=== PATIENT | female | born 1960 | race Caucasian/White ===

== ENCOUNTER 2017-05-31 01:48 | Inpatient (IN) | payer OTHER ==
[2017-05-31] VITALS (15 sets, daily range): BP systolic 86–203; BP diastolic 41–144; PULSE 80–99; TEMP 36.1–36.9; O2SAT 94–100; Ht 157.5 cm; Wt 48.6 kg
[~2017-05-31] VITALS: Ht 157.5 cm; Wt 48.6 kg
[2017-05-31] MEDS ORDERED: ACETAMINOPHEN 325 MG TAB PO PRN (10:45)
[2017-05-31] MEDS ORDERED: ONDANSETRON INJ 2 MG/ML 2 ML VIAL IV PRN (10:45)
[2017-05-31] MEDS ORDERED: POLYETHYLENE (MIRALAX) 17 GM PACK PO PRN (10:45)
[2017-05-31] MEDS ORDERED: LEVO1TAB33 PO (10:55)
[2017-05-31] MEDS ORDERED: BENZ100C84 PO (10:55)
[2017-05-31] MEDS ORDERED: CLON1TAB3 PO (10:55)
[2017-05-31] MEDS ORDERED: SYMIN (10:55)
[2017-05-31] MEDS ORDERED: RTL20 PO (10:55)
[2017-05-31] MEDS ORDERED: DPRSCR15 TOP (10:55)
[2017-05-31] MEDS ORDERED: FLUO20CA35 PO (10:55)
[2017-05-31] MEDS ORDERED: PRED10TA PO (10:55)
[2017-05-31] MEDS ORDERED: FNTTP100 TD (10:56)
[2017-05-31] MEDS ORDERED: SPIR50TA2 PO (10:56)
[2017-05-31] MEDS ORDERED: PATIENT'S ALLERGY INFO NEEDS ENTERED SCH (11:00)
[2017-05-31] MEDS ORDERED: FLUO1TAB12 PO (11:05)
[2017-05-31] MEDS ORDERED: METO1TAB55 PO (11:43)
[2017-05-31] MEDS ORDERED: FRS/40 PO (11:43)
[2017-05-31] MEDS ORDERED: METH10TA4 PO (11:43)
[2017-05-31] MEDS ORDERED: PROP10TA7 PO (11:43)
[2017-05-31] MEDS ORDERED: RIFA550T2 PO (11:43)
[2017-05-31] MEDS ORDERED: POTA1CAP2 PO (11:43)
[2017-05-31] MEDS ORDERED: MOME6000 (11:43)
[2017-05-31] MEDS ORDERED: METH20CA PO (11:43)
[2017-05-31] MEDS ORDERED: MAGN400T5 PO (11:43)
[2017-05-31] MEDS ORDERED: OMEP20TA PO (11:43)
[2017-05-31] MEDS ORDERED: ALBU18002 INH (11:53)
--- NOTE | 2017-05-31 12:10 | History and Physical ---
History & Physical Date & Time of Service: May 31, 2017 at 11:48 Chief Complaint: Sclerosis, Collapsed Rt Lung, Needs Bronch Primary Care Physician: Julian Padilla D.O. History of Present Illness Source: patient, family This is a 57 yo F with PMHx of HTN, esophageal varices, dysphagia, history of metabolic coma 2 last being 5 years ago, tobacco abuse disorder smoking 1-1/2 packs per day, chronic hepatitis C, chronic pancreatitis, history of liver tumor removal within the past year which was reported as benign, ADD, depression and anxiety who presents today after 1.5 weeks of increased shortness of breath, dyspnea on exertion, cough with minimal sputum production. The patient reports she has been using Symbicort and pro-air inhalers more often in the past 1 week. She denies other associated sx such as chest pain, flutter, palpitations. She was seen in urgent care center on 05/30/17 for increased shortness of breath and MARSH. At that time she was diagnosed with a right middle lobe pneumonia and given prescription for Levaquin, prednisone and Tessalon Perles. Patient reports she took one dose of Levaquin and one Tessalon Perles. Of note, she had bad reactions with prednisone in the past where she gets extremely irritable so did not take that. After being at urgent care, radiology re-read the report and noted that she had a right middle lobe lung collapse. It was thought this may be secondary to underlying infection, mucus plugging or malignancy.She was instructed to go back to the hospital. While at [facility] a CT of the chest with I/V contrast and CXR 2 view was obtained. [facility] on 05/30/2017 showed WBC= 4.4, hemoglobin=12 , platelets=98. Neutrophils were 73 and leukocytes 15. Sodium was 144, potassium 3.3, chloride 109 and CO2 27. Albumin 2.6 troponin was less than 0.02. The patient is being transferred to our facility from [facility] for needs for pulmonary intervention with possible bronchoscopy. Past Medical/Surgical History Metabolic coma 2 secondary to narcotic withdrawal Dysphasia Esophageal varices Chronic alcohol use disorder Chronic tobacco abuse Chronic hepatitis C Chronic pain syndrome Chronic narcotic use Pancreatitis History of tumor removal [facility] in the past 1 year History of previous tracheostomy History of esophageal stricture with occasional dilatation required Family History Maternal aunt-cervical cancer Mother-alcohol use Father-alcohol use Brother- alcohol use, COPD Sisters 2-alive and well, no PMH Social History Patient currently employed as a machinery cleaner Smoking Status: Current Every Day Smoker Smokeless Tobacco Use: No Alcohol Use: Drug Use: none Marital Status: (and from x 15 yr) Housing status: lives alone Allergies Coded Allergies: Amoxicillin (Verified Adverse Reaction, Intermediate, nausea, diarrhea, ) Clavulanic Acid (Verified Adverse Reaction, Intermediate, nausea, diarrhea , 05/31/17) Cefuroxime (Verified Adverse Reaction, Unknown, nausea, diarrhea, 05/31/17) Doxycycline (Verified Adverse Reaction, Unknown, nausea, diarrhea, 05/31/17 ) Morphine (Verified Adverse Reaction, Unknown, nausea, vomiting, 05/31/17) Home Medications Scheduled Albuterol Sulfate (Proair Respiclick), 2 PUFF INH BID Budesonide/Formoterol Fumarate (Symbicort 160-4.5 Mcg/Act), 2 PUFFS BID Clonazepam (Klonopin), 1 TAB PO BID Fentanyl (Fentanyl), 100 MCG TD Q2D Fluoxetine Hcl (Fluoxetine Hcl), 60 MG PO DAILY Furosemide (Lasix), 40 MG PO DAILY Magnesium Oxide (Mag-Ox), 1 TAB PO TID Methylphenidate (Ritalin), 10 MG PO TID Methylphenidate HCl (Methylphenidate HCl ER), 20 MG PO QAM Metoclopramide Hcl (Reglan), 0.5 TAB PO QID Mometasone Furoate (Nasal) (Mometasone Furoate), 2 SPRAY NA DAILY Omeprazole (Omeprazole), 2 TAB PO DAILY Potassium Chloride (Potassium Chloride Er), 2 CAP PO DAILY Propranolol (Inderal), 10 MG PO BID Rifaximin (Xifaxan), 550 MG PO BID Spironolactone (Aldactone), 50 MG PO DAILY Review of Systems Constitutional: No fever, No chills, No sweats Eyes: No redness, No diplopia ENT: No sore throat, No trouble swallowing Respiratory: + cough, + sputum, + wheezing, + shortness of breath, + dyspnea on exertion, No hemoptysis Cardiovascular: No chest pain, No edema Abdomen: No pain, No nausea, No vomiting, No diarrhea, No constipation Musculoskeletal: + problem reported (lower back pain), No joint pain, No swelling, No calf pain Neurologic: No memory loss, No numbness/tingling Psychiatric: + depression symptoms, + anxiety Endocrine: No fatigue Hematologic / Lymphatic: No abnormal bleeding/bruising, No night sweats Integumentary: No rash, No itch Physical Exam Vital Signs Date Time Temp Pulse Resp B/P (MAP) Pulse Ox O2 Delivery O2 Flow Rate FiO2 05/31/17 10:18 36.3 90 17 157/84 (108) 96 General Appearance: WD/WN, no apparent distress, + pertinent finding (smells of tobacco smoke) Head: normocephalic, atraumatic Eyes: PERRL, EOMI ENT: hearing grossly normal, pharynx normal, + pertinent finding (MMM) Neck: supple, no JVD Respiratory/Chest: + pertinent finding (on room air, coarse rhonchi and bronchial breath sounds throughout on the right, no wheezing. Breath sounds throughout on the left. Patient is not dyspneic with conversation. No accessory muscle use.) Cardiovascular: regular rate, rhythm, no JVD, no murmur Abdomen/GI: normal bowel sounds, soft, + pertinent finding (mild tenderness with palpation in the right upper quadrant) Back: normal inspection, no muscle spasm, + pertinent finding (no point tenderness) Extremities/Musculoskelatal: no calf tenderness, no pedal edema Neurologic/Psych: alert, normal mood/affect, oriented x 3 Skin: normal color, warm/dry, + pertinent finding (multiple excoriations over lower extremities) Diagnostics Laboratory Results Results Past 24 Hours Test 05/31/17 10:41 05/31/17 11:44 Range/Units Microbiology Results 05/31/17 Blood Culture, Ordered Pending 05/31/17 Blood Culture, Ordered Pending Diagnostic Radiology CT of the chest with IV contrast per chart Chest x-ray 2 view per chart Discus been sent from [facility]-and has been asked to be uploaded into the system - please refer EKG Normal sinus rhythm No signs of ST wave inversions or ischemia Heart rate 80 bpm PVR equals 144 QRS duration 84 QT/QTc 388/447 PRT axis 76, 77, 76 Impression Assessment and Plan This is a 57 yo F with PMHx of HTN, esophageal varices, dysphagia, history of metabolic coma 2 last being 5 years ago, tobacco abuse disorder smoking 1-1/2 packs per day, chronic hepatitis C, chronic pancreatitis, history of liver tumor removal within the past year which was reported as benign, who presents today after 1.5 weeks of increased shortness of breath, dyspnea on exertion, cough with minimal sputum production. Patient is a direct transfer from [facility] to our facility regarding a right middle lobe collapse Right middle lobe collapse -Admit to [facility] -Pulmonary consulted, spoke with Dr. Rowe at bedside, likely will be doing bronchoscopy today as the patient is nothing by mouth -Patient is currently on room air without use of accessory muscles -We will continue patient on Levaquin, mucolytic, aggressive pulmonary toilet Chronic tobacco abuse -Will order a 21 g nicotine patch -Encourage the patient to stop smoking Chronic hepatitis C Esophageal varices Liver cirrhosis Recurrent pancreatitis - Checking LFTs - Continue patient on Xifaxan, lactulose, propranolol - Patient follows with in [place] Dysphagia - Consider a speech evaluation she is here as patient reports having some difficulty with swallowing large pills - Continue Reglan Hypertension, essential - Continue propranolol 10 mg bid Anxiety/depression -Continue on Prozac 60 mg daily, Klonopin 10 mgbid prn ADD - Continue Ritalin ER 20 mg QAM and then short acting 10 mg TID as directed. - Follows with outpatient psych with [facility] History of liver tumor removal - Completed at [facility] within the past 1 year patient reports this was benign DVT PPI ask: Teds, SCDs CODE STATUS: full code Disposition: Patient from home, lives alone, but 15 years, possible bronchoscopy today. Possible discharge in 1-2 days pending pulm recs. PA Physician Supervision Note: I interviewed and examined the patient. Discussed with Kaylynn Duvall PAC and agree with findings and plan as documented in the note. Any exceptions or clarifications are listed here: None ' Patient was seen both pre-and post-bronchoscopy all questions were answered her ex- was at the bedside she was slightly groggy post procedure but states she is breathing better samples were obtained during her procedure and Dr. Rowe stated the patient has significant inflammation and concern for aspiration. 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 During the procedure her blood pressure was elevated subsequently she was given hydralazine subsequent to the procedure her blood pressure was lower. She is markedly thin in more mild distress likely having chronic COPD with accessory muscle use of breathing Lungs have coarse breath sounds in both wilkerson right greater than left cardiac exam is regular Pneumonia concern for aspiration continue levofloxacin adding clindamycin foam in memory medicine expertise waiting culture results Multiple other medical problems including psychological problems chronic hepatitis C esophageal varices we'll continue her outpatient meds as outlined in the above note Documented By: Gary Jim Level of Care Med/Surg Advanced Directives Existing Advance Directive: No Existing Living Will: No Existing Power of Crusher And Binder Operator: No Existing Health Care Proxy: No Resuscitation Status FULL RESUSCITATION VTE Prophylaxis VTE Risk Assessment Done? Y/N: Yes Risk Level: Low Given or contraindicated: T.EEvelia Martinez, SCD's
--- NOTE | 2017-05-31 12:15 | Procedure Note ---
Pre-Mod Sedation Assessment General Date of Moderate Sedation: May 31, 2017. Vital Signs: Vital Signs Past 12 Hours Date Time Temp Pulse Resp B/P (MAP) Pulse Ox O2 Delivery O2 Flow Rate FiO2 05/31/17 11:30 36.3 90 17 157/84 96 Room Air 05/31/17 10:18 36.3 90 17 157/84 (108) 96 Review Cardiovascular: regular rate, rhythm, no edema, normal peripheral pulses Abdomen: normal bowel sounds, non tender, soft, no organomegaly, no pulsatile mass Lungs: no respiratory distress, no accessory muscle use, + crackles Airway Class: II Pre-Sedation Airway Assessment Oral Cavity: Dentures Able to Visualize Vocal Cords: Yes Short Thick Neck: No Hx of Sleep Apnea: No Smoking Status: Current Every Day Smoker Mallampati Classification: Class II ASA Classification: Class III Procedure Planning Contraindications-for Mod Sed: None Yes Notes The planned sedation has been discussed with the patient and consent obtained. I have identified the patient, determined the appropriateness of sedation and have assessed the patient immediately prior to the procedure. All medicine(s) and interventions are by my order.
[2017-05-31 12:42] LABS: INR 1.2 (0.9-1.1); PARTIAL THROMBOPLASTIN RATIO 1.1; PROTHROMBIN TIME (PATIENT) 12.5 SECONDS (9.0-12.0)
[2017-05-31] MEDS ORDERED: LIDOCAINE HCL 2% LOCAL 50ML VIAL INFIL ONE (12:44)
[2017-05-31] MEDS ORDERED: MIDAZOLAM HCL 5 MG/ML 1 ML VIAL IV ONE ×2 (12:44→15:00)
[2017-05-31] MEDS ORDERED: FENTANYL CITRATE INJ 50 MCG/1 ML 2 ML VIAL IV ONE ×2 (12:44→15:00)
[2017-05-31] MEDS ORDERED: LIDOCAINE 4% W/AFRIN NASAL SOLN 4ML ONE (12:44)
--- NOTE | 2017-05-31 12:45 | Pulmonary Consultation ---
History General Date of Service: May 31, 2017. Stated Complaint: Sclerosis, Collapsed Rt Lung, Needs Bronch HPI The patient is a 57 year old female who presents to [facility] with complaints of Sclerosis, Collapsed Rt Lung, Needs Bronch. The patient's primary care provider is Julian Padilla D.O.. Ms. España is a 57-year-old female with history of alcohol abuse, alcoholic cirrhosis, esophageal varices, chronic thrombocytopenia, COPD (FEV1 unknown, Symbicort and pro-air), who presents as a direct admit from [facility]. Patient states that she has had 2-3 day history of worsening shortness of breath and dyspnea on exertion and nonproductive cough. She bent over and felt a "pop" sensation in her back. She has had back pain since associated with shortness of breath. She denies any lower extremity tingling, numbness, incontinence or lower extremity weakness. She denies any fever, chills, chest painhemoptysis or weight loss. She does admit to decreased appetite. She needs on the day. This is normal for her. She denies any lower extremity edema , paroxysmal dyspnea or orthopnea. She is history of anxiety and depression in use is Klonopin on an intermittent basis. Last use was yesterday. She drinks 1 -2 drinks per week of vodka. She also uses methylphenidate for ADD. She states that she's never seen a audio visual collections coordinator in the past, but was prescribed Symbicort and albuterol. She continues to smoke 2 packs per day. She has unlimited exercise tolerance. She denies any sick contacts or recent travel. Apparently she was seen at [facility] urgent care center and thought to have pneumonia of right middle lobe. Given Levaquin, prednisone and Tessalon Perles. Discharged home.Review of imaging, recalled back to hospital for further evaluation for right middle lobe atelectasis. She presents to our hospital for further evaluation. Laboratory from [facility] on 05/30/2017 showed a white blood cell count of 4.4, hemoglobin of 12, platelets of 98. Neutrophils were 73 and leukocytes 15. Sodium was 144, potassium 3.3, chloride 109 and CO2 27. Albumin 2.6 troponin was less than 0.02. Upon arrival to the ER temperature 36.3, pulse 90, respiratory rate 70, blood pressure 154/84 saturating 96% on room air. Labs pending. Imaging is being uploaded. EKG normal sinus rhythm 80 bpm. Historian: patient Onset: last week Complaint Status: persistent Quality of Pain: aching Modifying Factors: pain medication Review of Systems Constitutional: reports: as stated in HPI Eyes: reports: as stated in HPI ENT: reports: as stated in HPI Cardiovascular: reports: as stated in HPI Respiratory: reports: as stated in HPI Gastrointestinal: reports: as stated in HPI Genitourinary - Female: reports: as stated in HPI Musculoskeletal: reports: as stated in HPI Integumentary: reports: as stated in HPI Neurologic: reports: as stated in HPI Psychiatric: reports: as stated in HPI Endocrine: as stated in HPI Hematologic / Lymphatic: as stated in HPI All Other Symptoms All Other Systems: Reviewed and Negative Past Medical History Past Medical History: COPD FEV1 unknown Hepatitis C Alcohol cirrhosis Esophageal varices status post banding Esophageal stricture Chronic pancreatitis 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 Brother with COPD. Social History She works as a help desk representative. She drinks about 2 drinks of vodka per week. Previous heavy alcohol use. She denies any illicit drug use. She smokes about 2 packs per day started smoking at age 10. Approximate pack year history is 80 year pack history. She currently Hx Tobacco Use In Past Year?: Yes Smoking Status: Current Every Day Smoker Marital status: (and from x 15 yr) Housing status: lives alone Allergies Coded Allergies: Amoxicillin (Verified Allergy, Intermediate, nausea, diarrhea, 05/31/17) Clavulanic Acid (Verified Allergy, Intermediate, nausea, diarrhea, 05/31/17 ) Cefuroxime (Verified Allergy, Unknown, nausea, diarrhea, 05/31/17) Doxycycline (Verified Allergy, Unknown, nausea, diarrhea, 05/31/17) Morphine (Verified Allergy, Unknown, nausea, vomiting, 05/31/17) Current Medications Reported Home Medications Medications Dose Route/Sig Max Daily Dose Days Date Category Dose Instructions Proair Respiclick (Albuterol Sulfate) 108 Mcg/Act Aer 2 Puff INH BID 05/31/17 Reported Inderal (Propranolol HCl) 10 Mg Tab 10 Mg PO BID 05/31/17 Reported Mometasone Furoate (Mometasone Furoate (Nasal)) 50 Mcg/Act Spr 2 [place] NA DAILY 05/31/17 Reported Omeprazole 20 Mg Tab 2 Tab PO DAILY 90 05/31/17 Reported Potassium Chloride Er (Potassium Chloride) 10 Meq Cap 2 Cap PO DAILY 90 05/31/17 Reported Mag-Ox (Magnesium Oxide) 400 Mg Tab 1 Tab PO TID 30 05/31/17 Reported Lasix (Furosemide) 40 Mg Tab 40 Mg PO DAILY 05/31/17 Reported Reglan (Metoclopramide Hcl) 10 Mg Tab 0.5 Tab PO QID 30 05/31/17 Reported Xifaxan (Rifaximin) 550 Mg Tab 550 Mg PO BID 30 05/31/17 Reported Ritalin (Methylphenidate HCl) 10 Mg Tab 10 Mg PO TID 05/31/17 Reported 10 am, 2 pm, and 6 pm Methylphenidate HCl ER (Methylphenidate HCl) 20 Mg Cap 20 Mg PO QAM 05/31/17 Reported Fluoxetine Hcl 20 Mg Tab 60 Mg PO DAILY 05/31/17 Reported Aldactone (Spironolactone) 50 Mg Tab 50 Mg PO DAILY 30 05/31/17 Reported Fentanyl 100 Mcg Tdsy 100 Mcg TD Q2D 05/31/17 Reported Klonopin (Clonazepam) 1 Mg Tab 1 Tab PO BID 30 05/31/17 Reported Symbicort 160-4.5 Mcg/Act (Budesonide/Formoterol Fumarate) 60 Puffs/Inhaler Aero 2 Puffs BID 05/31/17 Reported Physical Physical Exam Vital Signs: Date Time Temp Pulse Resp B/P (MAP) Pulse Ox O2 Delivery O2 Flow Rate FiO2 05/31/17 11:30 36.3 90 17 157/84 96 Room Air 05/31/17 10:18 36.3 90 17 157/84 (108) 96 General Appearance: NO APPARENT DISTRESS, uncomfortable Head: NORMOCEPHALIC, ATRAUMATIC Eyes: PERRLA, NO DISCHARGE, EOMI, SCLERAE NORMAL, CONJUNCTIVAE NORMAL ENT: NORMAL MOUTH EXAM, dentures Neck: NORMAL RANGE OF MOTION, NO TENDERNESS, TRACHEA MIDLINE, NO STRIDOR, SUPPLE Respiratory: NO RESPIRATORY DISTRESS, NO TENDERNESS, rhonchi Cardiovasular: REGULAR RATE/RHYTHM, NORMAL S1S2 Abdomen: NON TENDER, NORMAL BOWEL SOUNDS, NO REBOUND Back: NORMAL INSPECTION, NO MIDLINE TENDERNESS, NO CVA TENDERNESS Upper Extremities: NO EDEMA, NO DEFORMITY, NORMAL ROM Lower Extremities: NO EDEMA, NO DEFORMITY, NORMAL ROM Neuro: ALERT, ORIENTED x 3, NORMAL MOTOR EXAM, NORMAL SENSATION, NORMAL CEREBELLAR EXAM, NORMAL SPEECH, NORMAL MEMORY Psychiatric: NORMAL AFFECT, NO SUICIDAL IDEATION, CONTRACTS FOR SAFETY Diagnostics Labs Results Past 24 Hours Test 05/31/17 10:41 05/31/17 11:44 Range/Units Microbiology Results 05/31/17 Blood Culture, Ordered Pending 05/31/17 Blood Culture, Ordered Pending Impression Assessment and Plan Right middle lobe atelectasis COPD FEV1 unknown Tobacco use disorder Anxiety disorder ADD History of alcohol abuse Hepatitis C Esophageal varices Esophageal stricture Chronic thrombocytopenia Back pain Ms. España is a 57-year-old female with multiple medical problems. She presents as a direct admit from [facility]. She has had several day history of shortness of breath and dyspnea on exertion. Imaging showed possible right middle lobe pneumonia. She was treated with antibiotics and discharge however on further review was thought to have right middle lobe atelectasis and collapse. This may be secondary to underlying infection, mucus plugging or malignancy. She was transferred for further evaluation and possible bronchoscopy. I reviewed patient's medical history and images as well as laboratory data. Consent obtained for moderate sedation as well as bronchoscopy. She is currently nothing by mouth. Continue with Levaquin for possible pneumonia. I would hold off on prednisone. Smoking Cessation advised. Recommend nicotine patch. Continue with inhaled corticosteroids and nebulizers. She may need further imaging to evaluate for back pain. Provide adequate pain control as she is likely splinting from pain. Recommend incentive spirometry. Continue PPI as well as nasal spray. Use supplemental oxygen when necessary if needed. Aspiration precautions. In the meantime, we'll proceed with bronchoscopy, pending follow-up labs and imaging. Please continue to keep her nothing by mouth. Plan for bronchoscopy at [address] Plan [address] with Dr[address] Jim.
[2017-05-31] MEDS: NICOTINE 21 MG/24 HR TDSY TD SCH (12:57)
[2017-05-31] MEDS: METOCLOPRAMIDE HCL 5 MG TAB PO SCH ×3 (12:57→20:42)
[2017-05-31 12:58] LABS: CALCIUM 8.7 mg/dl (8.5-10.1); CREATININE 0.58 mg/dl (0.60-1.20)
[2017-05-31 13:00] LABS: BASO % 0.5 %; BASO ABS # 0.02 K/uL (0-0.2); COMPLETE YES; EOS % 1.8 %; HEMATOCRIT 38.8 % (37-47); IG% 0.2 %; LYMPH % 17.1 %; LYMPH ABS # 0.74 K/uL (1.2-3.4); MEAN CELL VOLUME 92.4 fL (80-100); MEAN CORPUSCULAR HEMOGLOBIN 31.4 pg (25-34); MEAN PLATELET VOLUME 12.3 fL (7.4-10.4); MONO % 8.8 %; NEUT % 71.6 %; PLATELET COUNT 106 K/uL (130-400); PLT ESTIMATE DECREASED; WHITE BLOOD COUNT 4.33 K/uL (4.8-10.8)
[2017-05-31 13:08] LABS: URINE APPEARANCE CLEAR (CLEAR); URINE BILIRUBIN NEG (NEG); URINE COLOR YELLOW; URINE NITRITE NEG (NEG); URINE SPECIFIC GRAVITY 1.019 (1.000-1.030); UROBILINOGEN NEG (NEG); ZZUR CULT IF INDIC CLEAN CATCH NO
[2017-05-31 13:09] LABS: MANUAL MICROSCOPIC REQUIRED? NO; REVIEW REQ? NO
[2017-05-31] MEDS ORDERED: INFLUENZA ADMINISTRATION CHARGE ONE (13:15)
[2017-05-31] MEDS ORDERED: INFLUENZA VIRUS QUAD VACCINE 0.5 ML SYR IM. ONE (13:15)
[2017-05-31 13:35] LABS: BENZODIAZEPINE, URINE NEG (NEG); COCAINE,URINE NEG (NEG); PHENCYCLIDINE, URINE NEG (NEG)
[2017-05-31] MEDS ORDERED: LEVOFLOXACIN / D5W 750 MG in PREMIXED IN D5W 150 ML IV SCH (14:00)
[2017-05-31] MEDS ORDERED: METHYLPHENIDATE HCL 10 MG TAB PO SCH (14:00)
[2017-05-31] MEDS ORDERED: HydrALAZINE HCL 20 MG/ML VIAL ONE (14:38)
--- NOTE | 2017-05-31 14:41 | Procedure Note ---
Pre-Mod Sedation Assessment General Date of Moderate Sedation: May 31, 2017. Vital Signs: Vital Signs Past 12 Hours Date Time Temp Pulse Resp B/P (MAP) Pulse Ox O2 Delivery O2 Flow Rate FiO2 05/31/17 12:02 36.3 90 17 157/84 96 Room Air 05/31/17 11:30 36.3 90 17 157/84 96 Room Air 05/31/17 10:18 36.3 90 17 157/84 (108) 96 Review Cardiovascular: regular rate, rhythm, no edema, normal peripheral pulses Abdomen: normal bowel sounds, non tender, soft, no organomegaly, no pulsatile mass Lungs: no respiratory distress, no accessory muscle use, + crackles Airway Class: II Pre-Sedation Airway Assessment Oral Cavity: Dentures Able to Visualize Vocal Cords: Yes Short Thick Neck: No Hx of Sleep Apnea: No Smoking Status: Current Every Day Smoker Notes The planned sedation has been discussed with the patient and consent obtained. I have identified the patient, determined the appropriateness of sedation and have assessed the patient immediately prior to the procedure. All medicine(s) and interventions are by my order.
[2017-05-31] MEDS ORDERED: NURSING VERBAL MED ORDER ONE (14:45)
--- NOTE | 2017-05-31 14:47 | Procedure Note ---
Procedure Note Date of Service May 31, 2017. Procedure Note Procedure: Bronchoscopy, conscious sedation Consent: Obtained through the patient placed into the chart Pre-procedural diagnosis: RML atelectasis Post-procedural diagnosis: Pneumonia Start time: 1414 End time: 1430 Total time: 16 minutes Analgesia: 2% liquid lidocaine: Via nebulizer 4% gel lidocaine: Via right naris 2% liquid lidocaine: Via bronchoscopy Sedation: Versed IV: 4 mg Fentanyl IV: 100 g Procedure: The Olympus video bronchoscope was used for this procedure and passed down through the left naris Right naris/posterior naris/posterior oropharynx: Anatomically within normal limits Glottis: Anatomically within normal limits Vocal cords: Proper abduction and abduction, anatomically within normal limits Subglottis/trachea/Marla: Anatomically within normal limits Right bronchial tree: Right mainstem bronchus: Anatomically within normal limits Right upper lobe: Anatomically within normal limits Bronchus intermedius: Anatomically within normal limits Right middle lobe: Anatomically within normal limits Right lower lobe: Anatomically within normal limits Findings: Mucopurulent secretions throughout; No endobronchial lesions seen. Suctioned until clear Left bronchial tree: Left mainstem bronchus: Anatomically within normal limits Left upper lobe: Anatomically within normal limits Lingula: Anatomically within normal limits Left lower lobe: Anatomically within normal limits Findings: Mucopurulent secretions throughout; No endobronchial lesions seen. Suctioned until clear. Bronchial alveolar lavage: RML EBL: Complications: Elevated BP 220/110, given hydralazine 10 mg. Recommendations: Treat for pneumonia. Follow up BAL cultures.
[2017-05-31] MEDS: CHECK FENTANYL PATCH PLACEMENT SCH ×2 (15:29→23:54)
--- NOTE | 2017-05-31 15:29 | DIAGNOSTIC IMAGING REPORT ---
CHEST ONE VIEW PORTABLE CLINICAL HISTORY: Pneumonia dyspnea COMPARISON STUDY: No previous studies for comparison. FINDINGS: Poorly defined interstitial infiltrate right base. Lungs otherwise appear clear. Diaphragms are smooth. IMPRESSION: Poorly defined interstitial infiltrate right base. The above report was generated using voice recognition software. It may contain grammatical, syntax or spelling errors. Electronically signed by: Lane Kim M.D. 05/31/2017 3:28 PM Dictated Date/Time: 05/31/2017 3:27 PM
[2017-05-31] MEDS ORDERED: POTASSIUM CHLORIDE 20 MEQ TABCR PO STA (15:33)
[2017-05-31] MEDS: POTASSIUM CHLR 10 MEQ / WTR 10 MEQ in PREMIXED WATER 100 ML IV SCH ×2 (16:59→21:24)
[2017-05-31] MEDS ORDERED: ALBUT/IPRATROP 3MG/0.5MG NEB 3 ML VIAL INH PRN (17:00)
[2017-05-31] MEDS: METHYLPHENIDATE HCL 10 MG TAB PO SCH ×2 (17:08→18:00)
[2017-05-31] MEDS: MAGNESIUM OXIDE 400 MG TAB PO SCH ×2 (17:08→20:42)
[2017-05-31] MEDS: CLINDAMYCIN HCL 150 MG CAP PO SCH (17:08)
[2017-05-31] MEDS: ALBUTEROL HFA 8 GM INHALER INH SCH (20:38)
[2017-05-31] MEDS: BUDESONIDE/FORMOTEROL FUMARATE 160/4.5 60 PUFFS/INHALER INH SCH (20:39)
[2017-05-31] MEDS: RIFAXIMIN TAB 550 MG TAB PO SCH (20:42)
[2017-05-31] MEDS: GUAIFENESIN 600 MG TABCR PO SCH (20:42)
[2017-05-31] MEDS: PROPRANOLOL HCL 10 MG TAB PO SCH (20:42)
[2017-05-31] MEDS: CLONAZEPAM 1 MG TAB PO SCH (22:43)
[2017-06-01] VITALS: O2SAT 96
[2017-06-01] MEDS: CLINDAMYCIN HCL 150 MG CAP PO SCH ×3 (00:02→12:25)
[2017-06-01 00:07] VITALS: BP 139/78; PULSE 73; TEMP 36.7; O2SAT 100
[2017-06-01] MEDS ORDERED: LEVO-459 PO (07:15)
[2017-06-01] MEDS ORDERED: CLC/300 PO (07:15)
--- NOTE | 2017-06-01 07:16 | Discharge Instructions ---
Discharge Instructions Date of Service Jun 01, 2017. Admission Reason for Admission: Sclerosis, Collapsed Rt Lung, Needs Bronch Discharge Discharge Diagnosis / Problem: pneumonia Discharge Goals Goal(s): Diagnostic testing, Therapeutic intervention Activity Recommendations Activity Limitations: as noted below Lifting Limitations: gradually increase as tolerated . Current Hospital Diet Patient's current hospital diet: Low Sodium Diet (2gm Na) Discharge Diet Recommended Diet: Regular Diet Pending Studies Studies pending at discharge: no Medical Emergencies . Who to Call and When: Medical Emergencies: If at any time you feel your situation is an emergency, please call 911 immediately. . Non-Emergent Contact Non-Emergency issues call your: Primary Care Provider, Air Traffic Coordinator Call Non-Emergent contact if: temperature is above 101, your pain is unusual for you . . "Provider Documentation" section prepared by Gary Jim. . VTE Core Measure Inpt VTE Proph given/why not?: Lorenza Martinez, SCD's
[2017-06-01 07:26] VITALS: BP 146/84; PULSE 79; TEMP 36.6; O2SAT 94
[2017-06-01 07:54] LABS: HEMATOCRIT 40.9 % (37-47); MEAN CELL VOLUME 93.2 fL (80-100); MEAN CORPUSCULAR HGB CONC 33.3 g/dl (32-36); PLATELET COUNT 105 K/uL (130-400); RED BLOOD COUNT 4.39 M/uL (4.2-5.4); WHITE BLOOD COUNT 8.19 K/uL (4.8-10.8)
[2017-06-01 07:56] LABS: BASO % 0.4 %; BASO ABS # 0.03 K/uL (0-0.2); COMPLETE YES; ECHINOCYTES 1+; EOS % 0.7 %; IG% 0.1 %; LYMPH % 9.8 %; MONO % 4.5 %; NEUT % 84.5 %; PLT ESTIMATE DECREASED
[2017-06-01] MEDS ORDERED: PANTOprazole SOD 40 MG TAB PO SCH (08:00)
[2017-06-01] MEDS ORDERED: SPIRONOLACTONE 25 MG TAB PO SCH (08:00)
[2017-06-01] MEDS ORDERED: POTASSIUM CHLORIDE 20 MEQ TABCR PO SCH (08:00)
[2017-06-01] MEDS ORDERED: FLUTICASONE PROPIONATE NA SPR 16 GM BTL SCH (08:00)
[2017-06-01] MEDS ORDERED: FUROSEMIDE 40 MG TAB PO SCH (08:00)
[2017-06-01] MEDS: CLONAZEPAM 1 MG TAB PO SCH (08:00)
[2017-06-01] MEDS ORDERED: FLUOXETINE HCL 20 MG CAP PO SCH (08:00)
[2017-06-01 08:09] LABS: BUN/CREATININE RATIO 22.5 (10-20); CALCIUM 8.2 mg/dl (8.5-10.1); CREATININE 0.67 mg/dl (0.60-1.20); POTASSIUM 3.5 mmol/L (3.5-5.1)
[2017-06-01] MEDS ORDERED: FENTANYL PATCH REMOVE & WASTE SCH (08:59)
[2017-06-01] MEDS ORDERED: FENTANYL 100 MCG/HR TDSY TD SCH (09:00)
[2017-06-01] MEDS: BUDESONIDE/FORMOTEROL FUMARATE 160/4.5 60 PUFFS/INHALER INH SCH (09:14)
[2017-06-01] MEDS: ALBUTEROL HFA 8 GM INHALER INH SCH (09:15)
[2017-06-01] MEDS: CHECK FENTANYL PATCH PLACEMENT SCH (09:16)
[2017-06-01] MEDS: PROPRANOLOL HCL 10 MG TAB PO SCH (09:19)
[2017-06-01] MEDS: RIFAXIMIN TAB 550 MG TAB PO SCH (09:19)
[2017-06-01] MEDS: MAGNESIUM OXIDE 400 MG TAB PO SCH (09:20)
[2017-06-01] MEDS: METOCLOPRAMIDE HCL 5 MG TAB PO SCH ×2 (09:21→12:24)
[2017-06-01] MEDS: GUAIFENESIN 600 MG TABCR PO SCH (09:21)
[2017-06-01] MEDS: NICOTINE 21 MG/24 HR TDSY TD SCH (09:22)
[2017-06-01] MEDS: METHYLPHENIDATE HCL 10 MG TAB PO SCH (10:23)
[2017-06-01 11:00] VITALS: BP 146/84; PULSE 79; TEMP 36.6; O2SAT 94
--- NOTE | 2017-06-01 12:39 | Discharge Summary ---
Discharge Summary Date of Service Jun 01, 2017. Discharge Summary Admission Date: May 31, 2017 at 09:10 Discharge Date: Jun 01, 2017 Discharge Disposition: Home Principal Diagnosis: pneumonia Medication Reconciliation New Medications: Levofloxacin (Levaquin) 500 Mg Tab 750 MG PO DAILY, #10 DOSE please dispense 750 tabs or enough 500's to make a 10 day supply Clindamycin HCl (Clindamycin HCl) 300 Mg Cap 1 CAP PO TID for 7 Days, #30 CAP Continued Medications: Albuterol Sulfate (Proair Respiclick) 108 Mcg/Act Aer 2 PUFF INH BID Budesonide/Formoterol Fumarate (Symbicort 160-4.5 Mcg/Act) 60 Puffs/Inhaler Aero 2 PUFFS BID Clonazepam (Klonopin) 1 Mg Tab 1 TAB PO BID for 30 Days, #60 TAB 1 Refill Fentanyl (Fentanyl) 100 Mcg Tdsy 100 MCG TD Q2D Fluoxetine Hcl (Fluoxetine Hcl) 20 Mg Tab 60 MG PO DAILY Furosemide (Lasix) 40 Mg Tab 40 MG PO DAILY Magnesium Oxide (Mag-Ox) 400 Mg Tab 1 TAB PO TID for 30 Days, #90 TAB 5 Refills Methylphenidate (Ritalin) 10 Mg Tab 10 MG PO TID, TAB 10 am, 2 pm, and 6 pm Methylphenidate HCl (Methylphenidate HCl ER) 20 Mg Cap 20 MG PO QAM Metoclopramide Hcl (Reglan) 10 Mg Tab 0.5 TAB PO QID for 30 Days, #60 TAB Mometasone Furoate (Nasal) (Mometasone Furoate) 50 Mcg/Act Spr 2 SPRAY NA DAILY Omeprazole (Omeprazole) 20 Mg Tab 2 TAB PO DAILY for 90 Days, #180 TAB 1 Refill Potassium Chloride (Potassium Chloride Er) 10 Meq Cap 2 CAP PO DAILY for 90 Days, #180 CAP 1 Refill Propranolol (Inderal) 10 Mg Tab 10 MG PO BID, TAB Rifaximin (Xifaxan) 550 Mg Tab 550 MG PO BID for 30 Days, #60 TAB Spironolactone (Aldactone) 50 Mg Tab 50 MG PO DAILY for 30 Days, #30 TAB 3 Refills Discharge Exam Review of Systems: Constitutional: + weakness, No fever, No chills Respiratory: + cough, + sputum, + dyspnea on exertion, No dyspnea at rest Cardiovascular: No chest pain, No edema Physical Exam: General Appearance: WD/WN, + mild distress Eyes: PERRL, EOMI Respiratory/Chest: chest non-tender, no respiratory distress Cardiovascular: regular rate, rhythm, no murmur Neurologic/Psychiatric: alert, oriented x 3 Hospital Course This is a 57 yo F referred as direct admission for bronchoscopy due to pneumonia and RML collapse, did have Bronchoscopy 05/31 and only secretions noted Right middle lobe collapse -Pulmonary consulted, Dr. Rowe perfromed bronchoscopy 05/31, confirms secretions and pneumonia concern for aspiration as has some esophageal stricture issues at times will have home on levaquin and clindamycin will follow with DR Whitt and Devendra Thao PAC in [place], may benefit from outpt speech eval Chronic tobacco abuse counselled on cessation Chronic hepatitis C, Esophageal varices Liver cirrhosis, Recurrent pancreatitis -Follows with Petr TAYLOR in [place], Xifaxan, lactulose, propranolol History of liver tumor removal - Completed at [facility] within the past 1 year patient reports this was benign Hypertension, propranolol 10 mg bid Anxiety/depressionpt has much anxiety does see outpt councellor Prozac 60 mg daily, Klonopin 10 mgbid prn ADD not sure of this treatment with her anxiety but states her psychiatrist is approving Ritalin ER 20 mg QAM and then short acting 10 mg TID as directed. CODE STATUS: full code Disposition: home with support short term follow up with pulmonary med in [place] Total Time Spent: Greater than 30 minutes This includes examination of the patient, discharge planning, medication reconciliation, and communication with other providers. Discharge Instructions Please refer to the electronic Patient Visit Report (Discharge Instructions) for additional information.
[2017-06-02 23:10] LABS: COD UR NEGATIVE NG/ML (CUTOFF=50); HYDROCOD UR NEGATIVE NG/ML (CUTOFF=50); HYDROMOR UR NEGATIVE NG/ML (CUTOFF=50); MORPHINE UR NEGATIVE NG/ML (CUTOFF=50); NORHYDROCODONE CONF UR NEGATIVE NG/ML (CUTOFF=50); OXYMORPH UR 96 NG/ML (CUTOFF=50)
== END 2017-06-01 12:45 | disposition home or self-care (01) | DRG 194 ==
LOC: C.MED 09:10 → C.MS4W 21:52
PROVIDERS: ADMIT Internal Medicine; ATTEND Internal Medicine
DX: J18.9 Pneumonia, unspecified organism (principal); J98.19 Other pulmonary collapse; I10 Essential (primary) hypertension; G89.4 Chronic pain syndrome; F17.200 Nicotine dependence, unspecified, uncomplicated; B18.2 Chronic viral hepatitis C; F90.9 Attention-deficit hyperactivity disorder, unspecified type; F41.9 Anxiety disorder, unspecified; F32.9 Major depressive disorder, single episode, unspecified

== ENCOUNTER 2017-08-06 06:35 | Day surgery (SDC) | payer OTHER ==
--- NOTE | 2017-08-05 18:46 | History and Physical ---
History & Physical Date of Service Aug 05, 2017. History & Physical 57-year-old female here for bronchoscopic evaluation of continued cough with recent history of right middle lobe atelectasis/collapse and right lower lobe possible aspiration with infiltrative process seen via CT scan on 05/30/2017. Patient did undergo bronchoscopy by Dr. Emmanuelle patricia on 05/31/2017 with notable mucopurulent secretions throughout the right bronchial tree as well as a left bronchial tree with no noted endobronchial lesions. A BAL was performed of the right middle lobe and grew out MSSA. She state that she was in the hospital about 6 weeks ago with pneumonia. She is still feeling fatigued and has a cough, mostly dry cough. She is using her nebulizer daily. She is taking medications as listed/sc She still smoking and I think still drinking. She is scheduled for endoscopy with Dr. Suzie Pozo/GI specialist in [facility] for possible esophageal stricture she definitely has varices and they may need to be injected. She is having some dysphagia symptoms. I do not think she is aspirating but she may be. Recent CT of the chest on 07/30/2017 shows dramatic improvement the right middle lobe. As compared to the CT on 05/30/2017 Smoking History: MELINDA is a current every day smoker. She averages of 1 pack(s) of cigarettes per day. She began smoking at age 10. Medical History: Patient has no personal history of cancer. Patient has history of COPD. Occupational History: MELINDA has a history of occupational exposures to: - Asbestos: NO - Nickel: NO - Chromium: NO MELINDA does not have a history of radon exposure. Active Problems 1. Alcoholism (F10.20) 2. Bilateral pneumonia (J18.9) 3. Chronic hepatitis (K73.9) 4. Chronic pain (G89.29) 5. Pneumonia of right middle lobe due to methicillin susceptible Staphylococcus aureus (MSSA) 6. SOB (shortness of breath) (R06.02) 7. Esophageal stricture 8. Possible esophageal varices Current Meds 1. Ipratropium-Albuterol 0.5-2.5 (3) MG/3ML Inhalation Solution; USE 1 UNIT DOSE IN NEBULIZER 4 2. Ipratropium-Albuterol 0.5-2.5 (3) MG/3ML Inhalation Solution; USE 1 UNIT DOSE IN NEBULIZER 4 3. FentaNYL 100 MCG/HR Transdermal Patch 72 Hour; APPLY 1 PATCH EVERY 3 DAYS; 4. FLUoxetine HCl - 20 MG Oral Tablet; TAKE 1 TABLET DAILY; 5. Furosemide 20 MG Oral Tablet; TAKE 1 TABLET DAILY NEEDED; 6. KlonoPIN 1 MG Oral Tablet; Take one tablet every 6 hours as needed; 7. Lactulose 10 GM/15ML Oral Solution; TAKE 15 ML DAILY; 8. MagOx 400 400 (241.3 Mg) MG Oral Tablet; TAKE ONE TABLET BY MOUTH DAILY; 9. Nasonex 50 MCG/ACT Nasal Suspension; 1 TO 2 SPRAYS INTO EACH NOSTRIL DAILY; 10. OxyCODONE HCl - 5 MG Oral Tablet; TAKE 1 TABLET EVERY 6 HOURS NEEDED 11. PriLOSEC 10 MG Oral Packet; MIX THE CONTENTS OF 1 PACKET IN 15ML OF WATER 12. Propranolol HCl ER 80 MG Oral Capsule Extended Release 24 Hour; TAKE ONE EVERY DAY 13. Reglan 5 MG Oral Tablet; TAKE 1 TABLET 3 TIMES DAILY; 14. Ritalin 20 MG Oral Tablet; TAKE 1 TABLET 3 TIMES DAILY BEFORE MEALS; 15. Spironolactone 50 MG Oral Tablet; TAKE 1 TABLET DAILY; 16. Symbicort 160-4.5 MCG/ACT Inhalation Aerosol; INHALE 2 PUFFS TWICE DAILY. RINSE 17. Ventolin HFA 108 (90 Base) MCG/ACT Inhalation Aerosol Solution; INHALE 2 PUFFS EVERY 4 HOURS 18. Xifaxan 550 MG Oral Tablet; Allergies 1. Clarithromycin TABS 2. Macrolides 3. Morphine Derivatives Vitals Vital Signs Recorded: 23Jul2017 11:30AM Height: 5 ft 2 in Weight: 119 lb BMI Calculated: 21.77 BSA Calculated: 1.53 Respiration: 18 Heart Rate: 73 O2 Saturation: 96, RA Temperature: 98 F Blood Pressure: 110 / 68, LUE, Sitting Physical Exam Constitutional General appearance: No acute distress, well appearing and well nourished. Eyes Conjunctiva and lids: No swelling, erythema or discharge. Pupils and irises: Equal, round and reactive to light. Ears, Nose, Mouth, and Throat External inspection of ears and nose: Normal. Otoscopic examination: Tympanic membranes translucent with normal light reflex. Canals patent without erythema. Oropharynx: Normal with no erythema, edema, exudate or lesions. Pulmonary Respiratory effort: No increased work of breathing or signs of respiratory distress. Auscultation of lungs: Abnormal. Scattered rhonchi right mid axillary region. Cardiovascular Palpation of heart: Normal PMI, no thrills. Auscultation of heart: Normal rate and rhythm, normal S1 and S2, without murmurs. Examination of extremities for edema and/or varicosities: Normal. Abdomen Abdomen: Non-tender, no masses. Liver and spleen: No hepatomegaly or splenomegaly. Lymphatic Palpation of lymph nodes in neck: No lymphadenopathy. Musculoskeletal Gait and station: Normal. Digits and nails: Normal without clubbing or cyanosis. Inspection/palpation of joints, bones, and muscles: Normal. Skin Skin and subcutaneous tissue: Normal without rashes or lesions. Neurologic Cranial nerves: Cranial nerves 2-12 intact. Reflexes: 2+ and symmetric. Sensation: No sensory loss. Psychiatric Orientation to person, place, and time: Normal. Mood and affect: Normal.
[~2017-08-06] VITALS: Ht 160 cm; Wt 51.5 kg
[~2017-08-06 06:35] MED LIST: ALBU18002 INH; CLON1TAB3 PO; FLUO1TAB12 PO; FNTTP100 TD; FRS/40 PO; LEVO-459 PO; MAGN400T5 PO; METH10TA4 PO; METH20CA PO; METO1TAB55 PO; MOME6000; OMEP20TA PO; POTA1CAP2 PO; PROP10TA7 PO; RIFA550T2 PO; SPIR50TA2 PO; SYMIN
[2017-08-06 07:03] VITALS: BP 158/81; PULSE 81; TEMP 36.5; O2SAT 97; Ht 160 cm; Wt 51.5 kg
--- NOTE | 2017-08-06 07:35 | Pre Sedation Assessment ---
Pre Sedation Assessment General Date of Sedation: Aug 06, 2017. Vital Signs Past 12 Hours Date Time Temp Pulse Resp B/P (MAP) Pulse Ox O2 Delivery O2 Flow Rate FiO2 08/06/17 07:03 36.5 81 2 158/81 (106) 97 Room Air Review Cardiovascular: regular rate, rhythm, no edema, no gallop, no JVD, no murmur, normal peripheral pulses Lungs: chest non-tender, lungs clear, normal breath sounds, no respiratory distress, no accessory muscle use Pre-Sedation Airway Assessment Smoking Status: Current Every Day Smoker Hx of Sleep Apnea: No Hx of difficult intubation: No Short Thick Neck: No Thyro-mental Distance: > 3 Finger Breadths Oral Cavity: WNL Mallampati Classification: Class II ASA Classification: Class II Procedure Planning Contraindications for Sedation: None Current Medications Reviewed: Yes Notes The planned sedation has been discussed with the patient. Informed Consent was obtained. I have identified the patient, determined the appropriateness of sedation and have assessed the patient immediately prior to the procedure. All medicine(s) and interventions are by my order.
--- NOTE | 2017-08-06 08:06 | History & Physical Bridge Note ---
H&P Re-Evaluation Bridge Note: I have examined the patient, reviewed the History & Physical and in the interval since the performance of the History & Physical I have noted the following changes of clinical significance: No changes noted
[2017-08-06] MEDS ORDERED: LIDOCAINE 4% INH SOLN 4 ML BTL NEB ONE (08:14)
[2017-08-06] MEDS ORDERED: NURSING VERBAL MED ORDER ONE (08:15)
[2017-08-06] MEDS ORDERED: LIDOCAINE VISCOUS 2% 100ML TOP ONE (08:30)
[2017-08-06] MEDS ORDERED: LIDOCAINE HCL 2% LOCAL 50ML VIAL INSTIL ONE (08:35)
[2017-08-06] MEDS ORDERED: MIDAZOLAM HCL 5 MG/ML 1 ML VIAL IV ONE (08:37)
[2017-08-06] MEDS ORDERED: FENTANYL CITRATE INJ 50 MCG/1 ML 2 ML VIAL IV ONE (08:39)
[2017-08-06] MEDS ORDERED: DEXTROSE 5% 1000ML 1,000 ML IV SCH (08:45)
--- NOTE | 2017-08-06 08:49 | Post Sedation Assessment ---
Post Sedation Assessment General Date of Sedation Aug 06, 2017. Vital Signs: Vital Signs Past 12 Hours Date Time Temp Pulse Resp B/P (MAP) Pulse Ox O2 Delivery O2 Flow Rate FiO2 08/06/17 08:45 88 16 136/82 100 Mask 8 08/06/17 08:40 84 16 143/83 100 Mask 8 08/06/17 08:35 89 16 116/84 97 Mask 8 08/06/17 08:30 86 16 132/81 100 Mask 8 08/06/17 08:25 84 16 132/89 100 Mask 8 08/06/17 08:20 80 16 154/89 100 Mask 8 08/06/17 07:03 36.5 81 2 158/81 (106) 97 Room Air Post Procedure Recovery Score Activity: (2) Moves 4 extremities * Respiration: (2) Deep breath/cough Circulation: (2) +/-20% PreAnes Value Consciousness: (1) Arouseable (by name) Oxygen Saturation: (1) O2 needed for >90% Post Anesthesia Score: 8 Discharge Sedation Level of Care: Phase I Post Sedation Plan On clinical assessment, the patient appears to have tolerated the sedation without complications. Patient is recovering as anticipated. Patient will continue to be monitored by nursing and may be discharged when sedation discharge criteria are met per below protocol. Upon Completions of procedure and additional 15 minutes continue every 5 minute vital signs and the P.A.R. score; then discharge to a Phase I or Fast Track to Phase II per the following guidelines: * Discharge Patient to appropriate Phase II area if PAR is 8 or greater or return to pre- procedure baseline. The post - procedure orders will be as directed. * If PAR score is less than 8 or not return to pre-procedure baseline then patient will follow Phase I monitoring till PAR is reached for Phase II. The Phase I may be done in procedure room or may call to secure a Phase I area. * If naloxone or flumazenil are used for reversal, hold in Phase I for an additional 60 -120 minutes before discharge to Phase II. Please call the Sedation Physician to re-evaluate and complete post-note for discharge to Phase II area. Do NOT discharge from procedure sedation or Phase 1 until post- sedation evaluation note is complete by procedure /sedation MD Sedation Discharge Instructions to be given to the patient at discharge to home.
--- NOTE | 2017-08-06 08:51 | Bronchoscopy Procedure Note ---
Bronchoscopy Procedure Note Procedure: Bronchoscopy, conscious sedation, bronchial lavage right middle lobe Consent: Obtained through the patient placed into the chart Pre-procedural diagnosis: Chronic cough Post-procedural diagnosis: Chronic cough Start time: 833 End time: 842 Total time: 9minutes Analgesia: 2% liquid lidocaine: Via nebulizer 4% gel lidocaine: Via right naris 2% liquid lidocaine: Via bronchoscopy Sedation: Versed IV: 5mg Fentanyl IV: 100g Procedure: The Olympus video bronchoscope was used for this procedure and passed down through the right naris Right naris: Mild erythema Posterior naris: Mild erythema Posterior oropharynx: Anatomically within normal limits Glottis: Anatomically within normal limits Vocal cords: 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 The takeoff to the right upper lobe Bronchus intermedius: Anatomically within normal limits Right middle lobe: Anatomically within normal limits, minimal mucous plugging appreciated the takeoff Right lower lobe: Anatomically within normal limits Findings: No significant findings noted Left bronchial tree: Left mainstem bronchus: Anatomically within normal limits Left upper lobe: Anatomically within normal limits Lingula: Anatomically within normal limits Left lower lobe: Anatomically within normal limits Findings: No significant findings noted Bronchial alveolar lavage: Right middle lobe EBL: None Complications: None Follow-up: [facility]
--- NOTE | 2017-08-06 08:53 | Discharge Instructions ---
Discharge Instructions Date of Service Aug 06, 2017. Admission Reason for Admission: Shortness Of Breath, Pneumonia Discharge Discharge Diagnosis / Problem: chronic cough Discharge Goals Goal(s): Diagnostic testing Activity Recommendations Activity Limitations: resume your previous activity . Current Hospital Diet Patient's current hospital diet: Discharge Diet Recommended Diet: Regular Diet Procedures Procedures Performed: Bronchoscopy, bronchial lavage of the right middle lobe and conscious sedation Pending Studies Studies pending at discharge: no Medical Emergencies . Who to Call and When: Medical Emergencies: If at any time you feel your situation is an emergency, please call 911 immediately. . Non-Emergent Contact Non-Emergency issues call your: Equal Employment Opportunity Officer . . "Provider Documentation" section prepared by Gary Shankar. . VTE Core Measure Inpt VTE Proph given/why not?: Treatment not indicated
[2017-08-06 09:05] VITALS: BP 113/74; PULSE 81; TEMP 36.6; O2SAT 95
[2017-08-06 09:20] VITALS: BP_SYST 107; BP_SYST 113; BP_DIAS 60; BP_DIAS 74; PULSE 81; TEMP 36.6; O2SAT 4; O2SAT 95
[2017-08-06 09:50] VITALS: BP 94/61; PULSE 77; O2SAT 95
[2017-08-06 10:20] VITALS: BP 111/63; PULSE 78; O2SAT 98
[2017-08-06 10:50] VITALS: BP 117/75; PULSE 75; O2SAT 98
== END 2017-08-06 11:30 | disposition home or self-care (01) ==
LOC: C.ACU 06:35
PROVIDERS: ATTEND Internal Medicine Critical Care Medicine
DX: R05 Cough (principal); J44.9 Chronic obstructive pulmonary disease, unspecified; K22.2 Esophageal obstruction; F17.210 Nicotine dependence, cigarettes, uncomplicated; F10.20 Alcohol dependence, uncomplicated; Z87.01 Personal history of pneumonia (recurrent); Z86.14 Personal history of Methicillin resistant Staphylococcus aureus infection; Z88.5 Allergy status to narcotic agent

== ENCOUNTER 2019-06-19 13:37 | Inpatient (IN) ==
[2019-06-19] MEDS ORDERED: SODIUM CHLORIDE 0.9% 1000ML 1,000 ML IV SCH (16:30)
--- NOTE | 2019-06-19 16:59 | History & Physical Report ---
Date of Service June 19, 2019 Assessment & Plan (1) GI bleed: Direct admit from [facility] to PCU for upper and lower GI Bleed with history of esophageal varices US abdomen complete Protonix gtt, sandostatin gtt - both started at [facility] Consult GI - Dr. Felipe (2) Altered mental status: Toxic vs metabolic encephalopathy Alcohol level, urine tox screen, ammonia pending (3) Chronic pain: 100 mcg Fentanyl patch removed at [facility] for lethargy Hold sedating medications for now (4) Chest pain: Troponin at [facility] was normal at noon, will recheck EKG ST at [facility], will repeat CT chest w/o contrast (5) Depression: (6) Acute blood loss anemia: Hgb was 7.3 at [facility] and she was given 2 units PRBCs Repeat hgb (7) Chronic hepatitis C: (8) Alcohol abuse: Banana bag AWSS (9) Cirrhosis of liver with ascites: Will give prophylactic cipro for SBP as patient has allergies to cephalosporins and sulfa. abd US pending (10) Metastatic cancer: History of metastatic cancer of unknown origin per [facility] records Will repeat chest CT - may need to consider biopsy pending this result Per daughter Jo Ann - patient has been followed by Dr. Delacruz, she is to have a liver biopsy on July 06. (11) Lung nodules: Per CXR at [facility], new masses right side of chest, similar appearance of masses in the left side of the chest Chest CT w/o contrast pending (12) DVT prophylaxis: SCDs History of Present Illness Primary Care Provider: Julian Padilla DO Patient is a transfer from [facility]. Most of her history comes from [facility] records and her daughter Kiara who is bedside as patient is lethargic though she will wake up enough to answer short questions. She was sent for treatment of GI bleed with vomiting bright red blood per patient and coffee ground emesis per [facility] HPI. She had bright red blood per rectum as well. She does have a history of esophageal varices. She reports abdominal pain, she does have some nausea. She does say she has some chest pain and sob but is unable to elaborate further and keeps her eyes closed At [facility] she was placed on a protonix gtt, octreotide gtt and given 2 units of PRBCs which she is finishing now for a hemoglobin of 7. Allergies verified from [facility] records. Unable to perform medication reconciliation due to patient mental status. Will attempt tomorrow, for now will hold po meds. Pmhx: chronic pain, chronic hepatitis C, alcholism, arthritis, GI bleed, lung disease pancreatitis, cirrhosis Social: drinks vodka daily, smokes about a pack per day Family: unknown Allergies Allergy/AdvReac Type Severity Reaction Status Date / Time clarithromycin Allergy Unknown rash, Verified 06/19/19 16:57 nausea Macrolide Antibiotics Allergy Unknown Verified 06/19/19 16:57 Macrolide Immunosuppressant Allergy Unknown Verified 06/19/19 16:57 Sulfa (Sulfonamide Allergy Unknown rash Verified 06/19/19 16:57 Antibiotics) trimethoprim Allergy Unknown Rash Verified 06/19/19 16:57 amoxicillin AdvReac Intermediate nausea, Verified 05/31/17 15:42 diarrhea clavulanic acid AdvReac Intermediate nausea, Verified 05/31/17 15:42 diarrhea cefuroxime AdvReac Unknown nausea, Verified 05/31/17 15:42 diarrhea doxycycline AdvReac Unknown nausea, Verified 05/31/17 15:42 diarrhea morphine AdvReac Unknown nausea, Verified 05/31/17 15:42 vomiting Home Medications Home Medications Medication Instructions Recorded Confirmed Type albuterol sulfate 200 mcg capsule mcg INH BID puffs 05/06/19 05/06/19 History with inhalation device budesonide 200 mcg/actuation mcg INH BID 05/06/19 05/06/19 History breath activated powder inhaler clonazepam 1 mg tablet 1 mg PO BID tab 05/06/19 05/06/19 History fentanyl 100 mcg/hr transdermal 1 patch TD Q48H ea 05/06/19 05/06/19 History patch fluoxetine 20 mg capsule 20 mg PO DAILY 05/06/19 05/06/19 History furosemide 40 mg tablet 40 mg PO DAILY 05/06/19 05/06/19 History magnesium oxide 400 mg (as 400 mg PO TID 05/06/19 05/06/19 History magnesium oxide) tablet methylphenidate HCl 10 mg tablet 10 mg PO TID tab 05/06/19 05/06/19 History methylphenidate HCl 20 mg 20 mg PO QAM 05/06/19 05/06/19 History tablet,extended release metoclopramide HCl 10 mg 10 mg PO QID tab 05/06/19 05/06/19 History disintegrating tablet mometasone 50 mcg/actuation nasal 2 sprays INTNAS DAILY 05/06/19 05/06/19 History spray omeprazole 20 mg capsule,delayed 20 mg PO BID cap 05/06/19 05/06/19 History release pantoprazole 20 mg tablet,delayed 10 mg PO DAILY tab 05/06/19 05/06/19 History release potassium chloride 10 mEq 10 meq PO BID 05/06/19 05/06/19 History tablet,extended release rifaximin 550 mg tablet 550 mg PO BID 05/06/19 05/06/19 History spironolactone 50 mg tablet 50 mg PO DAILY 05/06/19 05/06/19 History Past Med/Surg History Social History Preferred Language: Sinhala Communication Ability: Effective 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 Beliefs That Will Affect Care: None Current Living Situation: Family Feels Safe at Home: Yes Safety Concerns: Feels Safe At This Time Smoking Status: Current every day smoker Tobacco Type: cigarettes ; Cigarettes Per Day: 1 PPD ; Do You Dip or Chew Tobacco: No ; Tobacco Cessation Education Requested by Patient: No Hx Alcohol Use: Yes Alcohol type: hard liquor Hx Substance Use: No Review of Systems Review of Systems: All systems reviewed & are unremarkable except as noted in HPI & below Physical Exam Physical Exam: General: no distress Eyes: normal inspection, PERLL Respiratory: chest non tender, clear to auscultation, normal breath sounds, no respiratory distress, no accessory muscle use Cardiac: regular rate and rhythm, no rub or gallop, no murmur, no edema, no jvd GI/: active bowel sounds, abdomen tender to palpation, soft, distended Extremities: generalized weakness Neuro/Psych: lethargic and oriented x 3, CN II - XII intact although patient was unable to fully comply with some commands due to lethargy Skin: normal color, dry Results & Data Vital Signs (Past 12 Hours) Vital Signs Temp Pulse Resp BP Pulse Ox 06/19/19 15:57 36.8 C 102 H 20 108/67 97 06/19/19 15:47 36.8 C 103 H 20 103/65 92 Code Status & VTE Plan VTE Prophylaxis Plan VTE Prophylaxis will be ordered: Yes Supervising Physician Co-Signing Physician Notes I supervised Samina Cavanaugh NP on this patient's care. I examined the patient today independently of her. I discussed the plan of care with her with the plan being as written in her note except for any following changes/exceptions: None. Patient able to wake up, but not provide much history. Has metastatic cancer, likely HCC, along with likely GI bleed and hepatic encepalopathy. PG Care Time/CCT Total # of Minutes Spent Total Time Spent with Patient: Total time spent is greater than 50% in coordination of care (as documented) at patient's floor/unit and/or counseling patient:
[2019-06-19] MEDS ORDERED: PANTOprazole 80 MG in DEXTROSE 5% 100 ML IV SCH (17:00)
[2019-06-19] MEDS ORDERED: MULTI-VITAMIN INFUSION 10 ML, THIAMINE HCL 100 MG, FOLIC ACID 1 MG in SODIUM CHLORIDE 0... IV ONE (17:20)
[2019-06-19] MEDS: OCTREOTIDE ACETATE 500 MCG in 0.9 % SODIUM CHLORIDE 100 ML IV SCH (18:06)
[2019-06-19] MEDS: PANTOprazole 40 MG in DEXTROSE 5% 100 ML IV SCH ×2 (18:06→22:50)
[2019-06-19 18:41] LABS: Mean Corpuscular Hgb Conc 31.6 g/dL (32-36)
[2019-06-19 18:43] LABS: Hematocrit (blood only) 27.2 % (37-47); Hemoglobin 8.6 g/dL (12.0-16.0); Mean Corpuscular Hemoglobin 27.8 pg (25-34); RDW Coefficient of Variation 20.3 % (11.5-14.5); RDW Standard Deviation 65.4 fL (36.4-46.3); Red Blood Count 3.09 M/uL (4.2-5.4); White Blood Count 3.97 K/uL (4.8-10.8)
[2019-06-19 18:51] LABS: INR 1.5 (0.9-1.1); Prothrombin Time 15.1 Seconds (9.0-12.0)
[2019-06-19 19:02] LABS: Alanine Aminotransferase 30 U/L (12-78); Anion Gap 0 (3-11); Aspartate Aminotransferase 59 U/L (15-37); BUN Creatinine Ratio 37.2 (10-20); Bilirubin Direct 1.2 mg/dl (0-0.2); Blood Urea Nitrogen 25 mg/dl (7-18); Calcium 7.9 mg/dl (8.5-10.1); Carbon Dioxide 32 mmol/L (21-32); Chloride 112 mmol/L (98-107); Creatinine Clr Calc Pharmacy 69.7 ml/min; Est GFR (Non-African American) 94.9; Glucose 92 mg/dl (70-99); Potassium 4.9 mmol/L (3.5-5.1); Sodium 144 mmol/L (136-145)
[2019-06-19 19:07] LABS: Alkaline Phosphatase 78 U/L (45-117); Bilirubin,Total 3.9 mg/dl (0.2-1); Mean Platelet Volume 11.1 fL (7.4-10.4); Platelet Count 96 K/uL (130-400); Total Protein 7.3 gm/dl (6.4-8.2); Troponin I < 0.015 ng/ml (0-0.045)
[2019-06-19 19:08] LABS: Anisocytosis Present; Basophils # (auto) 0.03 K/uL (0-0.2); Basophils % (auto) 0.8 %; Eosinophils # (auto) 0.02 K/uL (0-0.5); Eosinophils % (auto) 0.5 %; Giant Platelets 1+; Hypochromasia Present; Immature Granulocytes # (auto) 0.01 K/uL (0.00-0.02); Immature Granulocytes % (auto) 0.3 %; Lymphocytes # (auto) 0.69 K/uL (1.2-3.4); Lymphocytes % (auto) 17.4 %; Monocytes # (auto) 0.54 K/uL (0.11-0.59); Monocytes % (auto) 13.6 %; Neutrophils # (auto) 2.68 K/uL (1.4-6.5); Neutrophils % (auto) 67.4 %; Platelet Estimate Decreased (Normal)
[2019-06-19] MEDS: CIPROFLOXACIN 400 MG/200 ML BAG IV SCH (19:41)
[2019-06-19 20:01] LABS: Hematocrit (blood only) 24.7 % (37-47); Hemoglobin 7.8 g/dL (12.0-16.0)
--- NOTE | 2019-06-19 20:31 | CT Scan Report ---
CT chest wo con CT DOSE: 313.81 mGy.cm CLINICAL HISTORY: 59 years-old Female with new pulmonary nodules. Follow-up study in a patient with reported pulmonary nodules TECHNIQUE: Multiaxial CT images of the chest were performed without contrast. A dose lowering techni que was utilized adhering to the principles of ALARA. COMPARISON: Chest CT 07/30/2017 and 05/30/2017 from outside hospital. FINDINGS: Unremarkable thyroid. Limited evaluation for adenopathy without the use of IV contrast. No definite a denopathy identified. Coronary arterial calcifications are noted. No significant cardiomegaly. Calcif ic plaque the thoracic aorta without aneurysm. Aberrant retropharyngeal course of the right subclavia n artery. Trace left pleural effusion. There is no pneumothorax. Mild emphysema without overt pulmonary edema. There are multiple (greater than 20) solid pulmonary nodules of the bilateral lungs, many of which ar e subpleural distribution. The largest nodule on the left is pleural-based along the anterior left he mithorax and measures up to 5.0 x 1.2 cm on image 152 series 4. A subpleural 1.47 m nodule is noted w ithin the left lower lobe on image 185 series 4. Nodules on the right include a 7 mm right upper lobe nodule on image 107 series 4. These findings are new from comparison study dated 07/30/2017. Mild subs egmental atelectasis/pleural parenchymal scarring of the right lung base. There is mild bilateral bro nchial wall thickening. The central airways appear patent. There is wall thickening throughout the mid and distal esophagus with small hiatal hernia. Cirrhotic liver disease with splenomegaly and upper abdominal varices. Associated nodularity of the mentum is p artially imaged. Cluster of coarse calcifications within the hepatic dome measuring up to 1.4 cm appe ars unchanged dating back to 2017. Wall thickening of the proximal stomach. Degenerative changes of t he shoulders and spine. There are no suspicious lytic or blastic osseous lesions identified. IMPRESSION: 1. Multiple (greater than 20) solid nodules of the bilateral lungs are new from comparison study date d 07/30/2017, which includes multiple subpleural and pleural-based solid nodules predominantly within t he left hemithorax measuring up to a 5.0 cm. Findings are suggestive of pulmonary/pleural metastatic disease. 2. Trace left likely malignant pleural effusion. 3. Cirrhotic liver disease with splenomegaly and upper abdominal ascites compatible with portal venou s hypertension. 4. Partially imaged nodularity of the imaged upper abdominal omentum may reflect concomitant omental carcinomatosis. 5. Esophageal wall thickening with hiatal hernia. 6. Aberrant right subclavian artery. ACT 112: Negative or not required by law. Electronically signed by: Dennis Street M.D. 06/19/2019 8:30 PM
--- NOTE | 2019-06-19 20:35 | Ultrasound Report ---
US abdomen complete CLINICAL HISTORY: 59 years-old Female with ascites, cirrhosis, GI bleed, metastatic cancer. TECHNIQUE: Multiple real time sonographic images of the abdomen were obtained assessing samano-scale a ppearance. COMPARISON: Chest CT of same day FINDINGS: Limited exam secondary to patient lack of cooperation. PANCREAS: The pancreas is partially obscured by bowel gas. The visualized portions of the pancreas are normal without focal lesion or pancreatic duct dilatation. LIVER: Diffusely heterogeneous cirrhotic morphology of the liver. No definitive focal hepatic mass le raisa or intrahepatic biliary ductal dilation. Mild upper abdominal ascites. GALLBLADDER: The gallbladder is fluid-filled without cholelithiasis, wall thickening, or pericholecy stic fluid. Negative sonographic Frank's sign. The common bile duct is not diagnostically visualiz ed RIGHT KIDNEY: The right kidney is not diagnostically visualized. LEFT KIDNEY: The left kidney measures 10.2 cm. The parenchymal echotexture and cortical thickness a re normal. No nephrolithiasis or hydronephrosis. SPLEEN: The spleen measures 13.5 cm and is normal in echotexture. No focal lesions are identified. VASCULATURE: The visualized aorta and inferior vena cava are sub-visualized although appear normal a s seen. IMPRESSION: 1. Limited exam as above. 2. Cirrhotic morphology of the liver with mild upper abdominal ascites. 3. Splenomegaly. ACT 112: Negative or not required by law. The above report was generated using voice recognition software. It may contain grammatical, syntax o r spelling errors. Electronically signed by: Dennis Street M.D. 06/19/2019 8:34 PM
[2019-06-19] MEDS ORDERED: ONDANSETRON INJ 2 MG/ML 2 ML VIAL IV PRN (20:47)
[2019-06-19 22:03] LABS: Amphetamines+Metham, Urine Pos (Neg); Barbiturates, Urine Neg (Neg); Benzodiazepine, Urine Neg (Neg); Cocaine, Urine Neg (Neg); MDMA (Ecstacy), Urine Neg (Neg); Methadone, Urine Neg (Neg); Opiate, Urine Neg (Neg); Phencyclidine, Urine Neg (Neg)
[2019-06-19 23:57] LABS: Hematocrit (blood only) 24.3 % (37-47); Hemoglobin 7.7 g/dL (12.0-16.0)
[2019-06-20] MEDS ORDERED: LORazepam 3 MG/6 ML VIAL IV PRN (01:53)
[2019-06-20] MEDS ORDERED: LORazepam 1 MG/2 ML VIAL IV PRN (01:53)
[2019-06-20] MEDS ORDERED: ATIVAN IV ALCOHOL WITHDRAWL IV PRN (01:53)
[2019-06-20] MEDS ORDERED: LORazepam 2 MG/4 ML VIAL IV PRN (01:53)
[2019-06-20] MEDS ORDERED: fentaNYL 100 MCG/HR TDSY TD SCH (02:00)
[2019-06-20] MEDS ORDERED: LORazepam 2 MG/4 ML VIAL ONE (02:08)
[2019-06-20] MEDS: OCTREOTIDE ACETATE 500 MCG in 0.9 % SODIUM CHLORIDE 100 ML IV SCH ×2 (02:53→12:41)
[2019-06-20] MEDS: PANTOprazole 40 MG in DEXTROSE 5% 100 ML IV SCH ×2 (03:10→07:48)
[2019-06-20] MEDS: ALBUT/IPRATROP 3MG/0.5MG NEB 3 ML VIAL NEB PRN (07:10)
[2019-06-20] MEDS: CIPROFLOXACIN 400 MG/200 ML BAG IV SCH (07:19)
[2019-06-20] MEDS ORDERED: RAPID SEQUENCE INDUCTION BAG ONE (08:22)
[2019-06-20] MEDS ORDERED: PROPOFOL IV EMULSION 10 MG/ML 100 ML VIAL IV ONE (08:34)
[2019-06-20] MEDS ORDERED: ACETAMINOPHEN 325 MG TAB PO PRN (08:40)
[2019-06-20] MEDS ORDERED: fentaNYL citrate 100 MCG/2 ML VIAL IV PRN (08:40)
[2019-06-20] MEDS: CHECK FENTANYL PATCH PLACEMENT SCH ×2 (08:53→14:28)
[2019-06-20] MEDS: LACTULOSE 200 GM, WATER, STERILE IRRIG 700 ML, BARCODE IDENTIFIER 1 EA PR SCH ×3 (08:54→20:18)
[2019-06-20] MEDS: propofoL 1,000 MG/100 ML VIAL IV SCH ×2 (08:55→16:30)
--- NOTE | 2019-06-20 08:55 | Procedure Note ---
Procedure Note Date of Service June 20, 2019 INTUBATION PROCEDURE NOTE: Attending: Dr Derrick Rubio MD Patient was evaluated and plan to intubate was made for altered mental status for airway protection Sedative agent used: Midazolam 2 mg, lidocaine 100 mg, etomidate 20 mg Paralysis agent used: None Emergent consent was implied given patients rapidly declining clinical status and need for airway protection. The patient was prepared in the appropriate fashion. The patient was easily pre-oxygenated by using [id number] ventilation. With help of DL grade 2 vocal cords were visualized and 7.5 Kyrgyz ETT was introduced on first attempt to 22 cm at the lip. The stylette was removed and balloon was inflated with 10mL of air. Appropriate Colorimetric change was appreciated for at least 10 breaths. Bilateral chest rise and breath sounds were appreciated without air sounds in the epigastrium. Patient tolerated the procedure well and there were no immediate complications. Chest Xray to follow for confirming placement. Coding CPT Codes Resuscitation - Resuscitation: 26459 Endotracheal Intubation, emergency ([id number]) Ventilator Management - Ventilator Managment: 78112 Ventilation assist and management; Hospital inpt/obs, intl day ([id number])
[2019-06-20] MEDS: cefTRIAXone SODIUM 1,000 MG in DEXTROSE 5% 50 ML IV SCH (08:56)
--- NOTE | 2019-06-20 09:04 | Critical Care Consultation ---
Date of Consultation June 20, 2019 Assessment & Plan (1) Metabolic encephalopathy: --Metabolic encephalopathy Likely secondary to hepatic encephalopathy with elevated ammonia level of 144, start lactulose 30 g via OGT and titrate to bowel movements off at least 3 Sepsis cannot be ruled out especially SBP --> change ciprofloxacin to Rocephin, continue with octreotide We will see with ultrasound to see if there is ascites fluid will tap it and send it for SAAG and culture Follow-up septic work-up We will intubate the patient given GCS of only 5 for airway protection --Acute blood loss anemia Patient's baseline hemoglobin is around 13 Could be variceal bleed Continue with Protonix IV 40 mg twice daily, continue with octreotide GI has been consulted Type and screen Monitor H&H, transfuse for hemoglobin less than 7 --Coagulopathy Likely secondary to underlying liver cirrhosis Monitor --Protein calorie malnutrition Albumin 2 --Patient has multiple nodules in the lung High likelihood of metastatic disease We will get palliative care involved as well --UDS positive for amphetamine --Secondary hypercoagulable state IPC's given the patient has acute blood loss anemia (2) Acute blood loss anemia: (3) Cirrhosis of liver with ascites: (4) Lung nodules: (5) Alcohol abuse: (6) Chronic hepatitis C: History of Present Illness Attending Physician: Rogers Pryor MD History of Present Illness 59-year-old female who has past medical history of esophageal varices secondary to liver cirrhosis with hepatitis C, high likelihood of metastatic cancer possible hepatocellular carcinoma, active alcohol user was originally transferred from [facility] of GI bleed and vomiting bright red blood and coffee-ground emesis. She had hematochezia as well. A [facility] patient was given octreotide Protonix and 2 units of PRBC. Patient was upgraded to the ICU as she was very lethargic hardly arousable. GCS was found to be 5 with gurgling sound appreciated at bedside of examination. Plan to intubate the patient was made to protect her airway especially given she had hematemesis with acute blood loss. Social history: Active smoker pack a day, drinks vodka daily, UDS is positive for amphetamine (could be false positive secondary to Cipro) History obtained from previous records and H&P. Allergies Allergy/AdvReac Type Severity Reaction Status Date / Time clarithromycin Allergy Unknown rash, Verified 06/19/19 16:57 nausea Macrolide Antibiotics Allergy Unknown Verified 06/19/19 16:57 Macrolide Immunosuppressant Allergy Unknown Verified 06/19/19 16:57 Sulfa (Sulfonamide Allergy Unknown rash Verified 06/19/19 16:57 Antibiotics) trimethoprim Allergy Unknown Rash Verified 06/19/19 16:57 amoxicillin AdvReac Intermediate nausea, Verified 05/31/17 15:42 diarrhea clavulanic acid AdvReac Intermediate nausea, Verified 05/31/17 15:42 diarrhea cefuroxime AdvReac Unknown nausea, Verified 05/31/17 15:42 diarrhea doxycycline AdvReac Unknown nausea, Verified 05/31/17 15:42 diarrhea morphine AdvReac Unknown nausea, Verified 05/31/17 15:42 vomiting Home Medications Home Medications Medication Instructions Recorded Confirmed Type albuterol sulfate 200 mcg capsule mcg INH BID puffs 05/06/19 05/06/19 History with inhalation device budesonide 200 mcg/actuation mcg INH BID 05/06/19 05/06/19 History breath activated powder inhaler clonazepam 1 mg tablet 1 mg PO BID tab 05/06/19 05/06/19 History fentanyl 100 mcg/hr transdermal 1 patch TD Q48H ea 05/06/19 05/06/19 History patch fluoxetine 20 mg capsule 20 mg PO DAILY 05/06/19 05/06/19 History furosemide 40 mg tablet 40 mg PO DAILY 05/06/19 05/06/19 History magnesium oxide 400 mg (as 400 mg PO TID 05/06/19 05/06/19 History magnesium oxide) tablet methylphenidate HCl 10 mg tablet 10 mg PO TID tab 05/06/19 05/06/19 History methylphenidate HCl 20 mg 20 mg PO QAM 05/06/19 05/06/19 History tablet,extended release metoclopramide HCl 10 mg 10 mg PO QID tab 05/06/19 05/06/19 History disintegrating tablet mometasone 50 mcg/actuation nasal 2 sprays INTNAS DAILY 05/06/19 05/06/19 H istory spray omeprazole 20 mg capsule,delayed 20 mg PO BID cap 05/06/19 05/06/19 History release pantoprazole 20 mg tablet,delayed 10 mg PO DAILY tab 05/06/19 05/06/19 History release potassium chloride 10 mEq 10 meq PO BID 05/06/19 05/06/19 History tablet,extended release rifaximin 550 mg tablet 550 mg PO BID 05/06/19 05/06/19 History spironolactone 50 mg tablet 50 mg PO DAILY 05/06/19 05/06/19 History Patient History Social History Preferred Language: Dominican Communication Ability: Effective 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 Beliefs That Will Affect Care: None Current Living Situation: Family Feels Safe at Home: Yes Safety Concerns: Feels Safe At This Time Smoking Status: Current every day smoker Tobacco Type: cigarettes ; Cigarettes Per Day: 1 PPD ; Do You Dip or Chew Tobacco: No ; Tobacco Cessation Education Requested by Patient: No Hx Alcohol Use: Yes Alcohol type: hard liquor Hx Substance Use: No Review of Systems Review of Systems: All systems reviewed & are unremarkable except as noted in HPI & below Physical Exam Physical Exam: Constitutional: Mild respiratory distress given patient is gurgling at the time of examination HEENT: PERRLA Respiratory system: Decreased air entry bilaterally, no wheeze, no rhonchi, no crackles CVS: S1-S2 positive, no murmurs or gallops Abdomen: Soft, nontender, distended, positive bowel sounds x4, positive hepatomegaly Extremities: +2 pulses bilaterally radialis/ dorsalis pedis, no cyanosis, no edema Neuro: Obtunded, patient not following any commands, GCS: 5 Psych: Unable to assess G/U: No Rowe Skin: no rashes, warm and dry Lymphatic: no cervical or axillary lymphadenopathy Results & Data Vital Signs (Past 12 Hours) Vital Signs Temp Pulse Pulse Resp BP Pulse Ox 06/20/19 08:42 107 H 20 100 06/20/19 07:34 36.8 C 120 H 24 177/93 H 95 06/20/19 07:11 113 H 22 94 06/20/19 04:00 36.7 C 130 H 20 185/82 H 96 06/20/19 00:00 36.2 C L 104 H 116 H 158/64 H 96 06/19/19 23:24 06/19/19 18:23 Coding Level of Care Code New Pt Critical Care 1st 30-74 mins Patient Type New Diagnoses Metabolic encephalopathy G93.41 Acute blood loss anemia D62 Cirrhosis of liver with ascites K74.60; R18.8 Lung nodules R91.8 Alcohol abuse F10.10 Chronic hepatitis C B18.2 Time Spent (min) 90
[2019-06-20] MEDS: fentaNYL DRIP 1,250 MCG/250 ML BAG IV SCH (09:05)
--- NOTE | 2019-06-20 09:05 | XRay Report ---
XR chest 1V portable CLINICAL HISTORY: confirm et placement COMPARISON STUDY: Chest CT June 19, 2019. FINDINGS: The tip of the endotracheal tube is 3.7 cm above the rosita. Tip of nasogastric tube is wit hin the body of the stomach. Cardiac size is normal. There is no evidence for pulmonary edema. There is no pneumothorax. No definite pleural effusion is identified. Numerous pleural based lesions are be tter depicted on chest CT performed June 19, 2019. IMPRESSION: 1. Tip of endotracheal tube 3.7 cm above the rosita. 2. Tip of nasogastric tube within the body of the stomach. 3. Numerous pleural-based masses, better depicted on chest CT. ACT 112: Negative or not required by law. Electronically signed by: Alistair Daily M.D. 06/20/2019 9:04 AM
--- NOTE | 2019-06-20 09:07 | XRay Report ---
KUB CLINICAL HISTORY: NG tube placement COMPARISON STUDY: Abdominal ultrasound June 19, 2019. FINDINGS: Tip of nasogastric tube is within the body of the stomach. Postoperative findings within th e spine are noted. Vertebroplasty is noted with small amount of methylmethacrylate likely within lyric cent lumbar veins. Left femoral internal fixation is partially imaged. There is no radiographic evide nce for a bowel obstruction. IMPRESSION: Tip of nasogastric tube within the body of the stomach. ACT 112: Negative or not required by law. Electronically signed by: Alistair Daily M.D. 06/20/2019 9:06 AM
[2019-06-20 09:17] LABS: iSTAT Allen Test Pass; iSTAT Arterial Blood Gas HCO3 27 meg/L (19-24); iSTAT Arterial Blood Gas pCO2 37 mmHg (35-46); iSTAT Arterial Blood Gas pH 7.48 (7.35-7.45); iSTAT Arterial Blood Gas pO2 > 420 mmHg (80-95); iSTAT Carbon Dioxide 28 mEq/l (24-31); iSTAT FiO2 100 %; iSTAT Site R Radial
[2019-06-20 09:27] LABS: Mean Corpuscular Hgb Conc 32.3 g/dL (32-36)
[2019-06-20] MEDS: D5W AND 1/2NSS 1,000 ML IV SCH ×2 (09:30→20:49)
[2019-06-20 09:34] LABS: Hemoglobin 7.1 g/dL (12.0-16.0); Mean Corpuscular Hemoglobin 27.8 pg (25-34); Mean Corpuscular Volume 86.3 fL (80-100); RDW Coefficient of Variation 21.1 % (11.5-14.5); RDW Standard Deviation 66.6 fL (36.4-46.3); Red Blood Count 2.55 M/uL (4.2-5.4); White Blood Count 5.02 K/uL (4.8-10.8)
[2019-06-20 09:37] LABS: Mean Platelet Volume 10.6 fL (7.4-10.4); Platelet Count 108 K/uL (130-400)
[2019-06-20] MEDS: LACTULOSE SYRUP 30 GM/45 ML UDP OG SCH ×4 (09:38→20:18)
--- NOTE | 2019-06-20 09:44 | Gastrointestinal Consultation ---
Date of Consultation June 20, 2019 Assessment & Plan (1) GI bleed: UGI source most likely given coffee ground emesis. Plan EGD with therapeutic intent. Proc and risk explained to patients which include but not limited to med reaction, bleeding, perfortion, aspiration, and missed lesions. Plan EGD today. Agree with abx use as prophylaxis for GI bleedin in cirrhotics. acute blood loss anemia--follow h and h elevated ammonia---ok to start lactulose throught OG/NG after EGD completed cirrhosis--not a transplant candidate liver and lung lesions---check AFP to evaluate for HCC. Requested reports of CT scans from [facility]. states she has seen oncology here and has appt with Dr Palm in [place] to evaluate these for cancer. bloating--check u/s for ascites. If present can arrange paracentesis for saturday. In the meantime, she is on abx which covers SBP. elevated lactic acid--can be from GI bleeding. Repeat level. History of Present Illness Reason for Consultation: GI bleed, cirrhosis Requesting Physician: KINZA Diego Attending Physician: Rogers Pryor MD History of Present Illness CC unobtainable from patient. She is obtunded and on vent HPI History from [facility] paper ER records and . Pt with longstanging cirrhosis. She has continued to drink alcohol although not much per patient.Was apparently on transplant list up until 4 years ago when had tumor on the liver. states DR Palm in [place] did an ablation but not malignant. He states she has exploratory abdomen surgery 4 or so years ago for apparent tumor in the abdomen but none found. She has had 4 or 5 UGI bleeds requiring esophageal variceal banding and last one apparently 2 weeks ago during hospitalization at [facility] (no report). She apparently had CT scans at [facility] then showing abdominal lesions but new lung lesions (no report). CXR report at [facility] from ER visit 06/19/19 lung lesions on left and new ones on right. not aware of any ascites history. She has been complaining of bloating for last 2 weeks. She had bright red blood per rectum followed by coffee ground emesis and presented to ER at [facility]. Hgb 7.3. She was started on octroetide drip and given 2 units PRBC. Lactic ACid 3.7. LFTS elevated. PT elevated. On presentation here she had 8.6 now 7.1. She had ammonia of 144. She was obtunded this am and in respiratory disress. She was intubtated and in ICU. Lactulose ordered this am. She has had bms overnight but not black nor bloody. Fhx and Shx unobtainable. Allergies Allergy/AdvReac Type Severity Reaction Status Date / Time clarithromycin Allergy Unknown rash, Verified 06/19/19 16:57 nausea Macrolide Antibiotics Allergy Unknown Verified 06/19/19 16:57 Macrolide Immunosuppressant Allergy Unknown Verified 06/19/19 16:57 Sulfa (Sulfonamide Allergy Unknown rash Verified 06/19/19 16:57 Antibiotics) trimethoprim Allergy Unknown Rash Verified 06/19/19 16:57 amoxicillin AdvReac Intermediate nausea, Verified 05/31/17 15:42 diarrhea clavulanic acid AdvReac Intermediate nausea, Verified 05/31/17 15:42 diarrhea cefuroxime AdvReac Unknown nausea, Verified 05/31/17 15:42 diarrhea doxycycline AdvReac Unknown nausea, Verified 05/31/17 15:42 diarrhea morphine AdvReac Unknown nausea, Verified 05/31/17 15:42 vomiting Home Medications Home Medications Medication Instructions Recorded Confirmed Type albuterol sulfate 200 mcg capsule mcg INH BID puffs 05/06/19 05/06/19 History with inhalation device budesonide 200 mcg/actuation mcg INH BID 05/06/19 05/06/19 History breath activated powder inhaler clonazepam 1 mg tablet 1 mg PO BID tab 05/06/19 05/06/19 History fentanyl 100 mcg/hr transdermal 1 patch TD Q48H ea 05/06/19 05/06/19 History patch fluoxetine 20 mg capsule 20 mg PO DAILY 05/06/19 05/06/19 History furosemide 40 mg tablet 40 mg PO DAILY 05/06/19 05/06/19 History magnesium oxide 400 mg (as 400 mg PO TID 05/06/19 05/06/19 History magnesium oxide) tablet methylphenidate HCl 10 mg tablet 10 mg PO TID tab 05/06/19 05/06/19 History methylphenidate HCl 20 mg 20 mg PO QAM 05/06/19 05/06/19 History tablet,extended release metoclopramide HCl 10 mg 10 mg PO QID tab 05/06/19 05/06/19 History disintegrating tablet mometasone 50 mcg/actuation nasal 2 sprays INTNAS DAILY 05/06/19 05/06/19 History spray omeprazole 20 mg capsule,delayed 20 mg PO BID cap 05/06/19 05/06/19 History release pantoprazole 20 mg tablet,delayed 10 mg PO DAILY tab 05/06/19 05/06/19 History release potassium chloride 10 mEq 10 meq PO BID 05/06/19 05/06/19 History tablet,extended release rifaximin 550 mg tablet 550 mg PO BID 05/06/19 05/06/19 History spironolactone 50 mg tablet 50 mg PO DAILY 05/06/19 05/06/19 History Patient History Social History Preferred Language: Moroccan Communication Ability: Effective 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 Beliefs That Will Affect Care: None Current Living Situation: Family Feels Safe at Home: Yes Safety Concerns: Feels Safe At This Time Smoking Status: Current every day smoker Tobacco Type: cigarettes ; Cigarettes Per Day: 1 PPD ; Do You Dip or Chew Tobacco: No ; Tobacco Cessation Education Requested by Patient: No Hx Alcohol Use: Yes Alcohol type: hard liquor Hx Substance Use: No Review of Systems Review of Systems: Unobtainable due to cognitive status and Unobtainable due to endotracheal tube Physical Exam Constitutional: WD/WN, vitals as above Eyes: PERRL ENMT: external ear and nose normal, oropharynx normal Neck: normal visual inspection and trachea midline Respiratory: normal respiratory effort, lungs clear to auscultation Cardiovascular: RRR, no murmur, no edema Gastrointestinal (Abdomen): pos bs, soft, no guarding nor rebound, mildly distended and tympantic Skin: normal turgor Neurologic: PERRL Psychiatric: obtunded on vent Results & Data Vital Signs (Past 12 Hours) Vital Signs Temp Pulse Pulse Resp BP Pulse Ox 06/20/19 09:07 12 06/20/19 08:42 107 H 20 100 06/20/19 07:34 36.8 C 120 H 24 177/93 H 95 06/20/19 07:11 113 H 22 94 06/20/19 04:00 36.7 C 130 H 20 185/82 H 96 06/20/19 00:00 36.2 C L 104 H 116 H 158/64 H 96
[2019-06-20 09:51] LABS: Anisocytosis Present; Basophils # (auto) 0.02 K/uL (0-0.2); Basophils % (auto) 0.4 %; Eosinophils # (auto) 0.06 K/uL (0-0.5); Eosinophils % (auto) 1.2 %; Giant Platelets 1+; Immature Granulocytes # (auto) 0.01 K/uL (0.00-0.02); Immature Granulocytes % (auto) 0.2 %; Lymphocytes # (auto) 0.69 K/uL (1.2-3.4); Lymphocytes % (auto) 13.7 %; Monocytes # (auto) 0.51 K/uL (0.11-0.59); Monocytes % (auto) 10.2 %; Neutrophils # (auto) 3.73 K/uL (1.4-6.5); Neutrophils % (auto) 74.3 %
[2019-06-20 10:23] LABS: Albumin Globulin Ratio 0.4 (0.9-2); Albumin Level 1.7 gm/dl (3.4-5.0); BUN Creatinine Ratio 30.2 (10-20); Calcium 7.7 mg/dl (8.5-10.1); Creatinine Clr Calc Pharmacy 59.9 ml/min; Est GFR (African American) 95.1; Est GFR (Non-African American) 82.1; Globulin 4.6 gm/dl (2.5-4.0); Potassium 3.7 mmol/L (3.5-5.1); Total Protein 6.3 gm/dl (6.4-8.2)
[2019-06-20 11:24] LABS: INR 1.6 (0.9-1.1); Prothrombin Time 15.5 Seconds (9.0-12.0)
--- NOTE | 2019-06-20 11:46 | Procedure Note ---
Procedure Note Date of Service June 20, 2019 Procedure: Diagnostic ultrasound-guided catheter paracentesis Carpet Cleaning Technician: Dr. Derrick Rubio Indication: Ascites to rule out SBP Consent: Signed by patient's and verified with timeout prior to procedure Anesthesia: 1% lidocaine without epinephrine local. Procedure: Consent was verified and time-out performed. Appropriate imaging studies were reviewed prior to the procedure. Patient was placed in a supine position and limited abdominal ultrasound was performed. See separate imaging. Appropriate site for paracentesis was selected. The skin was prepped and draped in normal sterile fashion. Fluid was aspirated via the finder needle. 18-gauge Intracath needle was used. Using the syringe one-way valve system, a total of 60 mL's of serous fluid was removed. The catheter was removed and observed to be intact. A sterile dressing was applied. Fluid was sent for labs, culture and cytology. The patient tolerated the procedure without obvious complication Blood loss: Less than 2 cc Coding CPT Codes Pulmonary/Thoracic - Pulmonary and Thoracic: 06223 US, Chest, real time with imaging documentation ([id number]) Abdomen - Abdominal: 66466 Abdominal Paracentesis (diagnostic or therapeutic); W/O imaging ([id number])
--- NOTE | 2019-06-20 12:06 | Anesthesiology Consultation ---
Date of Service June 20, 2019 Assessment & Plan (1) Encounter for pre-operative examination: Chart Review Chart Review: Acceptable Risk for Surgery (Please see notes below) and Patient NOT seen in Pre Admission Testing Consults Requested none ASA [id number] Proposed Anesthesia Anesthesia Type: General Risk / Benefits Reviewed With: PT / POA / Parent / Guardian, Accepts Plan and Informed Consent Obtained Additional Notes Patient already intubated and sedated in the ICU - plan to provide additional sedation as necessary for the case. Pt Hgb currently 7.1. At this time there is no blood available in this hospital. ICU and GI team are aware. I placed orders for blood and spoke with the blood bank. Blood is now scheduled to arrive about 3 PM today. Blood bank to cross match blood immediately on arrival. At this time patient is currently hemodynamically stable with a small amount of visible blood from the OG tube. Recent bowel movements have been normal without evidence of bleeding. I recommended that we wait to proceed with planned EGD until blood is available in house. Dr. Felipe is concerned that the patients bleeding may restart at any time and that it is no longer safe to wait additional time. Case changed to emergent status by surgical team. Will proceed and have albumin and pressors available in the event of worsening bleeding. Team understands that in the event of bleeding I can only provide temporary support and that I cannot transfuse until the blood arrives this afternoon. History Surgery Operation Date: 06/20/19 13:00 Proposed Procedures p Esophagogastroduodenoscopy(Left) - Nazario Felipe Height/Weight Height: 5 ft 2 in Weight: 55.1 kg Allergies Allergy/AdvReac Type Severity Reaction Status Date / Time clarithromycin Allergy Unknown rash, Verified 06/19/19 16:57 nausea Macrolide Antibiotics Allergy Unknown Verified 06/19/19 16:57 Macrolide Immunosuppressant Allergy Unknown Verified 06/19/19 16:57 Sulfa (Sulfonamide Allergy Unknown rash Verified 06/19/19 16:57 Antibiotics) trimethoprim Allergy Unknown Rash Verified 06/19/19 16:57 amoxicillin AdvReac Intermediate nausea, Verified 05/31/17 15:42 diarrhea clavulanic acid AdvReac Intermediate nausea, Verified 05/31/17 15:42 diarrhea cefuroxime AdvReac Unknown nausea, Verified 05/31/17 15:42 diarrhea doxycycline AdvReac Unknown nausea, Verified 05/31/17 15:42 diarrhea morphine AdvReac Unknown nausea, Verified 05/31/17 15:42 vomiting Medications Home Medications Medication Instructions Recorded Confirmed Last Taken albuterol sulfate 200 mcg capsule mcg INH BID puffs 05/06/19 05/06/19 Unknown with inhalation device budesonide 200 mcg/actuation mcg INH BID 05/06/19 05/06/19 Unknown breath activated powder inhaler clonazepam 1 mg tablet 1 mg PO BID tab 05/06/19 05/06/19 Unknown fentanyl 100 mcg/hr transdermal 1 patch TD Q48H ea 05/06/19 05/06/19 Unknown patch fluoxetine 20 mg capsule 20 mg PO DAILY 05/06/19 05/06/19 Unknown furosemide 40 mg tablet 40 mg PO DAILY 05/06/19 05/06/19 Unknown magnesium oxide 400 mg (as 400 mg PO TID 05/06/19 05/06/19 Unknown magnesium oxide) tablet methylphenidate HCl 10 mg tablet 10 mg PO TID tab 05/06/19 05/06/19 Unknown methylphenidate HCl 20 mg 20 mg PO QAM 05/06/19 05/06/19 Unknown tablet,extended release metoclopramide HCl 10 mg 10 mg PO QID tab 05/06/19 05/06/19 Unknown disintegrating tablet mometasone 50 mcg/actuation nasal 2 sprays INTNAS DAILY 05/06/19 05/06/19 Unknown spray omeprazole 20 mg capsule,delayed 20 mg PO BID cap 05/06/19 05/06/19 Unknown release pantoprazole 20 mg tablet,delayed 10 mg PO DAILY tab 05/06/19 05/06/19 Unknown release potassium chloride 10 mEq 10 meq PO BID 05/06/19 05/06/19 Unknown tablet,extended release rifaximin 550 mg tablet 550 mg PO BID 05/06/19 05/06/19 Unknown spironolactone 50 mg tablet 50 mg PO DAILY 05/06/19 05/06/19 Unknown Active Medications Generic Name Dose Route Start Last Admin Trade Name Freq PRN Reason Stop Dose Admin Albuterol 3 ml 06/20/19 06:16 06/20/19 07:10 Duoneb NEB 07/20/19 06:59 3 ml Q4R PRN Administration Shortness Of Breath Lactulose 200 gm/ Sterile 0 gm 06/20/19 08:02 06/20/19 08:54 Water 700 ml/ BARCODE [place] 07/20/19 08:01 Not Given IDENTIFIER 1 ea Q8 RIKA Fentanyl 100 mcg 06/20/19 02:00 06/20/19 03:08 Duragesic TD 07/04/19 01:59 Not Given Q48H RIKA Octreotide Acetate 500 mcg/ 105 mls @ 10.5 mls/hr 06/19/19 15:00 06/20/19 12:41 Sodium Chloride IV 07/19/19 14:59 50 mcg/hr .Q10H RIKA 10.5 mls/hr Administration 50 MCG/HR Lorazepam 2 mg in 4 mls @ 4 mls/min 06/20/19 01:53 06/20/19 06:02 Ativan IV 07/20/19 01:52 4 mls/min UD PRN Administration EtOH Withdrawl AWSS Score 8,9 Protocol Ceftriaxone Sodium 1,000 mg/ 50 mls @ 100 mls/hr 06/20/19 09:00 06/20/19 09:28 Dextrose IV 06/30/19 08:59 Infused Q24H RIKA Infusion Protocol Fentanyl Citrate 1,250 mcg in 250 mls @ 5 mls/hr 06/20/19 08:40 06/20/19 09:05 Fentanyl Drip IV 07/04/19 08:39 25 mcg/hr .Q24H RIKA 5 mls/hr Administration Protocol 25 MCG/HR Propofol 1,000 mg in 100 mls @ 8.265 mls/hr 06/20/19 08:40 06/20/19 11:00 Diprivan IV 06/23/19 08:39 25 mcg/kg/min .Q12H6M RIKA 8.3 mls/hr Titration Protocol 25 MCG/KG/MIN Dextrose/Sodium Chloride 1,000 mls @ 80 mls/hr 06/20/19 09:00 06/20/19 09:30 D5w And 1/2nss IV 07/20/19 08:59 80 mls/hr .[id number] RIKA Administration Lactulose 30 gm 06/20/19 09:00 06/20/19 12:40 Chronulac OG 07/20/19 08:59 Not Given QID RIKA Miscellaneous 1 ea 06/20/19 08:00 06/20/19 08:53 Fentanyl Patch Check Placement N/A 07/20/19 07:59 Not Given QS RIKA NPO Date Last Intake of Fluids: 06/19/19 Time Last Intake of Fluids: 12:00 Date Last Intake of Solids: 06/19/19 Time Last Intake of Solids: 12:00 Past Medical History Medical History Acute blood loss anemia Alcohol abuse Altered mental status Asthma Chronic hepatitis C Chronic pain Chronic pancreatitis Cirrhosis of liver with ascites COPD (chronic obstructive pulmonary disease) Depression Esophageal varices JENNIFER (generalized anxiety disorder) GI bleed Hypertension Lung nodules Metabolic encephalopathy Metastatic cancer Osteoporosis Exercise / Class Metabolic Activity III < 4 Walking/Shop/Light housework Past Surgical History Surgical History History of back surgery History of bronchoscopy History of History of cataract surgery History of cholecystectomy History of ERCP History of hip surgery History of surgery of liver History of tracheostomy Past Anesthesia History No Hx of Anesthesia Complications (per - 1 occurrance of awareness during prior EGD) History of PONV No Hx of PONV Social History Smoking Status: Current every day smoker tobacco type: cigarettes Smoking cigarettes per day: 1 PPD Do You Dip or Chew Tobacco: No Hx Alcohol Use: Yes Alcohol type: hard liquor alcohol intake frequency: 0-2 drinks per day Hx Substance Use: No Review of Systems Presented with GI bleed at outside hospital - intubated for altered mental status on arrival to [facility]. Pt currently intubated and sedated in ICU. Physical Exam Vital Signs Last Vital Signs Temp 36.7 C 06/20/19 10:19 Pulse 97 H 06/20/19 13:21 Resp 14 06/20/19 13:21 BP 132/75 06/20/19 10:19 Pulse Ox 97 06/20/19 13:21 Constitutional not obese ENMT Mouth: + edentulous Intubated and sedated in ICU Neck normal visual inspection Respiratory Auscultation: + diminished lung sounds; no rales, no rhonchi and no wheezes Cardiovascular Rate/Rhythm: regular rate and regular rhythm Heart Sounds: no murmur Neurologic moves all extremities Psychiatric Orientation: + not alert and + not oriented x 3 Testing Laboratory Results 06/20/19 09:12 06/20/19 09:12 PT 15.5 Seconds (9.0-12.0) H 06/20/19 11:08 INR 1.6 (0.9-1.1) H 06/20/19 11:08 Blood Type O Positive 06/20/19 09:12 Antibody Screen POSITIVE A 06/20/19 09:12 06/20/19 12:52 POC Glucose 156 H
--- NOTE | 2019-06-20 12:28 | Hospitalist Progress Note ---
Date of Service June 20, 2019 Assessment & Plan (1) GI bleed: Direct admit from [facility] to PCU for upper and lower GI Bleed with history of esophageal varices US abdomen complete showed small amount of ascites, cirrhosis and splenomegally Continue Protonix gtt, sandostatin gtt - both started at [facility] Consult GI - Dr. Felipe - patient for EGD in the OR today (2) Altered mental status: Metabolic encephalopathy Transferred to ICU 06/20 due to obtundation for intubation for airway proteciton Ammonia level 144 - lactulose via NG tube - repeat ammonia this morning 87 Sedated with fentanyl and propofol (3) Chronic pain: 100 mcg Fentanyl patch removed at [facility] for lethargy Fentanyl gtt per ICU (4) Chest pain: Troponins wnl x2 EKG with sinus rhythm CT chest w/o contrast: 1. Multiple (greater than 20) solid nodules of the bilateral lungs are new from comparison study dated 07/30/2017, which includes multiple subpleural and pleural- based solid nodules predominantly within the left hemithorax measuring up to a 5.0 cm. Findings are suggestive of pulmonary/pleural metastatic disease. 2. Trace left likely malignant pleural effusion. 3. Cirrhotic liver disease with splenomegaly and upper abdominal ascites compatible with portal venous hypertension. 4. Partially imaged nodularity of the imaged upper abdominal omentum may reflect concomitant omental carcinomatosis. 5. Esophageal wall thickening with hiatal hernia. 6. Aberrant right subclavian artery. (5) Depression: (6) Acute blood loss anemia: Hgb was 7.3 at [facility] and she was given 2 units PRBCs - Hgb today 7.1 EGD as above (7) Chronic hepatitis C: (8) Alcohol abuse: Banana bag AWSS (9) Cirrhosis of liver with ascites: Continue ceftriaxone for SBP prophylaxis (10) Metastatic cancer: History of metastatic cancer of unknown origin per [facility] records Chest CT with more than 20 nodules that are new since 07/2017 Per daughter Jo Ann - patient has been followed by Dr. Delacruz, she is to have a liver biopsy on July 06. reports patient has a history of liver cancer (11) Lung nodules: As above (12) DVT prophylaxis: SCDs, no chemoprophylaxis due to GI bleed Subjective Ms. España was moved to the ICU this morning due to obtundation. She is now intubated, stable. was updated at bedside Physical Exam Physical Exam: General: no distress Eyes: normal inspection, PERLL Respiratory: chest non tender, clear to auscultation, normal breath sounds, no respiratory distress, no accessory muscle use Cardiac: regular rate and rhythm, no rub or gallop, no murmur, no edema, no jvd GI/: active bowel sounds, no abd pain or tenderness, soft, non distended Extremities: sedated/intubated Neuro/Psych: sedated and intubated Skin: normal color, dry Results & Data Vital Signs (Past 12 Hours) Vital Signs Temp Pulse Pulse Resp BP BP Pulse Ox 06/20/19 11:23 101 H 15 99 06/20/19 10:19 36.7 C 100 H 15 132/75 98 06/20/19 10:00 101 H 98 06/20/19 09:49 101 H 126/76 97 06/20/19 09:30 101 H 128/77 98 06/20/19 09:17 128/76 97 06/20/19 09:15 140/82 97 06/20/19 09:13 102 H 119/71 98 06/20/19 09:11 101 H 118/68 98 06/20/19 09:09 100 H 112/68 99 06/20/19 09:07 100 H 12 118/69 99 06/20/19 09:05 100 H 110/68 99 06/20/19 09:03 100 H 112/68 99 06/20/19 09:01 101 H 20 114/68 100 06/20/19 08:59 101 H 108/66 100 06/20/19 08:57 102 H 103/65 100 06/20/19 08:55 103 H 20 106/67 100 06/20/19 08:53 105 H 20 110/70 100 06/20/19 08:51 105 H 20 111/68 100 06/20/19 08:49 105 H 20 109/68 100 06/20/19 08:47 107 H 20 100/65 100 06/20/19 08:45 106 H 20 101/65 100 06/20/19 08:43 107 H 20 94/59 L 100 06/20/19 08:42 107 H 20 100 06/20/19 08:41 107 H 20 109/62 100 06/20/19 08:39 107 H 20 130/73 100 06/20/19 08:37 113 H 21 179/97 H 100 06/20/19 08:35 119 H 26 H 172/119 H 100 06/20/19 08:33 127 H 18 174/143 H 100 06/20/19 08:31 109 H 19 149/80 H 99 06/20/19 08:29 116 H 21 115/78 98 06/20/19 08:18 118 H 25 H 116/79 95 06/20/19 08:00 121 H 20 141/90 H 95 06/20/19 07:34 36.8 C 120 H 24 177/93 H 95 06/20/19 07:11 113 H 22 94 06/20/19 04:00 36.7 C 130 H 20 185/82 H 96 PG Care Time/CCT Total # of Minutes Spent Total Time Spent with Patient: Total time spent is greater than 50% in coordination of care (as documented) at patient's floor/unit and/or counseling patient:
[2019-06-20] MEDS ORDERED: SODIUM CHLORIDE 0.9% 250 ML IV PRN (12:38)
[2019-06-20 12:47] LABS: Albumin Peritoneal Fluid < 0.6 g/dl; Total Protein Peritoneal Fluid 0.7 g/dl
[2019-06-20] MEDS ORDERED: PHYTONADIONE 5 MG in SODIUM CHLORIDE 0.9% 50 ML IV ONE (13:00)
[2019-06-20 13:08] LABS: Appearance Peritoneal Fluid CLEAR; Basophils, Fluid 1 %; Color Peritoneal Fluid PALE YELLOW; Eosinophils, Fluid 1 %; Lymphocytes, Fluid 18 %; Mono,Macrophage,Mesothelial 30 %; Neutrophils, Fluid 50 %; RBC Peritoneal Fluid (A) < 3000 /uL; WBC Peritoneal Fluid (A) 279 /ul (0-300)
[2019-06-20] MEDS ORDERED: PROPOFOL IV EMULSION 10 MG/ML 20 ML VIAL IV ONE ×2 (13:51→14:10)
[2019-06-20] MEDS ORDERED: LIDOCAINE 2% 20 MG/ML 5 ML SYR IV ONE (13:51)
[2019-06-20] MEDS ORDERED: ALBUMIN HUMAN 5% 12.5 GM/250 ML VIAL IV ONE (14:14)
--- NOTE | 2019-06-20 15:06 | GI REPORT ---
Patient Name: Dea España Procedure Date: 06/20/2019 1:59 PM Date of : 1960 Admit Type: Inpatient Age: 59 Gender: Female Attending MD: Nazario Felipe MD Procedure: Upper GI endoscopy Providers: Nazario Felipe MD Referring MD: Rogers Pryor Md Indications: Hematemesis Medicines: Monitored Anesthesia Care Complications: No immediate complications. Estimated blood loss: None. Estimated Blood Loss: Estimated blood loss: none. Procedure: Pre-Anesthesia Assessment: - The risks and benefits of the procedure and the sedation options and risks were discussed with the patient. All questions were answered and informed consent was obtained. - Patient identification and proposed procedure were verified prior to the procedure by the physician, the nurse and the corporate security manager. The procedure was verified in the procedure room. After obtaining informed consent, the endoscope was passed under direct vision. Throughout the procedure, the patient's blood pressure, pulse, and oxygen saturations were monitored continuously. The Endoscope was introduced through the mouth, and advanced to the second part of duodenum. The upper GI endoscopy was accomplished without difficulty. The patient tolerated the procedure well. Procedure and risks explained to patients and daughter which include but not limited to medication reaction, bleeding, perforation, aspiration , and missed lesions. Judicious gas insufflation was used and gas removal done on the way out. The lumen was always visualized when advancing the scope. Prep was good. Washes and suctioning used as needed to get good visualization of the mucosa. Retroflexion to look at the fundus and cardia of the stomach and GE junction was done. Findings: Grade II varices were found in the upper third of the esophagus and in the middle third of the esophagus. Clotted blood combined with food was found in the gastric fundus and proximal body. This could not be removed. Three localized, medium non-bleeding erosions were found in the gastric body. There were stigmata of recent bleeding. Coagulation for bleeding prevention using argon plasma at 1.4 liters/minute and 35 gonzales was successful. Estimated blood loss: none. The examined duodenum was normal. The cardia and gastric fundus were normal on retroflexion. The exam was otherwise without abnormality. No active bleeding noted. Impression: - Grade II esophageal varices. - Clotted blood and food in the gastric fundus. - Erosive gastropathy with stigamata of recent bleeding. Treated with argon plasma coagulation (APC). - Normal examined duodenum. - No specimens collected. Recommendation: - DC Octreotide as I do not feel she is bleeding from varices. Continue PPI bid. Repeat EGD this admit to clear remainder of stomach. Nazario Felipe M.D. Nazario Felipe MD 06/20/2019 3:06:01 PM This report has been signed electronically. Note Initiated On: 06/20/2019 1:59 PM Number of Addenda: 0 I attest to the content of the Intraoperative Record and orders documented therein, exceptions below {[id number]}
--- NOTE | 2019-06-20 15:09 | Post Operative Brief Note ---
Immediate Post Op Note v1 Date of Surgery June 20, 2019 Pre & Post Diagnosis Operation Date: 06/20/19 13:00 <No data on this case meets the specified criteria> I identified the patient and participated in the time-out.: Yes Procedure Operation Date: 06/20/19 13:00 <No data on this case meets the specified criteria> EGD with APC Surgeon Nazario Felipe Enchilada Maker see report Estimated Blood Loss 0 Findings See Below Grade II esoophageal varices. No gastric varices. Clotted blood and food obscurring view of gastric fundus and proximal body. Erosions noted with stigmata of recent bleeding in body used APC. No active bleeding. Plan PPI IV bid DC octreotide as I do not feel varices are cause of bleeding. Repeat EGD some time this admit to clear remainder of stomach. I discussed EGD findings with family and poor short and fci prognosis given endstage liver disease and what appears to be new metastic cancer.
[2019-06-20 15:41] LABS: Hematocrit (blood only) 23.1 % (37-47); Hemoglobin 7.1 g/dL (12.0-16.0)
[2019-06-20 16:44] LABS: Appearance Urine Clear (Clear); Bacteria Urine Automated Negative (Negative); Bilirubin Urine Negative (Negative); Blood Urine 2+ (Negative); Color Urine Dark Yellow; Epithelial Cell Urine Auto >30 /lpf (0-5); Glucose Urine UA Negative (Negative); Ketones Urine Negative (Negative); Leukocyte Esterase Urine 2+ (Negative); Nitrite Urine Negative (Negative); Protein Urine Trace (Negative); Specific Gravity Urine 1.025 (1.000-1.030); Urobilinogen Urine Negative (Negative); WBC Urine Automated >30 /hpf (0-5); pH Urine 5.5 (4.5-7.5)
[2019-06-20 16:58] LABS: Renal Epithelial Cells Urine 0-5 /lpf (0-5)
--- NOTE | 2019-06-20 17:08 | Anesthesiology Progress Note ---
Date of Service June 20, 2019 Anesthesia Post Procedure Vital Signs Vital Signs: Temp Pulse Pulse Resp BP BP Pulse Ox 06/20/19 16:50 93 H 14 94 06/20/19 16:00 37.0 C 92 H 15 136/90 98 06/20/19 15:57 93 H 15 133/77 98 06/20/19 15:27 89 15 132/86 99 06/20/19 14:57 94 H 17 107/63 100 06/20/19 14:54 95 H 16 113/65 100 06/20/19 14:53 95 H 16 104/62 100 06/20/19 14:50 96 H 12 107/61 100 06/20/19 14:48 95 H 13 106/57 L 100 06/20/19 14:47 94 H 12 100/57 L 100 06/20/19 14:45 92 H 12 102/63 100 06/20/19 14:42 92 H 110/60 100 06/20/19 14:40 93 H 106/61 100 06/20/19 14:38 96 H 91/58 L 100 06/20/19 14:36 95 H 102/60 100 06/20/19 14:34 95 H 101/58 L 100 06/20/19 14:32 94 H 103/59 L 100 06/20/19 14:30 101 H 114/62 95 06/20/19 14:28 97 H 124/65 97 06/20/19 14:26 97 H 144/72 H 96 06/20/19 14:25 105 H 145/117 H 95 06/20/19 14:00 93 H 13 147/79 H 98 06/20/19 13:50 94 H 14 126/74 98 06/20/19 13:21 97 H 14 97 06/20/19 13:00 98 H 14 119/68 96 06/20/19 12:00 99 H 13 133/75 100 06/20/19 11:23 101 H 15 99 06/20/19 11:00 36.7 C 102 H 13 136/78 99 06/20/19 10:19 36.7 C 100 H 15 132/75 98 06/20/19 10:00 101 H 98 06/20/19 09:49 101 H 126/76 97 06/20/19 09:30 101 H 128/77 98 06/20/19 09:17 128/76 97 06/20/19 09:15 140/82 97 06/20/19 09:13 102 H 119/71 98 06/20/19 09:11 101 H 118/68 98 06/20/19 09:09 100 H 112/68 99 06/20/19 09:07 100 H 12 118/69 99 06/20/19 09:05 100 H 110/68 99 06/20/19 09:03 100 H 112/68 99 06/20/19 09:01 101 H 20 114/68 100 06/20/19 08:59 101 H 108/66 100 06/20/19 08:57 102 H 103/65 100 06/20/19 08:55 103 H 20 106/67 100 06/20/19 08:53 105 H 20 110/70 100 06/20/19 08:51 105 H 20 111/68 100 06/20/19 08:49 105 H 20 109/68 100 06/20/19 08:47 107 H 20 100/65 100 06/20/19 08:45 106 H 20 101/65 100 06/20/19 08:43 107 H 20 94/59 L 100 06/20/19 08:42 107 H 20 100 06/20/19 08:41 107 H 20 109/62 100 06/20/19 08:39 107 H 20 130/73 100 06/20/19 08:37 113 H 21 179/97 H 100 06/20/19 08:35 119 H 26 H 172/119 H 100 06/20/19 08:33 127 H 18 174/143 H 100 06/20/19 08:31 109 H 19 149/80 H 99 06/20/19 08:29 116 H 21 115/78 98 06/20/19 08:18 118 H 25 H 116/79 95 06/20/19 08:00 121 H 20 141/90 H 95 06/20/19 07:34 36.8 C 120 H 24 177/93 H 95 06/20/19 07:11 113 H 22 94 06/20/19 04:00 36.7 C 130 H 20 185/82 H 96 06/20/19 00:00 36.2 C L 104 H 116 H 158/64 H 96 06/19/19 20:41 36.6 C 113 H 18 114/70 94 06/19/19 18:23 110 H 06/19/19 17:10 36.8 C 101 H 20 119/77 95 Transfer of Care Handoff Completed per policy Notes Mental Status: participated in evaluation and see notes below (Intubated and sedated in ICU) Patient Amnestic to Procedure: Yes Nausea / Vomiting: adequately controlled Pain: adequately controlled Airway Patency, RR, SpO2: see Notes below (Intubated) BP & HR: stable & adequate Hydration State: stable & adequate Anesthetic Complications: no major complications apparent
[2019-06-20] MEDS: PANTOprazole 40 MG in SYRINGE 0 ML IV SCH (20:17)
[2019-06-20 21:45] LABS: Hematocrit (blood only) 26.6 % (37-47); Hemoglobin 8.5 g/dL (12.0-16.0)
[2019-06-21] MEDS: CHECK FENTANYL PATCH PLACEMENT SCH ×2 (00:20→09:29)
[2019-06-21] MEDS: propofoL 1,000 MG/100 ML VIAL IV SCH ×3 (01:21→23:19)
[2019-06-21 03:58] LABS: Basophils # (auto) 0.04 K/uL (0-0.2); Basophils % (auto) 0.7 %; Eosinophils # (auto) 0.24 K/uL (0-0.5); Eosinophils % (auto) 4.1 %; Hematocrit (blood only) 25.1 % (37-47); Immature Granulocytes # (auto) 0.02 K/uL (0.00-0.02); Immature Granulocytes % (auto) 0.3 %; Lymphocytes # (auto) 1.17 K/uL (1.2-3.4); Mean Corpuscular Hemoglobin 27.6 pg (25-34); Mean Corpuscular Hgb Conc 31.9 g/dL (32-36); Mean Corpuscular Volume 86.6 fL (80-100); Mean Platelet Volume 10.7 fL (7.4-10.4); Monocytes # (auto) 0.67 K/uL (0.11-0.59); Monocytes % (auto) 11.5 %; Neutrophils # (auto) 3.71 K/uL (1.4-6.5); Neutrophils % (auto) 63.4 %; Platelet Count 135 K/uL (130-400); RDW Coefficient of Variation 21.9 % (11.5-14.5); RDW Standard Deviation 69.1 fL (36.4-46.3); White Blood Count 5.85 K/uL (4.8-10.8)
[2019-06-21 04:07] LABS: INR 1.4 (0.9-1.1)
[2019-06-21 04:18] LABS: Albumin Level 1.8 gm/dl (3.4-5.0); BUN Creatinine Ratio 18.9 (10-20); Calcium 7.4 mg/dl (8.5-10.1); Creatinine Clr Calc Pharmacy 47.2 ml/min; Est GFR (African American) 71.3; Est GFR (Non-African American) 61.5; Magnesium 1.6 mg/dl (1.8-2.4); Potassium 3.3 mmol/L (3.5-5.1)
[2019-06-21 04:28] LABS: Albumin Globulin Ratio 0.4 (0.9-2); Bilirubin,Total 1.3 mg/dl (0.2-1); Phosphorus 1.9 mg/dl (2.5-4.9); Total Protein 6.8 gm/dl (6.4-8.2)
[2019-06-21] MEDS ORDERED: MAGNESIUM SULFATE / D5W 1 GM/100 ML BAG IV ONE (04:28)
[2019-06-21] MEDS ORDERED: POTASSIUM PHOS 3 MMOL/1 ML INFUSION IV STA (04:28)
[2019-06-21 04:34] LABS: Anisocytosis Present; Echinocytes 2+
[2019-06-21] MEDS: POTASSIUM CHLORIDE / WTR 10 MEQ/100 ML PLCT IV SCH ×2 (04:48→06:02)
[2019-06-21] MEDS ORDERED: POTASSIUM PHOSPHATE 15 MMOL in SODIUM CHLORIDE 0.9% 250 ML IV ONE (06:00)
[2019-06-21] MEDS: LACTULOSE 200 GM, WATER, STERILE IRRIG 700 ML, BARCODE IDENTIFIER 1 EA PR SCH ×2 (07:06→14:00)
--- NOTE | 2019-06-21 07:23 | XRay Report ---
XR chest 1V portable HISTORY: 59 years-old Female f/u acute respiratory distress COMPARISON: Chest radiograph 06/20/2019, chest CT 06/19/2019. TECHNIQUE: Portable AP view of the chest FINDINGS: Endotracheal tube overlies the midline terminating at the level the rosita coursing towards the right mainstem bronchus. Enteric tube courses below the diaphragm into the region of the gastric lumen out side the [id number]. Numerous pleural-based masses, notably at the level of the left lung base red emonstrated. Trace pleural effusions. Small pleural effusions. Degenerative changes of the shoulders and spine. IMPRESSION: 1. Endotracheal tube overlies the midline, tip at the level of the rosita. Retraction of approximatel y 3.5 cm with follow-up imaging recommended. 2. Trace pleural effusions with progressive left basilar opacities suggestive of atelectasis or pneum onitis. 3. Multiple pleural-based masses redemonstrated. ACT 112: Negative or not required by law. The above report was generated using voice recognition software. It may contain grammatical, syntax o r spelling errors. Electronically signed by: Dennis Street M.D. 06/21/2019 7:22 AM
--- NOTE | 2019-06-21 07:24 | XRay Report ---
KUB HISTORY: Acute abdominal distention abd distention COMPARISON: KUB 06/12/2019 FINDINGS: Tip of nasogastric tube projects inferiorly within the region of the mid gastric body. Pattern is nonobstructive. Mild gaseous distended large bowel the abdominal right lower quadrant. The re is no organomegaly. No renal calculi. No ureteral calculi. No pneumoperitoneum or pneumatosis. Ky phoplasty changes are noted at L1. Remote appearing L2 compression deformity. Posterior interbody kailyn and screw fusion at L3-L5 with discectomy changes at L4-L5. Multilevel degenerative changes of the s pine. There are 3 cannulated screws noted about the intertrochanteric left proximal femur.. IMPRESSION: Tip of enteric tube projects over the expected location of the mid gastric body. ACT 112: Negative or not required by law. The above report was generated using voice recognition software. It may contain grammatical, syntax o r spelling errors. Electronically signed by: Dennis Street M.D. 06/21/2019 7:23 AM
--- NOTE | 2019-06-21 07:49 | Critical Care Progress Note ---
Date of Service June 21, 2019 Assessment & Plan (1) Metabolic encephalopathy: --VDRF sec to Metabolic encephalopathy Likely secondary to hepatic encephalopathy with elevated ammonia level of 144, start lactulose 30 g via OGT and titrate to bowel movements off at least 3 Sepsis cannot be ruled out especially SBP --> total WBC count in peritoneal fluid, 279 with only 50% neutrophils, SAAG greater than 1.1 which inclines this is not SBP and likely cirrhosis as a cause of ascites Patient off octreotide Follow-up septic work-up Continue with ventilatory support Keep RASS -1 Daily sedation holidays and SBT's --Acute blood loss anemia Patient's baseline hemoglobin is around 13 Status post EGD 06/20/2019, no signs of active bleeding Continue with Protonix IV 40 mg twice daily GI on board Monitor H&H, transfuse for hemoglobin less than 7 --Coagulopathy Likely secondary to underlying liver cirrhosis, status post vitamin K 5 mg IV Monitor --Protein calorie malnutrition Albumin 2 --Patient has multiple nodules in the lung High likelihood of metastatic disease We will get palliative care involved as well --UDS positive for amphetamine --Secondary hypercoagulable state IPC's given the patient has acute blood loss anemia Plan: Tried reconciliation off and see if the patient follows command. Do therapeutic paracentesis today given that the belly is distended and tense. Continue with Protonix 40 mg twice daily, continue with lactulose Start patient on feeding (2) Acute blood loss anemia: (3) Cirrhosis of liver with ascites: (4) Lung nodules: (5) Alcohol abuse: (6) Chronic hepatitis C: Subjective Patient seen and examined at bedside. No adverse events overnight. Intubated. Patient had EGD done yesterday which showed grade 2 varices but no active bleed from them. Erosions were noted but no active bleeding. Patient on propofol 10 and fentanyl 50 at the time of examination. Peak 27, plateau 21, patient is breathing over the vent. Patient still not following commands. Review of Systems Review of Systems: Unobtainable due to cognitive status and Unobtainable due to endotracheal tube Physical Exam Physical Exam: Constitutional: Mild respiratory distress given patient is gurgling at the time of examination HEENT: PERRLA positive ETT Respiratory system: Decreased air entry bilaterally, positive crackles bilateral lower lobes, no wheeze, no rhonchi CVS: S1-S2 positive, no murmurs or gallops Abdomen: Soft, nontender, distended, positive bowel sounds x4, positive hepatomegaly Extremities: +2 pulses bilaterally radialis/ dorsalis pedis, no cyanosis, no edema Neuro: Rass -2, patient breathing over the vent, positive pupillary, positive corneal, positive gag Psych: Unable to assess G/U: Positive Rowe Skin: no rashes, warm and dry Lymphatic: no cervical or axillary lymphadenopathy Results & Data Vital Signs (Past 12 Hours) Vital Signs Temp Pulse Resp BP Pulse Ox 06/21/19 05:30 96 H 17 93 06/21/19 04:10 37.7 C H 94 H 95 06/21/19 04:00 94 H 94 06/21/19 03:50 94 H 95 06/21/19 03:40 93 H 95 06/21/19 03:30 95 H 94 06/21/19 03:28 94 H 134/73 93 06/21/19 03:20 97 H 95 06/21/19 03:10 96 H 96 06/21/19 03:00 95 H 96 06/21/19 02:50 96 H 96 06/21/19 02:40 96 H 96 06/21/19 02:30 96 H 96 06/21/19 02:28 96 H 133/71 96 06/21/19 02:20 96 H 96 06/21/19 02:10 96 H 96 06/21/19 02:00 96 H 95 06/21/19 01:50 96 H 95 06/21/19 01:46 96 H 15 96 06/21/19 01:40 96 H 95 06/21/19 01:30 96 H 96 06/21/19 01:28 96 H 121/68 95 06/21/19 01:20 95 H 96 06/21/19 01:10 95 H 95 06/21/19 01:00 93 H 95 06/21/19 00:50 96 H 95 06/21/19 00:40 96 H 96 06/21/19 00:30 97 H 95 06/21/19 00:28 97 H 129/71 94 06/21/19 00:20 97 H 95 06/21/19 00:10 97 H 97 06/21/19 00:00 98 H 95 06/20/19 23:50 98 H 96 06/20/19 23:40 98 H 95 06/20/19 23:33 98 H 15 95 06/20/19 23:30 97 H 100 06/20/19 23:28 97 H 125/71 94 06/20/19 23:20 98 H 94 06/20/19 23:10 98 H 96 06/20/19 23:00 96 H 96 06/20/19 22:50 92 H 96 06/20/19 22:40 93 H 95 06/20/19 22:30 93 H 95 06/20/19 22:28 94 H 130/76 96 06/20/19 22:25 93 H 15 97 06/20/19 22:20 96 H 97 06/20/19 22:10 97 H 96 06/20/19 22:00 96 H 96 06/20/19 21:53 100 H 06/20/19 21:50 97 H 94 06/20/19 21:40 97 H 96 06/20/19 21:30 97 H 95 06/20/19 21:28 98 H 126/60 94 06/20/19 21:20 99 H 96 06/20/19 21:10 100 H 94 06/20/19 21:00 101 H 95 06/20/19 20:50 100 H 95 06/20/19 20:40 101 H 95 06/20/19 20:30 101 H 92 06/20/19 20:27 101 H 128/69 94 06/20/19 20:20 99 H 94 06/20/19 20:10 109 H 90 06/20/19 20:00 38.5 C H 96 H 92 06/20/19 19:57 98 H 142/79 H 92 06/20/19 19:53 14 06/20/19 19:50 102 H 93 06/21/19 03:46 06/21/19 03:46 Coding Level of Care Code Critical Care 1st 30-74 mins Diagnoses Metabolic encephalopathy G93.41 Acute blood loss anemia D62 Cirrhosis of liver with ascites K74.60; R18.8 Lung nodules R91.8 Alcohol abuse F10.10 Chronic hepatitis C B18.2 Time Spent (min) 45
--- NOTE | 2019-06-21 08:24 | Procedure Note ---
Procedure Note Date of Service June 21, 2019 Procedure: Diagnostic therapeutic ultrasound-guided catheter paracentesis Carding Doubler: Dr. Derrick Rubio Indication: Ascites to rule out SBP Consent: Signed by patient and verified with timeout prior to procedure Anesthesia: 1% lidocaine without epinephrine local. Procedure: Consent was verified and timeout performed. Appropriate imaging studies were reviewed prior to the procedure. Patient was placed in a supine position and limited abdominal ultrasound was performed. See separate imaging. Appropriate site for paracentesis was selected. The skin was prepped and draped in normal sterile fashion. Lidocaine was used for local analgesia. Fluid was aspirated via the finder needle. A small skin yolanda was made with the scalpel and the catheter over the needle apparatus was advanced via Z technique. Using the syringe one-way valve system, a total of 2300 mL's of serous fluid was removed. The catheter was removed and observed to be intact. A sterile dressing was applied. Fluid was sent for cytology. The patient tolerated the procedure without obvious complication Blood loss: Less than 2 cc Coding CPT Codes Abdomen - Abdominal: 69819 Abdominal Paracentesis (diagnostic or therapeutic); W/O imaging ([id number])
--- NOTE | 2019-06-21 08:45 | Anesthesiology Progress Note ---
Date of Service June 21, 2019 Anesthesia Post Procedure Vital Signs Vital Signs: Temp Pulse Resp BP Pulse Ox 06/21/19 07:40 86 18 96 06/21/19 05:30 96 H 17 93 06/21/19 04:10 37.7 C H 94 H 95 06/21/19 04:00 94 H 94 06/21/19 03:50 94 H 95 06/21/19 03:40 93 H 95 06/21/19 03:30 95 H 94 06/21/19 03:28 94 H 134/73 93 06/21/19 03:20 97 H 95 06/21/19 03:10 96 H 96 06/21/19 03:00 95 H 96 06/21/19 02:50 96 H 96 06/21/19 02:40 96 H 96 06/21/19 02:30 96 H 96 06/21/19 02:28 96 H 133/71 96 06/21/19 02:20 96 H 96 06/21/19 02:10 96 H 96 06/21/19 02:00 96 H 95 06/21/19 01:50 96 H 95 06/21/19 01:46 96 H 15 96 06/21/19 01:40 96 H 95 06/21/19 01:30 96 H 96 06/21/19 01:28 96 H 121/68 95 06/21/19 01:20 95 H 96 06/21/19 01:10 95 H 95 06/21/19 01:00 93 H 95 06/21/19 00:50 96 H 95 06/21/19 00:40 96 H 96 06/21/19 00:30 97 H 95 06/21/19 00:28 97 H 129/71 94 06/21/19 00:20 97 H 95 06/21/19 00:10 97 H 97 06/21/19 00:00 98 H 95 06/20/19 23:50 98 H 96 06/20/19 23:40 98 H 95 06/20/19 23:33 98 H 15 95 06/20/19 23:30 97 H 100 06/20/19 23:28 97 H 125/71 94 06/20/19 23:20 98 H 94 06/20/19 23:10 98 H 96 06/20/19 23:00 96 H 96 06/20/19 22:50 92 H 96 06/20/19 22:40 93 H 95 06/20/19 22:30 93 H 95 06/20/19 22:28 94 H 130/76 96 06/20/19 22:25 93 H 15 97 06/20/19 22:20 96 H 97 06/20/19 22:10 97 H 96 06/20/19 22:00 96 H 96 06/20/19 21:53 100 H 06/20/19 21:50 97 H 94 06/20/19 21:40 97 H 96 06/20/19 21:30 97 H 95 06/20/19 21:28 98 H 126/60 94 06/20/19 21:20 99 H 96 06/20/19 21:10 100 H 94 06/20/19 21:00 101 H 95 06/20/19 20:50 100 H 95 06/20/19 20:40 101 H 95 06/20/19 20:30 101 H 92 06/20/19 20:27 101 H 128/69 94 06/20/19 20:20 99 H 94 06/20/19 20:10 109 H 90 06/20/19 20:00 38.5 C H 96 H 92 06/20/19 19:57 98 H 142/79 H 92 06/20/19 19:53 14 06/20/19 19:50 102 H 93 06/20/19 19:40 96 H 94 06/20/19 19:30 96 H 95 06/20/19 19:27 96 H 141/73 H 94 06/20/19 19:20 95 H 92 06/20/19 19:10 95 H 96 06/20/19 19:00 95 H 95 06/20/19 18:57 95 H 142/77 H 96 06/20/19 18:50 95 H 96 06/20/19 18:40 96 H 96 06/20/19 18:30 95 H 96 06/20/19 18:27 94 H 134/71 95 06/20/19 18:20 95 H 95 06/20/19 18:10 96 H 95 06/20/19 18:00 95 H 15 136/74 95 06/20/19 17:00 95 H 15 134/73 95 06/20/19 16:50 93 H 14 94 06/20/19 16:00 37.0 C 92 H 15 136/90 98 06/20/19 15:57 93 H 15 133/77 98 06/20/19 15:27 89 15 132/86 99 06/20/19 14:57 94 H 17 107/63 100 06/20/19 14:54 95 H 16 113/65 100 06/20/19 14:53 95 H 16 104/62 100 06/20/19 14:50 96 H 12 107/61 100 06/20/19 14:48 95 H 13 106/57 L 100 06/20/19 14:47 94 H 12 100/57 L 100 06/20/19 14:45 92 H 12 102/63 100 06/20/19 14:42 92 H 110/60 100 06/20/19 14:40 93 H 106/61 100 06/20/19 14:38 96 H 91/58 L 100 06/20/19 14:36 95 H 102/60 100 06/20/19 14:34 95 H 101/58 L 100 06/20/19 14:32 94 H 103/59 L 100 06/20/19 14:30 101 H 114/62 95 06/20/19 14:28 97 H 124/65 97 06/20/19 14:26 97 H 144/72 H 96 06/20/19 14:25 105 H 145/117 H 95 06/20/19 14:00 93 H 13 147/79 H 98 06/20/19 13:50 94 H 14 126/74 98 06/20/19 13:21 97 H 14 97 06/20/19 13:00 98 H 14 119/68 96 06/20/19 12:00 99 H 13 133/75 100 06/20/19 11:23 101 H 15 99 06/20/19 11:00 36.7 C 102 H 13 136/78 99 06/20/19 10:19 36.7 C 100 H 15 132/75 98 06/20/19 10:00 101 H 98 06/20/19 09:49 101 H 126/76 97 06/20/19 09:30 101 H 128/77 98 06/20/19 09:17 128/76 97 06/20/19 09:15 140/82 97 06/20/19 09:13 102 H 119/71 98 06/20/19 09:11 101 H 118/68 98 06/20/19 09:09 100 H 112/68 99 06/20/19 09:07 100 H 12 118/69 99 06/20/19 09:05 100 H 110/68 99 06/20/19 09:03 100 H 112/68 99 06/20/19 09:01 101 H 20 114/68 100 06/20/19 08:59 101 H 108/66 100 06/20/19 08:57 102 H 103/65 100 06/20/19 08:55 103 H 20 106/67 100 06/20/19 08:53 105 H 20 110/70 100 06/20/19 08:51 105 H 20 111/68 100 06/20/19 08:49 105 H 20 109/68 100 06/20/19 08:47 107 H 20 100/65 100 06/20/19 08:45 106 H 20 101/65 100 Notes Mental Status: see notes below (Pt intubated and sedated in the ICU) Patient Amnestic to Procedure: Yes Nausea / Vomiting: adequately controlled Pain: adequately controlled Airway Patency, RR, SpO2: stable & adequate BP & HR: stable & adequate Hydration State: stable & adequate Anesthetic Complications: no major complications apparent
[2019-06-21] MEDS: cefTRIAXone SODIUM 1,000 MG in DEXTROSE 5% 50 ML IV SCH (09:24)
[2019-06-21] MEDS: D5W AND 1/2NSS 1,000 ML IV SCH ×2 (09:24→23:26)
[2019-06-21] MEDS: LACTULOSE SYRUP 30 GM/45 ML UDP OG SCH ×4 (09:28→20:53)
[2019-06-21] MEDS: PANTOprazole 40 MG in SYRINGE 0 ML IV SCH ×2 (09:30→20:54)
[2019-06-21] MEDS: fentaNYL DRIP 1,250 MCG/250 ML BAG IV SCH (09:30)
[2019-06-21 10:09] LABS: Hematocrit (blood only) 25.5 % (37-47); Hemoglobin 8.2 g/dL (12.0-16.0)
[2019-06-21] MEDS ORDERED: LACTATED RINGER'S 500 ML IV ONE (13:58)
[2019-06-21] MEDS ORDERED: fentaNYL citrate 100 MCG/2 ML VIAL IV PRN (14:38)
--- NOTE | 2019-06-21 15:14 | Hospitalist Progress Note ---
Date of Service June 21, 2019 Assessment & Plan (1) GI bleed: Direct admit from [facility] for upper and lower GI Bleed with history of esophageal varices US abdomen complete showed small amount of ascites, cirrhosis and splenomegaly Continue Protonix IV BID, sandostatin gtt dc'd per GI Consult GI - Dr. Felipe -EGD 06/20 - Grade II esophageal varices with stigmata of recent bleeding, no active bleeding (2) Altered mental status: Metabolic encephalopathy Transferred to ICU 06/20 due to obtundation for intubation for airway proteciton Ammonia level 144 - lactulose via NG tube Sedated with fentanyl and propofol Paracentesis 06/21 not suspicious for SBP, cultures pending (3) Chronic pain: 100 mcg Fentanyl patch removed at [facility] for lethargy Fentanyl gtt per ICU (4) Chest pain: Troponins wnl x2 EKG with sinus rhythm CT chest w/o contrast: 1. Multiple (greater than 20) solid nodules of the bilateral lungs are new from comparison study dated 07/30/2017, which includes multiple subpleural and pleural- based solid nodules predominantly within the left hemithorax measuring up to a 5.0 cm. Findings are suggestive of pulmonary/pleural metastatic disease. 2. Trace left likely malignant pleural effusion. 3. Cirrhotic liver disease with splenomegaly and upper abdominal ascites compatible with portal venous hypertension. 4. Partially imaged nodularity of the imaged upper abdominal omentum may reflect concomitant omental carcinomatosis. 5. Esophageal wall thickening with hiatal hernia. 6. Aberrant right subclavian artery. (5) Depression: (6) Acute blood loss anemia: Hgb was 7.3 at [facility] and she was given 2 units PRBCs there EGD as above (7) Chronic hepatitis C: (8) Alcohol abuse: Banana bag AWSS (9) Cirrhosis of liver with ascites: Continue ceftriaxone for SBP prophylaxis INR is elevated - given vitamin K 06/21 (10) Metastatic cancer: History of metastatic cancer of unknown origin per [facility] records Chest CT with more than 20 nodules that are new since 07/2017 Per daughter Jo Ann - patient has been followed by Dr. Delacruz, she is to have a liver biopsy on July 06. reports patient has a history of liver cancer Palliative care consulted by ICU (11) Lung nodules: As above (12) DVT prophylaxis: SCDs, no chemoprophylaxis due to GI bleed Subjective MsIsmael Lower remains intubated in the ICU Physical Exam Physical Exam: General: no distress Eyes: normal inspection, PERLL Respiratory: chest non tender, clear to auscultation, normal breath sounds, no respiratory distress, no accessory muscle use Cardiac: regular rate and rhythm, no rub or gallop, no murmur, no edema, no jvd GI/: active bowel sounds, no abd pain or tenderness, soft, non distended Extremities: intubated and sedated Neuro/Psych:intubated and sedated Skin: pale, dry Results & Data Vital Signs (Past 12 Hours) Vital Signs Temp Pulse Resp BP Pulse Ox 06/21/19 13:43 104 H 16 94 06/21/19 11:40 105 H 31 H 99 06/21/19 07:40 86 18 96 06/21/19 05:30 96 H 17 93 06/21/19 04:10 37.7 C H 94 H 95 06/21/19 04:00 94 H 94 06/21/19 03:50 94 H 95 06/21/19 03:40 93 H 95 06/21/19 03:30 95 H 94 06/21/19 03:28 94 H 134/73 93 06/21/19 03:20 97 H 95 06/21/19 03:10 96 H 96 PG Care Time/CCT Total # of Minutes Spent Total Time Spent with Patient: Total time spent is greater than 50% in coordination of care (as documented) at patient's floor/unit and/or counseling patient:
[2019-06-21] MEDS: PEPTAMEN 1.5 CAL 1,000 ML BAG PO SCH (15:20)
--- NOTE | 2019-06-21 16:00 | Gastroenterology Progress Note ---
Date of Service June 21, 2019 Assessment & Plan (1) GI bleed: secondary to erosions in body of stomach. Did not see portion of stomach secondary to old clot and food so depending on clinical course consider repeat EGD to look at remainder of stomach. erosive gastritis---continue PPI esophageal varices--do not feel this is source of current bleeding episode. acute blood loss anemia--stable, follow h and h elevated ammonia---improved to 65 today--continue lactulose cirrhosis-hep C/ETOH--not a transplant candidate liver and lung lesions---AFP to evaluate for HCC is pending. . states she has seen oncology here and has appt with Dr Palm in [place] to evaluate these for cancer. ascites--no evidence of infection, cytology pending. mental status---metabolic encephlopathy---supportive care, sometimes there is delay in recovery of mentation even when ammonia has improved. With ESLD and probable metastatic cancer, the short and jail prognosis is poor. Awaiting some additional records from [facility]--would like to see recent CT scans and EGD. Asked directory clerk to send request again or send it if not done. I am going off service tomorrow 06/22/[address] Hickey is assuming GI care then. Subjective CC unobtainable. Not responsive, on vent HPI Daughters with patient for H and P. Per nursing she is off Fentanyl and Propofol and has not alert with no purposefull movement. Small amount of per itoneal fluid removed yesterday by mill worker with cell count 279 and 50% neutrophils so no SBP, SAAG greater than 1.1 so consistent with cirrhosis and cytology pending. Large volume paracentesis done today 2300ml removed by mill worker. Smear of stool today not black nor bloody. Review of Systems Review of Systems: Unobtainable due to cognitive status and Unobtainable due to endotracheal tube Physical Exam Constitutional: WD/WN, vitals as above Respiratory: normal respiratory effort, lungs clear to auscultation Cardiovascular: RRR, no murmur, no edema Gastrointestinal (Abdomen): positive bs, firm but not tense, distended, no guarding nor rebound Results & Data Vital Signs (Past 12 Hours) Vital Signs Temp Pulse Resp Pulse Ox 06/21/19 13:43 104 H 16 94 06/21/19 11:40 105 H 31 H 99 06/21/19 07:40 86 18 96 06/21/19 05:30 96 H 17 93 06/21/19 04:10 37.7 C H 94 H 95 06/21/19 04:00 94 H 94
--- NOTE | 2019-06-21 16:29 | Communication Note ---
Date of Service: June 21, 2019 Critical CARE addendum: Sedation was turned off today early in the morning to see if the patient responds. Patient is still not responding her GCS is 4T. Patient has corneal, pupillary, gag reflex. Patient is breathing over the vent. She is being fed through OGT and getting lactulose via OGT. Patient having bowel movements now. Her urine output is still on the lower side. And her creatinine is gradually bumping up gradually. Will order urine lites. Possibility of hepatorenal syndrome is better. We will give her 1.5 g/kg of albumin now followed by gram per KG albumin on the . Patient didn't get any benzodiazepin except at the time of intubation (4 mg of Versed). Will consider her giving flumazenil. We will get a CT head without contrast. Her ammonia level is not that high to cause brain edema. Patient has no uremia. Spoke with Patient's daughter. As per her patient was talking and walking at [facility] before she started with hemetemsis. She has similar presentation before for which she was intubated for 14 days at [place].
[2019-06-21] MEDS: ALBUMIN 25% 50 ML IV SCH ×7 (17:15→23:21)
--- NOTE | 2019-06-21 17:58 | CT Scan Report ---
CT head/brain wo con CLINICAL HISTORY: 59 years-old Female with Altered mental status. Acutely altered mental status TECHNIQUE: Multiple axial CT images of the head were obtained without contrast. A dose lowering tech nique was utilized adhering to the principles of ALARA. CT DOSE: 767.83 mGy.cm COMPARISON: None. FINDINGS: Motion degraded exam. No acute intracranial hemorrhage, midline shift, intracranial mass, hydrocephal us, territorial ischemia or abnormal extra-axial collection. Age-related involutional changes. Cerebr al vascular calcifications noted. The calvarium is intact. The paranasal sinuses, mastoid air cells, and middle ear cavities are clear . IMPRESSION: Motion degraded exam without acute intracranial abnormality. ACT 112: Negative or not required by law. The above report was generated using voice recognition software. It may contain grammatical, syntax o r spelling errors. Electronically signed by: Dennis Street M.D. 06/21/2019 5:57 PM
[2019-06-21] MEDS: PROPRANOLOL HCL 20 MG TAB PO SCH (18:04)
[2019-06-21] MEDS: RIFAXIMIN 550 MG TABLET PO SCH (20:54)
[2019-06-21] MEDS: fentaNYL citrate 100 MCG/2 ML VIAL IV PRN (21:35)
[2019-06-21 22:05] LABS: Amphetamine Urine, Confirm 885 ng/mL (<250); Methamphetamine, Ur Confirm 9360 ng/mL (<250)
[2019-06-22] MEDS: fentaNYL citrate 100 MCG/2 ML VIAL IV PRN (03:05)
[2019-06-22 04:46] LABS: INR 1.6 (0.9-1.1); Prothrombin Time 15.8 Seconds (9.0-12.0)
[2019-06-22 04:54] LABS: BUN Creatinine Ratio 17.8 (10-20); Calcium 7.6 mg/dl (8.5-10.1); Creatinine Clr Calc Pharmacy 55.6 ml/min; Est GFR (African American) 86.9; Magnesium 1.8 mg/dl (1.8-2.4); Potassium 3.5 mmol/L (3.5-5.1)
[2019-06-22 04:56] LABS: Albumin Globulin Ratio 0.8 (0.9-2); Bilirubin,Total 1.5 mg/dl (0.2-1); Globulin 3.8 gm/dl (2.5-4.0); Total Protein 6.8 gm/dl (6.4-8.2)
[2019-06-22] MEDS: PROPRANOLOL HCL 20 MG TAB PO SCH ×2 (05:25→17:19)
[2019-06-22 06:01] LABS: iSTAT Allen Test Pass; iSTAT Arterial Blood Gas HCO3 22 meg/L (19-24); iSTAT Arterial Blood Gas pCO2 32 mmHg (35-46); iSTAT Arterial Blood Gas pH 7.44 (7.35-7.45); iSTAT Arterial Blood Gas pO2 98 mmHg (80-95); iSTAT Carbon Dioxide 23 mEq/l (24-31); iSTAT FiO2 27 %; iSTAT Site R Radial
[2019-06-22 06:14] LABS: Hematocrit (blood only) 22.2 % (37-47); Hemoglobin 7.1 g/dL (12.0-16.0); Mean Corpuscular Volume 87.4 fL (80-100); RDW Coefficient of Variation 22.1 % (11.5-14.5); RDW Standard Deviation 69.9 fL (36.4-46.3); Red Blood Count 2.54 M/uL (4.2-5.4); White Blood Count 4.67 K/uL (4.8-10.8)
--- NOTE | 2019-06-22 07:06 | Critical Care Progress Note ---
Date of Service June 22, 2019 Assessment & Plan (1) Transfusion of blood during current hospitalisation: Reason Critically Ill: Patient with altered mental status requiring intubation for inability to protect airway Neuro: patient with no clear focal neuro deficit on exam though remains very obtunded even off sedation ECG ordered today showing no evidence of seizure activity MRI showing tiny meningioma but no evidence of metastatic disease\\ Encephalopathy likely metabolic secondary to her liver failure Will continue to watch for signs of improvement Respiratory: Intubated for altered mental status No acute lung pathology Cardiovascular: Hemodynamically stable No acute cardiac concerns GI:Ascitic abdomen has been tapped twice and over two liters taken off No evidence of malignancy on cytology from tap No evidence of SBP Patient with history of suspected metastatic cancer possibly HCC Follows with Dr. Delacruz, was due for a biopsy this week Continuing lactulose, ammonia back to normal levels but no evidence of improved mental status ID: Will continue ceftriaxone for prophylaxis in Gi bleed with cirrhosis No current infectoius concern Procalcitonin negative Will remain in critical care for further workup, very concerned this is at least partially client care representative of progressive metastatic cancer. 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 Culver was resident physician during care of patient. I separately evaluated patient for bhakta portions of the history and the exam. I was present during the critical portion of medical decision making, and I discussed the case with the resident. I generally agree with the findings and plan. Patient was discussed in multidisciplinary rounds Family reports "withdrawal" from narcotics as well as alcohol previously. Given the posturing and history of hypertension yesterday we proceeded with an EEG which did not demonstrate seizures. We will attempt to obtain an MRI to rule out metastatic disease and additional intracranial pathology. If both of these are negative along with the significantly decreased ammonia level I think we are largely dealing with a toxic metabolic encephalopathy secondary to longstanding end-stage liver disease and will need to give the patient more time to clear the active metabolites. The patient is moving somewhat in the bed and exhibiting posturing signs which family reports she has done previously similar posturing as she clears sedation. We will give 1 unit of packed red blood cells for the decreasing H&H and attempt to coordinate with GI for possible repeat upper EGD. She is on tube feeds at this point which we have held. I doubt this is infectious in etiology however we will check a procalcitonin. Considerations will be given for need for possible lumbar puncture. This could represent paraneoplastic process given the findings that are suggestive of metastatic disease. We will also attempt to locate pathology results from the paracentesis. I would suspect if we have a definitive diagnosis of metastatic cells this may change our goals of care. Subjective Patient remains intubated and obtunded, unable to provide any history Review of Systems Review of Systems: Unobtainable due to endotracheal tube and Unobtainable due to reduced consciousness Physical Exam Physical Exam: Constitutional: Sedated/obtunded woman, ET tube in place, Eyes: anicteric sclerae, EOMMI bilaterally Respiratory: On vent, lungs sound clear to auscultation Cardiovascular: Heart sounds dual, no m/r/s/g GI: Abdomen greatly distended and firm, no masses detected Neuro: Corneal reflex and babinski reflex intact bilaterally, Lower limb reflexes maybe slightly sluggish, pupils ERRLA Results & Data Vital Signs (Past 12 Hours) Vital Signs Temp Pulse Resp BP Pulse Ox 06/22/19 05:45 76 16 98 06/22/19 04:20 37.2 C 75 98 06/22/19 04:10 75 99 06/22/19 04:00 75 100 06/22/19 03:50 75 100 06/22/19 03:44 76 115/65 100 06/22/19 03:40 75 99 06/22/19 03:30 77 99 06/22/19 03:20 74 99 06/22/19 03:10 77 99 06/22/19 03:00 78 100 06/22/19 02:50 76 100 06/22/19 02:44 78 115/66 99 06/22/19 02:40 78 99 06/22/19 02:30 80 98 06/22/19 02:25 28 L 14 99 06/22/19 02:20 81 98 06/22/19 02:13 83 125/66 99 06/22/19 02:10 86 97 06/22/19 02:00 93 H 94 06/22/19 01:50 89 96 06/22/19 01:40 90 96 06/22/19 01:30 80 98 06/22/19 01:20 81 98 06/22/19 01:10 37.1 C 82 98 06/22/19 01:00 80 97 06/22/19 00:50 81 96 06/22/19 00:49 81 105/60 97 06/22/19 00:40 86 97 06/22/19 00:10 93 06/22/19 00:00 88 95 06/21/19 23:50 82 100 06/21/19 23:44 83 145/77 H 99 06/21/19 23:40 84 99 06/21/19 23:30 85 99 06/21/19 23:20 91 H 19 100 06/21/19 23:13 83 06/21/19 23:10 84 99 06/21/19 23:00 83 99 06/21/19 22:50 83 99 06/21/19 22:44 83 128/72 99 06/21/19 22:40 83 99 06/21/19 22:30 84 100 06/21/19 22:20 83 100 06/21/19 22:10 85 99 06/21/19 22:00 86 99 06/21/19 21:50 87 99 06/21/19 21:44 88 129/71 98 06/21/19 21:40 88 98 06/21/19 21:30 91 H 99 06/21/19 21:20 90 100 06/21/19 21:10 87 98 06/21/19 21:00 88 98 06/21/19 20:50 88 99 06/21/19 20:44 89 148/75 H 98 06/21/19 20:40 89 96 06/21/19 20:30 88 99 06/21/19 20:20 88 18 99 06/21/19 20:10 88 96 06/21/19 20:00 37.6 C H 86 99 06/21/19 19:50 86 99 06/21/19 19:43 86 143/77 H 100 06/21/19 19:40 85 100 06/21/19 19:30 86 100 06/21/19 19:28 85 161/82 H 100 06/21/19 19:20 86 100 06/21/19 19:13 85 154/78 H 100 06/21/19 19:10 85 100 Critical Care Time Critical Care Time: Yes I have personally spent 90 minutes of critical care time in the direct management of this patient. This is a life/limb threatening event. This includes time spent evaluating patient, direct bedside care, chart review, placing orders, interpretation of diagnostic studies, discussion with consultants, patient, and/or family members regarding treatment decisions, as well as other required patient management activities. This time is exclusive of all separately billable procedures, and teaching time and separate from and in addition to any other critical care service time. Resident Activity Tracking Resident Involvement: Resident Care Provided Care Provided: Adult [facility]
[2019-06-22 07:16] LABS: Platelet Count 95 K/uL (130-400)
[2019-06-22 07:17] LABS: Anisocytosis Present; Basophils # (auto) 0.02 K/uL (0-0.2); Basophils % (auto) 0.4 %; Eosinophils # (auto) 0.16 K/uL (0-0.5); Eosinophils % (auto) 3.4 %; Giant Platelets 2+; Hypochromasia Present; Immature Granulocytes # (auto) 0.02 K/uL (0.00-0.02); Immature Granulocytes % (auto) 0.4 %; Lymphocytes # (auto) 0.72 K/uL (1.2-3.4); Lymphocytes % (auto) 15.4 %; Monocytes # (auto) 0.56 K/uL (0.11-0.59); Neutrophils # (auto) 3.19 K/uL (1.4-6.5); Neutrophils % (auto) 68.4 %; Platelet Estimate Decreased (Normal)
--- NOTE | 2019-06-22 07:40 | XRay Report ---
SINGLE VIEW CHEST CLINICAL HISTORY: Respiratory failure. FINDINGS: An AP, portable, upright chest radiograph is compared to study dated 06/21/2019. Correlatio n is made with chest CT dated 06/19/2019. The examination is degraded by portable technique and patie nt rotation. An endotracheal tube is unchanged in position. The tip projects over the right mainstem bronchus. An enteric tube projects below the diaphragm. The cardiomediastinal silhouette is unremarka ble. A large lingular mass is unchanged from previous. There are small pleural effusions and bibasila r atelectasis. No pneumothorax is seen. The skeletal structures are osteopenic. The bony thorax is gr ossly intact. IMPRESSION: 1. An endotracheal tube is unchanged in position. The tip projects over the right mainstem bronchus a nd this should be pulled back. 2. Trace pleural effusions. 3. Additional findings as above, unchanged from yesterday. ACT 112: Negative or not required by law. Electronically signed by: Jesus Manuel Beckwith M.D. 06/22/2019 7:38 AM
--- NOTE | 2019-06-22 08:28 | Hospitalist Progress Note ---
Date of Service June 22, 2019 Assessment & Plan (1) GI bleed: Direct admit from [facility] for upper and lower GI Bleed with history of esophageal varices US abdomen complete showed small amount of ascites, cirrhosis and splenomegaly Continue Protonix IV BID, sandostatin gtt dc'd per GI Consult GI - Dr. Felipe -EGD 06/20 - Grade II esophageal varices with stigmata of recent bleeding, no active bleeding 06/22 - hgb down to 7.1, VSS, no clinical sign of bleed. previous variceal bleed noted. consideration to prbc transfusion, defer to splitting machine feeder. (2) Altered mental status: Metabolic encephalopathy Transferred to ICU 06/20 due to obtundation for intubation for airway proteciton Ammonia level 144 - lactulose via NG tube Sedated with fentanyl and propofol Paracentesis 06/21 not suspicious for SBP, cultures pending 06/22 - NH3 down to 21, still no meaningful recovery of mental function. sedation per splitting machine feeder prelim ascitic fluid cultures negative, continue to follow (3) Chronic pain: 100 mcg Fentanyl patch removed at [facility] for lethargy Fentanyl gtt per ICU (4) Chest pain: Troponins wnl x2 EKG with sinus rhythm CT chest w/o contrast: 1. Multiple (greater than 20) solid nodules of the bilateral lungs are new from comparison study dated 07/30/2017, which includes multiple subpleural and pleural- based solid nodules predominantly within the left hemithorax measuring up to a 5.0 cm. Findings are suggestive of pulmonary/pleural metastatic disease. 2. Trace left likely malignant pleural effusion. 3. Cirrhotic liver disease with splenomegaly and upper abdominal ascites compatible with portal venous hypertension. 4. Partially imaged nodularity of the imaged upper abdominal omentum may reflect concomitant omental carcinomatosis. 5. Esophageal wall thickening with hiatal hernia. 6. Aberrant right subclavian artery. (5) Depression: (6) Acute blood loss anemia: Hgb was 7.3 at [facility] and she was given 2 units PRBCs there EGD as above 06/22 - h/h low as noted, monitor for bleeding, consider prbc transfusion (7) Chronic hepatitis C: (8) Alcohol abuse: Banana bag AWSS (9) Cirrhosis of liver with ascites: Continue ceftriaxone for SBP prophylaxis INR is elevated - given vitamin K 06/21 (10) Metastatic cancer: History of metastatic cancer of unknown origin per [facility] records Chest CT with more than 20 nodules that are new since 07/2017 Per daughter Jo Ann - patient has been followed by Dr. Delacruz, she is to have a liver biopsy on July 06. reports patient has a history of liver cancer Palliative care consulted by ICU 06/22 - evidence of pulmonary metastatic disease, noted. previously known hepatic CA, was undergoing workup. agree overall prognosis would be poor considering current condition, palliative care to see (11) Lung nodules: As above (12) DVT prophylaxis: SCDs, no chemoprophylaxis due to GI bleed Subjective Seen and examined in ICU. Patient has been off sedation but is still obtunded, remains on vent. Vital signs are stable. Large volume paracentesis performed yesterday with 2300cc removed by splitting machine feeder at bedside. VS appear stable with low normal BP. Hgb down today to 7.1 Physical Exam Constitutional: obtunded, no purposeful movement, minimally jaundiced Respiratory: Auscultation: lungs clear to auscultation bilaterally intubated, ventilated, vey limited exam Cardiovascular: Rate/Rhythm: regular rate and regular rhythm Gastrointestinal (Abdomen): Percussion/Palpation: + ascites, + dullness to percussion and + abdomen firm; abdomen nontender Musculoskeletal: no cyanosis or clubbing, extremities motor strength 5/5 Results & Data Vital Signs (Past 12 Hours) Vital Signs Temp Pulse Pulse Resp BP BP Pulse Ox 06/22/19 07:05 73 15 100 06/22/19 07:00 36.7 C 68 12 106/56 L 97 06/22/19 05:45 76 16 98 06/22/19 04:20 37.2 C 75 98 06/22/19 04:10 75 99 06/22/19 04:00 75 100 06/22/19 03:50 75 100 06/22/19 03:44 76 115/65 100 06/22/19 03:40 75 99 06/22/19 03:30 77 99 06/22/19 03:20 74 99 06/22/19 03:10 77 99 06/22/19 03:00 78 100 06/22/19 02:50 76 100 06/22/19 02:44 78 115/66 99 06/22/19 02:40 78 99 06/22/19 02:30 80 98 06/22/19 02:25 28 L 14 99 06/22/19 02:20 81 98 06/22/19 02:13 83 125/66 99 06/22/19 02:10 86 97 06/22/19 02:00 93 H 94 06/22/19 01:50 89 96 06/22/19 01:40 90 96 06/22/19 01:30 80 98 06/22/19 01:20 81 98 06/22/19 01:10 37.1 C 82 98 06/22/19 01:00 80 97 06/22/19 00:50 81 96 06/22/19 00:49 81 105/60 97 06/22/19 00:40 86 97 06/22/19 00:10 93 06/22/19 00:00 88 95 06/21/19 23:50 82 100 06/21/19 23:44 83 145/77 H 99 06/21/19 23:40 84 99 06/21/19 23:30 85 99 06/21/19 23:20 91 H 19 100 06/21/19 23:13 83 06/21/19 23:10 84 99 06/21/19 23:00 83 99 06/21/19 22:50 83 99 06/21/19 22:44 83 128/72 99 06/21/19 22:40 83 99 06/21/19 22:30 84 100 06/21/19 22:20 83 100 06/21/19 22:10 85 99 06/21/19 22:00 86 99 06/21/19 21:50 87 99 06/21/19 21:44 88 129/71 98 06/21/19 21:40 88 98 06/21/19 21:30 91 H 99 06/21/19 21:20 90 100 06/21/19 21:10 87 98 06/21/19 21:00 88 98 06/21/19 20:50 88 99 06/21/19 20:44 89 148/75 H 98 06/21/19 20:40 89 96 06/21/19 20:30 88 99 PG Care Time/CCT Total # of Minutes Spent Total Time Spent with Patient: Total time spent is greater than 50% in coordination of care (as documented) at patient's floor/unit and/or counseling patient:
[2019-06-22] MEDS: LACTULOSE SYRUP 30 GM/45 ML UDP OG SCH ×4 (09:17→21:13)
[2019-06-22] MEDS: PANTOprazole 40 MG in SYRINGE 0 ML IV SCH ×2 (09:17→21:14)
[2019-06-22] MEDS: cefTRIAXone SODIUM 1,000 MG in DEXTROSE 5% 50 ML IV SCH (09:17)
[2019-06-22] MEDS: RIFAXIMIN 550 MG TABLET PO SCH ×2 (09:18→21:14)
[2019-06-22] MEDS: propofoL 1,000 MG/100 ML VIAL IV SCH (09:18)
[2019-06-22] MEDS: D5W AND 1/2NSS 1,000 ML IV SCH (09:18)
[2019-06-22] MEDS ORDERED: SODIUM CHLORIDE 0.9% 250 ML IV PRN (09:57)
[2019-06-22] MEDS ORDERED: POTASSIUM PHOSPHATE 24 MMOL in SODIUM CHLORIDE 0.9% 500 ML IV ONE (10:15)
[2019-06-22 10:28] LABS: Hematocrit (blood only) 22.2 % (37-47)
[2019-06-22] MEDS ORDERED: METOCLOPRAMIDE HCL INJ 5 MG/ML 2 ML VIAL IV STA (10:48)
[2019-06-22 10:52] LABS: BUN Creatinine Ratio 21.4 (10-20); Calcium 7.8 mg/dl (8.5-10.1); Creatinine Clr Calc Pharmacy 64.9 ml/min; Est GFR (African American) 104.8; Est GFR (Non-African American) 90.4; Potassium 3.3 mmol/L (3.5-5.1)
[2019-06-22 10:53] LABS: Fibrinogen 124 mg/dl (184-400)
--- NOTE | 2019-06-22 11:10 | Electroencephalogram ---
EEG Procedure Note Date of Service June 22, 2019 Start / End Times Start Time: 1033 End Time: [address] Can History 59-year-old with history of metastatic carcinoma and acute encephalopathy. Home Medication List Home Medications Medication Instructions Recorded Confirmed Type fentanyl 100 mcg/hr transdermal 1 patch TD Q48H ea 05/06/19 06/20/19 History patch fluoxetine 20 mg capsule 20 mg PO DAILY 05/06/19 06/20/19 History furosemide 40 mg tablet 20 mg PO BID 05/06/19 06/20/19 History methylphenidate HCl 20 mg 60 mg PO QAM 05/06/19 06/20/19 History tablet,extended release metoclopramide HCl 10 mg 5 mg PO QID tab 05/06/19 06/20/19 History disintegrating tablet mometasone 50 mcg/actuation nasal 2 sprays INTNAS DAILY 05/06/19 06/20/19 History spray omeprazole 20 mg capsule,delayed 20 mg PO BID cap 05/06/19 06/20/19 History release rifaximin 550 mg tablet 550 mg PO BID 05/06/19 06/20/19 History spironolactone 50 mg tablet 50 mg PO DAILY 05/06/19 06/20/19 History albuterol sulfate [Ventolin HFA] 2 puff INHALATION Q4H PRN 06/20/19 06/20/19 History budesonide-formoterol [Symbicort] 2 puff INHALATION BID 06/20/19 06/20/19 History lactulose 15 ml PO TID 06/20/19 06/20/19 History lorazepam 0.5 mg PO PRN 06/20/19 History oxycodone 5 mg Q4H PRN 06/20/19 06/20/19 History propranolol 20 mg PO HS 06/20/19 06/20/19 History Inpatient Medication List Albuterol (Duoneb) 3 ml NEB Q4R PRN PRN Reason: Shortness Of Breath Stop: 07/20/19 06:59 Last Admin: 06/20/19 07:10 Dose: 3 ml Documented by: [id number] Enteral Nutritional Formula (Peptamen 1.5 [place]) 1,000 ml PO UD [facility]; Protocol Stop: 07/21/19 13:59 Last Admin: 06/21/19 15:20 Dose: 1,000 ml Documented by: [id number] Fentanyl Citrate (Fentanyl Citrate) 50 mcg IV Q3H PRN PRN Reason: Pain Stop: 07/04/19 08:39 Last Admin: 06/22/19 03:05 Dose: 50 mcg Documented by: [id number] Admin: 06/21/19 21:35 Dose: 50 mcg Documented by: [id number] Ceftriaxone Sodium 1,000 mg/ (Dextrose) 50 mls @ 100 mls/hr IV Q24H RIKA; P rotocol Stop: 06/30/19 08:59 Last Infusion: 06/22/19 09:47 Dose: 0 mls/hr Documented by: [id number] Admin: 06/22/19 09:17 Dose: 100 mls/hr Documented by: [id number] Infusion: 06/21/19 09:54 Dose: 0 mls/hr Documented by: [id number] Admin: 06/21/19 09:24 Dose: 100 mls/hr Documented by: [id number] Infusion: 06/20/19 09:28 Dose: 0 mls/hr Documented by: [id number] Admin: 06/20/19 08:56 Dose: 100 mls/hr Documented by: [id number] Pantoprazole Sodium 40 mg/ (Syringe) 10 mls @ 5 mls/min IV BID@0900,2100 [facility] Stop: 07/20/19 20:59 Last Admin: 06/22/19 09:17 Dose: 5 mls/min Documented by: [id number] Admin: 06/21/19 20:54 Dose: 5 mls/min Documented by: [id number] Admin: 06/21/19 09:30 Dose: 5 mls/min Documented by: [id number] Admin: 06/20/19 20:17 Dose: 5 mls/min Documented by: [id number] Potassium Phosphate 24 mmol/ (Sodium Chloride) 508 mls @ 125 mls/hr IV ONE ONE Stop: 06/22/19 14:18 Last Admin: 06/22/19 10:42 Dose: 125 mls/hr Documented by: [id number] Lactulose (Chronulac) 30 gm OG QID RIKA Stop: 07/20/19 08:59 Last Admin: 06/22/19 10:43 Dose: Not Given Documented by: [id number] Admin: 06/22/19 09:17 Dose: Not Given Documented by: [id number] Admin: 06/21/19 20:53 Dose: 30 gm Documented by: [id number] Admin: 06/21/19 17:15 Dose: 30 gm Documented by: [id number] Admin: 06/21/19 13:36 Dose: 30 gm Documented by: [id number] Admin: 06/21/19 09:28 Dose: 30 gm Documented by: [id number] Admin: 06/20/19 20:18 Dose: 30 gm Documented by: [id number] Admin: 06/20/19 16:30 Dose: 30 gm Documented by: [id number] Admin: 06/20/19 12:40 Dose: Not Given Documented by: [id number] Admin: 06/20/19 09:38 Dose: Not Given Documented by: [id number] Propranolol HCl (Inderal) 20 mg PO Q12H RIKA Stop: 07/21/19 17:14 Last Admin: 06/22/19 05:25 Dose: 20 mg Documented by: [id number] Admin: 06/21/19 18:04 Dose: 20 mg Documented by: [id number] Rifaximin (Xifaxan) 550 mg PO BID RIKA Stop: 07/21/19 20:59 Last Admin: 06/22/19 09:18 Dose: 550 mg Documented by: [id number] Admin: 06/21/19 20:54 Dose: 550 mg Documented by: [id number] Discontinued Medications Lactulose 200 gm/ Sterile Water 700 ml/ BARCODE IDENTIFIER 1 ea 0 gm VA Q8 RIKA Stop: 07/20/19 08:01 Last Admin: 06/21/19 14:00 Dose: Not Given Documented by: [id number] Admin: 06/21/19 07:06 Dose: Not Given Documented by: [id number] Admin: 06/20/19 20:18 Dose: Not Given Documented by: [id number] Admin: 06/20/19 14:09 Dose: Not Given Documented by: [id number] Admin: 06/20/19 08:54 Dose: Not Given Documented by: [id number] Fentanyl (Duragesic) 100 mcg TD Q48H RIKA Stop: 07/04/19 01:59 Last Admin: 06/20/19 03:08 Dose: Not Given Documented by: [id number] Fentanyl Citrate (Fentanyl Citrate) 25 mcg IV Q3H PRN PRN Reason: Pain Stop: 07/04/19 08:39 Last Admin: 06/21/19 15:54 Dose: 25 mcg Documented by: [id number] Sodium Chloride (Nss 1000ml) 1,000 mls @ 100 mls/hr IV .Q10H RIKA Stop: 07/19/19 16:29 Last Infusion: 06/19/19 17:08 Dose: 0 mls/hr Documented by: [id number] Admin: 06/19/19 16:57 Dose: 100 mls/hr Documented by: [id number] Octreotide Acetate 500 mcg/ (Sodium Chloride) 105 mls @ 10.5 mls/hr IV .Q10H RIKA Stop: 07/19/19 14:59 Last Infusion: 06/20/19 22:49 Dose: 0 mcg/hr, 0 mls/hr Documented by: [id number] Admin: 06/20/19 12:41 Dose: 50 mcg/hr, 10.5 mls/hr Documented by: [id number] Infusion: 06/20/19 12:41 Dose: 50 mcg/hr, 10.5 mls/hr Documented by: [id number] Admin: 06/20/19 02:53 Dose: 50 mcg/hr, 10.5 mls/hr Documented by: [id number] Infusion: 06/20/19 02:53 Dose: 50 mcg/hr, 10.5 mls/hr Documented by: [id number] Admin: 06/19/19 18:06 Dose: 50 mcg/hr, 10.5 mls/hr Documented by: [id number] Pantoprazole Sodium 40 mg/ (Dextrose) 100 mls @ 20 mls/hr IV Q5H RIKA Stop: 06/20/19 12:00 Last Infusion: 06/20/19 12:46 Dose: 0 mls/hr Documented by: [id number] Admin: 06/20/19 07:48 Dose: 20 mls/hr Documented by: [id number] Infusion: 06/20/19 07:48 Dose: 20 mls/hr Documented by: [id number] Admin: 06/20/19 03:10 Dose: 20 mls/hr Documented by: [id number] Infusion: 06/20/19 03:10 Dose: 20 mls/hr Documented by: [id number] Admin: 06/19/19 22:50 Dose: 20 mls/hr Documented by: [id number] Infusion: 06/19/19 22:50 Dose: 20 mls/hr Documented by: [id number] Admin: 06/19/19 18:06 Dose: 20 mls/hr Documented by: [id number] Multivitamins 10 ml/ Thiamine HCl 100 mg/ Folic Acid 1 mg/Sodium Chloride 1,011.2 mls @ 500 mls/hr IV .Q2H2M ONE Stop: 06/19/19 19:21 Last Infusion: 06/19/19 21:39 Dose: 0 mls/hr Documented by: [id number] Admin: 06/19/19 18:06 Dose: 500 mls/hr Documented by: [id number] Ciprofloxacin (Cipro) 400 mg in 200 mls @ 100 mls/hr IV Q12H RIKA; Protocol Stop: 06/29/19 18:59 Last Infusion: 06/20/19 09:28 Dose: 0 mls/hr Documented by: [id number] Admin: 06/20/19 07:19 Dose: 100 mls/hr Documented by: [id number] Infusion: 06/19/19 22:21 Dose: 0 mls/hr Documented by: [id number] Admin: 06/19/19 19:41 Dose: 100 mls/hr Documented by: [id number] Lorazepam (Ativan) 2 mg in 4 mls @ 4 mls/min IV UD PRN; Protocol PRN Reason: EtOH Withdrawl AWSS Score 8,9 Stop: 07/20/19 01:52 Last Admin: 06/20/19 06:02 Dose: 4 mls/min Documented by: [id number] Fentanyl Citrate (Fentanyl Drip) 1,250 mcg in 250 mls @ 5 mls/hr IV .Q24H RIKA; Protocol Stop: 07/04/19 08:39 Last Admin: 06/21/19 09:30 Dose: Not Given Documented by: [id number] Titration: 06/21/19 08:15 Dose: 0 mcg/hr, 0 mls/hr Documented by: [id number] Titration: 06/21/19 07:08 Dose: 25 mcg/hr, 5 mls/hr Documented by: [id number] Cosigned by: [id number] Titration: 06/20/19 19:08 Dose: 25 mcg/hr, 5 mls/hr Documented by: [id number] Cosigned by: [id number] Admin: 06/20/19 09:05 Dose: 25 mcg/hr, 5 mls/hr Documented by: [id number] Cosigned by: [id number] Propofol (Diprivan) 1,000 mg in 100 mls @ 1.802 mls/hr IV .Q24H RIKA; Protocol Stop: 06/23/19 08:39 Last Admin: 06/22/19 09:18 Dose: Not Given Documented by: [id number] Admin: 06/21/19 23:19 Dose: Not Given Documented by: [id number] Titration: 06/21/19 14:09 Dose: 0 mcg/kg/min, 0 mls/hr Documented by: [id number] Titration: 06/21/19 09:26 Dose: 30.25 mcg/kg/min, 10 mls/hr Documented by: [id number] Cosigned by: [id number] Admin: 06/21/19 09:26 Dose: 5.44 mcg/kg/min, 1.8 mls/hr Documented by: [id number] Cosigned by: [id number] Titration: 06/21/19 07:09 Dose: 30.25 mcg/kg/min, 10 mls/hr Documented by: [id number] Cosigned by: [id number] Admin: 06/21/19 01:21 Dose: 30.25 mcg/kg/min, 10 mls/hr Documented by: [id number] Cosigned by: [id number] Titration: 06/21/19 01:21 Dose: 25 mcg/kg/min, 8.3 mls/hr Documented by: [id number] Cosigned by: [id number] Titration: 06/20/19 19:08 Dose: 25 mcg/kg/min, 8.3 mls/hr Documented by: [id number] Cosigned by: [id number] Admin: 06/20/19 16:30 Dose: 25 mcg/kg/min, 8.3 mls/hr Documented by: [id number] Cosigned by: [id number] Titration: 06/20/19 16:30 Dose: 25 mcg/kg/min, 8.3 mls/hr Documented by: [id number] Cosigned by: [id number] Titration: 06/20/19 11:00 Dose: 25 mcg/kg/min, 8.3 mls/hr Documented by: [id number] Titration: 06/20/19 10:15 Dose: 20 mcg/kg/min, 6.6 mls/hr Documented by: [id number] Titration: 06/20/19 09:45 Dose: 15 mcg/kg/min, 5 mls/hr Documented by: [id number] Titration: 06/20/19 09:15 Dose: 10 mcg/kg/min, 3.3 mls/hr Documented by: [id number] Admin: 06/20/19 08:55 Dose: 5 mcg/kg/min, 1.7 mls/hr Documented by: [id number] Cosigned by: [id number] Dextrose/Sodium Chloride (D5w And 1/2nss) 1,000 mls @ 80 mls/hr IV .[id number] RIKA Stop: 07/20/19 08:59 Last Admin: 06/22/19 09:18 Dose: Not Given Documented by: [id number] Admin: 06/21/19 23:26 Dose: Not Given Documented by: [id number] Infusion: 06/21/19 15:20 Dose: 0 mls/hr Documented by: [id number] Admin: 06/21/19 09:24 Dose: 80 mls/hr Documented by: [id number] Infusion: 06/21/19 09:19 Dose: 80 mls/hr Documented by: [id number] Admin: 06/20/19 20:49 Dose: 80 mls/hr Documented by: [id number] Infusion: 06/20/19 20:49 Dose: 80 mls/hr Documented by: [id number] Admin: 06/20/19 09:30 Dose: 80 mls/hr Documented by: [id number] Phytonadione 5 mg/ Sodium (Chloride) 50.5 mls @ 101 mls/hr IV ONE ONE Stop: 06/20/19 13:29 Last Infusion: 06/20/19 13:40 Dose: 0 mls/hr Documented by: [id number] Admin: 06/20/19 13:04 Dose: 101 mls/hr Documented by: [id number] Potassium Chloride (K Frandy / Wtr) 10 meq in 100 mls @ 100 mls/hr IV Q1H RIKA Stop: 06/21/19 06:27 Last Infusion: 06/21/19 07:09 Dose: 0 mls/hr Documented by: [id number] Admin: 06/21/19 06:02 Dose: 100 mls/hr Documented by: [id number] Infusion: 06/21/19 05:48 Dose: 100 mls/hr Documented by: [id number] Admin: 06/21/19 04:48 Dose: 100 mls/hr Documented by: [id number] Magnesium Sulfate/Dextrose (Magnesium Sulfate / D5w) 1 gm in 100 mls @ 100 mls/hr IV ONE ONE Stop: 06/21/19 05:27 Last Infusion: 06/21/19 06:06 Dose: 0 mls/hr Documented by: [id number] Admin: 06/21/19 04:49 Dose: 100 mls/hr Documented by: [id number] Potassium Phosphate 15 mmol/ (Sodium Chloride) 255 mls @ 88 mls/hr IV ONE ONE Stop: 06/21/19 08:53 Last Infusion: 06/21/19 08:32 Dose: 0 mls/hr Documented by: [id number] Admin: 06/21/19 05:38 Dose: 88 mls/hr Documented by: [id number] Lactated Ringer's (Lr) 500 mls @ 999 mls/hr IV .Q31M ONE Stop: 06/21/19 14:28 Last Infusion: 06/21/19 14:50 Dose: 0 mls/hr Documented by: [id number] Admin: 06/21/19 14:09 Dose: 999 mls/hr Documented by: [id number] Albumin Human (Albumin 25%) 50 mls @ 50 mls/hr IV Q1H RIKA Stop: 06/21/19 23:59 Last Infusion: 06/21/19 23:52 Dose: 0 mls/hr Documented by: [id number] Admin: 06/21/19 23:21 Dose: 150 mls/hr Documented by: [id number] Infusion: 06/21/19 23:21 Dose: 0 mls/hr Documented by: [id number] Admin: 06/21/19 22:00 Dose: 150 mls/hr Documented by: [id number] Infusion: 06/21/19 21:11 Dose: 0 mls/hr Documented by: [id number] Admin: 06/21/19 20:43 Dose: 150 mls/hr Documented by: [id number] Infusion: 06/21/19 19:31 Dose: 150 mls/hr Documented by: [id number] Admin: 06/21/19 19:11 Dose: 150 mls/hr Documented by: [id number] Infusion: 06/21/19 19:01 Dose: 0 mls/hr Documented by: [id number] Admin: 06/21/19 18:41 Dose: 150 mls/hr Documented by: [id number] Infusion: 06/21/19 18:39 Dose: 0 mls/hr Documented by: [id number] Admin: 06/21/19 18:18 Dose: 150 mls/hr Documented by: [id number] Infusion: 06/21/19 18:17 Dose: 0 mls/hr Documented by: [id number] Admin: 06/21/19 17:15 Dose: 50 mls/hr Documented by: [id number] Lorazepam (Ativan) Confirm Administered Dose 2 mg .ROUTE .STK-MED ONE Stop: 06/20/19 02:09 Last Admin: 06/20/19 02:13 Dose: 2 mg Documented by: [id number] Miscellaneous (Fentanyl Patch Check Placement) 1 ea N/A QS RIKA Stop: 07/20/19 07:59 Last Admin: 06/21/19 09:29 Dose: Not Given Documented by: [id number] Admin: 06/21/19 00:20 Dose: Not Given Documented by: [id number] Admin: 06/20/19 14:28 Dose: Not Given Documented by: [id number] Admin: 06/20/19 08:53 Dose: Not Given Documented by: [id number] Miscellaneous () Confirm Administered Dose 1 ea .ROUTE .STK-MED ONE Stop: 06/20/19 08:23 Last Admin: 06/20/19 08:54 Dose: Not Given Documented by: [id number] Propofol (Diprivan) Confirm Administered Dose 1,000 mg IV .STK-MED ONE Stop: 06/20/19 08:35 Last Admin: 06/20/19 08:54 Dose: Not Given Documented by: [id number] Description This is a 21 electrode EEG with a single channel dedicated to limited EKG. The electrodes were placed in accordance with the International 10-20 system. Interpretation The predominant background activity consists of irregular 5-6 Hz activity, of up to 40 mV in amplitude, seen symmetrically distributed over the posterior head regions bilaterally spreading anteriorly into all head regions. This activity had little attenuation to eye-opening and other alerting procedures. Photic stimulation was performed and elicited no change in the background activity and no abnormal responses were seen. Hyperventilation was not performed. A mild amount of muscle and movement artifact activity contaminated the recording, but did not hinder interpretation to any significant degree. Throughout this recording, no focal abnormalities or potentially epileptogenic discharges are seen. The patient stayed in this 5-6 hertz rhythm background throughout the entire recording. She did have some spontaneous movement and chewing movements without change in the background activity. In summary, this EEG was abnormal. It showed moderate generalized slowing of a nonspecific nature. No potentially epileptogenic discharges or focal abnormalities were seen. Clinical Correlation The absence of potentially epileptogenic activity does not exclude a seizure disorder, since interictally, EEGs can be normal. Clinical correlation is required. The abnormalities seen in this recording generally correlate with a moderate encephalopathy which could be due to wide variety of causes. [facility] EEG Procedure Codes Indication for Procedure (1) Metabolic encephalopathy: (2) Altered mental status: Neurology Neurology: [id number] EEG include record awake & drowsy
--- NOTE | 2019-06-22 11:12 | XRay Report ---
XR KUB/Abdomen 1 view CLINICAL HISTORY: OG tube tube position COMPARISON STUDY: 06/21/2019 FINDINGS: Nasogastric tube within the mid stomach. Stable postoperative changes of the lumbar spine left hip. Stable kyphoplasty of L1. Bowel pattern is nonobstructive. IMPRESSION: 1. Nasogastric tube mid stomach. 2. Nonobstructive bowel pattern. ACT 112: Negative or not required by law. The above report was generated using voice recognition software. It may contain grammatical, syntax or spelling errors. Electronically signed by: Lane Kim M.D. 06/22/2019 11:11 AM
[2019-06-22 11:39] LABS: Procalcitonin 0.31 ng/ml (0-0.5)
[2019-06-22 11:44] LABS: Influenza A virus by PCR Neg for Influ A (Neg); Influenza B virus by PCR Neg for Influ B (Neg)
[2019-06-22 12:42] LABS: Lyme Ab IgG w/WB Rflx Negative (Negative); Lyme Ab IgM w/WB Rflx Negative (Negative)
[2019-06-22] MEDS ORDERED: KETAMINE HCL INJ 50 MG/ML 10 ML VIAL IV STA (12:43)
[2019-06-22] MEDS ORDERED: KETAMINE HCL 10 MG in SODIUM CHLORIDE 0.9% 50 ML IV STA (12:53)
--- NOTE | 2019-06-22 13:27 | Billing Data ---
Date of Service June 22, 2019 Coding Level of Care Code Critical Care ea addt'l 30 min
[2019-06-22] MEDS ORDERED: MIDAZOLAM HCL 1 MG/ML 2ML VIAL ONE (13:59)
[2019-06-22] MEDS ORDERED: MIDAZOLAM HCL 1 MG/ML 2ML VIAL IV STA (14:21)
[2019-06-22] MEDS ORDERED: GADOBUTROL 65ML VIAL IV PRN (14:39)
--- NOTE | 2019-06-22 15:09 | Magnetic Resonance Report ---
Brain MRI WITH AND WITHOUT CONTRAST HISTORY: Altered mental status, metastatic disease TECHNIQUE: Multiplanar multisequence MRI of the brain was performed both before and after the intrave nous administration of contrast. COMPARISON STUDY: Head CT 06/21/2019. FINDINGS: There is no hematoma, midline shift, or acute infarct. The paranasal sinuses are clear. The mastoid air cells are clear. The ventricles and sulci demonstrate mild age-related involutional newell ges. Scattered foci of T2 hyperintensity seen within the periventricular and subcortical white matter are nonspecific but suggestive of mild microvascular ischemic changes. The major vascular flow voids at the skull base are well-maintained. There is a 1 cm extra-axial enhancing lesion within the right posterior fossa best seen on postcontrast image 29 of 124. This likely represents a meningioma. No i ntraparenchymal lesions identified to suggest metastatic disease. IMPRESSION: 1. No acute intracranial abnormality. 2. There is a 1 cm extra-axial enhancing lesion within the right posterior fossa.. This likely repres ents a meningioma. No intraparenchymal lesions identified to suggest metastatic disease. ACT 112: Negative or not required by law. Electronically signed by: Greg White M.D. 06/22/2019 3:08 PM
--- NOTE | 2019-06-22 16:19 | Progress Note ---
DATE: 06/22/2019 The patient remains unresponsive on ventilator. Blood pressure is 160/72, pulse 65 and regular in sinus rhythm, temperature is 37.3, O2 sat is 98% on mechanical ventilation. The patient had a paracentesis and the pathology showed no malignant cells. Alpha fetoprotein is pending at this time. The patient's hemoglobin today is 7 after a unit of blood. She also is pancytopenic with a white count of 4.67 and a platelet count of 95,000. Abdomen is slightly protuberant, I was unable to palpate any internal organs, but her ultrasound showed a moderate amount of ascites present. According to the nurse, the patient is passing liquid brown stool but does not appear to be grossly bloody. IMPRESSION: The patient has comatose as coma from probably metabolic encephalopathy, which is multifactorial, may take a few days for her to metabolize some of the medications in her system, especially given her compromised liver function, prognostically it would be helpful if we had a histologic diagnosis, but it is usually not advisable to biopsy the liver in the setting of ascites as it may be difficult to control bleeding and could potentially spread tumor, especially if it is a hepatoma. It may be more advisable to target the pleural based lesion in the left side of the lung for biopsy. At this point, I would probably recommend transfusing her at least another unit of blood to get her hemoglobin above 8 as a cushion in case she bleeds again and as well as awaiting for the alpha fetoprotein to return and considering biopsying the pleural based left lung lesion.
[2019-06-22] MEDS ORDERED: POTASSIUM CHLORIDE 20 MEQ/15 ML UDC PO STA (17:10)
[2019-06-22] MEDS: FUROSEMIDE 20 MG/2 ML UDP PO SCH (18:16)
[2019-06-22 18:54] LABS: Hematocrit (blood only) 28.3 % (37-47)
[2019-06-23 02:11] LABS: Mean Corpuscular Hgb Conc 31.5 g/dL (32-36)
[2019-06-23] MEDS: fentaNYL citrate 100 MCG/2 ML VIAL IV PRN ×2 (02:17→07:14)
[2019-06-23 02:24] LABS: INR 1.6 (0.9-1.1); Prothrombin Time 15.6 Seconds (9.0-12.0)
[2019-06-23 02:31] LABS: Hematocrit (blood only) 29.8 % (37-47); Hemoglobin 9.4 g/dL (12.0-16.0); Mean Corpuscular Hemoglobin 27.6 pg (25-34); Mean Corpuscular Volume 87.6 fL (80-100); RDW Coefficient of Variation 21.1 % (11.5-14.5); RDW Standard Deviation 64.7 fL (36.4-46.3); White Blood Count 9.04 K/uL (4.8-10.8)
[2019-06-23 02:36] LABS: Platelet Count 133 K/uL (130-400)
[2019-06-23 02:37] LABS: Albumin Globulin Ratio 0.6 (0.9-2); Albumin Level 2.5 gm/dl (3.4-5.0); BUN Creatinine Ratio 24.9 (10-20); Bilirubin,Total 2.2 mg/dl (0.2-1); Calcium 7.5 mg/dl (8.5-10.1); Creatinine Clr Calc Pharmacy 66.7 ml/min; Est GFR (African American) 108.4; Est GFR (Non-African American) 93.5; Globulin 4.1 gm/dl (2.5-4.0); Potassium 4.1 mmol/L (3.5-5.1); Total Protein 6.6 gm/dl (6.4-8.2)
[2019-06-23 02:38] LABS: Anisocytosis Present; Basophils # (auto) 0.06 K/uL (0-0.2); Basophils % (auto) 0.7 %; Eosinophils # (auto) 0.29 K/uL (0-0.5); Eosinophils % (auto) 3.2 %; Giant Platelets 1+; Immature Granulocytes # (auto) 0.03 K/uL (0.00-0.02); Immature Granulocytes % (auto) 0.3 %; Lymphocytes % (auto) 11.1 %; Monocytes # (auto) 0.95 K/uL (0.11-0.59); Monocytes % (auto) 10.5 %; Neutrophils # (auto) 6.71 K/uL (1.4-6.5); Neutrophils % (auto) 74.2 %; Ovalocytes 1+; Platelet Estimate Normal (Normal); Polychromasia 1+
[2019-06-23] MEDS: PEPTAMEN 1.5 CAL 1,000 ML BAG PO SCH (02:48)
[2019-06-23 04:17] LABS: Magnesium 1.8 mg/dl (1.8-2.4)
[2019-06-23] MEDS: PROPRANOLOL HCL 20 MG TAB PO SCH ×2 (04:59→16:08)
[2019-06-23 05:54] LABS: iSTAT Allen Test Pass; iSTAT Arterial Blood Gas HCO3 21 meg/L (19-24); iSTAT Arterial Blood Gas pCO2 31 mmHg (35-46); iSTAT Arterial Blood Gas pH 7.45 (7.35-7.45); iSTAT Arterial Blood Gas pO2 94 mmHg (80-95); iSTAT Carbon Dioxide 22 mEq/l (24-31); iSTAT FiO2 30 %; iSTAT Site R Radial
--- NOTE | 2019-06-23 06:42 | Critical Care Progress Note ---
Date of Service June 23, 2019 Assessment & Plan (1) Transfusion of blood during current hospitalisation: Reason Critically Ill: Patient with altered mental status requiring intubation for inability to protect airway self extubated today with improving mental status though not back to baseline Neuro: patient with no clear focal neuro deficit on exam though remains very obtunded even off sedation and extubated GCS 13 and appears to be coughing and protecting airway. okay to remain ext ubated EEG ordered showing no evidence of seizure activity MRI showing tiny meningioma but no evidence of metastatic disease in the brain Encephalopathy likely metabolic secondary to her liver failure and sedative use We will continue to watch for signs of improvement and metabolite washout Respiratory: Intubated for altered mental status No acute lung pathology Cardiovascular: Hemodynamically stable No acute cardiac concerns GI: NG tube placed after extubation Holding feeds for concern of pulling tube and aspirating Giving meds PO through NG tube Ascitic abdomen has been tapped twice and over two liters taken off No evidence of malignancy on cytology from tap No evidence of SBP Patient with history of suspected metastatic cancer possibly HCC Follows with Dr. Delacruz, was due for a biopsy this week Oncology consulted, Dr. Treviño offers no clear diagnosis without biopsy but is concerned for prognosis based on appearance of metastatic disease Continuing lactulose, ammonia back to normal levels patient appears to be improving but it has been a slow process MELD score 17 Serum AFP negative CA 125 ordered ID: Will continue ceftriaxone for prophylaxis in Gi bleed with cirrhosis No current infectious concern Procalcitonin negative Heme/Onc: CT showing what appears to be widely metastatic disease Was scheduled for liver Biopsy in early June with Dr. Delacruz Will hold off on any further investigations until patient becomes more medically stable. Will remain in critical care for further care, very concerned this is at least partially manufacturers representative of progressive metastatic cancer with progressive hepatic failure. 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 Culver was resident physician during care of patient. I separately evaluated patient for bhakta portions of the history and the exam. I was present during the critical portion of medical decision making, and I discussed the case with the resident. I generally agree with the findings and plan. Patient extubated this morning. Still has dense encephalopathy however maintaining her airway. Hopefully this is a sign that the patient is on a t rajectory toward improvement. Remains critically ill due to end-stage liver disease. Continue to hold sedating medications which may worsen encephalopathy. Subjective Dea España's obtundation has improved somewhat, she is now far more agitated, sitting up in bed, reaching for lines. She self extubated a little after 8 am this morning but was stable on oxy mask. She is opening eyes to voice but unable to talk to me. This evening her became very upset about her agitated state. We believe secondary to her previous comatose status was due at least in part to her liver failure, hyperammonemia combined with home narcotic use that she is unable to process in a timely manner. Given her improvement off of sedatives, we would like to hold off on any further sedation but is adamantly against this despite multiple attempts to explain our goals of care he continues to ask for something to "calm her down but not a sedative". Discussed that patient is very critically ill and prognosis is poor. Explained that she would need time to try to recover from her metabolic encephalopathy and using sedatives would just reset that clock. He continued to ask for sedating medication. At this point we suggested that if his only priority was her comfort an option we could consider was comfort care. This he adamantly declined and continued to question management and appeared to be trying to escalate argument. Patient was informed by attending physician that he would be asked to leave if he interfered with the patients care in an argumentative, nonproductive fashion. Review of Systems Review of Systems: All systems reviewed & are unremarkable except as noted in HPI & below Physical Exam Constitutional: Constitutional: Patient appears agitated, rolling back and forth in bed, holding leg out over side of bed. Eyes: Pupils equal round and reactive to light, slightly more constricted than yesterday Respiratory: Self extubated, oxymask in place, no increased work of breathing. Cardiovascular: Regular rate and rhythm, no murmurs, rubs, skips, or gallops Gastrointestinal: Abdomen soft, mildly distended, no masses detected, no hepatomegaly Skin: Jaundiced orange skin Results & Data Vital Signs (Past 12 Hours) Vital Signs Temp Pulse Resp BP Pulse Ox 06/23/19 06:00 69 91/50 L 97 06/23/19 05:30 71 18 99 06/23/19 03:00 71 102/55 L 98 06/23/19 02:36 74 16 97 06/23/19 02:00 74 115/60 06/23/19 01:36 71 06/23/19 01:00 72 96/53 L 96 06/23/19 00:00 37.7 C H 76 105/59 L 98 06/22/19 23:35 82 18 95 06/22/19 23:01 78 141/95 H 97 06/22/19 23:00 79 06/22/19 22:30 74 111/64 98 06/22/19 22:00 70 88/48 L 94 06/22/19 21:30 73 98 06/22/19 21:27 75 141/71 H 98 06/22/19 21:12 66 92/49 L 97 06/22/19 21:00 75 97 06/22/19 20:57 77 118/86 98 06/22/19 20:54 68 18 98 06/22/19 20:42 74 130/72 98 06/22/19 20:30 68 97 06/22/19 20:27 67 99/49 L 97 06/22/19 20:12 67 92/50 L 97 06/22/19 20:00 68 94 06/22/19 19:57 72 112/54 L 96 06/22/19 19:42 73 139/74 99 06/22/19 19:30 70 99 06/22/19 19:26 70 119/64 100 06/22/19 19:11 64 113/62 99 06/22/19 19:00 65 98 06/22/19 18:56 65 101/56 L 98 Critical Care Time Critical Care Time: Yes Total Critical Care Time: 35 I have personally spent 35 minutes of critical care time in the direct management of this patient. This is a life/limb threatening event. This includes time spent evaluating patient, direct bedside care, chart review, placing orders, interpretation of diagnostic studies, discussion with consultants, patient, and/or family members regarding treatment decisions, as well as other required patient management activities. This time is exclusive of all separately billable procedures, and teaching time and separate from and in addition to any other critical care service time. Resident Activity Tracking Resident Involvement: Resident Care Provided Care Provided: [facility]
--- NOTE | 2019-06-23 06:49 | XRay Report ---
XR chest 1V portable CLINICAL HISTORY: f/u dyspnea COMPARISON STUDY: 06/22/2019 FINDINGS: Endotracheal tube 2 cm above the rosita.. Parenchymal infiltrate left lower lung considered similar. Slightly diminished pulmonary vasculature. Diaphragms are smooth. IMPRESSION: Endotracheal tube 2 cm above the rosita. Similar to slightly improved parenchymal infilt rate left base. ACT 112: Negative or not required by law. The above report was generated using voice recognition software. It may contain grammatical, syntax or spelling errors. Electronically signed by: Lane Kim M.D. 06/23/2019 6:48 AM
--- NOTE | 2019-06-23 07:21 | XRay Report ---
KUB HISTORY: Evaluate NG tube placement. COMPARISON: KUB 06/22/2019. FINDINGS: The bowel gas pattern is unremarkable. There are no dilated loops of small bowel to suggest an obstruction. No renal calculi. No ureteral calculi. No pneumoperitoneum or pneumatosis. A nasoga stric tube is curled within the proximal stomach. Posterior fusion hardware is again noted within the lower lumbar spine. There is pinning of the left femoral neck. A round radiopaque foreign body withi n the right lower quadrant is likely external to the patient. There is a vertebroplasty at L1 and an old L2 compression fracture. IMPRESSION: The nasogastric tube is curled within the proximal stomach. ACT 112: Negative or not required by law. Electronically signed by: Greg White M.D. 06/23/2019 7:20 AM
[2019-06-23] MEDS ORDERED: FUROSEMIDE 20 MG in SYRINGE 0 ML IV ONE (10:00)
[2019-06-23] MEDS ORDERED: FUROSEMIDE 40 MG/4 ML VIAL IV SCH (10:00)
[2019-06-23 10:15] LABS: Hematocrit (blood only) 28.3 % (37-47); Hemoglobin 8.9 g/dL (12.0-16.0)
[2019-06-23] MEDS ORDERED: POTASSIUM PHOSPHATE 12 MMOL in SODIUM CHLORIDE 0.9% 250 ML IV ONE (10:15)
[2019-06-23] MEDS ORDERED: PHYTONADIONE 2.5 MG in SODIUM CHLORIDE 0.9% 50 ML IV ONE (10:15)
[2019-06-23] MEDS: cefTRIAXone SODIUM 1,000 MG in DEXTROSE 5% 50 ML IV SCH (10:32)
[2019-06-23] MEDS: PANTOprazole 40 MG in SYRINGE 0 ML IV SCH ×2 (10:32→20:48)
[2019-06-23] MEDS ORDERED: FIBERSOURCE HN 1.2 CAL 1000 ML BAG NG SCH (10:45)
[2019-06-23] MEDS ORDERED: POT PHOSPHATE MONOBASIC W/ SOD TAB PO ONE (11:00)
--- NOTE | 2019-06-23 11:39 | XRay Report ---
KUB CLINICAL HISTORY: Enteric tube placement. FINDINGS: An AP supine abdominal radiograph is compared to study performed earlier the same day 06/23. An enteric tube projects below the diaphragm with the tip overlying the distal stomach. There is no radiographic evidence of bowel obstruction. The right lung is clear as imaged. Fusion hardware is noted in the lumbar spine there is evidence of previous compression deformity and vertebroplasty a t L1. IMPRESSION: 1. An enteric tube projects below the diaphragm with the tip overlying the distal stomach. 2. There is no radiographic evidence of bowel obstruction. Electronically signed by: Jesus Manuel Beckwith M.D. 06/23/2019 11:38 AM
[2019-06-23] MEDS: LACTULOSE SYRUP 30 GM/45 ML UDP OG SCH ×4 (11:52→20:07)
[2019-06-23] MEDS: FUROSEMIDE 20 MG/2 ML UDP PO SCH (11:52)
[2019-06-23] MEDS: FOLIC ACID 400 MCG TAB PO SCH (11:53)
[2019-06-23] MEDS: ASCORBIC ACID 500 MG TAB PO SCH (11:53)
[2019-06-23] MEDS: VITAMIN B COMPLEX TAB PO SCH (11:53)
[2019-06-23] MEDS: POTASSIUM CHLORIDE 20 MEQ TABCR PO SCH ×2 (11:53→20:07)
[2019-06-23] MEDS: MULTIVITAMIN TAB PO SCH (11:53)
[2019-06-23] MEDS: RIFAXIMIN 550 MG TABLET PO SCH ×2 (11:53→20:07)
[2019-06-23] MEDS: THIAMINE HCL 100 MG in SYRINGE 9 ML IV SCH (12:03)
--- NOTE | 2019-06-23 12:51 | Palliative Care Consultation ---
Date of Consultation June 23, 2019 Assessment & Plan (1) Goals of care, counseling/discussion: -59 year old female patient with PMH esophageal varices secondary to liver cirrhosis with hepatitis C, alcohol abuse, high likelihood of metastatic cancer possible hepatocellular carcinoma (was planned for outpatient biopsy in near future), and others, presented as a transfer from [facility] because of GI bleed with hematochezia and hematemesis. Upon arrival patient was extremely lethargic and confused due to metabolic encephalopathy 2/2 hyperammonemia and other issues. She was intubated for airway protection. GI consulted and patient underwent EGD-- old blood was found and cleared out. Patient has known varices. Her INR is elevated at 1.6-- not on AC, likely due to liver failure. Patient also found to have many new pulmonary nodules, which could be metastatic disease. Patient was successfully extubated today to oxymask, but she remains encephalopathic and lethargic-- unable to hold conversation or follow commands. She had a feeding tube placed for med administration. Procalcitonin is negative, temperature very mildly elevated at 37.7, but she remains on IV abx for GI prophylaxis in the setting of cirrhosis. Patient's overall prognosis is poor. She remains critically ill in the ICU. Palliative care is consulted to provide supportive care and help establish goals of care. -Met with patient in room 104 this morning-- no family was at bedside. Patient was discussed at length in ICU rounds. She has a Morteza España and a daughter Kiara who have both been present at bedside throughout hospitalization. -Uncertain of the status of patient's potential cancer diagnosis and what our plan is moving forward. Need biopsy of liver or lung nodules. Would recommend consulting heme/onc at this time for further management. AFP and CA-125 pending for possible HCC. -GI is consulted for her GI bleeding-- not felt to be due to varices, but rather erosive gastritis. Uncertain MELD score?? Had EGD and is on PPI. -Prognosis seems to be quite poor. Will await input from heme/onc and see how patient progresses in next 24-48 hours before engaging with family to discuss prognosis, goals of care, and code status. (2) Metabolic encephalopathy: (3) Cirrhosis of liver with ascites: (4) Lung nodules: History of Present Illness Attending Physician: Noel R Siuta History of Present Illness This 59 year old female patient with PMH esophageal varices secondary to liver cirrhosis with hepatitis C, alcohol abuse, high likelihood of metastatic cancer possible hepatocellular carcinoma (was planned for outpatient biopsy in near future), and others, presented as a transfer from [facility] because of GI bleed with hematochezia and hematemesis. Upon arrival patient was extremely lethargic and confused due to metabolic encephalopathy 2/2 hyperammonemia and other issues. She was intubated for airway protection. GI consulted and patient underwent EGD-- old blood was found and cleared out. Patient has known varices. Her INR is elevated at 1.6-- not on AC, likely due to liver failure. Patient also found to have many new pulmonary nodules, which could be metastatic disease. Patient was successfully extubated today to oxymask, but she remains encephalopathic and lethargic-- unable to hold conversation or follow commands. She had a feeding tube placed for med administration. Procalcitonin is negative, temperature very mildly elevated at 37.7, but she remains on IV abx for GI prophylaxis in the setting of cirrhosis. Patient's overall prognosis is poor. She remains critically ill in the ICU. Palliative care is consulted to provide supportive care and help establish goals of care. Thank you kindly for this consult. Palliative care team will follow as needed. Allergies Allergy/AdvReac Type Severity Reaction Status Date / Time clarithromycin Allergy Unknown rash, Verified 06/19/19 16:57 nausea Macrolide Antibiotics Allergy Unknown Verified 06/19/19 16:57 Macrolide Immunosuppressant Allergy Unknown Verified 06/19/19 16:57 Sulfa (Sulfonamide Allergy Unknown rash Verified 06/19/19 16:57 Antibiotics) trimethoprim Allergy Unknown Rash Verified 06/19/19 16:57 amoxicillin AdvReac Intermediate nausea, Verified 05/31/17 15:42 diarrhea clavulanic acid AdvReac Intermediate nausea, Verified 05/31/17 15:42 diarrhea cefuroxime AdvReac Unknown nausea, Verified 05/31/17 15:42 diarrhea doxycycline AdvReac Unknown nausea, Verified 05/31/17 15:42 diarrhea morphine AdvReac Unknown nausea, Verified 05/31/17 15:42 vomiting Home Medications Home Medications Medication Instructions Recorded Confirmed Type fentanyl 100 mcg/hr transdermal 1 patch TD Q48H ea 05/06/19 06/20/19 History patch fluoxetine 20 mg capsule 20 mg PO DAILY 05/06/19 06/20/19 History furosemide 40 mg tablet 20 mg PO BID 05/06/19 06/20/19 History methylphenidate HCl 20 mg 60 mg PO QAM 05/06/19 06/20/19 History tablet,extended release metoclopramide HCl 10 mg 5 mg PO QID tab 05/06/19 06/20/19 History disintegrating tablet mometasone 50 mcg/actuation nasal 2 sprays INTNAS DAILY 05/06/19 06/20/19 History spray omeprazole 20 mg capsule,delayed 20 mg PO BID cap 05/06/19 06/20/19 History release rifaximin 550 mg tablet 550 mg PO BID 05/06/19 06/20/19 History spironolactone 50 mg tablet 50 mg PO DAILY 05/06/19 06/20/19 History albuterol sulfate [Ventolin HFA] 2 puff INHALATION Q4H PRN 06/20/19 06/20/19 History budesonide-formoterol [Symbicort] 2 puff INHALATION BID 06/20/19 06/20/19 History lactulose 15 ml PO TID 06/20/19 06/20/19 History lorazepam 0.5 mg PO PRN 06/20/19 History oxycodone 5 mg Q4H PRN 06/20/19 06/20/19 History propranolol 20 mg PO HS 06/20/19 06/20/19 History Patient History Medical History (Updated 06/23/19 @ 14:17 by KINZA Neville) Acute blood loss anemia Alcohol abuse Altered mental status Asthma Chronic hepatitis C Chronic pain Chronic pancreatitis Cirrhosis of liver with ascites COPD (chronic obstructive pulmonary disease) Depression Esophageal varices JENNIFER (generalized anxiety disorder) GI bleed Goals of care, counseling/discussion Hypertension Lung nodules Metabolic encephalopathy Metastatic cancer Osteoporosis Surgical History History of back surgery History of bronchoscopy History of History of cataract surgery History of cholecystectomy History of ERCP History of hip surgery History of surgery of liver History of tracheostomy Social History Preferred Language: Surinamese Communication Ability: Unable Station Gateman Required: No Beliefs That Will Affect Care: None Current Living Situation: Family Feels Safe at Home: Yes Safety Concerns: Feels Safe At This Time Smoking Status: Current every day smoker Tobacco Type: cigarettes ; Cigarettes Per Day: 1 PPD ; Do You Dip or Chew Tobacco: No ; Tobacco Cessation Education Requested by Patient: No Hx Alcohol Use: Yes Alcohol type: hard liquor Hx Substance Use: No Review of Systems Review of Systems: Unobtainable due to cognitive status Physical Exam Constitutional: + ill appearing (chronically); + uncomfortable ENMT: external ear and nose normal, oropharynx normal Respiratory: normal respiratory effort, lungs clear to auscultation Auscultation: + diminished lung sounds Cardiovascular: RRR, no murmur, no edema Gastrointestinal (Abdomen): Inspection/Auscultation: normal bowel sounds; abdomen not distended Percussion/Palpation: abdomen soft Skin: + jaundice Neurologic: moves all extremities, awake (but very lethargic) and + confused Results & Data Vital Signs (Past 12 Hours) Vital Signs Pulse Resp BP Pulse Ox 06/23/19 11:30 79 20 06/23/19 11:26 77 21 141/127 H 06/23/19 11:00 71 20 06/23/19 10:57 78 17 145/85 H 06/23/19 10:30 81 28 H 06/23/19 10:27 79 19 146/102 H 100 06/23/19 10:00 76 21 06/23/19 09:57 80 13 143/55 H 06/23/19 09:30 78 20 06/23/19 09:27 76 18 117/66 100 06/23/19 09:00 70 16 100 06/23/19 08:30 68 16 100 06/23/19 08:12 11 L 06/23/19 08:02 149/80 H 06/23/19 08:00 76 06/23/19 07:35 69 11 L 98 06/23/19 07:31 68 113/61 06/23/19 07:30 69 06/23/19 07:01 73 139/64 98 06/23/19 07:00 75 99 06/23/19 06:45 68 97 06/23/19 06:00 69 91/50 L 97 06/23/19 05:30 71 18 99 06/23/19 03:00 71 102/55 L 98 06/23/19 02:36 74 16 97 06/23/19 02:00 74 115/60 06/23/19 01:36 71 06/23/19 01:00 72 96/53 L 96 Time Spent Midlevel 70 minutes with >50% of the time spent at bedside with patient and ICU team discussing patient case and plan of care.
--- NOTE | 2019-06-23 14:58 | Progress Note ---
DATE: 06/23/2019 SUBJECTIVE: The patient is responsive today and that she is awake and moving in the bed. She has been extubated, but she is not responding verbally to any commands. OBJECTIVE: VITAL SIGNS: Her blood pressure is 141/127, pulse 79, O2 saturation is 100% with a mask, temperature is 37.7. Her alpha fetoprotein returned today at 5.4, which is normal, which is surprising, pretty much rules out hepatoma. Her ascitic fluid cytology was also negative for malignant cells. She does have multiple lesions in her lungs in the left pleural based mass and I think it may be worthwhile to approach it through the percutaneous approach to get some tissue for definitive diagnosis. IMPRESSION: The patient is a little more awake today and has been extubated. I recommend that we try to get some tissue from her pleural based lesion to see if we can establish a definitive diagnosis, which might help prognostically.
--- NOTE | 2019-06-23 15:05 | Oncology Consultation ---
Date of Consultation June 23, 2019 Assessment & Plan (1) Lung nodules: The overall appearance of Ms. España's scans is highly concerning for a metastatic malignancy. We will need to confirm a tissue diagnosis at some point. She is acutely ill currently and would not be fit for treatment of a cancer, even if we knew what hers was. Some of her lung nodules should be fairly accessible for percutaneous biopsy, but I would defer this at this time, especially since she was just extubated. Should she recover to a point where a diagnostic workup would be safer, we could proceed with one. Her prognosis is poor from her liver disease irrespective of the presence of a malignancy, so it is not clear that confirming a cancer diagnosis now would alter her treatment planning or goals of care. Present on Admission?: Yes History of Present Illness Reason for Consultation: Likely metastatic malignancy Attending Physician: Noel Jansen History of Present Illness Ms. España is a 59 year old woman with a history of end stage liver disease due to alcohol abuse and chronic hepatitis C. She met my partner Dr. Delacruz 3 weeks ago to discuss findings on imaging concerning for a tumor in her liver with pulmonary metastases. He was working on arranging a biopsy as an outpatient. She was admitted on 06/19 for altered mental status likely from hepatic encephalopathy. She required intubation for airway protection on 06/20 and was just weaned off the vent this morning. She had an EEG that revealed a pattern consistent with a metabolic encephalopathy. Imaging here is again concerning for a large hepatic mass and numerous pulmonary lesions. She underwent paracentesis on 06/22 but the cytology was negative for malignant cells. The patient's eyes were open spontaneously but she was writhing in bed and did not respond to questions. Allergies Allergy/AdvReac Type Severity Reaction Status Date / Time clarithromycin Allergy Unknown rash, Verified 06/19/19 16:57 nausea Macrolide Antibiotics Allergy Unknown Verified 06/19/19 16:57 Macrolide Immunosuppressant Allergy Unknown Verified 06/19/19 16:57 Sulfa (Sulfonamide Allergy Unknown rash Verified 06/19/19 16:57 Antibiotics) trimethoprim Allergy Unknown Rash Verified 06/19/19 16:57 amoxicillin AdvReac Intermediate nausea, Verified 05/31/17 15:42 diarrhea clavulanic acid AdvReac Intermediate nausea, Verified 05/31/17 15:42 diarrhea cefuroxime AdvReac Unknown nausea, Verified 05/31/17 15:42 diarrhea doxycycline AdvReac Unknown nausea, Verified 05/31/17 15:42 diarrhea morphine AdvReac Unknown nausea, Verified 05/31/17 15:42 vomiting Home Medications Home Medications Medication Instructions Recorded Confirmed Type fentanyl 100 mcg/hr transdermal 1 patch TD Q48H ea 05/06/19 06/20/19 History patch fluoxetine 20 mg capsule 20 mg PO DAILY 05/06/19 06/20/19 History furosemide 40 mg tablet 20 mg PO BID 05/06/19 06/20/19 History methylphenidate HCl 20 mg 60 mg PO QAM 05/06/19 06/20/19 History tablet,extended release metoclopramide HCl 10 mg 5 mg PO QID tab 05/06/19 06/20/19 History disintegrating tablet mometasone 50 mcg/actuation nasal 2 sprays INTNAS DAILY 05/06/19 06/20/19 History spray omeprazole 20 mg capsule,delayed 20 mg PO BID cap 05/06/19 06/20/19 History release rifaximin 550 mg tablet 550 mg PO BID 05/06/19 06/20/19 History spironolactone 50 mg tablet 50 mg PO DAILY 05/06/19 06/20/19 History albuterol sulfate [Ventolin HFA] 2 puff INHALATION Q4H PRN 06/20/19 06/20/19 History budesonide-formoterol [Symbicort] 2 puff INHALATION BID 06/20/19 06/20/19 History lactulose 15 ml PO TID 06/20/19 06/20/19 History lorazepam 0.5 mg PO PRN 06/20/19 History oxycodone 5 mg Q4H PRN 06/20/19 06/20/19 History propranolol 20 mg PO HS 06/20/19 06/20/19 History Patient History Medical History Acute blood loss anemia Alcohol abuse Altered mental status Asthma Chronic hepatitis C Chronic pain Chronic pancreatitis Cirrhosis of liver with ascites COPD (chronic obstructive pulmonary disease) Depression Esophageal varices JENNIFER (generalized anxiety disorder) GI bleed Goals of care, counseling/discussion Hypertension Lung nodules Metabolic encephalopathy Metastatic cancer Osteoporosis Surgical History History of back surgery History of bronchoscopy History of History of cataract surgery History of cholecystectomy History of ERCP History of hip surgery History of surgery of liver History of tracheostomy Social History Preferred Language: [place] Communication Ability: Unable Fire Patroller Required: No Beliefs That Will Affect Care: None Current Living Situation: Family Feels Safe at Home: Yes Safety Concerns: Feels Safe At This Time Smoking Status: Current every day smoker Tobacco Type: cigarettes ; Cigarettes Per Day: 1 PPD ; Do You Dip or Chew Tobacco: No ; Tobacco Cessation Education Requested by Patient: No Hx Alcohol Use: Yes Alcohol type: hard liquor Hx Substance Use: No Review of Systems Review of Systems: Unobtainable due to reduced consciousness Physical Exam Constitutional: + ill appearing and + disheveled; no acute distress Respiratory: normal respiratory effort, lungs clear to auscultation Cardiovascular: RRR, no murmur, no edema Gastrointestinal (Abdomen): Inspection/Auscultation: + abdomen distended and normal bowel sounds Percussion/Palpation: abdomen soft; abdomen nontender Neurologic: + confused Moving all limbs spontaneously Results & Data Vital Signs (Past 12 Hours) Vital Signs Pulse Resp BP Pulse Ox 06/23/19 14:30 74 21 100 06/23/19 14:00 72 23 96 06/23/19 13:57 78 23 135/75 06/23/19 13:30 75 30 H 98 06/23/19 13:27 77 17 148/67 H 99 06/23/19 13:00 64 18 96 06/23/19 12:57 62 19 128/71 98 06/23/19 12:30 66 20 99 06/23/19 12:27 67 19 112/71 99 06/23/19 12:00 83 25 H 96 06/23/19 11:57 77 28 H 133/86 95 06/23/19 11:30 79 20 06/23/19 11:26 77 21 141/127 H 06/23/19 11:00 71 20 06/23/19 10:57 78 17 145/85 H 06/23/19 10:30 81 28 H 06/23/19 10:27 79 19 146/102 H 100 06/23/19 10:00 76 21 06/23/19 09:57 80 13 143/55 H 06/23/19 09:30 78 20 06/23/19 09:27 76 18 117/66 100 06/23/19 09:00 70 16 100 06/23/19 08:30 68 16 100 06/23/19 08:12 11 L 06/23/19 08:02 149/80 H 06/23/19 08:00 76 06/23/19 07:35 69 11 L 98 06/23/19 07:31 68 113/61 06/23/19 07:30 69 06/23/19 07:01 73 139/64 98 06/23/19 07:00 75 99 06/23/19 06:45 68 97 06/23/19 06:00 69 91/50 L 97 06/23/19 05:30 71 18 99 Laboratory Results Laboratory Tests 06/21/19 06/23/19 06/23/19 03:46 02:02 02:02 WBC 9.04 Hgb Plt Count 133 Total Bilirubin 2.2 H Ammonia Albumin 2.5 L Tumor Marker AFP 5.4 06/23/19 06/23/19 02:02 10:03 WBC Hgb 8.9 L Plt Count Total Bilirubin Ammonia 49.0 H Albumin Tumor Marker AFP Diagnostic Findings CT Chest, 06/19/19: IMPRESSION: 1. Multiple (greater than 20) solid nodules of the bilateral lungs are new from comparison study dated 07/30/2017, which includes multiple subpleural and pleural- based solid nodules predominantly within the left hemithorax measuring up to a 5.0 cm. Findings are suggestive of pulmonary/pleural metastatic disease. 2. Trace left likely malignant pleural effusion. 3. Cirrhotic liver disease with splenomegaly and upper abdominal ascites compatible with portal venous hypertension. 4. Partially imaged nodularity of the imaged upper abdominal omentum may reflect concomitant omental carcinomatosis. 5. Esophageal wall thickening with hiatal hernia. 6. Aberrant right subclavian artery.
--- NOTE | 2019-06-23 18:08 | Communication Note ---
Date of Service: June 23, 2019 Had discussion with patient's and daughter including daughters significant other at bedside in the presence of Dr. Culver and NONA Gonzales. Mary benoit's daughter agrees that her mental status has significantly improved in the last 24 hours from a comatose state to that of mild to moderate agitation. Patient's expresses concern about agitation and desires some form of medication to be given to decrease the agitation. I informed him that this agitation is likely secondary to heavy medication/sedative use and is rather expected given the degree of hepatic insufficiency the patient has. To administer sedating medications would set the patient back with regards to a toxic/metabolic encephalopathy and we would be facing similar agitation subsequent to additional sedative use. The patient's daughter expressed understanding of this, the patient's disagreed. Additionally I informed both of the severity of liver dysfunction that the patient is approaching and terminal end-stage condition. The expressed concern over lack of route of medication access since we are holding current medications. I reiterated th at the patient most likely is benefiting from time allowing her liver and kidneys to both decrease the metabolites causing the encephalopathy. Again I emphasized this is rather routine and we will do our best with appropriate physical restraint and limited chemical restraints if the patient places herself at risk for injury. Patient's emphasizes that the agitation is not good for her heart or lungs or liver. I offered to transfer the patient to an additional medical facility if he so desires, he declined. If the patient's and daughter felt that comfort is the #1 priority, it would be appropriate to consider comfort measures and sedating medications with the understanding of double effect and this would likely shorten what time she has left. The patient's declined to discuss those options. And the current treatment plan since the goal is some form of recovery to us live independent living status working she can follow-up with further evaluation for the knees possible masses I feel it is most appropriate to avoid continued use of sedating medications and give her the best possibility to clear her encephalopathy. They report that the patient has exhibited this before. At this time I do not feel that the patient is exhibiting clear signs of alcohol withdraw, further she is not exhibiting clear signs of opiate withdrawal and I believe we are dealing l argely with a multifactorial metabolic encephalopathy that will continue to improve as time progresses allowing her liver to metabolize toxins to the best of its limited ability. Answered all questions for the patient's daughter and her significant other. Both the patient's daughter and significant other were appropriate during the meeting; however, the patient's was confrontational. Additionally I emphasized to the patient's that medical and operations support representative will not tolerate aggressive behaviors or behaviors that adversely impacts the care of the patient or patient's. If such behavior occurs he will be asked to leave the premises.
[2019-06-23 18:24] LABS: Hematocrit (blood only) 31.2 % (37-47); Hemoglobin 9.9 g/dL (12.0-16.0)
[2019-06-23 18:56] LABS: Albumin Level 2.7 gm/dl (3.4-5.0); BUN Creatinine Ratio 27.2 (10-20); Calcium 8.1 mg/dl (8.5-10.1); Creatinine Clr Calc Pharmacy 75.4 ml/min; Est GFR (African American) 112.8; Est GFR (Non-African American) 97.3; Magnesium 1.7 mg/dl (1.8-2.4); Potassium 3.8 mmol/L (3.5-5.1)
[2019-06-23 18:59] LABS: Albumin Globulin Ratio 0.6 (0.9-2); Bilirubin,Total 2.1 mg/dl (0.2-1); Globulin 4.2 gm/dl (2.5-4.0); Phosphorus 2.4 mg/dl (2.5-4.9); Total Protein 6.9 gm/dl (6.4-8.2)
--- NOTE | 2019-06-23 19:17 | Hospitalist Progress Note ---
Date of Service June 23, 2019 Assessment & Plan (1) GI bleed: EGD 06/20 - Grade II esophageal varices seen (non-bleeding) and 3 shallow ulcerated areas in gastric body with stigmata of recent bleeding. s/p argon plasma. Suspect gastric issues 2nd to alcohol. Cont PPI bid. Octreotide d/c. H/H stable today. s/p 1 unit PRBCs this admission. (2) Acute blood loss anemia: Hgb was 7.3 at [facility]. s/p 2 units PRBCs at [facility] prior to transfer. EGD with gastric erosions - likely cause of upper GI bleeding. s/p 1 additional unit of PRBCs here at [facility]. H/H remain stable. Will ultimately need Fe therapy. Remains NPO. (3) Hepatic encephalopathy: Peak ammonia level 144. s/p lactulose (copious) and rifaximin w/ improved ammonia levels. Lactulose likely contributing to gastric distension. (4) Altered mental status: Suspect multifactorial -- hepatic encephalopathy, toxins/medications, etc. MRI brain negative for acute process. At risk of Wernicke's - cont thiamine IV; suggest increasing the dose however. ?alcohol withdrawal. Paracentesis not suggestive of SBP. U/a without UTI. CXR without pneumonia. Cont supportive care. Tox screen + for amphetamines but takes methylphenidate chronically (although PDMP states she last had it filled in March). Odd that tox screen negative for opiates seeing that she takes fentanyl patch chronically and oxycodone chronically. Both filled on 06/10/19 per PDMP. Did patient overdose prior to admission? (5) Chronic pain: 100 mcg Fentanyl patch removed at [facility] due to altered MS Narcotic management deferred to ICU team (6) Chest pain: no evidence of ACS. CTA chest w/o PEs. (7) Acute respiratory failure: s/p intubation 06/20 for airway protection in setting of altered MS, GI bleeding, etc s/p self-extubation on 06/23 NC O2 as needed (8) Chronic hepatitis C: noted with coagulopathy - INR 1.6 Maddrey's discriminant function 18 - no steroids at this time serial LFTs (9) Alcohol abuse: thiamine, folic acid, MVI supplementation ?active alcohol withdrawal given her altered mental status? (10) Cirrhosis of liver with ascites: 2nd to alcohol and hepC Continue ceftriaxone for SBP prophylaxis INR is elevated - given vitamin K 06/21, 06/22 and 06/23 Maddrey's score 18.7 - no steroids at this time varices on recent EGD (nonbleeding) - cont propranolol (11) Metastatic cancer: History of metastatic cancer of unknown origin per [facility] records Chest CT with more than 20 nodules that are new since 07/2017 Per daughter patient has been followed by Dr. Delacruz She was to have a liver biopsy on July 06 reports patient has a history of liver cancer too unstable to pursue biopsy of lung nodule at this time (12) Lung nodules: As above (13) Depression: once taking PO resume prozac (14) DVT prophylaxis: SCDs chemical means contraindicated due to recent GI bleeding Subjective gave brief update to pt's at bedside. he was upset she was receiving sedatives/pain meds for comfort in light of her chronic narcotic usage. patient self-extubated earlier this day as reported by staff. during my visit she was moving around in the bed but was confused and not following commands. daughter also at bedside. discussed care w/ Dr Can. Review of Systems Review of Systems: Unobtainable due to cognitive status Physical Exam Constitutional: + ill appearing and + altered mental status looks older than stated age ENMT: Mouth: + dry oral mucous membranes Respiratory: Auscultation: + diminished lung sounds (bases ); no wheezes Cardiovascular: Rate/Rhythm: regular rate and regular rhythm Heart Sounds: normal S1 and normal S2; no murmur Vessels: posterior tibial pulses present and dorsalis pedis pulses present; no JVD Extremities: no edema Gastrointestinal (Abdomen): Inspection/Auscultation: + abdomen distended and normal bowel sounds Percussion/Palpation: abdomen nontender and abdomen not rigid Musculoskeletal: atrophy of muscles of legs Skin: + pallor Neurologic: moving all 4 limbs spontaneously Psychiatric: Orientation: + not alert and + not oriented x 3 Results & Data Vital Signs (Past 12 Hours) Vital Signs Temp Pulse Resp BP Pulse Ox 06/23/19 17:30 74 23 06/23/19 17:15 80 19 97 06/23/19 17:00 77 36 H 06/23/19 16:45 76 38 H 100 06/23/19 16:30 76 27 H 97 06/23/19 16:15 71 26 H 98 06/23/19 16:00 72 19 06/23/19 15:45 72 27 H 06/23/19 15:30 72 26 H 06/23/19 15:28 73 24 152/52 H 06/23/19 15:15 36.4 C L 69 20 137/42 L 99 06/23/19 15:00 72 26 H 100 06/23/19 14:57 74 17 137/42 L 100 06/23/19 14:55 73 20 150/85 H 98 06/23/19 14:48 100 06/23/19 14:30 74 21 100 06/23/19 14:15 74 28 H 98 06/23/19 14:00 72 23 96 06/23/19 13:57 78 23 135/75 06/23/19 13:45 76 10 L 97 06/23/19 13:30 75 30 H 98 06/23/19 13:27 77 17 148/67 H 99 06/23/19 13:15 75 21 99 06/23/19 13:00 64 18 96 06/23/19 12:57 62 19 128/71 98 06/23/19 12:45 70 19 99 06/23/19 12:30 66 20 99 06/23/19 12:27 67 19 112/71 99 06/23/19 12:15 77 22 97 06/23/19 12:00 83 25 H 96 06/23/19 11:57 77 28 H 133/86 95 06/23/19 11:45 74 35 H 06/23/19 11:30 79 20 06/23/19 11:26 77 21 141/127 H 06/23/19 11:15 73 31 H 06/23/19 11:00 71 20 06/23/19 10:57 78 17 145/85 H 06/23/19 10:45 73 23 06/23/19 10:30 81 28 H 06/23/19 10:27 79 19 146/102 H 100 06/23/19 10:15 66 20 06/23/19 10:00 76 21 06/23/19 09:57 80 13 143/55 H 06/23/19 09:45 75 18 06/23/19 09:30 78 20 06/23/19 09:27 76 18 117/66 100 06/23/19 09:15 69 17 100 06/23/19 09:00 70 16 100 06/23/19 08:45 68 17 100 06/23/19 08:30 68 16 100 06/23/19 08:16 71 99 06/23/19 08:12 11 L 06/23/19 08:02 149/80 H 06/23/19 08:00 76 06/23/19 07:45 72 99 06/23/19 07:35 69 11 L 98 06/23/19 07:31 68 113/61 06/23/19 07:30 69 06/23/19 07:15 80 Laboratory Results Laboratory Results - last 24 hr 06/20/19 06/21/19 06/23/19 09:12 03:46 02:02 WBC 9.04 RBC 3.40 L Hgb 9.4 L Hct 29.8 L MCV 87.6 MCH 27.6 MCHC 31.5 L RDW Std Deviation 64.7 H RDW Coeff of Rashi 21.1 H Plt Count 133 Immature Gran % (Auto) 0.3 Neut % (Auto) 74.2 Lymph % (Auto) 11.1 [place] % (Auto) 10.5 Eos % (Auto) 3.2 Baso % (Auto) 0.7 Immature Gran # (Auto) 0.03 H Neut # (Auto) 6.71 H Lymph # (Auto) 1.00 L [place] # (Auto) 0.95 H Eos # (Auto) 0.29 Baso # (Auto) 0.06 Platelet Estimate Normal Giant Platelets 1+ Polychromasia 1+ Anisocytosis Present Ovalocytes 1+ PT INR Sample Site POC pH POC pCO2 POC pO2 POC HCO3 POC Total CO2 POC Base Excess POC ABG O2 Sat Carl Test O2 Delivery Device POC FiO2 PEEP Sodium Potassium Chloride Carbon Dioxide Anion Gap BUN Creatinine Est Cr Clr Drug Dosing Est GFR ( Amer) Est GFR (Non-Af Amer) BUN/Creatinine Ratio Glucose Calcium Phosphorus Magnesium Total Bilirubin AST ALT Alkaline Phosphatase Ammonia Total Protein Albumin Globulin Albumin/Globulin Ratio Tumor Marker AFP 5.4 CA 125 Antigen Crossmatch See Detail 06/23/19 06/23/19 06/23/19 02:02 02:02 02:02 WBC RBC Hgb Hct MCV MCH MCHC RDW Std Deviation RDW Coeff of Rashi Plt Count Immature Gran % (Auto) Neut % (Auto) Lymph % (Auto) [place] % (Auto) Eos % (Auto) Baso % (Auto) Immature Gran # (Auto) Neut # (Auto) Lymph # (Auto) [place] # (Auto) Eos # (Auto) Baso # (Auto) Platelet Estimate Giant Platelets Polychromasia Anisocytosis Ovalocytes PT 15.6 H INR 1.6 H Sample Site POC pH POC pCO2 POC pO2 POC HCO3 POC Total CO2 POC Base Excess POC ABG O2 Sat Carl Test O2 Delivery Device POC FiO2 PEEP Sodium 144 Potassium 4.1 D Chloride 118 H Carbon Dioxide 24 Anion Gap 2.0 L BUN 17 Creatinine 0.70 Est Cr Clr Drug Dosing 66.7 Est GFR ( Amer) 108.4 Est GFR (Non-Af Amer) 93.5 BUN/Creatinine Ratio 24.9 H Glucose 111 H Calcium 7.5 L Phosphorus 2.0 L Magnesium 1.8 Total Bilirubin 2.2 H AST 53 H ALT 28 Alkaline Phosphatase 63 Ammonia 49.0 H Total Protein 6.6 Albumin 2.5 L Globulin 4.1 H Albumin/Globulin Ratio 0.6 L Tumor Marker AFP CA 125 Antigen Crossmatch 06/23/19 06/23/19 06/23/19 05:40 10:03 10:06 WBC RBC Hgb 8.9 L Hct 28.3 L MCV MCH MCHC RDW Std Deviation RDW Coeff of Rashi Plt Count Immature Gran % (Auto) Neut % (Auto) Lymph % (Auto) [place] % (Auto) Eos % (Auto) Baso % (Auto) Immature Gran # (Auto) Neut # (Auto) Lymph # (Auto) [place] # (Auto) Eos # (Auto) Baso # (Auto) Platelet Estimate Giant Platelets Polychromasia Anisocytosis Ovalocytes PT INR Sample Site R Radial POC pH 7.45 POC pCO2 31 L POC pO2 94 POC HCO3 21 POC Total CO2 22 L POC Base Excess -3.0 POC ABG O2 Sat 98.0 H Carl Test Pass O2 Delivery Device Ventilator POC FiO2 30 PEEP 5 Sodium Potassium Chloride Carbon Dioxide Anion Gap BUN Creatinine Est Cr Clr Drug Dosing Est GFR ( Amer) Est GFR (Non-Af Amer) BUN/Creatinine Ratio Glucose Calcium Phosphorus Magnesium Total Bilirubin AST ALT Alkaline Phosphatase Ammonia Total Protein Albumin Globulin Albumin/Globulin Ratio Tumor Marker AFP CA 125 Antigen Pending Crossmatch 06/23/19 06/23/19 18:16 18:16 WBC RBC Hgb 9.9 L Hct 31.2 L MCV MCH MCHC RDW Std Deviation RDW Coeff of Rashi Plt Count Immature Gran % (Auto) Neut % (Auto) Lymph % (Auto) [place] % (Auto) Eos % (Auto) Baso % (Auto) Immature Gran # (Auto) Neut # (Auto) Lymph # (Auto) [place] # (Auto) Eos # (Auto) Baso # (Auto) Platelet Estimate Giant Platelets Polychromasia Anisocytosis Ovalocytes PT INR Sample Site POC pH POC pCO2 POC pO2 POC HCO3 POC Total CO2 POC Base Excess POC ABG O2 Sat Carl Test O2 Delivery Device POC FiO2 PEEP Sodium 144 Potassium 3.8 Chloride 113 H Carbon Dioxide 25 Anion Gap 7.0 BUN 17 Creatinine 0.62 Est Cr Clr Drug Dosing 75.4 Est GFR ( Amer) 112.8 Est GFR (Non-Af Amer) 97.3 BUN/Creatinine Ratio 27.2 H Glucose 89 Calcium 8.1 L Phosphorus 2.4 L Magnesium 1.7 L Total Bilirubin 2.1 H AST 61 H ALT 32 Alkaline Phosphatase 65 Ammonia Total Protein 6.9 Albumin 2.7 L Globulin 4.2 H Albumin/Globulin Ratio 0.6 L Tumor Marker AFP CA 125 Antigen Crossmatch PG Care Time/CCT Total # of Minutes Spent Total Time Spent with Patient: Total time spent is greater than 50% in coordination of care (as documented) at patient's floor/unit and/or counseling p atient: (1) GI bleed GI bleed type/associated pathology: gastritis Gastritis type: alcoholic Qualified Code(s): K29.21 - Alcoholic gastritis with bleeding (2) Altered mental status Altered mental status type: delirium Qualified Code(s): R41.0 - Disorientation, unspecified (3) Chronic pain Chronic pain type: chronic pain syndrome Qualified Code(s): G89.4 - Chronic pain syndrome (4) Chest pain Chest pain type: unspecified Qualified Code(s): R07.9 - Chest pain, unspecified (5) Depression Depression Type: other depression Qualified Code(s): F32.89 - Other specified depressive episodes (6) Chronic hepatitis C Hepatic coma status: with hepatic coma Qualified Code(s): B18.2 - Chronic viral hepatitis C (7) Cirrhosis of liver with ascites Hepatic cirrhosis type: alcoholic cirrhosis Qualified Code(s): K70.31 - Alcoholic cirrhosis of liver with ascites (8) Acute respiratory failure Respiratory failure complication: unspecified whether with hypoxia or hypercapnia Qualified Code(s): J96.00 - Acute respiratory failure, unspecified whether with hypoxia or hypercapnia
[2019-06-24 02:15] LABS: Mean Corpuscular Hgb Conc 31.9 g/dL (32-36)
[2019-06-24 02:19] LABS: Hemoglobin 10.2 g/dL (12.0-16.0); Mean Corpuscular Hemoglobin 28.3 pg (25-34); Mean Corpuscular Volume 88.6 fL (80-100); RDW Coefficient of Variation 21.3 % (11.5-14.5); RDW Standard Deviation 66.2 fL (36.4-46.3); Red Blood Count 3.61 M/uL (4.2-5.4)
[2019-06-24 02:26] LABS: INR 1.6 (0.9-1.1); Prothrombin Time 15.5 Seconds (9.0-12.0)
[2019-06-24 02:37] LABS: Albumin Globulin Ratio 0.6 (0.9-2); Albumin Level 2.7 gm/dl (3.4-5.0); BUN Creatinine Ratio 29.6 (10-20); Bilirubin,Total 2.3 mg/dl (0.2-1); Calcium 8.1 mg/dl (8.5-10.1); Est GFR (African American) 111.6; Est GFR (Non-African American) 96.3; Globulin 4.2 gm/dl (2.5-4.0); Total Protein 6.9 gm/dl (6.4-8.2)
[2019-06-24 02:38] LABS: Anisocytosis Present; Basophils # (auto) 0.04 K/uL (0-0.2); Basophils % (auto) 0.4 %; Eosinophils # (auto) 0.11 K/uL (0-0.5); Eosinophils % (auto) 1.1 %; Immature Granulocytes # (auto) 0.03 K/uL (0.00-0.02); Immature Granulocytes % (auto) 0.3 %; Lymphocytes # (auto) 0.75 K/uL (1.2-3.4); Lymphocytes % (auto) 7.8 %; Monocytes # (auto) 1.16 K/uL (0.11-0.59); Monocytes % (auto) 12.1 %; Neutrophils # (auto) 7.51 K/uL (1.4-6.5); Neutrophils % (auto) 78.3 %; Platelet Count 148 K/uL (130-400); Platelet Estimate Normal (Normal)
[2019-06-24 04:30] LABS: Magnesium 1.7 mg/dl (1.8-2.4); Phosphorus 2.7 mg/dl (2.5-4.9)
[2019-06-24] MEDS ORDERED: MAGNESIUM SULFATE / D5W 1 GM/100 ML BAG IV ONE (05:23)
[2019-06-24] MEDS: PROPRANOLOL HCL 20 MG TAB PO SCH ×2 (06:16→16:32)
--- NOTE | 2019-06-24 06:44 | Critical Care Progress Note ---
Date of Service June 24, 2019 Assessment & Plan (1) Transfusion of blood during current hospitalisation: Reason Critically Ill: Patient with acutely altered mental status secondary to metabolic encephalopathy secondary to hyperammonemia, liver failure and home sedative use Neuro: patient with no clear focal neuro deficit on exam Mental Status improving though still delirious GCS 14 and appears to be coughing and protecting airway. okay to remain extubated EEG ordered showing no evidence of seizure activity MRI showing tiny meningioma incidentally but no evidence of metastatic disease in the brain Encephalopathy likely metabolic secondary to her liver failure and sedative use We will continue to watch for signs of improvement and metabolite washout Respiratory: Breathing comfortably on room air No acute lung pathology Cardiovascular: Hemodynamically stable No acute cardiac concerns GI: Now that mental status has so markedly improved, will put patient through swallow evaluation and if passes will attempt to start feeding and PO meds Ascitic abdomen has been tapped twice and over two liters taken off No evidence of malignancy on cytology from tap No evidence of SBP Patient with history of suspected metastatic cancer possibly HCC Follows with Dr. Delacruz, was due for a biopsy this week Oncology consulted, Dr. Treviño offers no clear diagnosis without biopsy but is concerned for prognosis based on appearance of metastatic disease Continuing lactulose, ammonia back to normal levels patient continues to slowly improve MELD score 17 Serum AFP negative CA 125 ordered Will consider increasing Thiamine to therapeutic dose Decreased lactulose to BID with ammonia level of 19 and improving mental status ID: Will continue ceftriaxone for prophylaxis in Gi bleed with cirrhosis No current infectious concern Procalcitonin negative Heme/Onc: CT showing what appears to be widely metastatic disease Was scheduled for liver Biopsy in early June with Dr. Delacruz Will hold off on any further investigations until patient becomes more medically stable. Hemoglobin has been stable since EGD discovered and ablated gastric erosions Did receive one unit of PRBC's this admission Will remain in critical care for further care, very concerned this is at least partially technical services representative of progressive metastatic cancer with progressive hepatic failure. 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 Culver was resident physician during care of patient. I separately evaluated patient for bhakta portions of the history and the exam. I was present during the critical portion of medical decision making, and I discussed the case with the resident. I generally agree with the findings and plan. Patient's encephalopathy mildly improving, somewhat responsive to commands. We gave 25 mcg of fentanyl which re-sedated the patient, I do not believe she is entering a withdrawal syndrome that is complicating her encephalopathy if anything she needs continued time to metabolize the sedating medications. Domenico España is doing much better from a mentation standpoint this morning. She is awake and asking me to leave. She did not sleep at all last night but does not endorse any fatigue. She says no to any review of systems other than endorse hunger. Informed her if she can pass a swallow eval we can look at feeding her. Review of Systems Review of Systems: All systems reviewed & are unremarkable except as noted in HPI & below Physical Exam Physical Exam: Constitutional: Patient lying in bed, moving all limbs absent mindedly, alert and awake speaking very quietly and making eye contact. One to one at bedside Eyes: EOMMI bilaterally, PERRLA Neck: Supple, no masses detected Respiratory: Coarse breath sounds, no wheezing, good aeration bilaterally. No increased work of breathing though difficult to assess subtle accessory muscle use as she continues to sort of writhe around the bed Cardiovascular: heart sounds dual, no murmurs, rubs, skips or gallops, peripheral pulses intact GI: Abdomen soft, nontender Results & Data Vital Signs (Past 12 Hours) Vital Signs Temp Pulse Resp BP Pulse Ox 06/24/19 06:00 88 19 151/82 H 99 06/24/19 05:00 88 25 H 164/87 H 97 06/24/19 04:00 36.6 C 87 22 147/75 H 97 06/24/19 03:00 88 23 156/79 H 95 06/24/19 02:00 88 18 157/85 H 97 06/24/19 01:08 86 06/24/19 01:00 85 20 162/85 H 96 06/24/19 00:00 36.6 C 88 18 157/83 H 95 06/23/19 23:02 82 30 H 131/68 96 06/23/19 23:00 83 28 H 131/68 96 06/23/19 22:00 82 20 163/100 H 95 06/23/19 21:57 81 32 H 163/100 H 96 06/23/19 21:00 81 29 H 130/117 H 96 06/23/19 20:00 36.8 C 87 18 166/83 H 96 06/23/19 19:00 81 22 163/86 H 95 Critical Care Time Critical Care Time: Yes Total Critical Care Time: 40 I have personally spent 40 minutes of critical care time in the direct management of this patient. This is a life/limb threatening event. This includes time spent evaluating patient, direct bedside care, chart review, placing orders, interpretation of diagnostic studies, discussion with consultants, patient, and/or family members regarding treatment decisions, as well as other required patient management activities. This time is exclusive of all separately billable procedures, and teaching time and separate from and in addition to any other critical care service time. Resident Activity Tracking Resident Involvement: Resident Care Provided Care Provided: Adult Hospital Medicine (1) GI bleed GI bleed type/associated pathology: gastritis Gastritis type: alcoholic Qualified Code(s): K29.21 - Alcoholic gastritis with bleeding (2) Cirrhosis of liver with ascites Hepatic cirrhosis type: alcoholic cirrhosis Qualified Code(s): K70.31 - Alcoholic cirrhosis of liver with ascites (3) Altered mental status Altered mental status type: delirium Qualified Code(s): R41.0 - Diso rientation, unspecified
[2019-06-24] MEDS: PANTOprazole 40 MG in SYRINGE 0 ML IV SCH ×2 (07:49→21:35)
[2019-06-24] MEDS: cefTRIAXone SODIUM 1,000 MG in DEXTROSE 5% 50 ML IV SCH (07:49)
[2019-06-24] MEDS: ASCORBIC ACID 500 MG TAB PO SCH (07:50)
[2019-06-24] MEDS: LACTULOSE SYRUP 30 GM/45 ML UDP OG SCH ×2 (07:50→18:27)
[2019-06-24] MEDS: VITAMIN B COMPLEX TAB PO SCH (07:50)
[2019-06-24] MEDS: MULTIVITAMIN TAB PO SCH (07:50)
[2019-06-24] MEDS: RIFAXIMIN 550 MG TABLET PO SCH ×2 (07:50→21:35)
[2019-06-24] MEDS: FUROSEMIDE 20 MG/2 ML UDP PO SCH (07:50)
[2019-06-24] MEDS: FOLIC ACID 400 MCG TAB PO SCH (07:50)
[2019-06-24] MEDS: THIAMINE HCL 100 MG in SYRINGE 9 ML IV SCH (07:51)
[2019-06-24] MEDS ORDERED: fentaNYL citrate 100 MCG/2 ML VIAL IV ONE (08:30)
[2019-06-24] MEDS: NICOTINE 21 MG/24 HR TDSY TD SCH (08:50)
--- NOTE | 2019-06-24 13:42 | Hospitalist Progress Note ---
Date of Service June 24, 2019 Assessment & Plan (1) GI bleed: EGD 06/20 - Grade II esophageal varices seen (non-bleeding) and 3 shallow ulcerated areas in gastric body with stigmata of recent bleeding. s/p argon plasma. Suspect gastric issues 2nd to alcohol. Cont PPI bid. Octreotide d/c. S/p 1 unit PRBCs this admission. - No issues today. No further bleeding. H&H stable. (2) Acute blood loss anemia: Hgb was 7.3 at [facility]. s/p 2 units PRBCs at [facility] prior to transfer. EGD with gastric erosions - likely cause of upper GI bleeding. s/p 1 additional unit of PRBCs here at [facility]. H/H remain stable. Will ultimately need Fe therapy. Advancing diet. (3) Hepatic encephalopathy: Peak ammonia level 144. s/p lactulose (copious) and rifaximin w/ improved ammonia levels. Lactulose likely contributing to gastric distension. -NH3 now normalized. (4) Altered mental status: Suspect multifactorial -- hepatic encephalopathy, toxins/medications, etc. MRI brain negative for acute process. At risk of Wernicke's - cont thiamine IV; suggest increasing the dose however. ?alcohol withdrawal. Paracentesis not suggestive of SBP. U/a without UTI. CXR without pneumonia. Cont supportive care. Tox screen + for amphetamines but takes methylphenidate chronically (although PDMP states she last had it filled in March). Odd that tox screen negative for opiates seeing that she takes fentanyl patch chronically and oxycodone chronically. Both filled on 06/10/19 per PDMP. Did patient overdose prior to admission? -> Unclear. Metal status slowly improving. Remain in the ICU today. (5) Chronic pain: 100 mcg Fentanyl patch removed at [facility] due to altered MS Narcotic management deferred to ICU team (6) Chest pain: no evidence of ACS. CTA chest w/o PEs. (7) Acute respiratory failure: s/p intubation 06/20 for airway protection in setting of altered MS, GI bleeding, etc s/p self-extubation on 06/23 NC O2 as needed (8) Chronic hepatitis C: noted with coagulopathy - INR 1.6 Maddrey's discriminant function 18 - no steroids at this time serial LFTs - Stabl today. (9) Alcohol abuse: thiamine, folic acid, MVI supplementation ?active alcohol withdrawal given her altered mental status? (10) Cirrhosis of liver with ascites: 2nd to alcohol and hepC Continue ceftriaxone for SBP prophylaxis INR is elevated - given vitamin K 06/21, 06/22 and 06/23 Maddrey's score 18.7 - no steroids at this time varices on recent EGD (nonbleeding) - cont propranolol (11) Metastatic cancer: History of metastatic cancer of unknown origin per [facility] Chest CT with more than 20 nodules that are new since 07/2017 Per daughter patient has been followed by Dr. Delacruz She was to have a liver biopsy on July 06 reports patient has a history of liver cancer too unstable to pursue biopsy of lung nodule at this time (12) Lung nodules: As above (13) Depression: once taking PO resume prozac (14) DVT prophylaxis: SCDs chemical means contraindicated due to recent GI bleeding Subjective Still obtunded. Able to say "Dea" when asked her full name, but then just repeats "Dea" several times. Review of Systems Review of Systems: Unobtainable due to cognitive status Physical Exam Constitutional: WD/WN, vitals as above + intoxicated appearing, + frail appearing and + lethargic Eyes: EOM intact bilaterally; no conjunctival abnormality ENMT: external ear and nose normal, oropharynx normal Neck: trachea midline, no thyromegaly normal visual inspection Respiratory: normal respiratory effort, lungs clear to auscultation no respiratory distress Cardiovascular: RRR, no murmur, no edema Gastrointestinal (Abdomen): Inspection/Auscultation: abdomen normal to inspection and normal bowel sounds; abdomen not distended Percussion/Palpation: abdomen soft; abdomen nontender, no guarding and abdomen not rigid Musculoskeletal: no cyanosis or clubbing, extremities motor strength 5/5 Skin: no rashes, warm and dry Neurologic: moves all extremities and awake Psychiatric: Orientation: alert, oriented to person and cooperative Results & Data Vital Signs (Past 12 Hours) Vital Signs Temp Pulse Resp BP Pulse Ox 06/24/19 06:00 88 19 151/82 H 99 06/24/19 05:00 88 25 H 164/87 H 97 06/24/19 04:00 36.6 C 87 22 147/75 H 97 06/24/19 03:00 88 23 156/79 H 95 06/24/19 02:00 88 18 157/85 H 97 PG Care Time/CCT Total # of Minutes Spent Total Time Spent with Patient: Total time spent is greater than 50% in coordination of care (as documented) at patient's floor/unit and/or counseling patient: (1) GI bleed GI bleed type/associated pathology: gastritis Gastritis type: alcoholic Qualified Code(s): K29.21 - Alcoholic gastritis with bleeding (2) Altered mental status Altered mental status type: delirium Qualified Code(s): R41.0 - Disorientation, unspecified (3) Chronic pain Chronic pain type: chronic pain syndrome Qualified Code(s): G89.4 - Chronic pain syndrome (4) Chest pain Chest pain type: unspecified Qualified Code(s): R07.9 - Chest pain, unspecified (5) Acute respiratory failure Respiratory failure complication: unspecified whether with hypoxia or hypercap lynn Qualified Code(s): J96.00 - Acute respiratory failure, unspecified whether with hypoxia or hypercapnia (6) Chronic hepatitis C Hepatic coma status: with hepatic coma Qualified Code(s): B18.2 - Chronic viral hepatitis C (7) Cirrhosis of liver with ascites Hepatic cirrhosis type: alcoholic cirrhosis Qualified Code(s): K70.31 - Alcoholic cirrhosis of liver with ascites (8) Depression Depression Type: other depression Qualified Code(s): F32.89 - Other specified depressive episodes
[2019-06-24] MEDS: ACETAMINOPHEN SOL 650 MG/20.3 ML UDC PO PRN (21:34)
[2019-06-25 04:37] LABS: Mean Corpuscular Hgb Conc 31.5 g/dL (32-36)
[2019-06-25 04:45] LABS: INR 1.7 (0.9-1.1); Prothrombin Time 16.7 Seconds (9.0-12.0)
[2019-06-25 04:55] LABS: Albumin Level 2.4 gm/dl (3.4-5.0); BUN Creatinine Ratio 28.4 (10-20); Creatinine Clr Calc Pharmacy 74.2 ml/min; Est GFR (African American) 112.2; Est GFR (Non-African American) 96.8; Magnesium 1.7 mg/dl (1.8-2.4); Potassium 3.6 mmol/L (3.5-5.1)
[2019-06-25 04:57] LABS: Albumin Globulin Ratio 0.6 (0.9-2); Bilirubin,Total 2.2 mg/dl (0.2-1); Globulin 4.3 gm/dl (2.5-4.0); Phosphorus 2.4 mg/dl (2.5-4.9); Total Protein 6.7 gm/dl (6.4-8.2)
[2019-06-25 05:11] LABS: Hematocrit (blood only) 31.1 % (37-47); Hemoglobin 9.8 g/dL (12.0-16.0); Mean Corpuscular Hemoglobin 28.1 pg (25-34); Mean Corpuscular Volume 89.1 fL (80-100); RDW Coefficient of Variation 22.2 % (11.5-14.5); RDW Standard Deviation 69.7 fL (36.4-46.3); Red Blood Count 3.49 M/uL (4.2-5.4); White Blood Count 7.28 K/uL (4.8-10.8)
[2019-06-25 05:37] LABS: Platelet Count 147 K/uL (130-400)
[2019-06-25 05:38] LABS: Basophils # (auto) 0.03 K/uL (0-0.2); Basophils % (auto) 0.4 %; Echinocytes 1+; Eosinophils # (auto) 0.22 K/uL (0-0.5); Giant Platelets 1+; Immature Granulocytes # (auto) 0.01 K/uL (0.00-0.02); Immature Granulocytes % (auto) 0.1 %; Lymphocytes # (auto) 1.04 K/uL (1.2-3.4); Lymphocytes % (auto) 14.3 %; Monocytes # (auto) 0.97 K/uL (0.11-0.59); Monocytes % (auto) 13.3 %; Neutrophils # (auto) 5.01 K/uL (1.4-6.5); Neutrophils % (auto) 68.9 %; Ovalocytes 1+; Platelet Estimate Normal (Normal); Schistocytes Occasional; Target Cells 1+
[2019-06-25] MEDS: PROPRANOLOL HCL 20 MG TAB PO SCH ×2 (05:55→17:00)
[2019-06-25] MEDS: ACETAMINOPHEN SOL 650 MG/20.3 ML UDC PO PRN (06:13)
--- NOTE | 2019-06-25 06:19 | Critical Care Progress Note ---
Date of Service June 25, 2019 Assessment & Plan (1) Transfusion of blood during current hospitalisation: Reason Critically Ill: Patient with acutely altered mental status secondary to metabolic encephalopathy secondary to hyperammonemia, liver failure and home sedative use Neuro: patient with no clear focal neuro deficit on exam Mental Status improved though still delirious EEG ordered showing no evidence of seizure activity MRI showing tiny meningioma incidentally but no evidence of metastatic disease in the brain Encephalopathy likely metabolic secondary to her liver failure, progressive cancer (not confirmed by biopsy) and sedative use Respiratory: Breathing comfortably on room air No acute lung pathology Cardiovascular: Hemodynamically stable No acute cardiac concerns GI: Now that mental status has so markedly improved, will put patient through swallow evaluation and if passes will attempt to start feeding and PO meds Ascitic abdomen has been tapped twice and over two liters taken off No evidence of malignancy on cytology from tap No evidence of SBP Patient with history of suspected metastatic cancer possibly HCC Follows with Dr. Delacruz, was due for a biopsy this week Oncology consulted, Dr. Treviño offers no clear diagnosis without biopsy but is concerned for prognosis based on appearance of metastatic disease Continuing lactulose, ammonia back to normal levels patient continues to slowly improve MELD score 17 Serum AFP negative CA 125 ordered Decreased lactulose to BID with ammonia level of 19 and improving mental status titrate to hold with 3 or more bowel motions Speech evaluation ordered ID: Will continue ceftriaxone for prophylaxis in Gi bleed with cirrhosis No current infectious concern Procalcitonin negative Heme/Onc: CT showing what appears to be widely metastatic disease Was scheduled for liver Biopsy in early June with Dr. Delacruz Will hold off on any further investigations until patient becomes more medically stable. 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 Culver was resident physician during care of patient. I separately evaluated patient for bhakta portions of the history and the exam. I was present during the critical portion of medical decision making, and I discussed the case with the resident. I generally agree with the findings and plan. Patient continues to improve with her encephalopathy. Now marginally/minimally responsive to commands and redirection. At this time I feel she warrants further improvement before further evaluation of these masses. In extensive discussion with the patient's daughter, the patient would want independent living and anything that might lead to a debilitated state would be declined by the patient. As such I feel the risk of decompensation from lung biopsy at this present moment is high. Patient has significant end-stage liver disease and has a very poor prognosis, she is not a candidate for liver transplant due to ongoing alcohol use and abuse most recently the day before admission. If the patient underwent lung biopsy and malignancy was demonstrated this would be stage IV disease and would again unlikely be willing to undergo treatment as this would further debilitate this patient. The patient's daughter would carry the same surrogate decision-maker priority as the patient's , to my understanding there is no executed power of assistant attorney general. Accordingly after discussion the goals of care are to facilitate patient back to an independent functional status. I feel the best course of action at this time is to limit invasive interventions and this decision could be reevaluated after continued and significant clinical improvement. Patient is stable for downgrade from the ICU. Subjective Patient continues to get more aware and awake each day. Today is able to talk and tell us her name and is aware that she is at [facility]. Asking to go home. Review of Systems Review of Systems: All systems reviewed & are unremarkable except as noted in HPI & below Physical Exam Physical Exam: Constitutional: Patient lying in bed, moving all limbs absent mindedly, alert and awake speaking very quietly and making eye contact. One to one at bedside Eyes: EOMMI bilaterally, PERRLA Neck: Supple, no masses detected Respiratory: Coarse breath sounds, no wheezing, good aeration bilaterally. No increased work of breathing though difficult to assess subtle accessory muscle use as she continues to sort of writhe around the bed Cardiovascular: heart sounds dual, no murmurs, rubs, skips or gallops, peripheral pulses intact GI: Abdomen soft, nontender Results & Data Vital Signs (Past 12 Hours) Vital Signs Temp Pulse Resp BP Pulse Ox 06/25/19 06:03 72 24 117/83 99 06/25/19 05:03 72 22 173/72 H 100 06/25/19 04:03 36.8 C 70 18 150/80 H 100 06/25/19 03:06 72 29 H 148/69 H 100 06/25/19 03:03 69 28 H 148/69 H 100 06/25/19 02:03 69 24 137/65 99 06/25/19 01:03 71 29 H 139/64 99 06/25/19 00:04 36.8 C 74 24 145/76 H 100 06/24/19 23:02 67 29 H 130/68 100 06/24/19 22:02 73 26 H 114/55 L 99 06/24/19 21:03 76 21 123/65 94 06/24/19 20:03 37.0 C 73 24 131/52 L 99 06/24/19 20:00 70 06/24/19 19:03 71 26 H 132/59 L 99 Critical Care Time Prolonged Care Time Prolonged Care Time: Yes Total Prolonged Care Time: 45 This patient required prolonged care in direct [id number] conversation with the patient's daughter. The reason this included the patient's daughter and not the patient herself as the patient is still lacks capacity due to a metabolic encephalopathy however goals of care needed to be determined as well as discussion of prognosis and evaluating multiple treatment options. Total time spent in [id number] discussion and evaluation and management of the patient 45 minutes Resident Activity Tracking Resident Involvement: Resident Care Provided Care Provided: [facility] (1) GI bleed GI bleed type/associated pathology: gastritis Gastritis type: alcoholic Qualified Code(s): K29.21 - Alcoholic gastritis with bleeding (2) Cirrhosis of liver with ascites Hepatic cirrhosis type: alcoholic cirrhosis Qualified Code(s): K70.31 - Alcoholic cirrhosis of liver with ascites (3) Altered mental status Altered mental status type: delirium Qualified Code(s): R41.0 - Disorientation, unspecified
[2019-06-25] MEDS: PANTOprazole 40 MG in SYRINGE 0 ML IV SCH ×2 (07:53→20:29)
[2019-06-25] MEDS: FUROSEMIDE 20 MG/2 ML UDP PO SCH (07:53)
[2019-06-25] MEDS: FOLIC ACID 400 MCG TAB PO SCH (07:53)
[2019-06-25] MEDS: THIAMINE HCL 100 MG in SYRINGE 9 ML IV SCH (07:53)
[2019-06-25] MEDS: ASCORBIC ACID 500 MG TAB PO SCH (07:53)
[2019-06-25] MEDS: cefTRIAXone SODIUM 1,000 MG in DEXTROSE 5% 50 ML IV SCH (07:53)
[2019-06-25] MEDS: LACTULOSE SYRUP 30 GM/45 ML UDP OG SCH ×2 (07:54→20:30)
[2019-06-25] MEDS: RIFAXIMIN 550 MG TABLET PO SCH ×2 (07:54→20:29)
[2019-06-25] MEDS: VITAMIN B COMPLEX TAB PO SCH (07:54)
[2019-06-25] MEDS: NICOTINE 21 MG/24 HR TDSY TD SCH (07:54)
[2019-06-25] MEDS: MULTIVITAMIN TAB PO SCH (07:54)
--- NOTE | 2019-06-25 10:24 | Hospitalist Progress Note ---
Date of Service June 25, 2019 Assessment & Plan (1) Abdominal pain: Likely due to recent gastric erosions. Add carafate 1gm QID. Cont PPI bid. Diet as tolerated. No lipase checked this admission - add to AM labs. KUB x-ray checked - minimal gaseous distension. Recent paracentesis WITHOUT sbp. (2) COPD exacerbation: Start scheduled duonebs qid. Start solumedrol 40mg IV q12h. Repeat cxr w/o infiltrates; pulmonary nodules seen (known/pre-existing). Pulmonary toilet. (3) Stridor: Likely mild laryngeal edema/irritation from recent intubation and then self-extubation. O2 sats wnl in room air. Steroids for COPD exacerbation should help this. No reports of dysphagia/aspiration per nursing staff. Monitor closely. Consider racemic epi treatment if needed. (4) GI bleed: EGD 06/20 - Grade II esophageal varices seen (non-bleeding) and 3 shallow ulcerated areas in gastric body with stigmata of recent bleeding. s/p argon plasma. Suspect 2nd to alcohol. Cont PPI bid. H/H stable again today. s/p 1 unit PRBCs this admission. SBP proph in setting of GI bleeding - has received 6 days of IV rocephin. d/c, and give 1 more day of abx in form of cipro 500mg BID x 2 doses then stop. (5) Acute blood loss anemia: 2nd to UPPER GI bleeding. Hgb was 7.3 at [facility]. s/p 2 units PRBCs at [facility] prior to transfer to [facility]. EGD here with gastric erosions - likely cause of upper GI bleeding. s/p 1 additional unit of PRBCs in our ICU. H/H remain stable. Cont current diet. (6) Hepatic encephalopathy: Peak ammonia level 144. s/p lactulose (copious) and rifaximin w/ improved ammonia levels and improved clinical status/mental status. Lactulose likely contributing to gastric distension. Having lots of stool - cut back dose to QDAILY from BID. (7) Altered mental status: IMPROVED. Suspect multifactorial -- hepatic encephalopathy, toxins/medications, etc. MRI brain negative for acute process. At risk of Wernicke's - cont thiamine - increase to BID dosing. No signs of etoh withdrawal today. Paracentesis not suggestive of SBP. U/a without UTI. CXR without pneumonia. Cont supportive care. Tox screen + for amphetamines but takes methylphenidate chronically (although PDMP states she last had it filled in March). Odd that tox screen negative for opiates seeing that she takes fentanyl patch chronically and oxycodone chronically. Both filled on 06/10/19 per PDMP. (8) Chronic pain: 100 mcg Fentanyl patch removed at [facility] due to altered MS Patient comfortable at this time w/o fentanyl patch (9) Acute respiratory failure: s/p intubation 06/20 for airway protection in setting of altered MS, GI bleeding, etc s/p self-extubation on 06/23 NC O2 as needed now w/ COPD exacerbation (10) Chronic hepatitis C: noted with coagulopathy - INR 1.7 Maddrey's discriminant function has been low; thus no steroids at this time repeat INR am (11) Alcohol abuse: thiamine, folic acid, MVI supplementation (12) Cirrhosis of liver with ascites: 2nd to alcohol and hepC Continue 7 days of abx for SBP prophylaxis; today is day 6; stop rocephin, finish course w/ PO cipro INR is elevated - given vitamin K 06/21, 06/22 and 06/23 along with today without any improvement varices on recent EGD (nonbleeding) - cont propranolol ascites reaccumulating; consider re-tapping for comfort as needed (13) Metastatic cancer: History of metastatic cancer of unknown origin per [facility] records Chest CT with more than 20 nodules that are new since 07/2017 Per daughter patient has been followed by Dr. Delacruz in the past need to determine if truly a candidate for biopsy and, if biopsy is completed, what would goals of care be? palliative care consult also requested to define goals of care (14) Lung nodules: As above (15) Depression: resume prozac (16) Hypomagnesemia: replace with 2 grams mag sulfate x 1 today (17) DVT prophylaxis: SCDs chemical means contraindicated due to recent GI bleeding family updated at bedside transfer to PCU today Subjective saw patient twice today. first was this AM; she was still in ICU. I spoke with Dr Can during my rounds in ICU and he felt she could transfer to telemetry. during my AM rounds she complained of shortness of breath and cough. also complained of epigastric abd pain. latter was NOT worsened with eating food. no vomiting. shortness of breath started this am. able to lay flat in bed however. much more awake today; able to answer questions; knew she was in the hospital. Review of Systems Constitutional: + fatigue and + anorexia; no fever and no chills Ear, Nose, Mouth, Throat: no dysphagia Respiratory: + cough; no sputum production Cardiovascular: no chest pain Gastrointestinal: + abdominal pain and + diarrhea/loose stools Physical Exam Constitutional: + ill appearing, + thin and + frail appearing; + not well developed, + not well nourished, no acute distress and no altered mental status stridor present ENMT: external ear and nose normal, oropharynx normal Respiratory: + cough and + stridor (mild) Auscultation: + diminished lung sounds (bases ) and + wheezes (b/l) Cardiovascular: Rate/Rhythm: regular rate and regular rhythm Heart Sounds: normal S1 and normal S2; no murmur Vessels: posterior tibial pulses present and dorsalis pedis pulses present; no JVD Extremities: no edema Gastrointestinal (Abdomen): Inspection/Auscultation: + abdomen distended (w/ ascites) and normal bowel sounds Percussion/Palpation: + abdomen tender (epigastric area); abdomen not rigid and no hepatosplenomegaly Skin: + pallor Psychiatric: Orientation: alert, oriented to person and oriented to place Results & Data Vital Signs (Past 12 Hours) Vital Signs Temp Pulse Resp BP Pulse Ox 06/25/19 10:03 64 24 145/87 H 98 06/25/19 09:04 63 26 H 129/63 97 06/25/19 08:03 36.4 C L 64 24 167/72 H 97 06/25/19 08:00 67 18 06/25/19 07:03 66 29 H 152/71 H 100 06/25/19 07:00 67 21 100 06/25/19 06:03 72 24 117/83 99 06/25/19 05:03 72 22 173/72 H 100 06/25/19 04:03 36.8 C 70 18 150/80 H 100 06/25/19 03:06 72 29 H 148/69 H 100 06/25/19 03:03 69 28 H 148/69 H 100 06/25/19 02:03 69 24 137/65 99 06/25/19 01:03 71 29 H 139/64 99 06/25/19 00:04 36.8 C 74 24 145/76 H 100 06/24/19 23:02 67 29 H 130/68 100 Laboratory Results Laboratory Results - last 24 hr 06/24/19 06/25/19 06/25/19 22:33 04:26 04:26 WBC 7.28 RBC 3.49 L Hgb 9.8 L Hct 31.1 L MCV 89.1 MCH 28.1 MCHC 31.5 L RDW Std Deviation 69.7 H RDW Coeff of Rashi 22.2 H Plt Count 147 Immature Gran % (Auto) 0.1 Neut % (Auto) 68.9 Lymph % (Auto) 14.3 Runnels % (Auto) 13.3 Eos % (Auto) 3.0 Baso % (Auto) 0.4 Immature Gran # (Auto) 0.01 Neut # (Auto) 5.01 Lymph # (Auto) 1.04 L Runnels # (Auto) 0.97 H Eos # (Auto) 0.22 Baso # (Auto) 0.03 Platelet Estimate Normal Giant Platelets 1+ Target Cells 1+ Ovalocytes 1+ Echinocytes 1+ Schistocytes Occasional PT INR Sodium 143 Potassium 3.6 Chloride 113 H Carbon Dioxide 29 Anion Gap 1.0 L BUN 18 Creatinine 0.63 Est Cr Clr Drug Dosing 74.2 Est GFR ( Amer) 112.2 Est GFR (Non-Af Amer) 96.8 BUN/Creatinine Ratio 28.4 H Glucose 95 POC Glucose 95 Calcium 8.0 L Phosphorus 2.4 L Magnesium 1.7 L Total Bilirubin 2.2 H AST 54 H ALT 33 Alkaline Phosphatase 61 Ammonia Total Protein 6.7 Albumin 2.4 L Globulin 4.3 H Albumin/Globulin Ratio 0.6 L 06/25/19 06/25/19 04:26 04:26 WBC RBC Hgb Hct MCV MCH MCHC RDW Std Deviation RDW Coeff of Rashi Plt Count Immature Gran % (Auto) Neut % (Auto) Lymph % (Auto) Runnels % (Auto) Eos % (Auto) Baso % (Auto) Immature Gran # (Auto) Neut # (Auto) Lymph # (Auto) Runnels # (Auto) Eos # (Auto) Baso # (Auto) Platelet Estimate Giant Platelets Target Cells Ovalocytes Echinocytes Schistocytes PT 16.7 H INR 1.7 H Sodium Potassium Chloride Carbon Dioxide Anion Gap BUN Creatinine Est Cr Clr Drug Dosing Est GFR ( Amer) Est GFR (Non-Af Amer) BUN/Creatinine Ratio Glucose POC Glucose Calcium Phosphorus Magnesium Total Bilirubin AST ALT Alkaline Phosphatase Ammonia < 10.0 L Total Protein Albumin Globulin Albumin/Globulin Ratio PG Care Time/CCT Total # of Minutes Spent Total Time Spent with Patient: Total time spent is greater than 50% in coordination of care (as documented) at patient's floor/unit and/or counseling patient: (1) Chronic pain Chronic pain type: chronic pain syndrome Qualified Code(s): G89.4 - Chronic pain syndrome (2) GI bleed GI bleed type/associated pathology: gastritis Gastritis type: alcoholic Qualified Code(s): K29.21 - Alcoholic gastritis with bleeding (3) Acute respiratory failure Respiratory failure complication: unspecified whether with hypoxia or hypercapnia Qualified Code(s): J96.00 - Acute respiratory failure, unspecified whether with hypoxia or hypercapnia (4) Depression Depression Type: other depression Qualified Code(s): F32.89 - Other specified depressive episodes (5) Chronic hepatitis C Hepatic coma status: with hepatic coma Qualified Code(s): B18.2 - Chronic viral hepatitis C (6) Cirrhosis of liver with ascites Hepatic cirrhosis type: alcoholic cirrhosis Qualified Code(s): K70.31 - Alcoholic cirrhosis of liver with ascites (7) Altered mental status Altered mental status type: delirium Qualified Code(s): R41.0 - Disorientation, unspecified (8) Abdominal pain Abdominal location: epigastric Qualified Code(s): R10.13 - Epigastric pain
--- NOTE | 2019-06-25 10:55 | XRay Report ---
XR chest 1V portable CLINICAL HISTORY: wheezing b/l, dyspnea, cough COMPARISON STUDY: Chest CT June 19, 2019. Chest radiograph June 23, 2019. FINDINGS: The endotracheal and nasogastric tubes have been removed. There is no pneumothorax. Patient is rotated. Cardiac size is normal. Multiple pleural-based masses are again noted. There is no evide nce for pulmonary edema. No consolidation is identified. IMPRESSION: 1. No acute cardiopulmonary findings. 2. Redemonstration of multiple pleural-based nodules, better depicted on prior chest CT. 3. Interval removal of the endotracheal and nasogastric tubes. ACT 112: Negative or not required by law. Electronically signed by: Alistair Daily M.D. 06/25/2019 10:54 AM
--- NOTE | 2019-06-25 11:07 | XRay Report ---
KUB HISTORY: upper abd pain, distended COMPARISON: KUB 06/23/2019. FINDINGS: A few nondilated gas-filled loops of large and small bowel seen throughout the abdomen. No evidence for bowel obstruction. Postoperative changes again noted within the lumbar spine and left hi p. No renal calculi. No ureteral calculi. No pneumoperitoneum or pneumatosis. IMPRESSION: No evidence for bowel obstruction. ACT 112: Negative or not required by law. Electronically signed by: Greg White M.D. 06/25/2019 11:05 AM
[2019-06-25] MEDS: ALBUT/IPRATROP 3MG/0.5MG NEB 3 ML VIAL NEB SCH ×5 (11:12→23:21)
[2019-06-25] MEDS: MAGNESIUM SULFATE / D5W 1 GM/100 ML BAG IV SCH ×2 (11:28→12:40)
[2019-06-25] MEDS: SUCRALFATE 1 GM/10 ML UDC PO SCH ×3 (11:28→20:29)
[2019-06-25] MEDS: methylPREDNISolone 40 MG in SYRINGE 0 ML IV SCH ×2 (11:29→20:29)
[2019-06-25] MEDS ORDERED: PHYTONADIONE 2.5 MG in SODIUM CHLORIDE 0.9% 50 ML IV SCH (12:30)
[2019-06-25] MEDS ORDERED: PHYTONADIONE 5 MG TAB PO ONE (12:30)
--- NOTE | 2019-06-25 16:30 | Progress Note ---
DATE: 06/25/2019 The patient has improved mental status and her ammonia level is now less than 10 micromoles per liter. Her ascitic fluid was negative for cytology or malignant cells and her alpha fetoprotein was normal. This makes a primary liver cancer much less likely. Obviously, getting histology is important to rule out a malignancy, especially given her chest CT with multiple nodules and a pleural-based mass. According to the critical care doctor, she is too unstable to biopsy the lung or the pleural-based mass. PHYSICAL EXAMINATION: GENERAL: The patient is somewhat agitated. VITAL SIGNS: Blood pressure is 155/87, pulse 66, room air saturation 100%. IMPRESSION: The patient does not have overt signs of primary liver cancer. Her ammonia level is normal. Ascitic fluid cytology is negative for infection or malignancy. At this point, we will sign off unless any further gastrointestinal input is needed.
--- NOTE | 2019-06-25 16:53 | Palliative Care Progress Note ---
Date of Service June 25, 2019 Assessment & Plan (1) Goals of care, counseling/discussion: - patient is a 59 year old female patient with PMH esophageal varices secondary to liver cirrhosis with hepatitis C, alcohol abuse, high likelihood of metastatic cancer possible hepatocellular carcinoma (was planned for outpatient biopsy on 07/06).She presented as a transfer from [facility] on 06/19 for GI bleed with hematochezia and hematemesis. Upon arrival patient was extremely lethargic and confused due to metabolic encephalopathy 2/2 hyperammonemia and other issues. She was intubated for airway protection. GI consulted and patient underwent EGD-- old blood was found and cleared out. Patient has known varices. Her INR is elevated at 1.6-- not on AC, likely due to liver failure. Patient also found to have many new pulmonary nodules ( > 20), which could be metastatic disease. Patient was successfully extubated and mental status has improved over the last few days. Patient's overall prognosis is poor. She remains critically ill in the ICU. Palliative care is consulted to provide supportive care and help establish goals of care. -Met with patient and daughter in room 202 this afternoon. -Patient and daughter aware that patient's prognosis is poor-she is planned for liver biopsy on 07/06-they are also aware that she may not be able to undergo biopsy of pulmonary nodules due to current pulmonary status. Patient and daughter also aware that patient may not tolerate chemotherapy due to liver disease. -GI is consulted for her GI bleeding-- not felt to be due to varices, but rather erosive gastritis. Had EGD on 06/20 and is currently on PPI. -Discussion of CODE STATUS-patient would still want intubation for short-term, would want shock and chest compressions. Would not want to be kept alive on mechanical ventilation. Patient has had a trach in the past. -Patient and daughter are hoping that patient can improve enough to get home-are considering possibility of hospice care. -Discussed prognostic factors including patient's albumin level, elevated INR, and ascites. Patient underwent paracentesis-was negative for malignancy, but did reaccumulate within a few days. -Will continue to follow and assist patient and family with medical decision making. -Patient states her POA is both her and her daughter. was not present during visit today-he is coming in later this evening. (2) Metabolic encephalopathy: (3) Cirrhosis of liver with ascites: (4) Lung nodules: Subjective Patient awake and alert, slightly fatigued. Patient's daughter, son-in-law and grandson at bedside. Patient awake and alert and agreeable to discussion of CODE STATUS-patient stated she would want to be intubated again short-term if needed, would not want long-term ventilator support, would want shock and chest compressions. Patient and daughter are very familiar with hospice care as daughters father was under hospice care. Asking appropriate questions patient had stated that she would like to be at home and stay at home-initiated hospice discussion as far as what hospice could help with at home. Patient and daughter understand that patient would need to be much stronger in order to undergo any type of diagnostic testing. Will continue to follow and help with medical decision making. Review of Systems Review of Systems: Patient denies fever, chills, chest pain Positive for increased shortness of breath-nebs effective. Positive for cough and weakness. Physical Exam Physical Exam: PE: Awake and alert, oriented HEENT: EOMI, hearing within normal limits Respirations: Bilateral wheezes-improved after neb CV: Regular rate Abdomen: Distended, nontender Extremities: No edema Neuro: Alert and oriented Results & Data Vital Signs (Past 12 Hours) Vital Signs Temp Pulse Pulse Resp BP BP Pulse Ox 06/25/19 15:40 97.9 F 66 22 155/87 H 100 06/25/19 15:16 67 20 98 06/25/19 13:26 63 06/25/19 13:08 97.9 F 62 20 163/71 H 97 06/25/19 11:49 97.5 F L 65 24 148/80 H 99 06/25/19 11:12 61 25 H 97 06/25/19 11:00 60 21 97 06/25/19 10:04 62 24 99 06/25/19 10:03 64 24 145/87 H 98 06/25/19 09:04 63 26 H 129/63 97 06/25/19 08:03 97.5 F L 64 24 167/72 H 97 06/25/19 08:00 67 18 06/25/19 07:03 66 29 H 152/71 H 100 06/25/19 07:00 67 21 100 06/25/19 06:03 72 24 117/83 99 06/25/19 05:03 72 22 173/72 H 100 PG Care Time/CCT Total # of Minutes Spent Total Time Spent with Patient: Total time spent is greater than 50% in coordination of care (as documented) at patient's floor/unit and/or counseling patient: Time Spent Attending Total time spent 40 minutes with greater than 50% of the time spent at bedside discussing treatment options as well as goals of care. (1) Cirrhosis of liver with ascites Hepatic cirrhosis type: alcoholic cirrhosis Qualified Code(s): K70.31 - Alcoholic cirrhosis of liver with ascites
[2019-06-25] MEDS: MAGNESIUM OXIDE 400 MG TAB PO SCH (20:29)
[2019-06-25] MEDS: ALBUT/IPRATROP 3MG/0.5MG NEB 3 ML VIAL NEB PRN (20:52)
[2019-06-25] MEDS: THIAMINE HCL 100 MG TAB PO SCH (22:33)
[2019-06-26] MEDS ORDERED: TRAMADOL HCL 50 MG TABLET PO STA (00:56)
[2019-06-26] MEDS: ALBUT/IPRATROP 3MG/0.5MG NEB 3 ML VIAL NEB PRN (02:09)
[2019-06-26] MEDS: PROPRANOLOL HCL 20 MG TAB PO SCH ×2 (04:43→17:40)
[2019-06-26 05:50] LABS: Hemoglobin 9.6 g/dL (12.0-16.0); Mean Corpuscular Hemoglobin 27.8 pg (25-34); Mean Corpuscular Volume 89.9 fL (80-100); Platelet Count 160 K/uL (130-400); RDW Coefficient of Variation 22.6 % (11.5-14.5); RDW Standard Deviation 73.9 fL (36.4-46.3); Red Blood Count 3.45 M/uL (4.2-5.4)
[2019-06-26 05:59] LABS: INR 1.4 (0.9-1.1); Prothrombin Time 14.3 Seconds (9.0-12.0)
[2019-06-26 06:08] LABS: BUN Creatinine Ratio 18.2 (10-20); Calcium 8.2 mg/dl (8.5-10.1); Creatinine Clr Calc Pharmacy 64.9 ml/min; Est GFR (African American) 104.8; Est GFR (Non-African American) 90.4; Potassium 3.5 mmol/L (3.5-5.1)
[2019-06-26] MEDS: ALBUT/IPRATROP 3MG/0.5MG NEB 3 ML VIAL NEB SCH ×4 (07:16→19:08)
[2019-06-26] MEDS: VITAMIN B COMPLEX TAB PO SCH (08:14)
[2019-06-26] MEDS: PANTOprazole 40 MG in SYRINGE 0 ML IV SCH ×2 (08:14→20:00)
[2019-06-26] MEDS: MAGNESIUM OXIDE 400 MG TAB PO SCH ×2 (08:14→20:00)
[2019-06-26] MEDS: SUCRALFATE 1 GM/10 ML UDC PO SCH ×4 (08:15→19:59)
[2019-06-26] MEDS: FUROSEMIDE 20 MG TAB PO SCH (08:15)
[2019-06-26] MEDS: THIAMINE HCL 100 MG TAB PO SCH ×2 (08:15→20:01)
[2019-06-26] MEDS: MULTIVITAMIN TAB PO SCH (08:16)
[2019-06-26] MEDS: CIPROFLOXACIN 500 MG TAB PO SCH ×2 (08:16→20:00)
[2019-06-26] MEDS: FLUOXETINE HCL 20 MG CAP PO SCH (08:16)
[2019-06-26] MEDS: NICOTINE 21 MG/24 HR TDSY TD SCH (08:16)
[2019-06-26] MEDS: RIFAXIMIN 550 MG TABLET PO SCH ×2 (08:16→20:01)
[2019-06-26] MEDS ORDERED: THIAMINE HCL 100 MG TAB PO SCH (09:00)
[2019-06-26] MEDS: LACTULOSE SYRUP 30 GM/45 ML UDP PO SCH ×2 (10:06→20:04)
--- NOTE | 2019-06-26 11:21 | Palliative Care Progress Note ---
Date of Service June 26, 2019 Assessment & Plan (1) Goals of care, counseling/discussion: -Saw patient in room 202 this morning. No family at bedside. Patient is awake, confused, unsteady on her feet today with PT. -GI is consulted for her GI bleeding-- not felt to be due to varices, but rather erosive gastritis. Had EGD on 06/20 and is currently on PPI. -Palliative care met with patient and daughter yesterday-- patient to remain a full code at this time. Patient and family aware of poor prognosis. -Would need biopsy to confirm diagnosis of liver cancer/lung mets-- this will need to be deferred until patient's other acute issues are improved. -Patient will certainly need SNF/rehab after hospitalization. Hospice would also be an option for this patient depending on goals. -We will continue to follow along during hospitalization. (2) Metabolic encephalopathy: (3) Cirrhosis of liver with ascites: (4) Lung nodules: Subjective Patient is more awake today. Did not do well working with PT today-- unsteady, high fall risk. No family at bedside. Review of Systems Review of Systems: Patient denies fever, chills, chest pain Positive for increased shortness of breath-nebs effective. Positive for cough and weakness. Physical Exam Constitutional: + ill appearing (chronically) ENMT: external ear and nose normal, oropharynx normal Respiratory: normal respiratory effort, lungs clear to auscultation Auscultation: + diminished lung sounds Cardiovascular: RRR, no murmur, no edema Gastrointestinal (Abdomen): Inspection/Auscultation: normal bowel sounds; abdomen not distended Percussion/Palpation: abdomen soft Skin: + jaundice Neurologic: moves all extremities, awake and + confused Psychiatric: Orientation: oriented to person and oriented to place; + not oriented to time Results & Data Vital Signs (Past 12 Hours) Vital Signs Temp Pulse Pulse Resp BP Pulse Ox 06/26/19 11:14 80 18 95 06/26/19 07:25 36.4 C L 79 19 133/75 100 06/26/19 07:18 78 22 96 06/26/19 04:41 36.4 C L 83 20 149/80 H 99 06/26/19 02:11 62 24 96 06/26/19 00:00 80 06/25/19 23:22 62 26 H 98 Time Spent Midlevel 25 minutes with >50% of the time spent at bedside with patient discussing condition and GOC. (1) Cirrhosis of liver with ascites Hepatic cirrhosis type: alcoholic cirrhosis Qualified Code(s): K70.31 - Alcoholic cirrhosis of liver with ascites
[2019-06-26] MEDS ORDERED: HYDROmorphone INJ 0.5 MG/0.5 ML SYR IV STA (13:14)
[2019-06-26] MEDS: methylPREDNISolone 40 MG in SYRINGE 0 ML IV SCH ×2 (13:47→22:04)
--- NOTE | 2019-06-26 15:40 | Billing Data ---
Date of Service June 23, 2019 Coding Level of Care Code Critical Care mins
--- NOTE | 2019-06-26 15:42 | Billing Data ---
Date of Service June 24, 2019 Coding Level of Care Code Critical Care mins
--- NOTE | 2019-06-26 15:50 | Billing Data ---
Date of Service June 25, 2019 Coding Level of Care Code 81831 Prolonged Care (int'l)
[2019-06-26] MEDS: ACETAMINOPHEN SOL 650 MG/20.3 ML UDC PO PRN (17:39)
[2019-06-26] MEDS: HYDROmorphone INJ 0.5 MG/0.5 ML SYR IV PRN (20:19)
--- NOTE | 2019-06-26 20:44 | Hospitalist Progress Note ---
Date of Service June 26, 2019 Assessment & Plan (1) Abdominal pain: Pain now in LLQ. In light of copious diarrhea (which could have been the lactulose) will check c. diff. If c. diff is negative, and if LLQ pain continues, then consider repeat abd/pelvis CT. Recent paracentesis without SBP (and has been on SBP prophy the entire stay). Epigastric pain IS improved with PPI + carafate. (2) COPD exacerbation: Improving but leave solumedrol at 40mg q12h today. Cont duonebs qid. Resume symbicort BID. CXR yesterday unchanged (no complicating edema). Cont pulmonary toilet. (3) Stridor: Improved today. Likely mild laryngeal edema/irritation from recent intubation and then self- extubation. O2 sats wnl in room air. Steroids for COPD exacerbation will help. Patient had a trach years ago in setting of severe pancreatitis/resp failure and had paralyzed vocal cord which subsequently improved. (4) GI bleed: No evidence of recurrence. EGD 06/20 - Grade II esophageal varices seen (non-bleeding) and 3 shallow ulcerated areas in gastric body with stigmata of recent bleeding. s/p argon plasma. Suspect 2nd to alcohol. Cont PPI bid. s/p 1 unit PRBCs this admission. SBP proph - today is day 12/28 - stop abx after tonight's dose. CBC in am for stability. (5) Acute blood loss anemia: 2nd to UPPER GI bleeding. Hgb was 7.3 at [facility]. s/p 2 units PRBCs at [facility] prior to transfer to [facility]. EGD here with gastric erosions - likely cause of upper GI bleeding. s/p 1 additional unit of PRBCs in our ICU. H/H remain stable. Cont current diet. CBC am. (6) Hepatic encephalopathy: Resolved. Peak ammonia level 144. s/p lactulose and rifaximin. Titrate lactulose for 2-3 stools/day. (7) Altered mental status: Resolved. Modestly disoriented today but markedly improved from several days ago. Suspect multifactorial -- hepatic encephalopathy, toxins/medications, etc. MRI brain negative for acute process. At risk of Wernicke's - cont thiamine 200mg BID. Again No signs of etoh withdrawal. Paracentesis not suggestive of SBP. U/a without UTI. CXR without pneumonia. Cont supportive care. 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 Delacruz in the past I had a lengthy discussion today with pt's daughter and at bedside. At this time would not pursue biopsy as she is still too ill for such. Could consider bx in 1-2 weeks if stable. Liver might be best location given her COPD and active exacerbation. Patient may be leaning, however, towards no biopsy. Will discuss again over weekend. Palliative care has been consulted. (14) Lung nodules: As above (15) Depression: resumed prozac (16) Hypomagnesemia: repeat level am on oral mag oxide (17) DVT prophylaxis: SCDs chemical means contraindicated due to recent GI bleeding family updated at bedside extensively Subjective patient w/ c/o LLQ abd pain. abd distension similar to yesterday. no stools today. no nausea. able to eat today, however, and eating did not worsen the LLQ pain. no epigastric pain today. no vomiting. cough/wheezing is improved; less stridor. family notes improvement today with breathing. tele stable overnight. Review of Systems Constitutional: + fatigue; no fever and no chills Respiratory: + cough, + dyspnea and + dyspnea on exertion Cardiovascular: no chest pain Gastrointestinal: as per Subjective / HPI and + abdominal pain Physical Exam Constitutional: + ill appearing, + thin and + frail appearing; + not well developed, + not well nourished, no acute distress and no altered mental status looks modestly better today ENMT: external ear and nose normal, oropharynx normal Respiratory: + cough and + stridor (improved today however there is now hoarse voice) Auscultation: + diminished lung sounds (bases ) and + wheezes (b/l); no crackles Cardiovascular: Rate/Rhythm: regular rate and regular rhythm Heart Sounds: normal S1 and normal S2; no murmur Vessels: posterior tibial pulses present and dorsalis pedis pulses present; no JVD Extremities: no edema Gastrointestinal (Abdomen): Inspection/Auscultation: + abdomen distended (w/ ascites - no change) and normal bowel sounds Percussion/Palpation: + abdomen tender (LLQ with deep palpation ); abdomen not rigid and no hepatosplenomegaly Skin: + pallor Psychiatric: Orientation: alert, oriented to person and oriented to place; + not oriented to time (slight confusion with day/year ) Results & Data Vital Signs (Past 12 Hours) Vital Signs Temp Pulse Resp BP Pulse Ox 06/26/19 19:36 36.9 C 77 21 117/77 94 06/26/19 19:08 78 18 95 06/26/19 15:41 36.6 C 76 19 112/72 94 06/26/19 15:22 76 18 94 06/26/19 13:00 97 06/26/19 11:21 36.4 C L 78 19 128/75 100 06/26/19 11:14 80 18 95 Laboratory Results Laboratory Results - last 24 hr 06/23/19 06/26/19 06/26/19 10:06 05:18 05:18 WBC 12.20 H RBC 3.45 L Hgb 9.6 L Hct 31.0 L MCV 89.9 MCH 27.8 MCHC 31.0 L RDW Std Deviation 73.9 H RDW Coeff of Rashi 22.6 H Plt Count 160 PT INR Sodium 141 Potassium 3.5 Chloride 113 H Carbon Dioxide 25 Anion Gap 3.0 BUN 13 Creatinine 0.72 Est Cr Clr Drug Dosing 64.9 Est GFR ( Amer) 104.8 Est GFR (Non-Af Amer) 90.4 BUN/Creatinine Ratio 18.2 Glucose 157 H Calcium 8.2 L Lipase 345 CA 125 Antigen 860 H 06/26/19 05:18 WBC RBC Hgb Hct MCV MCH MCHC RDW Std Deviation RDW Coeff of Rashi Plt Count PT 14.3 H INR 1.4 H Sodium Potassium Chloride Carbon Dioxide Anion Gap BUN Creatinine Est Cr Clr Drug Dosing Est GFR ( Amer) Est GFR (Non-Af Amer) BUN/Creatinine Ratio Glucose Calcium Lipase CA 125 Antigen PG Care Time/CCT Total # of Minutes Spent Total Time Spent with Patient: Total time spent is greater than 50% in coordination of care (as documented) at patient's floor/unit and/or counseling patient: (1) Abdominal pain Abdominal location: epigastric Qualified Code(s): R10.13 - Epigastric pain (2) GI bleed GI bleed type/associated pathology: gastritis Gastritis type: alcoholic Qualified Code(s): K29.21 - Alcoholic gastritis with bleeding (3) Altered mental status Altered mental status type: delirium Qualified Code(s): R41.0 - Disorientation, unspecified (4) Chronic pain Chronic pain type: chronic pain syndrome Qualified Code(s): G89.4 - Chronic pain syndrome (5) Acute respiratory failure Respiratory failure complication: unspecified whether with hypoxia or hypercapnia Qualified Code(s): J96.00 - Acute respiratory failure, unspecified whether with hypoxia or hypercapnia (6) Chronic hepatitis C Hepatic coma status: with hepatic coma Qualified Code(s): B18.2 - Chronic viral hepatitis C (7) Cirrhosis of liver with ascites Hepatic cirrhosis type: alcoholic cirrhosis Qualified Code(s): K70.31 - Alcoholic cirrhosis of liver with ascites (8) Depression Depression Type: other depression Qualified Code(s): F32.89 - Other specified depressive episodes
[2019-06-26] MEDS: PANTOprazole 40 MG TAB PO SCH (22:01)
[2019-06-26] MEDS: BUDESONIDE/FORMOTEROL FUMARATE 160/4.5 60 PUFFS/INHALER INH SCH (22:04)
[2019-06-27] MEDS: PROPRANOLOL HCL 20 MG TAB PO SCH ×2 (05:34→16:44)
[2019-06-27 05:59] LABS: Mean Corpuscular Hgb Conc 30.4 g/dL (32-36)
[2019-06-27 06:10] LABS: Hematocrit (blood only) 31.2 % (37-47); Hemoglobin 9.5 g/dL (12.0-16.0); Mean Corpuscular Hemoglobin 28.3 pg (25-34); Mean Corpuscular Volume 92.9 fL (80-100); RDW Coefficient of Variation 22.9 % (11.5-14.5); RDW Standard Deviation 78.3 fL (36.4-46.3); Red Blood Count 3.36 M/uL (4.2-5.4)
[2019-06-27 06:22] LABS: Platelet Count 145 K/uL (130-400); Platelet Estimate Normal (Normal)
[2019-06-27 06:27] LABS: Albumin Level 2.5 gm/dl (3.4-5.0); BUN Creatinine Ratio 21.2 (10-20); Calcium 8.1 mg/dl (8.5-10.1); Creatinine Clr Calc Pharmacy 63.1 ml/min; Est GFR (African American) 101.3; Est GFR (Non-African American) 87.4; Magnesium 1.8 mg/dl (1.8-2.4); Potassium 3.4 mmol/L (3.5-5.1)
[2019-06-27 06:41] LABS: Albumin Globulin Ratio 0.5 (0.9-2); Globulin 4.6 gm/dl (2.5-4.0); Total Protein 7.1 gm/dl (6.4-8.2)
[2019-06-27] MEDS: ALBUT/IPRATROP 3MG/0.5MG NEB 3 ML VIAL NEB SCH ×4 (07:04→19:45)
[2019-06-27] MEDS: PANTOprazole 40 MG TAB PO SCH ×2 (08:05→20:00)
[2019-06-27] MEDS: LACTOBACILLUS ACIDOPHILUS (FLORANEX) TAB PO SCH ×3 (08:06→16:44)
[2019-06-27] MEDS: VITAMIN B COMPLEX TAB PO SCH (08:06)
[2019-06-27] MEDS: MAGNESIUM OXIDE 400 MG TAB PO SCH ×2 (08:06→19:59)
[2019-06-27] MEDS: RIFAXIMIN 550 MG TABLET PO SCH ×2 (08:06→19:59)
[2019-06-27] MEDS: MULTIVITAMIN TAB PO SCH (08:07)
[2019-06-27] MEDS: LACTULOSE SYRUP 30 GM/45 ML UDP PO SCH (08:07)
[2019-06-27] MEDS: FUROSEMIDE 20 MG TAB PO SCH (08:07)
[2019-06-27] MEDS: FLUOXETINE HCL 20 MG CAP PO SCH (08:07)
[2019-06-27] MEDS: BUDESONIDE/FORMOTEROL FUMARATE 160/4.5 60 PUFFS/INHALER INH SCH ×2 (08:08→19:58)
[2019-06-27] MEDS: SUCRALFATE 1 GM/10 ML UDC PO SCH ×4 (08:08→20:00)
[2019-06-27] MEDS: NICOTINE 21 MG/24 HR TDSY TD SCH (08:08)
[2019-06-27] MEDS: HYDROmorphone INJ 0.5 MG/0.5 ML SYR IV PRN ×2 (08:09→20:03)
[2019-06-27] MEDS ORDERED: SPIRONOLACTONE 25 MG TAB PO SCH (09:00)
[2019-06-27] MEDS: POTASSIUM CHLORIDE 20 MEQ TABCR PO SCH ×2 (12:13→19:58)
[2019-06-27] MEDS: methylPREDNISolone 40 MG in SYRINGE 0 ML IV SCH (12:14)
[2019-06-27] MEDS: THIAMINE HCL 100 MG TAB PO SCH ×2 (12:14→19:59)
[2019-06-27] MEDS ORDERED: LORazepam 0.5 MG TAB PO STA (16:21)
--- NOTE | 2019-06-27 20:11 | Hospitalist Progress Note ---
Date of Service June 27, 2019 Assessment & Plan (1) Abdominal pain: Sounds musculoskeletal but uncertain. Pain in abdomen worsens with coughing. Pain NOT worsened by eating. Check c. diff if diarrhea recurs. Cont PPI and carafate. If pain persists then CT scan, and consider additional paracentesis to r/o SBP but last tap was clean. (2) COPD exacerbation: Improving. Stop solumedrol. Change to prednisone 40mg daily starting in am. Cont duonebs qid. Cont symbicort BID. (3) Stridor: Improved today. Likely mild laryngeal edema/irritation from recent intubation and then self- extubation. O2 sats wnl in room air. Steroids for COPD exacerbation will help any edema. Patient had a trach years ago in setting of severe pancreatitis/resp failure and had paralyzed vocal cord which subsequently improved. If symptoms persist then ENT eval. Some ? of dysphagia -- speech for swallow eval. (4) GI bleed: No evidence of recurrence. EGD 06/20 - Grade II esophageal varices seen (non-bleeding) and 3 shallow ulcerated areas in gastric body with stigmata of recent bleeding. s/p argon plasma. Suspect 2nd to alcohol. Cont PPI bid. s/p 1 unit PRBCs this admission. SBP proph course completed (7 days). CBC again stable today. (5) Acute blood loss anemia: 2nd to UPPER GI bleeding. Hgb was 7.3 at [facility]. s/p 2 units PRBCs at [facility] prior to transfer to [facility]. EGD here with gastric erosions - likely cause of upper GI bleeding. s/p 1 additional unit of PRBCs in our ICU. H/H remain stable. (6) Hepatic encephalopathy: Resolved. Peak ammonia level 144. Cont lactulose and rifaximin. Titrate lactulose for 2-3 stools/day. (7) Altered mental status: Resolved. Suspect multifactorial -- hepatic encephalopathy, toxins/medications, et MRI brain negative for acute process. At risk of Wernicke's - cont thiamine 200mg BID. Again No signs of etoh withdrawal. Paracentesis not suggestive of SBP. U/a without UTI. CXR without pneumonia. Cont supportive care. 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 Delacruz in the past Discussed potential bx yesterday. Will discuss options for care again tomorrow. (14) Lung nodules: As above (15) Depression: resumed prozac (16) Hypomagnesemia: resolved replace low K however (17) Hyperglycemia: check BSGs if they cont to run high then check a1c AM and change diet to DM diet may need novolog coverage (18) DVT prophylaxis: SCDs chemical means contraindicated due to recent GI bleeding family updated at bedside again today Subjective LLQ abd pain is improved. She still has some mid-abdominal discomfort but only occurs with coughing. Food still does not bother than pain. No nausea. Able to eat today. Breathing is improved. Family have noted that when she drinks/eats she has cough. Tele stable overnight. Had normal formed stool this am. Daughters updated at bedside. Review of Systems Constitutional: no fever and no chills Respiratory: + wheezing; no hemoptysis and no sputum production Cardiovascular: no chest pain Gastrointestinal: + abdominal pain; no nausea and no vomiting Physical Exam Constitutional: + thin and + frail appearing; + not well developed, + not well nourished, no acute distress and no altered mental status ENMT: external ear and nose normal, oropharynx normal hoarse voice Respiratory: + cough and + stridor (minimal ) Auscultation: + diminished lung sounds (airation overall improve today ) and + wheezes (b/l); no crackles Cardiovascular: Rate/Rhythm: regular rate and regular rhythm Heart Sounds: normal S1 and normal S2; no murmur Vessels: posterior tibial pulses present and dorsalis pedis pulses present; no JVD Extremities: no edema Gastrointestinal (Abdomen): Inspection/Auscultation: + abdomen distended (w/ ascites - no change) and normal bowel sounds Percussion/Palpation: + abdomen tender (minimal - epigastric region ); abdomen not rigid and no hepatosplenomegaly Skin: + pallor Psychiatric: Orientation: alert, oriented to person and oriented to place Results & Data Vital Signs (Past 12 Hours) Vital Signs Temp Pulse Resp BP Pulse Ox 06/27/19 19:47 77 18 93 06/27/19 18:46 36.7 C 77 18 117/68 92 06/27/19 15:12 73 16 94 06/27/19 14:50 36.7 C 72 16 120/75 94 06/27/19 11:02 73 18 96 Laboratory Results Laboratory Results - last 24 hr 06/27/19 06/27/19 06/27/19 05:41 05:41 16:02 WBC 15.30 H RBC 3.36 L Hgb 9.5 L Hct 31.2 L MCV 92.9 MCH 28.3 MCHC 30.4 L RDW Std Deviation 78.3 H RDW Coeff of Rashi 22.9 H Plt Count 145 Platelet Estimate Normal Sodium 143 Potassium 3.4 L Chloride 113 H Carbon Dioxide 27 Anion Gap 4.0 BUN 16 Creatinine 0.74 Est Cr Clr Drug Dosing 63.1 Est GFR ( Amer) 101.3 Est GFR (Non-Af Amer) 87.4 BUN/Creatinine Ratio 21.2 H Glucose 192 H POC Glucose 165 H Calcium 8.1 L Magnesium 1.8 Total Bilirubin 1.0 AST 36 ALT 32 Alkaline Phosphatase 107 Total Protein 7.1 Albumin 2.5 L Globulin 4.6 H Albumin/Globulin Ratio 0.5 L 06/27/19 20:14 WBC RBC Hgb Hct MCV MCH MCHC RDW Std Deviation RDW Coeff of Rashi Plt Count Platelet Estimate Sodium Potassium Chloride Carbon Dioxide Anion Gap BUN Creatinine Est Cr Clr Drug Dosing Est GFR ( Amer) Est GFR (Non-Af Amer) BUN/Creatinine Ratio Glucose POC Glucose 232 H Calcium Magnesium Total Bilirubin AST ALT Alkaline Phosphatase Total Protein Albumin Globulin Albumin/Globulin Ratio PG Care Time/CCT Total # of Minutes Spent Total Time Spent with Patient: Total time spent is greater than 50% in coordination of care (as documented) at patient's floor/unit and/or counseling patient: (1) Abdominal pain Abdominal location: epigastric Qualified Code(s): R10.13 - Epigastric pain (2) GI bleed GI bleed type/associated pathology: gastritis Gastritis type: alcoholic Qualified Code(s): K29.21 - Alcoholic gastritis with bleeding (3) Altered mental status Altered mental status type: delirium Qualified Code(s): R41.0 - Disorientation, unspecified (4) Chronic pain Chronic pain type: chronic pain syndrome Qualified Code(s): G89.4 - Chronic pain syndrome (5) Acute respiratory failure Respiratory failure complication: unspecified whether with hypoxia or h ypercapnia Qualified Code(s): J96.00 - Acute respiratory failure, unspecified whether with hypoxia or hypercapnia (6) Chronic hepatitis C Hepatic coma status: with hepatic coma Qualified Code(s): B18.2 - Chronic viral hepatitis C (7) Cirrhosis of liver with ascites Hepatic cirrhosis type: alcoholic cirrhosis Qualified Code(s): K70.31 - Alcoholic cirrhosis of liver with ascites (8) Depression Depression Type: other depression Qualified Code(s): F32.89 - Other specified depressive episodes
[2019-06-28] MEDS: LORazepam 0.5 MG TAB PO PRN ×2 (03:37→14:52)
[2019-06-28] MEDS: PROPRANOLOL HCL 20 MG TAB PO SCH ×2 (04:51→18:34)
[2019-06-28] MEDS: HYDROmorphone INJ 0.5 MG/0.5 ML SYR IV PRN ×3 (06:21→22:05)
[2019-06-28] MEDS: ALBUT/IPRATROP 3MG/0.5MG NEB 3 ML VIAL NEB SCH ×4 (07:09→18:56)
[2019-06-28 07:13] LABS: Hematocrit (blood only) 31.2 % (37-47); Hemoglobin 9.6 g/dL (12.0-16.0); Mean Corpuscular Hemoglobin 28.5 pg (25-34); Mean Corpuscular Hgb Conc 30.8 g/dL (32-36); Mean Corpuscular Volume 92.6 fL (80-100); Mean Platelet Volume 11.5 fL (7.4-10.4); Platelet Count 166 K/uL (130-400); RDW Coefficient of Variation 22.9 % (11.5-14.5); RDW Standard Deviation 78.8 fL (36.4-46.3); Red Blood Count 3.37 M/uL (4.2-5.4); White Blood Count 18.45 K/uL (4.8-10.8)
[2019-06-28 07:51] LABS: BUN Creatinine Ratio 24.4 (10-20); Creatinine Clr Calc Pharmacy 74.2 ml/min; Est GFR (African American) 112.2; Est GFR (Non-African American) 96.8; Potassium 3.6 mmol/L (3.5-5.1)
[2019-06-28] MEDS: LACTOBACILLUS ACIDOPHILUS (FLORANEX) TAB PO SCH ×3 (08:25→18:34)
[2019-06-28] MEDS: MAGNESIUM OXIDE 400 MG TAB PO SCH ×2 (08:25→20:24)
[2019-06-28] MEDS: PANTOprazole 40 MG TAB PO SCH ×2 (08:25→20:25)
[2019-06-28] MEDS: RIFAXIMIN 550 MG TABLET PO SCH ×2 (08:25→20:26)
[2019-06-28] MEDS: BUDESONIDE/FORMOTEROL FUMARATE 160/4.5 60 PUFFS/INHALER INH SCH ×2 (08:25→20:24)
[2019-06-28] MEDS: predniSONE 20 MG TAB PO SCH (08:26)
[2019-06-28] MEDS: THIAMINE HCL 100 MG TAB PO SCH ×2 (08:26→20:25)
[2019-06-28] MEDS: POTASSIUM CHLORIDE 20 MEQ TABCR PO SCH ×2 (08:26→20:25)
[2019-06-28] MEDS: FUROSEMIDE 20 MG TAB PO SCH (08:26)
[2019-06-28] MEDS: SUCRALFATE 1 GM/10 ML UDC PO SCH ×4 (08:26→20:24)
[2019-06-28] MEDS: SPIRONOLACTONE 25 MG TAB PO SCH (08:27)
[2019-06-28] MEDS: NICOTINE 21 MG/24 HR TDSY TD SCH (08:27)
[2019-06-28] MEDS: VITAMIN B COMPLEX TAB PO SCH (08:27)
[2019-06-28] MEDS: FLUOXETINE HCL 20 MG CAP PO SCH (08:27)
[2019-06-28] MEDS: MULTIVITAMIN TAB PO SCH (08:27)
[2019-06-28] MEDS: LACTULOSE SYRUP 30 GM/45 ML UDP PO SCH ×2 (16:00→20:23)
[2019-06-28] MEDS ORDERED: NALOXONE HCL 0.4 MG/1 ML VIAL/CARP IV PRN (17:06)
[2019-06-28] MEDS ORDERED: fentaNYL 25 MCG/HR TDSY TD SCH (18:00)
--- NOTE | 2019-06-28 18:27 | Hospitalist Progress Note ---
Date of Service June 28, 2019 Assessment & Plan (1) Cirrhosis of liver with ascites: 2nd to alcohol and hepC completed 7 days of abx for SBP prophylaxis in setting of recent GI bleed s/p multiple doses of vitamin K for coagulopathy - mild improvement seen (06/26/19 INR was 1.4) repeat INR in am for stability varices on recent EGD (nonbleeding) - cont propranolol ascites reaccumulating; she is becoming uncomfortable will ask radiology to perform diagnostic and therapeutic paracentesis on 06/29; obtain cell counts and gram stain/culture she tolerated last paracentesis well will ask radiology to remove up to 3 liters if there is that much fluid (2) COPD exacerbation: Improving. Cont prednisone 40mg daily another 2 days, then wean. Cont duonebs qid. Cont symbicort BID. (3) Stridor: Cont to improve. Likely mild laryngeal edema/irritation from recent intubation and then self- extubation. O2 sats wnl in room air. Steroids for COPD exacerbation likely have helped. Patient had a trach years ago in setting of severe pancreatitis/resp failure and had paralyzed vocal cord which subsequently improved. If symptoms persist then ENT eval. Some ? of dysphagia -- speech consulted for swallow eval. (4) GI bleed: At time of admission. Resolved; No evidence of recurrence. EGD 06/20 - Grade II esophageal varices seen (non-bleeding) and 3 shallow ulcera [place] areas in gastric body with stigmata of recent bleeding. s/p APC. Suspect 2nd to alcohol. Cont PPI bid. s/p 1 unit PRBCs this admission. SBP proph course completed (7 days). CBC and INR in am for stability. (5) Acute blood loss anemia: 2nd to UPPER GI bleeding. Hgb was 7.3 at [facility]. s/p 2 units PRBCs at [facility] prior to transfer to [facility]. EGD here with gastric erosions - likely cause of upper GI bleeding. s/p 1 additional unit of PRBCs in our ICU. CBC am for stability. (6) Hepatic encephalopathy: Resolved. Peak ammonia level 144. Cont lactulose and rifaximin. Titrate lactulose for 2-3 stools/day. (7) Chronic pain: 100 mcg Fentanyl patch removed at [facility] due to altered MS. She has taken the fentanyl patch and oxy's for many years. PDMP shows consistent use of both narcotics. She is having pain over the left chest likely due to high metastatic tumor burden. RESUME fentanyl patch 25 mcg q72h and titrate. Cont dilaudid 0.5mg q4h prn. (8) Acute respiratory failure: resolved s/p intubation 06/20 for airway protection in setting of altered MS, GI bleeding, etc s/p self-extubation on 06/23 (9) Chronic hepatitis C: noted (10) Alcohol abuse: thiamine, folic acid, MVI supplementation (11) Metastatic cancer: History of metastatic cancer of unknown origin per [facility] records Chest CT with more than 20 nodules that are new since 07/2017 Per daughter patient has been followed by Dr. Delacruz in the past She was scheduled to have liver biopsy of a met lesion on 07/06. We had multiple discussions this weekend about whether to pursue biopsy or not. After much discussion the patient and her children DO want to pursue biopsy. Will need to d/w radiology early this week whether a CT-guided bx of a pleural lesion is possible. The family states the liver was to be biopsied on 07/06 but recent imaging did not show a specific metastatic focus in the liver. Either way patient wants a biopsy for prognostic and planning purposes. (12) Lung nodules: As above (13) Depression: cont prozac (14) Hypomagnesemia: resolved (15) Hyperglycemia: BSGs all high Hb a1c is pending diet changed to T2DM diet consider low-dose lantus 5 units daily (16) DVT prophylaxis: SCDs chemical means contraindicated due to recent GI bleeding family updated at bedside again today total time over 2 visits - 40 minutes Subjective 2 visits to bedside today. first was during rounds. patient stated she was "doing ok." breathing is better. hoarse voice/dysphonia remains. abdomen becoming uncomfortable - asks about possibility of another paracentesis. stools have normalized; no further diarrhea. has had 2 stools today. she IS interested in pursuing a biopsy - she was going to have a liver biopsy in [place] on 07/06 for definitive dx of her presumed stage 4 cancer. eating is a bit better. BSGs have continued to be high; admits to frequent snacking on sugary sweets. 2nd visit was late in the day; 2 daughters at bedside. we discussed plan of care in detail. Review of Systems Constitutional: + fatigue; no fever and no chills Respiratory: + wheezing; no dyspnea Cardiovascular: no chest pain Gastrointestinal: + abdominal pain; no nausea, no vomiting, no constipation, no diarrhea/loose stools and no blood in stools Musculoskeletal: pain over ribs on left with some pleurisy Physical Exam Constitutional: + thin and + frail appearing; + not well developed, + not well nourished, no acute distress and no altered mental status ENMT: external ear and nose normal, oropharynx normal Respiratory: no stridor (resolved) Auscultation: + diminished lung sounds (airation cont to improve) and + wheezes (b/l); no crackles Cardiovascular: Rate/Rhythm: regular rate and regular rhythm Heart Sounds: normal S1 and normal S2; no murmur Vessels: posterior tibial pulses present and dorsalis pedis pulses present; no JVD Extremities: no edema Gastrointestinal (Abdomen): Inspection/Auscultation: + abdomen distended (w/ ascites - worse today ) and normal bowel sounds Percussion/Palpation: abdomen nontender, abdomen not rigid and no hepatosplenomegaly Psychiatric: Orientation: alert, oriented to person, oriented to place and oriented to time Results & Data Vital Signs (Past 12 Hours) Vital Signs Temp Pulse Resp BP Pulse Ox 06/28/19 11:35 36.8 C 72 16 129/98 92 06/28/19 11:07 70 18 93 06/28/19 07:22 36.5 C 69 16 124/77 92 06/28/19 07:10 70 18 90 Laboratory Results Laboratory Results - last 24 hr 06/27/19 06/28/19 06/28/19 20:14 06:39 06:39 WBC RBC Hgb Hct MCV MCH MCHC RDW Std Deviation RDW Coeff of Rashi Plt Count MPV Sodium 143 Potassium 3.6 Chloride 113 H Carbon Dioxide 27 Anion Gap 3.0 BUN 15 Creatinine 0.63 Est Cr Clr Drug Dosing 74.2 Est GFR ( Amer) 112.2 Est GFR (Non-Af Amer) 96.8 BUN/Creatinine Ratio 24.4 H Glucose 122 H POC Glucose 232 H Estimat Average Glucose Pending Hemoglobin A1c Pending Calcium 8.0 L 06/28/19 06/28/19 06/28/19 06:39 07:20 11:20 WBC 18.45 H RBC 3.37 L Hgb 9.6 L Hct 31.2 L MCV 92.6 MCH 28.5 MCHC 30.8 L RDW Std Deviation 78.8 H RDW Coeff of Rashi 22.9 H Plt Count 166 MPV 11.5 H Sodium Potassium Chloride Carbon Dioxide Anion Gap BUN Creatinine Est Cr Clr Drug Dosing Est GFR ( Amer) Est GFR (Non-Af Amer) BUN/Creatinine Ratio Glucose POC Glucose 165 H 158 H Estimat Average Glucose Hemoglobin A1c Calcium 06/28/19 16:13 WBC RBC Hgb Hct MCV MCH MCHC RDW Std Deviation RDW Coeff of Rashi Plt Count MPV Sodium Potassium Chloride Carbon Dioxide Anion Gap BUN Creatinine Est Cr Clr Drug Dosing Est GFR ( Amer) Est GFR (Non-Af Amer) BUN/Creatinine Ratio Glucose POC Glucose 158 H Estimat Average Glucose Hemoglobin A1c Calcium PG Care Time/CCT Total # of Minutes Spent Total Time Spent with Patient: Total time spent is greater than 50% in coordination of care (as documented) at patient's floor/unit and/or counseling patient: (1) Chronic pain Chronic pain type: chronic pain syndrome Qualified Code(s): G89.4 - Chronic pain syndrome (2) GI bleed GI bleed type/associated pathology: gastritis Gastritis type: alcoholic Qualified Code(s): K29.21 - Alcoholic gastritis with bleeding (3) Acute respiratory failure Respiratory failure complication: unspecified whether with hypoxia or hypercapnia Qualified Code(s): J96.00 - Acute respiratory failure, unspecified whether with hypoxia or hypercapnia (4) Depression Depression Type: other depression Qualified Code(s): F32.89 - Other specified depressive episodes (5) Chronic hepatitis C Hepatic coma status: with hepatic coma Qualified Code(s): B18.2 - Chronic viral hepatitis C (6) Cirrhosis of liver with ascites Hepatic cirrhosis type: alcoholic cirrhosis Qualified Code(s): K70.31 - Alcoholic cirrhosis of liver with ascites
[2019-06-29] MEDS: HYDROmorphone INJ 0.5 MG/0.5 ML SYR IV PRN ×2 (02:12→09:51)
[2019-06-29] MEDS: PROPRANOLOL HCL 20 MG TAB PO SCH ×2 (05:37→21:17)
[2019-06-29 06:08] LABS: Estimated Average Glucose 85 mg/dl; Hemoglobin A1C 4.6 % (4.5-5.6)
[2019-06-29] MEDS: ALBUT/IPRATROP 3MG/0.5MG NEB 3 ML VIAL NEB SCH ×2 (07:18→11:07)
[2019-06-29 07:39] LABS: Hematocrit (blood only) 31.3 % (37-47); Hemoglobin 9.5 g/dL (12.0-16.0); Mean Corpuscular Hemoglobin 28.3 pg (25-34); Mean Corpuscular Hgb Conc 30.4 g/dL (32-36); Mean Corpuscular Volume 93.2 fL (80-100); Platelet Count 153 K/uL (130-400); RDW Coefficient of Variation 22.3 % (11.5-14.5); RDW Standard Deviation 76.5 fL (36.4-46.3); Red Blood Count 3.36 M/uL (4.2-5.4); White Blood Count 11.07 K/uL (4.8-10.8)
[2019-06-29 07:50] LABS: INR 1.4 (0.9-1.1); Prothrombin Time 14.4 Seconds (9.0-12.0)
[2019-06-29 08:19] LABS: BUN Creatinine Ratio 30.5 (10-20); Calcium 8.5 mg/dl (8.5-10.1); Creatinine Clr Calc Pharmacy 68.7 ml/min; Est GFR (African American) 109.4; Est GFR (Non-African American) 94.4; Potassium 4.4 mmol/L (3.5-5.1)
[2019-06-29] MEDS: POTASSIUM CHLORIDE 20 MEQ TABCR PO SCH ×2 (08:30→21:17)
[2019-06-29] MEDS: LACTOBACILLUS ACIDOPHILUS (FLORANEX) TAB PO SCH ×3 (08:30→16:56)
[2019-06-29] MEDS: VITAMIN B COMPLEX TAB PO SCH (08:31)
[2019-06-29] MEDS: FUROSEMIDE 20 MG TAB PO SCH (08:31)
[2019-06-29] MEDS: MAGNESIUM OXIDE 400 MG TAB PO SCH ×2 (08:31→21:18)
[2019-06-29] MEDS: NICOTINE 21 MG/24 HR TDSY TD SCH (08:31)
[2019-06-29] MEDS: predniSONE 20 MG TAB PO SCH (08:32)
[2019-06-29] MEDS: SPIRONOLACTONE 25 MG TAB PO SCH (08:32)
[2019-06-29] MEDS: MULTIVITAMIN TAB PO SCH (08:32)
[2019-06-29] MEDS: FLUOXETINE HCL 20 MG CAP PO SCH (08:33)
[2019-06-29] MEDS: THIAMINE HCL 100 MG TAB PO SCH ×2 (08:33→21:19)
[2019-06-29] MEDS: PANTOprazole 40 MG TAB PO SCH ×2 (08:33→21:18)
[2019-06-29] MEDS: SUCRALFATE 1 GM/10 ML UDC PO SCH ×4 (08:34→21:16)
[2019-06-29] MEDS: RIFAXIMIN 550 MG TABLET PO SCH ×2 (08:34→21:19)
[2019-06-29] MEDS: CHECK FENTANYL PATCH PLACEMENT SCH ×4 (08:34→23:09)
[2019-06-29] MEDS: BUDESONIDE/FORMOTEROL FUMARATE 160/4.5 60 PUFFS/INHALER INH SCH ×2 (08:34→21:18)
--- NOTE | 2019-06-29 12:01 | Hospitalist Progress Note ---
Date of Service June 29, 2019 Assessment & Plan (1) Metastatic cancer: History of metastatic cancer of unknown origin per [facility] records. Chest CT with more than 20 nodules that are new since 07/2017. Per daughter patient has been followed by Dr. Delacruz in the past. She was scheduled to have liver biopsy of a met lesion on 07/06 in [place]. - Will discuss with radiology today re: biopsy (2) Cirrhosis of liver with ascites: 2nd to alcohol and hepC. Completed 7 days of abx for SBP prophylaxis in setting of recent GI bleed. Varices on recent EGD (nonbleeding) - Cont propranolol - Continue Lasix/spironolactone - Follow up with GI (3) COPD exacerbation: Improving. - Cont prednisone 40mg daily another 2 days, then wean. - Cont Duonebs qid. - Cont symbicort BID. (4) GI bleed: At time of admission. EGD 06/20 - Grade II esophageal varices seen (non- bleeding) and 3 shallow ulcerated areas in gastric body with stigmata of recent bleeding, s/p APC. Suspect 2nd to alcohol. - Cont PPI bid & sucralfate - Monitor hgb (5) Acute blood loss anemia: 2nd to UPPER GI bleeding. - As above (6) Hepatic encephalopathy: Resolved. Peak ammonia level 144. - Cont lactulose and rifaximin. - Titrate lactulose for 2-3 stools/day. (7) Alcohol abuse: Thiamine, folic acid, MVI supplementation (8) Chronic pain: 100 mcg Fentanyl patch removed at [facility] due to altered MS. She has taken the fentanyl patch and oxy's for many years. PDMP shows consistent use of both narcotics. - Continue fentanyl patch 25 mcg - Switch to oxycodone from Dilaudid (9) Acute respiratory failure: Resolved. S/p intubation 06/20 for airway protection in setting of altered MS, GI bleeding, etc & s/p self-extubation on 06/23. (10) Chronic hepatitis C: Noted. No inpatient needs. (11) Depression: No indications of depression or SI/HI. - Cont Prozac (12) Hyperglycemia: BSGs all high. A1c is pending. - Diet changed to T2DM diet (13) DVT prophylaxis: SCDs; chemical means contraindicated due to recent GI bleeding. Subjective Doing well today. Overall, reports some shortness of breath from her abdomen pressure. Otherwise, doing well. Reports no fevers/chills, chest pain, abdominal pain, nausea, or vomiting. Physical Exam Constitutional: WD/WN, vitals as above + frail appearing; not lethargic Eyes: EOM intact bilaterally; no conjunctival abnormality ENMT: external ear and nose normal, oropharynx normal Neck: trachea midline, no thyromegaly normal visual inspection Respiratory: normal respiratory effort, lungs clear to auscultation no respiratory distress Cardiovascular: RRR, no murmur, no edema Gastrointestinal (Abdomen): Inspection/Auscultation: abdomen normal to inspection, + abdomen distended and normal bowel sounds Percussion/Palpation: abdomen soft; abdomen nontender, no guarding and abdomen not rigid Musculoskeletal: no cyanosis or clubbing, extremities motor strength 5/5 Skin: no rashes, warm and dry Neurologic: moves all extremities and awake Psychiatric: Orientation: alert, oriented to person and cooperative Results & Data Vital Signs (Past 12 Hours) Vital Signs Temp Pulse Resp BP Pulse Ox 06/29/19 11:08 72 16 91 06/29/19 07:51 36.5 C 72 18 120/79 91 06/29/19 07:18 73 16 92 06/29/19 00:33 37.0 C 81 22 147/80 H 92 PG Care Time/CCT Total # of Minutes Spent Total Time Spent with Patient: Total time spent is greater than 50% in coordination of care (as documented) at patient's floor/unit and/or counseling patient: (1) Cirrhosis of liver with ascites Hepatic cirrhosis type: alcoholic cirrhosis Qualified Code(s): K70.31 - Alc oholic cirrhosis of liver with ascites (2) GI bleed GI bleed type/associated pathology: gastritis Gastritis type: alcoholic Qualified Code(s): K29.21 - Alcoholic gastritis with bleeding (3) Chronic pain Chronic pain type: chronic pain syndrome Qualified Code(s): G89.4 - Chronic pain syndrome (4) Acute respiratory failure Respiratory failure complication: unspecified whether with hypoxia or hypercapnia Qualified Code(s): J96.00 - Acute respiratory failure, unspecified whether with hypoxia or hypercapnia (5) Chronic hepatitis C Hepatic coma status: with hepatic coma Qualified Code(s): B18.2 - Chronic viral hepatitis C (6) Depression Depression Type: other depression Qualified Code(s): F32.89 - Other specified depressive episodes
--- NOTE | 2019-06-29 15:10 | Ultrasound Report ---
US paracentesis abd w/image CLINICAL HISTORY: ascites; abd pain. COMPARISON STUDY: No previous studies for comparison. PROCEDURE: The risks, benefits, and alternatives to the procedure were discussed with the patient inc luding the risk of bleeding, infection and injury to adjacent structures. The patient agreed to the procedure and informed written consent was obtained. The procedure was performed by Dr. Judy jack a time out. Following real-time ultrasound localization, the skin was prepped and draped. Adria jack local anesthesia with Xylocaine, the sheath paracentesis needle was inserted and approximately 2 .5 liters of straw-colored fluid was removed by vacuum suction. The patient tolerated the procedure well and no immediate complications were evident. IMPRESSION: Ultrasound-guided paracentesis with removal of 2.5 liters of ascites. ACT 112: Negative or not required by law. The above report was generated using voice recognition software. It may contain grammatical, syntax or spelling errors. Electronically signed by: Lane Kim M.D. 06/29/2019 3:09 PM
[2019-06-29 16:42] LABS: Appearance Peritoneal Fluid CLEAR; Basophils, Fluid 0 %; Color Peritoneal Fluid PALE YELLOW; Eosinophils, Fluid 0 %; Lymphocytes, Fluid 25 %; Mono,Macrophage,Mesothelial 48 %; Neutrophils, Fluid 75 %; RBC Peritoneal Fluid (A) < 3000 /uL; WBC Peritoneal Fluid (A) 181 /ul (0-300)
[2019-06-29] MEDS: OXYCODONE HCL IR 5 MG TAB (IMMEDIATE RELEASE) PO PRN (18:08)
[2019-06-29] MEDS: LORazepam 0.5 MG TAB PO PRN (18:09)
[2019-06-29] MEDS: LACTULOSE SYRUP 30 GM/45 ML UDP PO SCH (21:16)
[2019-06-29] MEDS: ALBUT/IPRATROP 3MG/0.5MG NEB 3 ML VIAL NEB PRN (21:37)
[2019-06-30] MEDS: OXYCODONE HCL IR 5 MG TAB (IMMEDIATE RELEASE) PO PRN (03:00)
[2019-06-30 08:10] LABS: Mean Corpuscular Hgb Conc 31.3 g/dL (32-36)
[2019-06-30 08:14] LABS: Hemoglobin 9.7 g/dL (12.0-16.0); Mean Corpuscular Hemoglobin 28.2 pg (25-34); Mean Corpuscular Volume 90.1 fL (80-100); RDW Coefficient of Variation 22.2 % (11.5-14.5); RDW Standard Deviation 73.9 fL (36.4-46.3); Red Blood Count 3.44 M/uL (4.2-5.4)
[2019-06-30 08:19] LABS: INR 1.5 (0.9-1.1); Prothrombin Time 14.6 Seconds (9.0-12.0)
[2019-06-30 08:33] LABS: Platelet Count 124 K/uL (130-400); Platelet Estimate Decreased (Normal)
[2019-06-30 08:40] LABS: Albumin Level 2.3 gm/dl (3.4-5.0); BUN Creatinine Ratio 31.5 (10-20); Calcium 8.6 mg/dl (8.5-10.1); Est GFR (African American) 111.6; Est GFR (Non-African American) 96.3; Magnesium 1.9 mg/dl (1.8-2.4); Potassium 4.5 mmol/L (3.5-5.1)
[2019-06-30 08:43] LABS: Albumin Globulin Ratio 0.5 (0.9-2); Bilirubin,Total 1.3 mg/dl (0.2-1); Globulin 4.5 gm/dl (2.5-4.0); Total Protein 6.8 gm/dl (6.4-8.2)
[2019-06-30] MEDS: MULTIVITAMIN TAB PO SCH (09:19)
[2019-06-30] MEDS: LACTOBACILLUS ACIDOPHILUS (FLORANEX) TAB PO SCH ×3 (09:19→17:01)
[2019-06-30] MEDS: PROPRANOLOL HCL 20 MG TAB PO SCH ×2 (09:20→20:32)
[2019-06-30] MEDS: FUROSEMIDE 20 MG TAB PO SCH (09:20)
[2019-06-30] MEDS: RIFAXIMIN 550 MG TABLET PO SCH ×2 (09:20→20:33)
[2019-06-30] MEDS: VITAMIN B COMPLEX TAB PO SCH (09:21)
[2019-06-30] MEDS: predniSONE 10 MG TABLET PO SCH (09:21)
[2019-06-30] MEDS: FLUOXETINE HCL 20 MG CAP PO SCH (09:21)
[2019-06-30] MEDS: SPIRONOLACTONE 25 MG TAB PO SCH (09:21)
[2019-06-30] MEDS: THIAMINE HCL 100 MG TAB PO SCH ×2 (09:22→20:34)
[2019-06-30] MEDS: NICOTINE 21 MG/24 HR TDSY TD SCH (09:22)
[2019-06-30] MEDS: POTASSIUM CHLORIDE 20 MEQ TABCR PO SCH ×2 (09:23→20:33)
[2019-06-30] MEDS: PANTOprazole 40 MG TAB PO SCH ×2 (09:23→20:32)
[2019-06-30] MEDS: MAGNESIUM OXIDE 400 MG TAB PO SCH ×2 (09:23→20:33)
[2019-06-30] MEDS: SUCRALFATE 1 GM/10 ML UDC PO SCH ×4 (09:24→20:31)
[2019-06-30] MEDS: CHECK FENTANYL PATCH PLACEMENT SCH ×3 (09:24→23:56)
[2019-06-30] MEDS: BUDESONIDE/FORMOTEROL FUMARATE 160/4.5 60 PUFFS/INHALER INH SCH ×2 (09:24→20:32)
[2019-06-30] MEDS: LORazepam 0.5 MG TAB PO PRN ×2 (09:58→22:43)
--- NOTE | 2019-06-30 11:26 | CT Scan Report ---
CT guided FNA 1st lesion CLINICAL HISTORY: Pleural mass or nodules COMPARISON STUDY: CT scan dated 06/19/2019 FINDINGS: A timeout was performed. The risks the procedure were explained the patient and informed consent was obtained. The patient was prepped and draped in a sterile fashion. Under CT guidance, 2 fine-needle aspiration samples utilizing a 20-gauge needle, and 3 fine-needle as piration samples utilizing a 22-gauge needle were performed. Slides were made of 2 of the samples. In itial samples were sent for cell block. Initial pathologic review indicates satisfactory tissue for d iagnosis. A limited postprocedure CT scan was performed. No pneumothorax was visualized. IMPRESSION: Successful CT-guided fine-needle aspiration biopsy of a left upper lobe pleural-based ma ss. ACT 112: Negative or not required by law. Electronically signed by: Jermaine Pearl M.D. 06/30/2019 11:25 AM
--- NOTE | 2019-06-30 13:59 | Hospitalist Progress Note ---
Date of Service June 30, 2019 Assessment & Plan (1) Metastatic cancer: History of metastatic cancer of unknown origin per [facility] records. Chest CT with more than 20 nodules that are new since 07/2017. Per daughter patient has been followed by Dr. Delacruz in the past. She was scheduled to have liver biopsy of a met lesion on 07/06 in [place]. - S/p right pleural biopsy with radiology today. Path pending. No complications. Will need to follow up with GI and/or oncology. (2) Cirrhosis of liver with ascites: 2nd to alcohol and hepC. Completed 7 days of abx for SBP prophylaxis in setting of recent GI bleed. Varices on recent EGD (nonbleeding) - Cont propranolol - Continue Lasix/spironolactone - Follow up with GI as outpatient. (3) COPD exacerbation: Improving. - Cont prednisone 30mg daily. Weaning now. - Cont Duonebs qid. - Cont symbicort BID. (4) GI bleed: At time of admission. EGD 06/20 - Grade II esophageal varices seen (non- bleeding) and 3 shallow ulcerated areas in gastric body with stigmata of recent bleeding, s/p APC. Suspect 2nd to alcohol. - Cont PPI bid & sucralfate - Monitor hgb (5) Acute blood loss anemia: 2nd to UPPER GI bleeding. - As above (6) Hepatic encephalopathy: Resolved. Peak ammonia level 144. - Cont lactulose and rifaximin. - Titrate lactulose for 2-3 stools/day. (7) Alcohol abuse: Thiamine, folic acid, MVI supplementation (8) Chronic pain: 100 mcg Fentanyl patch removed at [facility] due to altered MS. She has taken the fentanyl patch and oxy's for many years. PDMP shows consistent use of both narcotics. - Continue fentanyl patch 25 mcg - Switched back to home oxycodone (9) Acute respiratory failure: Resolved. S/p intubation 06/20 for airway protection in setting of altered MS, GI bleeding, etc & s/p self-extubation on 06/23. (10) Chronic hepatitis C: Noted. No inpatient needs. (11) Depression: No indications of depression or SI/HI. - Cont Prozac (12) Hyperglycemia: BSGs all high. A1c is pending. - Diet changed to T2DM diet (13) DVT prophylaxis: SCDs; chemical means contraindicated due to recent GI bleeding. Subjective Doing well today. Anxious about the procedure. Overall, well. Reports no fevers/chills, chest pain, shortness of breath, abdominal pain, nausea, or vomiting. Physical Exam Constitutional: WD/WN, vitals as above + frail appearing; not lethargic Eyes: EOM intact bilaterally; no conjunctival abnormality ENMT: external ear and nose normal, oropharynx normal Neck: trachea midline, no thyromegaly normal visual inspection Respiratory: normal respiratory effort, lungs clear to auscultation no respiratory distress Cardiovascular: RRR, no murmur, no edema Gastrointestinal (Abdomen): Inspection/Auscultation: abdomen normal to inspection, + abdomen distended and normal bowel sounds Percussion/Palpation: abdomen soft; abdomen nontender, no guarding and abdomen not rigid Musculoskeletal: no cyanosis or clubbing, extremities motor strength 5/5 Skin: no rashes, warm and dry Neurologic: moves all extremities and awake Psychiatric: Orientation: alert, oriented to person and cooperative Results & Data Vital Signs (Past 12 Hours) Vital Signs Temp Pulse Resp BP Pulse Ox 06/30/19 07:30 36.9 C 74 18 151/81 H 93 06/30/19 04:25 36.6 C 64 20 147/71 H 92 PG Care Time/CCT Total # of Minutes Spent Total Time Spent with Patient: Total time spent is greater than 50% in coordination of care (as documented) at patient's floor/unit and/or counseling patient: (1) Cirrhosis of liver with ascites Hepatic cirrhosis type: alcoholic cirrhosis Qualified Code(s): K70.31 - Alcoholic cirrhosis of liver with ascites (2) GI bleed GI bleed type/associated pathology: gastritis Gastritis type: alcoholic Qualified Code(s): K29.21 - Alcoholic gastritis with bleeding (3) Chronic pain Chronic pain type: chronic pain syndrome Qualified Code(s): G89.4 - Chronic pain syndrome (4) Acute respiratory failure Respiratory failure complication: unspecified whether with hypoxia or hypercapnia Qualified Code(s): J96.00 - Acute respiratory failure, unspecified whether with hypoxia or hypercapnia (5) Chronic hepatitis C Hepatic coma status: with hepatic coma Qualified Code(s): B18.2 - Chronic viral hepatitis C (6) Depression Depression Type: other depression Qualified Code(s): F32.89 - Other specified depressive episodes
[2019-06-30] MEDS ORDERED: HYDROmorphone INJ 0.5 MG/0.5 ML SYR IV PRN (17:07)
[2019-06-30] MEDS: ALBUT/IPRATROP 3MG/0.5MG NEB 3 ML VIAL NEB PRN (17:19)
[2019-06-30] MEDS: LACTULOSE SYRUP 30 GM/45 ML UDP PO SCH (20:31)
[2019-07-01] MEDS: THIAMINE HCL 100 MG TAB PO SCH (08:00)
[2019-07-01] MEDS: FLUOXETINE HCL 20 MG CAP PO SCH (08:34)
[2019-07-01] MEDS: SPIRONOLACTONE 25 MG TAB PO SCH (08:34)
[2019-07-01] MEDS: MAGNESIUM OXIDE 400 MG TAB PO SCH (08:35)
[2019-07-01] MEDS: predniSONE 10 MG TABLET PO SCH (08:35)
[2019-07-01] MEDS: VITAMIN B COMPLEX TAB PO SCH (08:35)
[2019-07-01] MEDS: NICOTINE 21 MG/24 HR TDSY TD SCH (08:36)
[2019-07-01] MEDS: RIFAXIMIN 550 MG TABLET PO SCH (08:36)
[2019-07-01] MEDS: POTASSIUM CHLORIDE 20 MEQ TABCR PO SCH (08:36)
[2019-07-01] MEDS: PROPRANOLOL HCL 20 MG TAB PO SCH (08:36)
[2019-07-01] MEDS: MULTIVITAMIN TAB PO SCH (08:38)
[2019-07-01] MEDS: PANTOprazole 40 MG TAB PO SCH (08:38)
[2019-07-01] MEDS: LACTOBACILLUS ACIDOPHILUS (FLORANEX) TAB PO SCH ×2 (08:38→12:50)
[2019-07-01] MEDS: FUROSEMIDE 20 MG TAB PO SCH (08:39)
[2019-07-01] MEDS: BUDESONIDE/FORMOTEROL FUMARATE 160/4.5 60 PUFFS/INHALER INH SCH (08:39)
[2019-07-01] MEDS: CHECK FENTANYL PATCH PLACEMENT SCH (08:40)
[2019-07-01] MEDS: SUCRALFATE 1 GM/10 ML UDC PO SCH ×2 (08:41→12:51)
--- NOTE | 2019-07-01 10:07 | XRay Report ---
XR chest 2V PA/lateral CLINICAL HISTORY: 59 years-old Female presenting with Biopsy yesterday. TECHNIQUE: PA and lateral views of the chest were obtained. COMPARISON: 06/25/2019. FINDINGS: Cardiomediastinal silhouette normal. Multiple nodules and masses in the left mid to lower lung at cece st some of which appear pleural-based. Blunting of the costophrenic angles appears to relate to hyper inflation. Heterogeneous radiolucency of the lungs. No new focal opacity. No large effusion. No pneum othorax. Evidence of kyphoplasty in the lumbar spine along with posterior lumbar fusion hardware. Ost eopenia. Upper abdomen normal. IMPRESSION: 1. No pneumothorax. 2. Redemonstration of multiple left mid to lower lung nodules and masses, at least some of which are pleural-based. These were better depicted on prior chest CT from 06/19/2019. 3. Underlying emphysema. ACT 112: Negative or not required by law. Electronically signed by: Reji Toribio M.D. 07/01/2019 10:06 AM
--- NOTE | 2019-07-01 17:59 | Discharge Summary ---
Date of Service July 01, 2019 Admission HPI Per Admitting Provider Patient is a transfer from [facility]. Most of her history comes from [facility] records and her daughter Kiara who is bedside as patient is lethargic though she will wake up enough to answer short questions. She was sent for treatment of GI bleed with vomiting bright red blood per patient and coffee ground emesis per [facility] HPI. She had bright red blood per rectum as well. She does have a history of esophageal varices. She reports abdominal pain, she does have some nausea. She does say she has some chest pain and sob but is unable to elaborate further and keeps her eyes closed At [facility] she was placed on a protonix gtt, octreotide gtt and given 2 units of PRBCs which she is finishing now for a hemoglobin of 7. Allergies verified from [facility] records. Unable to perform medication reconciliation due to patient mental status. Will attempt tomorrow, for now will hold po meds. Pmhx: chronic pain, chronic hepatitis C, alcholism, arthritis, GI bleed, lung disease pancreatitis, cirrhosis Social: drinks vodka daily, smokes about a pack per day Family: unknown Principal Diagnosis GI bleed from gastritis from portal hypertension and/or alcohol consumption Discharge Exam Constitutional WD/WN, vitals as above + frail appearing; not lethargic Eyes EOM intact bilaterally; no conjunctival abnormality ENMT external ear and nose normal, oropharynx normal Neck trachea midline, no thyromegaly normal visual inspection Respiratory normal respiratory effort, lungs clear to auscultation no respiratory distress Cardiovascular RRR, no murmur, no edema Gastrointestinal (Abdomen) Inspection/Auscultation: abdomen normal to inspection, + abdomen distended and normal bowel sounds Percussion/Palpation: abdomen soft; abdomen nontender, no guarding and abdomen not rigid Musculoskeletal no cyanosis or clubbing, extremities motor strength 5/5 Skin no rashes, warm and dry Neurologic moves all extremities and awake Psychiatric Orientation: alert, oriented to person and cooperative Discharge Data Allergies Allergy/AdvReac Type Severity Reaction Status Date / Time clarithromycin Allergy Unknown rash, Verified 06/19/19 16:57 nausea Macrolide Antibiotics Allergy Unknown Verified 06/19/19 16:57 Macrolide Immunosuppressant Allergy Unknown Verified 06/19/19 16:57 Sulfa (Sulfonamide Allergy Unknown rash Verified 06/19/19 16:57 Antibiotics) trimethoprim Allergy Unknown Rash Verified 06/19/19 16:57 amoxicillin AdvReac Intermediate nausea, Verified 05/31/17 15:42 diarrhea clavulanic acid AdvReac Intermediate nausea, Verified 05/31/17 15:42 diarrhea cefuroxime AdvReac Unknown nausea, Verified 05/31/17 15:42 diarrhea doxycycline AdvReac Unknown nausea, Verified 05/31/17 15:42 diarrhea morphine AdvReac Unknown nausea, Verified 05/31/17 15:42 vomiting Consultations 06/19/19 16:22 Consult Gastroenterology Routine 06/19/19 16:31 Consult Case Management - Discharge Planning Routine 06/20/19 08:02 Consult [employer] Routine 06/23/19 10:01 Consult Oncology Routine 06/23/19 10:13 Consult Palliative Care Routine Procedures Performed Operation Date: 06/20/19 13:00 Actual Procedures p Esophagogastroduodenoscopy - Nazario Felipe Ordered Studies 06/19/19 17:03 CT chest wo con Routine US abdomen complete Routine 06/20/19 09:41 US point of care ultrasound Routine 06/20/19 10:36 US point of care ultrasound Urgent 06/21/19 16:25 CT head/brain wo con Urgent 06/22/19 10:00 MR brain wo/w con Urgent 06/24/19 11:20 US point of care ultrasound Urgent 06/24/19 11:21 US point of care ultrasound Routine 06/29/19 15:14 CT guided FNA 1st lesion Routine 06/29/19 22:34 US paracentesis abd w/image Routine 06/30/19 CT limited or localized study Routine Hospital Course (1) Metastatic cancer: History of metastatic cancer of unknown origin per [facility] records. Chest CT with more than 20 nodules that are new since 07/2017. Per daughter patient has been followed by Dr. Delacruz in the past. She was scheduled to have liver biopsy of a met lesion on 07/06 in [place]. - S/p right pleural biopsy with radiology on 06/30. Path pending. CA 125 was elevated to 860. No complications. Will need to follow up with GI and/or oncology. (2) Cirrhosis of liver with ascites: 2nd to alcohol and hepC. Completed 7 days of abx for SBP prophylaxis in setting of recent GI bleed. Varices on recent EGD (non-bleeding) - Cont propranolol - Continue Lasix/spironolactone - Follow up with GI as outpatient. (3) COPD exacerbation: Improving. - Discharged on prednisone taper for 4 more days. - Cont Duonebs PRN at home. - Cont symbicort BID. (4) GI bleed: At time of admission. EGD 06/20 - Grade II esophageal varices seen (non- bleeding) and 3 shallow ulcerated areas in gastric body with stigmata of recent bleeding, s/p APC. Suspect 2nd to alcohol. - Cont PPI bid & sucralfate - Monitor hgb - Stable for days prior to discharge ~10. (5) Acute blood loss anemia: 2nd to UPPER GI bleeding. - As above (6) Hepatic encephalopathy: Resolved. Peak ammonia level 144. - Cont lactulose and rifaximin. - Titrate lactulose for 2-3 stools/day. Discharged with encouragement to continue taking actively. (7) Alcohol abuse: B vitamin MVI on discharge. (8) Chronic pain: 100 mcg Fentanyl patch removed at [facility] due to altered MS. She has taken the fentanyl patch and oxy's for many years. PDMP shows consistent use of both narcotics. - Continue fentanyl patch 25 mcg - Switched back to home oxycodone - Gave very small prescription on discharge until she can re-establish with her PCP/provider. Unfortunatley PDMP was broken all day long (through [employer] and through website), so I could not see when her last pick-up was. (9) Acute respiratory failure: Resolved. S/p intubation 06/20 for airway protection in setting of altered MS, GI bleeding, etc & s/p self-extubation on 06/23. - Had hoarseness that was improving by discharge. Will need to see an ENT doctor if it does not improve in 2-3 weeks. (10) Chronic hepatitis C: Noted. No inpatient needs. (11) Depression: No indications of depression or SI/HI. - Cont Prozac (12) Hyperglycemia: BSGs all high. A1c was 4.6%. - Diet changed to T2DM diet (13) DVT prophylaxis: SCDs; chemical means contraindicated due to recent GI bleeding. Total Time Total Time Spent Total Time Spent (In Minutes): 45 Discharge Plan Discharge Items Patient Disposition: Home - Home Health Services Reason For Visit: GI BLEED Discharge Diagnosis: GI bleed from stomach Activity: Resume your previous activity Non-emergency contact: Primary Care Provider, Hydrographer and Oncologist Call non-emergency contact if: your symptoms worsen, your pain is worsening and your temperature is above 101 Follow-up/Referrals: Jeff Delacruz DO [Physician] - (Please see Dr. Delacruz next week to discuss your biopsy results.) Nazario Felipe [Physician] - Julian Padilla DO [Primary Care Provider] - Diet: Heart Healthy Addtl Attending Provider Instructions: You were admitted with a GI bleed from your stomach that is due to your liver cirrhosis. We also did a biopsy of your lung nodule to help determine what these nodules this might be. Please take your lactulose 3 times per day or to have at least 2-3 soft BMs per day. Pending Studies at Discharge: No Stand-Alone Forms: My [facility] [employer], Smoking Cessation Medications and DC Order Prescriptions: New lactulose 20 gram/30 mL Solution 20 gm PO TID Qty: 1500 RF: 0 pantoprazole 40 mg Tablet,Delayed Release (Dr/Ec) 40 mg PO BID Qty: 60 RF: 0 sucralfate 100 mg/mL Suspension 1 gm PO ACHS Qty: 420 RF: 0 prednisone 10 mg Tablet 20 mg PO QAM Qty: 6 RF: 0 vitamin B complex [Vitamins B Complex] Capsule 1 tab PO QAM Qty: 30 RF: 0 fentanyl 25 mcg/hr Patch 72 Hour 25 mcg transdermal Q3D Qty: 1 RF: 0 Continued fluoxetine 20 mg capsule 20 mg PO DAILY RF: 0 furosemide 40 mg tablet 20 mg PO BID RF: 0 metoclopramide HCl 10 mg tablet,disintegrating 5 mg PO QID RF: 0 methylphenidate HCl 20 mg tablet extended release 60 mg PO QAM RF: 0 mometasone 50 mcg/actuation spray,non-aerosol 2 sprays INTNAS DAILY RF: 0 rifaximin 550 mg tablet 550 mg PO BID RF: 0 spironolactone 50 mg tablet 50 mg PO DAILY RF: 0 propranolol 10 mg Tablet 20 mg PO HS RF: 0 lorazepam 0.5 mg Tablet 0.5 mg PO PRN (Reason: Anxiety) RF: 0 albuterol sulfate [Ventolin HFA] 90 mcg/actuation Hfa Aerosol Inhaler 2 puff INHALATION Q4H PRN (Reason: Wheezing) RF: 0 Symbicort 160-4.5 mcg/actuation Hfa Aerosol Inhaler 2 puff INHALATION BID RF: 0 Changed oxycodone 5 mg PO Q4H PRN (Reason: Pain) Qty: 10 RF: 0 Discontinued fentanyl 100 mcg/hr patch 72 hour 1 patch TD Q48H RF: 0 omeprazole 20 mg capsule,delayed release(DR/EC) 20 mg PO BID RF: 0 lactulose 15 ml PO TID RF: 0 Discharge Orders: Discharge Order (Routine); Ordered 07/01/19 Ordered By: Rogers Pryor Admission Data Admit Date/Time: 06/19/19 15:35 Attending Provider: Rogers Pryor Admit Provider: Samina Cavanaugh Primary Care Provider: Julian Padilla Other Providers: Robi Cerda ; Nazario Felipe ; Derrick Rubio ; Jeff Delacruz V ; Brandy Ackerman ; [facility] Other Interventions: Discharge Summary Assessment (RN) Last Done: 07/01/19 14:57 DC Date/Time DO NOT enter until pt leaves facility: 07/01/19 15:43
== END 2019-07-01 15:43 | disposition home health service (06) | DRG 981 ==
LOC: SUATTDRO 15:35 → 2S 15:35 → 1E 06-20 07:47 → 2E 06-25 13:01 → UNDODISIN 06-25 16:35 → 2W 06-28 20:12

== ENCOUNTER 2019-08-24 15:40 | Inpatient (IN) ==
[2019-08-24] MEDS ORDERED: SODIUM CHLORIDE 0.9% 500 ML IV ONE (17:00)
[2019-08-24] MEDS ORDERED: ALBUT/IPRATROP 3MG/0.5MG NEB 3 ML VIAL NEB STA (17:00)
[2019-08-24] MEDS ORDERED: CEFEPIME 2,000 MG/20 ML VIAL IV STA (17:00)
[2019-08-24 17:19] LABS: Basophils % (auto) 1.3 %; Eosinophils # (auto) 0.17 K/uL (0-0.5); Eosinophils % (auto) 2.3 %; Hematocrit (blood only) 29.5 % (37-47); Hemoglobin 9.6 g/dL (12.0-16.0); Immature Granulocytes # (auto) 0.02 K/uL (0.00-0.02); Immature Granulocytes % (auto) 0.3 %; Lymphocytes % (auto) 17.2 %; Mean Corpuscular Hgb Conc 32.5 g/dL (32-36); Mean Corpuscular Volume 83.1 fL (80-100); Mean Platelet Volume 10.8 fL (7.4-10.4); Monocytes # (auto) 0.86 K/uL (0.11-0.59); Monocytes % (auto) 11.4 %; Neutrophils # (auto) 5.09 K/uL (1.4-6.5); Neutrophils % (auto) 67.5 %; Platelet Count 186 K/uL (130-400); RDW Coefficient of Variation 24.2 % (11.5-14.5); RDW Standard Deviation 70.7 fL (36.4-46.3); Red Blood Count 3.55 M/uL (4.2-5.4); White Blood Count 7.54 K/uL (4.8-10.8)
--- NOTE | 2019-08-24 17:22 | XRay Report ---
XR chest 1V portable HISTORY: SEPSIS COMPARISON: Chest 07/01/2019. FINDINGS: Low lung volumes. No pneumothorax. No pleural effusions. The heart is normal in size. Mild interstitial thickening which may be chronic. No evidence for pulmonary edema. No new focal lung cons olidations to suggest pneumonia. Multiple bilateral pulmonary and pleural-based nodules are again not ed. These are similar to the prior study. IMPRESSION: No significant change compared to the prior study. No acute process. Bilateral pulmonary and pleural- based nodules are again noted. ACT 112: Negative or not required by law. Electronically signed by: Greg White M.D. 08/24/2019 5:21 PM
--- NOTE | 2019-08-24 17:27 | Emergency Department Note ---
Entered by Julianne Pineda acting as a scribe for History of Present Illness General Chief complaint: Fever Stated complaint: BACK PAIN, FEVER, CANCER PATIENT Time Seen by Provider: 08/24/19 16:50 Source: patient and family (daughter ) History of Present Illness Onset (ago): day(s) 2 Location: head (general ) Pain Consistency: + intermittent Maximum Pain Intensity: 9 Quality: + other (fever ) Associated symptoms: + cough (dry), + shortness of breath and + other (positive bilateral lower back pain; positive burning in left leg; negative congestion; positive abdominal and leg swelling; positive strong and concentrated urine; negative burning with urination; negative urinary symptoms) Treatments prior to arrival: other (breathing treatment ) The patient is a 59 year old female who presents to the Emergency Room with complaints of intermittent fever that began 2 days prior to arrival, per the patient's daughter. The patient's daughter states that during this time she has had bilateral lower back pain and shortness of breath. The patient reports a dry cough, but denies congestion. The patient's daughter states that during this time the patient's legs and abdomen have been much more swollen than her baseline. She reports burning in her left leg. The patient's daughter states that the patient has had strong and concentrated urine, but the patient denies burning with urination and other urinary symptoms. The patient states that she uses breathing treatments, stating that she used 3 today and her most recent was several hours ago. The patient states that she has some abdominal pain at baseline. The patient denies being around anyone sick and denies any recent travel. The patient's daughter states that it is believed that the patient has primary lung cancer, and states that this is now in the patient's liver. The patient states that she is not yet on treatment for her cancer, stating that it is believed she is not yet strong enough to begin treatment. The patient denies getting a flu shot this year. The patient states that she had a GI bleed last month and was seen in the ED at that time. Home Medications Home Medications Medication Instructions Recorded Confirmed Type furosemide 40 mg tablet 20 mg PO BID 05/06/19 08/24/19 History metoclopramide HCl 10 mg 5 mg PO QID tab 05/06/19 08/24/19 History disintegrating tablet rifaximin 550 mg tablet 550 mg PO BID 05/06/19 08/24/19 History spironolactone 50 mg tablet 50 mg PO DAILY 05/06/19 08/24/19 History albuterol sulfate [Ventolin HFA] 2 puff INHALATION Q4H PRN 06/20/19 08/24/19 History budesonide-formoterol [Symbicort] 2 puff INHALATION BID 06/20/19 08/24/19 History lorazepam 0.5 mg PO UD PRN 06/20/19 08/24/19 History propranolol 20 mg PO HS 06/20/19 08/24/19 History fentanyl 25 mcg TRANSDERMAL Q3D #1 ea 07/01/19 08/24/19 Rx lactulose 20 gm PO TID #1500 ml 07/01/19 08/24/19 Rx pantoprazole 40 mg PO BID #60 tab 07/01/19 08/24/19 Rx sucralfate 1 gm PO ACHS #420 ml 07/01/19 08/24/19 Rx methylphenidate HCl 60 mg PO BID 08/24/19 08/24/19 History potassium gluconate 500 mg PO DAILY 08/24/19 08/24/19 History Allergies Allergy/AdvReac Type Severity Reaction Status Date / Time clarithromycin Allergy Unknown rash, Verified 08/24/19 17:43 nausea Macrolide Antibiotics Allergy Unknown Verified 08/24/19 17:43 Macrolide Immunosuppressant Allergy Unknown Verified 08/24/19 17:43 Sulfa (Sulfonamide Allergy Unknown rash Verified 08/24/19 17:43 Antibiotics) trimethoprim Allergy Unknown Rash Verified 08/24/19 17:43 amoxicillin AdvReac Intermediate nausea, Verified 08/24/19 17:43 diarrhea clavulanic acid AdvReac Intermediate nausea, Verified 08/24/19 17:43 diarrhea cefuroxime AdvReac Unknown nausea, Verified 08/24/19 17:43 diarrhea doxycycline AdvReac Unknown nausea, Verified 08/24/19 17:43 diarrhea morphine AdvReac Unknown nausea, Verified 08/24/19 17:43 vomiting Past Med/Surg History Medical History Acute blood loss anemia Alcohol abuse Asthma Chronic hepatitis C Chronic pain Chronic pancreatitis Cirrhosis of liver with ascites COPD (chronic obstructive pulmonary disease) Depression Esophageal varices JENNIFER (generalized anxiety disorder) GI bleed Goals of care, counseling/discussion Hypertension Metabolic encephalopathy Metastatic cancer Osteoporosis Surgical History History of back surgery History of bronchoscopy History of History of cataract surgery History of cholecystectomy History of ERCP History of hip surgery History of surgery of liver History of tracheostomy Social History Preferred Language: Mohawk Communication Ability: Effective 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 and A total of 10 systems reviewed and were otherwise negative Physical Exam Vital Signs Vital Signs - 24 hr 08/24/19 16:34 08/24/19 17:08 08/24/19 17:41 Temperature 36.4 C L Temperature Source Oral Pulse Rate 85 85 Pulse Rate [Apical] 87 Respiratory Rate 16 18 Respiratory Effort / Characteristics Non-Labored Spontaneous Respiratory Depth Normal Blood Pressure 118/69 Blood Pressure [Right Arm] Blood Pressure Mean 85 Blood Pressure Mean [Right Arm] Blood Pressure Position [Right Arm] Pulse Oximetry 98 98 97 Oxygen Delivery Method Room Air Room Air Room Air Sepsis Recent Fever Within 48 Hours No Sepsis New/Unexplained Change in Mental Status No Sepsis Action Taken by Nursing No Action Required 08/24/19 17:44 08/24/19 18:24 08/24/19 19:08 Temperature Temperature Source Pulse Rate 87 Pulse Rate [Apical] 84 86 Respiratory Rate 20 18 19 Respiratory Effort / Characteristics Non-Labored Spontaneous Non-Labored Respiratory Depth Normal Blood Pressure 120/78 Blood Pressure [Right Arm] 129/72 106/61 Blood Pressure Mean 86 Blood Pressure Mean [Right Arm] 91 76 Blood Pressure Position [Right Arm] Lying Pulse Oximetry 96 97 Oxygen Delivery Method Room Air Room Air Sepsis Recent Fever Within 48 Hours Sepsis New/Unexplained Change in Mental Status Sepsis Action Taken by Nursing 08/24/19 19:09 08/24/19 19:30 08/24/19 19:31 Temperature Temperature Source Pulse Rate 86 84 83 Pulse Rate [Apical] Respiratory Rate 18 21 19 Respiratory Effort / Characteristics Respiratory Depth Blood Pressure 99/55 L Blood Pressure [Right Arm] Blood Pressure Mean 65 Blood Pressure Mean [Right Arm] Blood Pressure Position [Right Arm] Pulse Oximetry Oxygen Delivery Method Sepsis Recent Fever Within 48 Hours Sepsis New/Unexplained Change in Mental Status Sepsis Action Taken by Nursing 08/24/19 20:00 08/24/19 20:01 08/24/19 20:02 Temperature Temperature Source Pulse Rate 81 82 85 Pulse Rate [Apical] Respiratory Rate 19 18 20 Respiratory Effort / Characteristics Respiratory Depth Blood Pressure 80/51 L 80/54 L 107/53 L Blood Pressure [Right Arm] Blood Pressure Mean 62 59 67 Blood Pressure Mean [Right Arm] Blood Pressure Position [Right Arm] Pulse Oximetry 91 Oxygen Delivery Method Sepsis Recent Fever Within 48 Hours Sepsis New/Unexplained Change in Mental Status Sepsis Action Taken by Nursing 08/24/19 20:03 08/24/19 20:30 08/24/19 21:00 Temperature Temperature Source Pulse Rate 82 85 84 Pulse Rate [Apical] Respiratory Rate 18 21 17 Respiratory Effort / Characteristics Respiratory Depth Blood Pressure 96/59 L 93/63 L Blood Pressure [Right Arm] Blood Pressure Mean 71 85 Blood Pressure Mean [Right Arm] Blood Pressure Position [Right Arm] Pulse Oximetry Oxygen Delivery Method Sepsis Recent Fever Within 48 Hours Sepsis New/Unexplained Change in Mental Status Sepsis Action Taken by Nursing 08/24/19 21:30 08/24/19 21:40 08/24/19 21:50 Temperature Temperature Source Pulse Rate 87 85 86 Pulse Rate [Apical] Respiratory Rate 21 23 24 Respiratory Effort / Characteristics Respiratory Depth Blood Pressure 98/59 L Blood Pressure [Right Arm] Blood Pressure Mean 69 Blood Pressure Mean [Right Arm] Blood Pressure Position [Right Arm] Pulse Oximetry Oxygen Delivery Method Sepsis Recent Fever Within 48 Hours Sepsis New/Unexplained Change in Mental Status Sepsis Action Taken by Nursing 08/24/19 22:00 08/24/19 22:01 08/24/19 22:10 Temperature Temperature Source Pulse Rate 84 86 82 Pulse Rate [Apical] Respiratory Rate 24 16 25 H Respiratory Effort / Characteristics Respiratory Depth Blood Pressure 118/76 Blood Pressure [Right Arm] Blood Pressure Mean 80 Blood Pressure Mean [Right Arm] Blood Pressure Position [Right Arm] Pulse Oximetry Oxygen Delivery Method Sepsis Recent Fever Within 48 Hours Sepsis New/Unexplained Change in Mental Status Sepsis Action Taken by Nursing 08/24/19 22:20 08/24/19 22:30 08/24/19 22:31 Temperature Temperature Source Pulse Rate 82 83 83 Pulse Rate [Apical] Respiratory Rate 19 26 H 26 H Respiratory Effort / Characteristics Respiratory Depth Blood Pressure 103/60 Blood Pressure [Right Arm] Blood Pressure Mean 64 Blood Pressure Mean [Right Arm] Blood Pressure Position [Right Arm] Pulse Oximetry Oxygen Delivery Method Sepsis Recent Fever Within 48 Hours Sepsis New/Unexplained Change in Mental Status Sepsis Action Taken by Nursing GENERAL: Patient is in no acute distress. HEENT: No acute trauma, normocephalic atraumatic, mucous membranes moist, no nasal congestion. NECK: No stridor, no adenopathy, no meningismus, trachea is midline. LUNGS: Some wheezing bilaterally. Equal breath sounds. No crackles. No respiratory distress. HEART: Without murmurs gallops or rubs, regular rate and rhythm. ABDOMEN: Significant distention. Soft, nontender, bowel sounds positive, no hernias, no peritonitis. EXTREMITIES: Moderate bilateral pedal edema. No cyanosis, full range of motion of all the joints without pain or difficulty, no signs for acute trauma. NEUROLOGIC: Oriented x 3, no acute motor or sensory deficits, no focal weakness. SKIN: No rash, no jaundice, no diaphoresis. Course Course 1651: Past medical records reviewed. The patient was evaluated in room C5. A complete history and physical exam was performed. 1923: I checked on and updated the patient. 1939: I discussed the case with Dr. Delcid[facility] Hospitalist who accepts the patient for further evaluation. Administered Medications Albuterol (Duoneb) 3 ml NEB Q4R RIKA Stop: 09/23/19 23:34 Last Admin: 08/24/19 23:56 Dose: 3 ml Documented by: [id number] Discontinued Medications Albuterol (Duoneb) 3 ml NEB NOW STA Stop: 08/24/19 17:01 Last Admin: 08/24/19 17:41 Dose: 3 ml Documented by: [id number] Sodium Chloride (Nss) 500 mls @ 999 mls/hr IV .Q31M ONE Stop: 08/24/19 17:30 Last Infusion: 08/24/19 18:05 Dose: 0 mls/hr Documented by: [id number] Admin: 08/24/19 17:29 Dose: 999 mls/hr Documented by: [id number] Cefepime HCl (Maxipime) 2,000 mg in 20 mls @ 5 mls/min IV NOW STA; Protocol Stop: 08/24/19 17:03 Last Admin: 08/24/19 18:18 Dose: 5 mls/min Documented by: [id number] Magnesium Sulfate/Dextrose (Magnesium Sulfate / D5w) 1 gm in 100 mls @ 100 mls/hr IV ONE ONE Stop: 08/24/19 18:45 Last Infusion: 08/24/19 19:58 Dose: 0 mls/hr Documented by: [id number] Admin: 08/24/19 18:14 Dose: 100 mls/hr Documented by: [id number] Potassium Chloride (K Frandy / Wtr) 10 meq in 100 mls @ 100 mls/hr IV ONE ONE Stop: 08/24/19 18:45 Last Infusion: 08/24/19 19:58 Dose: 0 mls/hr Documented by: [id number] Admin: 08/24/19 18:14 Dose: 100 mls/hr Documented by: [id number] Sodium Chloride (Nss 1000ml) 500 mls @ 999 mls/hr IV .Q31M ONE Stop: 08/24/19 19:11 Last Infusion: 08/24/19 19:59 Dose: 0 mls/hr Documented by: [id number] Admin: 08/24/19 18:55 Dose: 999 mls/hr Documented by: [id number] Medical Decision Making Differential Diagnosis Differential diagnoses include spontaneous bacterial peritonitis, UTI, pyelonephritis, pneumonia, viral illness, influenza, electrolyte imbalance, dehydration, worsening liver failure, and others were considered. Medical Records Attestation: I reviewed the patient's medical records. Home Medications Current Medication List: was personally reviewed by me Laboratory Data Attestation: I reviewed the patient's lab results. Result diagrams: 08/24/19 17:05 08/24/19 17:05 Lab Results 08/24/19 08/24/19 08/24/19 Range/Units 17:05 17:05 17:05 WBC 7.54 (4.8-10.8) K/uL RBC 3.55 L (4.2-5.4) M/uL Hgb 9.6 L (12.0-16.0) g/dL Hct 29.5 L (37-47) % MCV 83.1 (80-100) fL MCH 27.0 (25-34) pg MCHC 32.5 (32-36) g/dL RDW Std Deviation 70.7 H (36.4-46.3) fL RDW Coeff of Rashi 24.2 H (11.5-14.5) % Plt Count 186 (130-400) K/uL MPV 10.8 H (7.4-10.4) fL Immature Gran % (Auto) 0.3 % Neut % (Auto) 67.5 % Lymph % (Auto) 17.2 % [place] % (Auto) 11.4 % Eos % (Auto) 2.3 % Baso % (Auto) 1.3 % Immature Gran # (Auto) 0.02 (0.00-0.02) K/uL Neut # (Auto) 5.09 (1.4-6.5) K/uL Lymph # (Auto) 1.30 (1.2-3.4) K/uL [place] # (Auto) 0.86 H (0.11-0.59) K/uL Eos # (Auto) 0.17 (0-0.5) K/uL Baso # (Auto) 0.10 (0-0.2) K/uL Polychromasia 1+ Hypochromasia Present Target Cells 1+ PT 15.0 H (9.0-12.0) Seconds INR 1.5 H (0.9-1.1) APTT 30.0 (21.0-31.0) Seconds PTT Ratio 1.1 Sodium 136 (136-145) mmol/L Potassium 2.9 L (3.5-5.1) mmol/L Chloride 98 (98-107) mmol/L Carbon Dioxide 34 H (21-32) mmol/L Anion Gap 4.0 (3-11) BUN 16 (7-18) mg/dl Creatinine 1.11 (0.6-1.2) mg/dl Est Cr Clr Drug Dosing Not Reportable Est GFR ( Amer) 62.1 Est GFR (Non-Af Amer) 53.6 BUN/Creatinine Ratio 14.4 (10-20) Glucose 107 H (70-99) mg/dl Lactate (0.4-2.0) mmol/L Calcium 8.1 L (8.5-10.1) mg/dl Magnesium 1.6 L (1.8-2.4) mg/dl Total Bilirubin 1.2 H (0.2-1) mg/dl AST 48 H (15-37) U/L ALT 23 (12-78) U/L Alkaline Phosphatase 156 H (45-117) U/L Ammonia (11-32) umol/L Total Protein 7.4 (6.4-8.2) gm/dl Albumin 1.8 L (3.4-5.0) gm/dl Globulin 5.6 H (2.5-4.0) gm/dl Albumin/Globulin Ratio 0.3 L (0.9-2) Procalcitonin (0-0.5) ng/ml Urine Color Urine Appearance (Clear) Urine pH (4.5-7.5) Ur Specific [place] (1.000-1.030) Urine Protein (Negative) Urine Glucose (UA) (Negative) Urine Ketones (Negative) Urine Blood (Negative) Urine Nitrite (Negative) Urine Bilirubin (Negative) Urine Urobilinogen (Negative) Ur Leukocyte Esterase (Negative) Urine WBC (Auto) (0-5) /hpf Urine RBC (Auto) (0-4) /hpf U Hyaline Cast (Auto) (0-5) /lpf U Epithel Cells (Auto) (0-5) /lpf Urine Bacteria (Auto) (Negative) Urine Crystals (None Prsent) Calcium Oxalate Crystal (None Prsent) Urine Yeast (None Prsent) Ethyl Alcohol mg/dL (0-3) mg/dl Influenza Type A (PCR) (Neg) Influenza Type B (PCR) (Neg) 08/24/19 08/24/19 08/24/19 Range/Units 17:05 17:45 18:04 WBC (4.8-10.8) K/uL RBC (4.2-5.4) M/uL Hgb (12.0-16.0) g/dL Hct (37-47) % MCV (80-100) fL MCH (25-34) pg MCHC (32-36) g/dL RDW Std Deviation (36.4-46.3) fL RDW Coeff of Rashi (11.5-14.5) % Plt Count (130-400) K/uL MPV (7.4-10.4) fL Immature Gran % (Auto) % Neut % (Auto) % Lymph % (Auto) % [place] % (Auto) % Eos % (Auto) % Baso % (Auto) % Immature Gran # (Auto) (0.00-0.02) K/uL Neut # (Auto) (1.4-6.5) K/uL Lymph # (Auto) (1.2-3.4) K/uL [place] # (Auto) (0.11-0.59) K/uL Eos # (Auto) (0-0.5) K/uL Baso # (Auto) (0-0.2) K/uL Polychromasia Hypochromasia Target Cells PT (9.0-12.0) Seconds INR (0.9-1.1) APTT (21.0-31.0) Seconds PTT Ratio Sodium (136-145) mmol/L Potassium (3.5-5.1) mmol/L Chloride (98-107) mmol/L Carbon Dioxide (21-32) mmol/L Anion Gap (3-11) BUN (7-18) mg/dl Creatinine (0.6-1.2) mg/dl Est Cr Clr Drug Dosing Est GFR ( Amer) Est GFR (Non-Af Amer) BUN/Creatinine Ratio (10-20) Glucose (70-99) mg/dl Lactate 2.9 H* (0.4-2.0) mmol/L Calcium (8.5-10.1) mg/dl Magnesium (1.8-2.4) mg/dl Total Bilirubin (0.2-1) mg/dl AST (15-37) U/L ALT (12-78) U/L Alkaline Phosphatase (45-117) U/L Ammonia (11-32) umol/L Total Protein (6.4-8.2) gm/dl Albumin (3.4-5.0) gm/dl Globulin (2.5-4.0) gm/dl Albumin/Globulin Ratio (0.9-2) Procalcitonin 0.50 (0-0.5) ng/ml Urine Color Urine Appearance (Clear) Urine pH (4.5-7.5) Ur Specific [place] (1.000-1.030) Urine Protein (Negative) Urine Glucose (UA) (Negative) Urine Ketones (Negative) Urine Blood (Negative) Urine Nitrite (Negative) Urine Bilirubin (Negative) Urine Urobilinogen (Negative) Ur Leukocyte Esterase (Negative) Urine WBC (Auto) (0-5) /hpf Urine RBC (Auto) (0-4) /hpf U Hyaline Cast (Auto) (0-5) /lpf U Epithel Cells (Auto) (0-5) /lpf Urine Bacteria (Auto) (Negative) Urine Crystals (None Prsent) Calcium Oxalate Crystal (None Prsent) Urine Yeast (None Prsent) Ethyl Alcohol mg/dL (0-3) mg/dl Influenza Type A (PCR) Neg for Influ A (Neg) Influenza Type B (PCR) Neg for Influ B (Neg) 08/24/19 08/24/19 08/24/19 Range/Units 18:04 19:09 20:36 WBC (4.8-10.8) K/uL RBC (4.2-5.4) M/uL Hgb (12.0-16.0) g/dL Hct (37-47) % MCV (80-100) fL MCH (25-34) pg MCHC (32-36) g/dL RDW Std Deviation (36.4-46.3) fL RDW Coeff of Rashi (11.5-14.5) % Plt Count (130-400) K/uL MPV (7.4-10.4) fL Immature Gran % (Auto) % Neut % (Auto) % Lymph % (Auto) % [place] % (Auto) % Eos % (Auto) % Baso % (Auto) % Immature Gran # (Auto) (0.00-0.02) K/uL Neut # (Auto) (1.4-6.5) K/uL Lymph # (Auto) (1.2-3.4) K/uL [place] # (Auto) (0.11-0.59) K/uL Eos # (Auto) (0-0.5) K/uL Baso # (Auto) (0-0.2) K/uL Polychromasia Hypochromasia Target Cells PT (9.0-12.0) Seconds INR (0.9-1.1) APTT (21.0-31.0) Seconds PTT Ratio Sodium (136-145) mmol/L Potassium (3.5-5.1) mmol/L Chloride (98-107) mmol/L Carbon Dioxide (21-32) mmol/L Anion Gap (3-11) BUN (7-18) mg/dl Creatinine (0.6-1.2) mg/dl Est Cr Clr Drug Dosing Est GFR ( Amer) Est GFR (Non-Af Amer) BUN/Creatinine Ratio (10-20) Glucose (70-99) mg/dl Lactate 2.1 H* (0.4-2.0) mmol/L Calcium (8.5-10.1) mg/dl Magnesium (1.8-2.4) mg/dl Total Bilirubin (0.2-1) mg/dl AST (15-37) U/L ALT (12-78) U/L Alkaline Phosphatase (45-117) U/L Ammonia 19.1 (11-32) umol/L Total Protein (6.4-8.2) gm/dl Albumin (3.4-5.0) gm/dl Globulin (2.5-4.0) gm/dl Albumin/Globulin Ratio (0.9-2) Procalcitonin (0-0.5) ng/ml Urine Color Dark Yellow Urine Appearance Clear (Clear) Urine pH 5.5 (4.5-7.5) Ur Specific [place] 1.021 (1.000-1.030) Urine Protein Negative (Negative) Urine Glucose (UA) Negative (Negative) Urine Ketones Trace H (Negative) Urine Blood Negative (Negative) Urine Nitrite Negative (Negative) Urine Bilirubin 1+ H (Negative) Urine Urobilinogen Negative (Negative) Ur Leukocyte Esterase 1+ H (Negative) Urine WBC (Auto) 1-5 (0-5) /hpf Urine RBC (Auto) 0-4 (0-4) /hpf U Hyaline Cast (Auto) >30 H (0-5) /lpf U Epithel Cells (Auto) >30 H (0-5) /lpf Urine Bacteria (Auto) Negative (Negative) Urine Crystals Calcium Oxalate A (None Prsent) Calcium Oxalate Crystal Present A (None Prsent) Urine Yeast Budding A (None Prsent) Ethyl Alcohol mg/dL (0-3) mg/dl Influenza Type A (PCR) (Neg) Influenza Type B (PCR) (Neg) 08/24/19 Range/Units 22:24 WBC (4.8-10.8) K/uL RBC (4.2-5.4) M/uL Hgb (12.0-16.0) g/dL Hct (37-47) % MCV (80-100) fL MCH (25-34) pg MCHC (32-36) g/dL RDW Std Deviation (36.4-46.3) fL RDW Coeff of Rashi (11.5-14.5) % Plt Count (130-400) K/uL MPV (7.4-10.4) fL Immature Gran % (Auto) % Neut % (Auto) % Lymph % (Auto) % [place] % (Auto) % Eos % (Auto) % Baso % (Auto) % Immature Gran # (Auto) (0.00-0.02) K/uL Neut # (Auto) (1.4-6.5) K/uL Lymph # (Auto) (1.2-3.4) K/uL [place] # (Auto) (0.11-0.59) K/uL Eos # (Auto) (0-0.5) K/uL Baso # (Auto) (0-0.2) K/uL Polychromasia Hypochromasia Target Cells PT (9.0-12.0) Seconds INR (0.9-1.1) APTT (21.0-31.0) Seconds PTT Ratio Sodium (136-145) mmol/L Potassium (3.5-5.1) mmol/L Chloride (98-107) mmol/L Carbon Dioxide (21-32) mmol/L Anion Gap (3-11) BUN (7-18) mg/dl Creatinine (0.6-1.2) mg/dl Est Cr Clr Drug Dosing Est GFR ( Amer) Est GFR (Non-Af Amer) BUN/Creatinine Ratio (10-20) Glucose (70-99) mg/dl Lactate (0.4-2.0) mmol/L Calcium (8.5-10.1) mg/dl Magnesium (1.8-2.4) mg/dl Total Bilirubin (0.2-1) mg/dl AST (15-37) U/L ALT (12-78) U/L Alkaline Phosphatase (45-117) U/L Ammonia (11-32) umol/L Total Protein (6.4-8.2) gm/dl Albumin (3.4-5.0) gm/dl Globulin (2.5-4.0) gm/dl Albumin/Globulin Ratio (0.9-2) Procalcitonin (0-0.5) ng/ml Urine Color Urine Appearance (Clear) Urine pH (4.5-7.5) Ur Specific [place] (1.000-1.030) Urine Protein (Negative) Urine Glucose (UA) (Negative) Urine Ketones (Negative) Urine Blood (Negative) Urine Nitrite (Negative) Urine Bilirubin (Negative) Urine Urobilinogen (Negative) Ur Leukocyte Esterase (Negative) Urine WBC (Auto) (0-5) /hpf Urine RBC (Auto) (0-4) /hpf U Hyaline Cast (Auto) (0-5) /lpf U Epithel Cells (Auto) (0-5) /lpf Urine Bacteria (Auto) (Negative) Urine Crystals (None Prsent) Calcium Oxalate Crystal (None Prsent) Urine Yeast (None Prsent) Ethyl Alcohol mg/dL < 3.0 (0-3) mg/dl Influenza Type A (PCR) (Neg) Influenza Type B (PCR) (Neg) Imaging Data Radiologist's Impression: Radiology results as stated below per my review and the radiologist's interpretation: XR chest 1V portable HISTORY: SEPSIS COMPARISON: Chest 07/01/2019. FINDINGS: Low lung volumes. No pneumothorax. No pleural effusions. The heart is normal in size. Mild interstitial thickening which may be chronic. No evidence for pulmonary edema. No new focal lung consolidations to suggest pneumonia. Multiple bilateral pulmonary and pleural-based nodules are again noted. These are similar to the prior study. IMPRESSION: No significant change compared to the prior study. No acute process. Bilateral pulmonary and pleural-based nodules are again noted. ACT 112: Negative or not required by law. Electronically signed by: Greg White M.D. 08/24/2019 5:21 PM ECG Data Attestation: I personally reviewed and interpreted this ECG as follows: Indication: + SOB/dyspnea Rate (beats per minute): 87 Rhythm: + normal sinus ECG Intervals/blocks: + Prolonged QT (519) ECG ST segments: no ST elevation ECG Findings: no PVCs Blood Pressure Blood Pressure Findings: Normal blood pressure MDM Narrative There is no leukocytosis. The patient does have a mild anemia, this is baseline looking back at previous testing. INR is somewhat elevated, likely consistent with her liver disease. Patient's potassium and magnesium are both low. No kidney failure. Lactic acid level is elevated at 2.9. There are some liver enzyme elevations which is likely consistent with her liver malignancy. Procalcitonin level was normal. Urinalysis showed some contamination, no obvious bacterial infection. Influenza testing was negative. Chest from did not show pneumonia or CHF. EKG shows a sinus rhythm, no acute ischemia. The patient received IV saline, 2/500 cc boluses were given. She was given IV potassium and IV magnesium. She received a DuoNeb. She was given IV cefepime as antibiotic coverage. The patient presents with fever, weakness, back discomfort. The patient is immunocompromised. She is dehydrated, she has a low magnesium and low potassium. I do think hospitalization for hydration, electrolyte replacement and antibiotics is warranted. Certainly, she could have a spontaneous bacterial peritonitis. A paracentesis during her hospitalization may be of benefit. I did speak to the patient, I talked with case management. The on-call hospitalist was consulted. Continuous Cardiac Monitoring: An order was placed for continuous cardiac monitoring. The monitor shows a rate of 86 with normal sinus rhythm. Impression & Plan Weakness, Dehydration, Hypomagnesemia, Hypokalemia, Ascites, Immunocompromised Discharge Plan Visit Data *Final* Discharge Date/Time: 08/24/19 23:16 Chief Complaint: Fever Stated Complaint: BACK PAIN, FEVER, CANCER PATIENT ED Provider: Jesus Manuel Hernandez Discharge Problem: Weakness, Dehydration, Hypomagnesemia, Hypokalemia, Ascites, Immunocompromised Patient Disposition: Admitted As Inpatient Discharge Instructions Interventions: ED Discharge Assessment Last Done: 08/24/19 23:16 Discharge Problem: Ascites Qualifiers: Ascites type: other type Qualified Code(s): R18.8 - Other ascites The scribe's documentation has been prepared under my direction and personally reviewed by me in its entirety. I confirm that the note above accurately reflects all work, treatment, procedures, and medical decision making performed by me.
[2019-08-24 17:31] LABS: INR 1.5 (0.9-1.1); Partial Thromboplastin Ratio 1.1
[2019-08-24 17:32] LABS: Alanine Aminotransferase 23 U/L (12-78); Albumin Level 1.8 gm/dl (3.4-5.0); Aspartate Aminotransferase 48 U/L (15-37); BUN Creatinine Ratio 14.4 (10-20); Blood Urea Nitrogen 16 mg/dl (7-18); Calcium 8.1 mg/dl (8.5-10.1); Carbon Dioxide 34 mmol/L (21-32); Chloride 98 mmol/L (98-107); Est GFR (African American) 62.1; Est GFR (Non-African American) 53.6; Glucose 107 mg/dl (70-99); Magnesium 1.6 mg/dl (1.8-2.4); Potassium 2.9 mmol/L (3.5-5.1); Sodium 136 mmol/L (136-145)
[2019-08-24 17:34] LABS: Albumin Globulin Ratio 0.3 (0.9-2); Alkaline Phosphatase 156 U/L (45-117); Bilirubin,Total 1.2 mg/dl (0.2-1); Globulin 5.6 gm/dl (2.5-4.0); Total Protein 7.4 gm/dl (6.4-8.2)
[2019-08-24] MEDS ORDERED: MAGNESIUM SULFATE / D5W 1 GM/100 ML BAG IV ONE (17:46)
[2019-08-24] MEDS ORDERED: POTASSIUM CHLORIDE / WTR 10 MEQ/100 ML PLCT IV ONE (17:46)
[2019-08-24 17:48] LABS: Hypochromasia Present; Polychromasia 1+; Target Cells 1+
[2019-08-24] MEDS ORDERED: SODIUM CHLORIDE 0.9% 1000ML 500 ML IV ONE (18:41)
[2019-08-24 18:48] LABS: Influenza A virus by PCR Neg for Influ A (Neg); Influenza B virus by PCR Neg for Influ B (Neg)
[2019-08-24 19:23] LABS: Appearance Urine Clear (Clear); Bacteria Urine Automated Negative (Negative); Blood Urine Negative (Negative); Color Urine Dark Yellow; Epithelial Cell Urine Auto >30 /lpf (0-5); Glucose Urine UA Negative (Negative); Ketones Urine Trace (Negative); Leukocyte Esterase Urine 1+ (Negative); Nitrite Urine Negative (Negative); Protein Urine Negative (Negative); Specific Gravity Urine 1.021 (1.000-1.030); Urobilinogen Urine Negative (Negative); pH Urine 5.5 (4.5-7.5)
[2019-08-24 19:24] LABS: Bilirubin Urine 1+ (Negative)
[2019-08-24 19:26] LABS: Ictotest Urine Positive (Negative)
[2019-08-24 19:33] LABS: Calcium Oxalate Crystals Urine Present (None Prsent); Cast Urine Automated >30 /lpf (0-5); RBC Urine Automated 0-4 /hpf (0-4)
--- NOTE | 2019-08-24 21:53 | History & Physical Report ---
Date of Service August 24, 2019 Assessment & Plan (1) Immunocompromised: Patient is a 59-year-old female with a past medical history of alcohol abuse, tobacco abuse, COPD, generalized anxiety disorder, alcohol abuse, depression, chronic pain, active cancer of the liver and lungs question whether primary was hepatocellular or pulmonary, chronic anemia, history of esophageal varices, cirrhosis, history of hyperglycemia without evidence of underlying diabetes, recently discharged for a GI bleed secondary to esophageal varices in the setting of cirrhosis, who presents today for evaluation of malleus, malaise, abdominal pain, and subjective intermittent fever. #Weakness, subjective fever, malaise in an immunocompromised patient with active metastatic cancer Patient reporting a history of weakness and malaise since discharge from the hospital in June. This had progressively worsened until getting better approximately 2 weeks ago. Where all her symptoms seem to resolve. Approximately 1 week ago the symptoms came back. Earlier this week proximally 2 days ago she experienced a subjective fever. The differential for this patient is quite large. This could represent a COPD exacerbation although she is not having increased oxygen requirements, could represent an episode of spontaneous bacterial peritonitis, could represent an infection in her blood or bladder, or could just be associated with the natural course of her current disease.Lactate was elevated which favors infection however the patient also has concurrent cancer, procalcitonin was not elevated which goes against bacterial infection. Given her immunocompromise status, history of metastatic cancer, and COPD we will provide antibiotics to cover in the event that there is an infection, patient was flu negative Tamiflu is contraindicated. Will provide respiratory support and adequate hydration as well as electrolyte electrolyte replacement. -LR for MIVF at 125 -Cefepime -Replete potassium -Replete magnesium -Monitor fever curve -PRN Dilaudid 1 mg every 2 hours for breakthrough pain -Consult dietitian -Daily CBC #Active metastatic pulmonary and hepatic cancer unknown primary Patient was diagnosed with cancer around the time of , thought to be hepatocellular in origin secondary to chronic hepatitis C especially given her elevated Ca125 levels. Overall from what I could gather from chart review patient's prognosis is poor. She has been following with Dr. Peoples, they are attempting to place a port for chemotherapy. The patient is previously met with palliative care during her prior admission to discuss palliative options as well. There is likely could be the source the patient's current presentation. On physical exam she has a significant ascites burden and may benefit from paracentesis while hospitalized. Given her history there is a concern for SBP will obtain a CT to rule out. -CT abdomen pelvis with and without contrast to rule out SBP -Consult hematology oncology -Consult palliative -Continue home pain med regimen -Supportive care as indicated #Chronic pain Patient's family reports pain is not well controlled baseline at home. Appreciate palliative's help in adjusting the patient's pain medication regimen. Consult palliative #Alcohol abuse Patient is a long history of alcohol abuse and was drinking at least up until her most recent admission. Unsure of her current alcohol status. Blood alcohol level pending -Follow-up blood alcohol level AWSS in place Banana bag #Tobacco abuse -Counseling on tobacco cessation -14 mg nicotine patch PRN #Ascites Secondary to the above. To consider risks and benefits of paracentesis while hospitalized #Chronic hepatitis C with cirrhosis and ascites Continue rifaximin 550 mg twice daily Continue spironolactone 50 mg daily Continue lactulose 20 g 3 times daily Follow-up ammonia level #Daniella urinary tract infection Patient was complaining of suprapubic pain over the weekend and her family is concerned there is a UTI. Urinalysis is not consistent with a bacterial infection, however budding yeast were noted. Given this will treat for urinary Daniella infection. Fluconazole 150 mg now and repeat in 3 days. #COPD With a history of COPD and current smoker. Does not appear to be in exacerbation at present. Not on home oxygen. PRN O2 goal greater than 90% Continue home Inhalers DuoNebs as needed Budesonide twice daily -Add Spiriva daily #Electrolyte abnormalities History of back to be cancer. Will replete as indicated -Daily BMP -Replete as indicated #Generalized anxiety disorder/depression Continue PRN Lorazepam #History of esophageal varices with subsequent GI bleed Patient recently admitted for this. Chemical DVT prophylaxis is therefore contraindicated in this patient. Will defer to day team to decide whether or not to initiate. -SCDs for now -Continue propanolol 20 mg p.o. at bedtime -Continue pantoprazole 40 mg p.o. twice daily -Continue sucralfate 1 g p.o. before meals at bedtime #Lethargy Continue methylphenidate 60 mg p.o. twice daily FENa:Regular Code Status:Full DVT PPX:SCDs PT/OT:Ordered Dispo:Aleja Chatman MD PGY 2, FCM This chart was completed utilizing [employer] voice recognition software. Grammatical errors, random word insertions, pronoun errors, and in complete sentences are an occasional consequence of the system. Any questions or concerns about the content, text, or information contained within the body of this dictation should be addressed directly to the physician for clarification. (2) Weakness: (3) Dehydration: (4) Hypomagnesemia: (5) Hypokalemia: (6) Ascites: (7) Hepatic encephalopathy: (8) Goals of care, counseling/discussion: (9) Alcohol abuse: (10) Depression: (11) JENNIFER (generalized anxiety disorder): (12) Chronic hepatitis C: (13) Chronic pain: (14) Metastatic cancer: (15) Cirrhosis of liver with ascites: (16) DVT prophylaxis: (17) Candidal UTI (urinary tract infection): History of Present Illness *Patient is sleeping, history largely obtained from patient's daughter at bedside* -From review of records from previous admissions, patient has previously stated her POA is both her and her daughter -Patient was previously full code and through discussion with her daughter this evening will remain that way. Patient is a 59-year-old female with a past medical history of alcohol abuse, tobacco abuse, COPD, generalized anxiety disorder, alcohol abuse, depression, chronic pain, active cancer of the liver and lungs question whether primary was hepatocellular or pulmonary, chronic anemia, history of esophageal varices, cirrhosis, history of hyperglycemia without evidence of underlying diabetes, recently discharged for a GI bleed secondary to esophageal varices in the setting of cirrhosis, who presents today for evaluation of malleus, malaise, abdominal pain, and subjective intermittent fever. Per report the patient has not been feeling well since her recent discharge for GI bleed. She was not acting herself, demonstrating malleus, sleeping all the time, confused, with worsening abdominal ascites. Approximately 2 weeks ago most of the symptoms resolved spontaneously without any clear explanation. They subsequently returned approximately a week later and have progressed. Family reports the patient has been complaining of low back pain, leg pain, increased abdominal fullness and tenderness, with ascites. The patient is becoming increasingly weak and unable to walk long distances in addition to being short of breath. The patient did report a history of suprapubic pain a day or 2 ago, and per the family the patient was lying in bed over the weekend writhing in pain. Additionally the patient has developed subjective fevers and chills approximately 2 days ago with associated cough which is chronic in nature. Patient endorses shortness of breath, denies nausea, vomiting, diarrhea, she has baseline incontinent, vision changes, hearing changes, motor changes, sensory changes, bleeding disorders, or other signs or symptoms of acute disseminated illness. Upon presentation to the emergency department she did report left calf pain, describing it as a charley horse to her daughters. In the emergency department routine labs were obtained and she was given DuoNebs, cefepime, magnesium was repleted, potassium was repleted she was given 2 L of fluid and an EKG was obtained demonstrating normal sinus rhythm with a prolonged QT of 519, chest x-ray was obtained which demonstrated no significant changes compared to prior study. Labs were pertinent for a white count of 7.45 hemoglobin of 9.6, platelet of 186, INR of 1.5, potassium of 2.9, bicarb of 34, glucose of 107, lactate of 2.1 with a negative procalcitonin, magnesium of 1.6 AST of 48 urine with no signs of obvious infection however budding yeast present negative for influenza A and negative for influenza B. Given the patient's immunocompromised state, and complex past medical history the hospital service was consulted for admission for evaluation and management of her back pain, abdominal pain and fever. Through conversation with the patient's family it seems as if goals of care have not been clearly addressed with the patient and her family, there is no POLST form, there is no living will, power of associate attorney has been identified, CODE STATUS is dynamic, and the patient and her family members are unclear of the ulysses efits or risks of chemotherapy. Therefore we will request palliative care's assistance in clarifying some of these complex end-of-life decisions while this patient is hospitalized. Primary Care Provider: Julian Padilla DO Allergies Allergy/AdvReac Type Severity Reaction Status Date / Time clarithromycin Allergy Unknown rash, Verified 08/24/19 17:43 nausea Macrolide Antibiotics Allergy Unknown Verified 08/24/19 17:43 Macrolide Immunosuppressant Allergy Unknown Verified 08/24/19 17:43 Sulfa (Sulfonamide Allergy Unknown rash Verified 08/24/19 17:43 Antibiotics) trimethoprim Allergy Unknown Rash Verified 08/24/19 17:43 amoxicillin AdvReac Intermediate nausea, Verified 08/24/19 17:43 diarrhea clavulanic acid AdvReac Intermediate nausea, Verified 08/24/19 17:43 diarrhea cefuroxime AdvReac Unknown nausea, Verified 08/24/19 17:43 diarrhea doxycycline AdvReac Unknown nausea, Verified 08/24/19 17:43 diarrhea morphine AdvReac Unknown nausea, Verified 08/24/19 17:43 vomiting Home Medications Home Medications Medication Instructions Recorded Confirmed Type furosemide 40 mg tablet 20 mg PO BID 05/06/19 08/24/19 History metoclopramide HCl 10 mg 5 mg PO QID tab 05/06/19 08/24/19 History disintegrating tablet rifaximin 550 mg tablet 550 mg PO BID 05/06/19 08/24/19 History spironolactone 50 mg tablet 50 mg PO DAILY 05/06/19 08/24/19 History albuterol sulfate [Ventolin HFA] 2 puff INHALATION Q4H PRN 06/20/19 08/24/19 History budesonide-formoterol [Symbicort] 2 puff INHALATION BID 06/20/19 08/24/19 History lorazepam 0.5 mg PO UD PRN 06/20/19 08/24/19 History propranolol 20 mg PO HS 06/20/19 08/24/19 History fentanyl 25 mcg TRANSDERMAL Q3D #1 ea 07/01/19 08/24/19 Rx lactulose 20 gm PO TID #1500 ml 07/01/19 08/24/19 Rx pantoprazole 40 mg PO BID #60 tab 07/01/19 08/24/19 Rx sucralfate 1 gm PO ACHS #420 ml 07/01/19 08/24/19 Rx methylphenidate HCl 60 mg PO BID 08/24/19 08/24/19 History potassium gluconate 500 mg PO DAILY 08/24/19 08/24/19 History Past Med/Surg History Medical History Acute blood loss anemia Alcohol abuse Asthma Chronic hepatitis C Chronic pain Chronic pancreatitis Cirrhosis of liver with ascites COPD (chronic obstructive pulmonary disease) Depression Esophageal varices JENNIFER (generalized anxiety disorder) GI bleed Goals of care, counseling/discussion Hypertension Metabolic encephalopathy Metastatic cancer Osteoporosis Surgical History History of back surgery History of bronchoscopy History of History of cataract surgery History of cholecystectomy History of ERCP History of hip surgery History of surgery of liver History of tracheostomy Social History Preferred Language: Japanese Communication Ability: Effective Mothers Helper Required: No Beliefs That Will Affect Care: None marital status: Current Living Situation: Spouse Feels Safe at Home: Yes Smoking Status: Current every day smoker Tobacco Type: cigarettes ; Cigarettes Per Day: 20 ; Tobacco Cessation Education Requested by Patient: No Hx Alcohol Use: No (quit in jun) Hx Substance Use: No Review of Systems Review of Systems: All systems reviewed & are unremarkable except as noted in HPI & below Physical Exam Physical Exam: General: Elderly female lying in bed in no acute distress HEENT: Normocephalic atraumatic Neck: Normal to visual inspection, trachea midline, did not appreciate significant JVD Cardiac: Regular rate and rhythm, I did not appreciate any murmurs rubs or gallops, normal S1, normal S2, positive calf tenderness, positive pedal edema Respiratory: Wheezes throughout all lung wilkerson otherwise no significant rhonchi or rales, symmetrical chest expansion, no increased work of breathing GI: Bowel sounds present, grossly distended, tender to palpation, no rebound, no guarding, questionable hernia present Neuro: Unable to assess as patient was sleeping Psych: Unable to assess as patient was sleeping Results & Data Vital Signs (Past 12 Hours) Vital Signs Temp Pulse Pulse Resp BP BP Pulse Ox 08/24/19 21:30 87 21 98/59 L 08/24/19 21:00 84 17 93/63 L 08/24/19 20:30 85 21 96/59 L 08/24/19 20:03 82 18 08/24/19 20:02 85 20 107/53 L 91 08/24/19 20:01 82 18 80/54 L 08/24/19 20:00 81 19 80/51 L 08/24/19 19:31 83 19 08/24/19 19:30 84 21 99/55 L 08/24/19 19:09 86 18 08/24/19 19:08 87 19 120/78 08/24/19 18:24 86 18 106/61 97 08/24/19 17:44 84 20 129/72 96 08/24/19 17:41 87 18 97 08/24/19 17:08 85 98 08/24/19 16:34 36.4 C L 85 16 118/69 98 Laboratory Results 08/24/19 08/24/19 08/24/19 Range/Units 20:36 19:09 18:04 WBC (4.8-10.8) K/uL RBC (4.2-5.4) M/uL Hgb (12.0-16.0) g/dL Hct (37-47) % MCV (80-100) fL MCH (25-34) pg MCHC (32-36) g/dL RDW Std Deviation (36.4-46.3) fL RDW Coeff of Rashi (11.5-14.5) % Plt Count (130-400) K/uL MPV (7.4-10.4) fL Immature Gran % (Auto) % Neut % (Auto) % Lymph % (Auto) % [place] % (Auto) % Eos % (Auto) % Baso % (Auto) % Immature Gran # (Auto) (0.00-0.02) K/uL Neut # (Auto) (1.4-6.5) K/uL Lymph # (Auto) (1.2-3.4) K/uL [place] # (Auto) (0.11-0.59) K/uL Eos # (Auto) (0-0.5) K/uL Baso # (Auto) (0-0.2) K/uL Polychromasia Hypochromasia Target Cells PT (9.0-12.0) Seconds INR (0.9-1.1) APTT (21.0-31.0) Seconds PTT Ratio Sodium (136-145) mmol/L Potassium (3.5-5.1) mmol/L Chloride (98-107) mmol/L Carbon Dioxide (21-32) mmol/L Anion Gap (3-11) BUN (7-18) mg/dl Creatinine (0.6-1.2) mg/dl Est Cr Clr Drug Dosing Est GFR ( Amer) Est GFR (Non-Af Amer) BUN/Creatinine Ratio (10-20) Glucose (70-99) mg/dl Lactate 2.1 H* (0.4-2.0) mmol/L Calcium (8.5-10.1) mg/dl Magnesium (1.8-2.4) mg/dl Total Bilirubin (0.2-1) mg/dl AST (15-37) U/L ALT (12-78) U/L Alkaline Phosphatase (45-117) U/L Ammonia 19.1 (11-32) umol/L Total Protein (6.4-8.2) gm/dl Albumin (3.4-5.0) gm/dl Globulin (2.5-4.0) gm/dl Albumin/Globulin Ratio (0.9-2) Procalcitonin (0-0.5) ng/ml Urine Color Dark Yellow Urine Appearance Clear (Clear) Urine pH 5.5 (4.5-7.5) Ur Specific [place] 1.021 (1.000-1.030) Urine Protein Negative (Negative) Urine Glucose (UA) Negative (Negative) Urine Ketones Trace H (Negative) Urine Blood Negative (Negative) Urine Nitrite Negative (Negative) Urine Bilirubin 1+ H (Negative) Urine Urobilinogen Negative (Negative) Ur Leukocyte Esterase 1+ H (Negative) Urine WBC (Auto) 1-5 (0-5) /hpf Urine RBC (Auto) 0-4 (0-4) /hpf U Hyaline Cast (Auto) >30 H (0-5) /lpf U Epithel Cells (Auto) >30 H (0-5) /lpf Urine Bacteria (Auto) Negative (Negative) Urine Crystals Calcium Oxalate A (None Prsent) Calcium Oxalate Crystal Present A (None Prsent) Urine Yeast Budding A (None Prsent) Influenza Type A (PCR) (Neg) Influenza Type B (PCR) (Neg) 08/24/19 08/24/19 08/24/19 Range/Units 18:04 17:45 17:05 WBC (4.8-10.8) K/uL RBC (4.2-5.4) M/uL Hgb (12.0-16.0) g/dL Hct (37-47) % MCV (80-100) fL MCH (25-34) pg MCHC (32-36) g/dL RDW Std Deviation (36.4-46.3) fL RDW Coeff of Rashi (11.5-14.5) % Plt Count (130-400) K/uL MPV (7.4-10.4) fL Immature Gran % (Auto) % Neut % (Auto) % Lymph % (Auto) % [place] % (Auto) % Eos % (Auto) % Baso % (Auto) % Immature Gran # (Auto) (0.00-0.02) K/uL Neut # (Auto) (1.4-6.5) K/uL Lymph # (Auto) (1.2-3.4) K/uL [place] # (Auto) (0.11-0.59) K/uL Eos # (Auto) (0-0.5) K/uL Baso # (Auto) (0-0.2) K/uL Polychromasia Hypochromasia Target Cells PT (9.0-12.0) Seconds INR (0.9-1.1) APTT (21.0-31.0) Seconds PTT Ratio Sodium (136-145) mmol/L Potassium (3.5-5.1) mmol/L Chloride (98-107) mmol/L Carbon Dioxide (21-32) mmol/L Anion Gap (3-11) BUN (7-18) mg/dl Creatinine (0.6-1.2) mg/dl Est Cr Clr Drug Dosing Est GFR ( Amer) Est GFR (Non-Af Amer) BUN/Creatinine Ratio (10-20) Glucose (70-99) mg/dl Lactate 2.9 H* (0.4-2.0) mmol/L Calcium (8.5-10.1) mg/dl Magnesium (1.8-2.4) mg/dl Total Bilirubin (0.2-1) mg/dl AST (15-37) U/L ALT (12-78) U/L Alkaline Phosphatase (45-117) U/L Ammonia (11-32) umol/L Total Protein (6.4-8.2) gm/dl Albumin (3.4-5.0) gm/dl Globulin (2.5-4.0) gm/dl Albumin/Globulin Ratio (0.9-2) Procalcitonin 0.50 (0-0.5) ng/ml Urine Color Urine Appearance (Clear) Urine pH (4.5-7.5) Ur Specific [place] (1.000-1.030) Urine Protein (Negative) Urine Glucose (UA) (Negative) Urine Ketones (Negative) Urine Blood (Negative) Urine Nitrite (Negative) Urine Bilirubin (Negative) Urine Urobilinogen (Negative) Ur Leukocyte Esterase (Negative) Urine WBC (Auto) (0-5) /hpf Urine RBC (Auto) (0-4) /hpf U Hyaline Cast (Auto) (0-5) /lpf U Epithel Cells (Auto) (0-5) /lpf Urine Bacteria (Auto) (Negative) Urine Crystals (None Prsent) Calcium Oxalate Crystal (None Prsent) Urine Yeast (None Prsent) Influenza Type A (PCR) Neg for Influ A (Neg) Influenza Type B (PCR) Neg for Influ B (Neg) 08/24/19 08/24/19 08/24/19 Range/Units 17:05 17:05 17:05 WBC 7.54 (4.8-10.8) K/uL RBC 3.55 L (4.2-5.4) M/uL Hgb 9.6 L (12.0-16.0) g/dL Hct 29.5 L (37-47) % MCV 83.1 (80-100) fL MCH 27.0 (25-34) pg MCHC 32.5 (32-36) g/dL RDW Std Deviation 70.7 H (36.4-46.3) fL RDW Coeff of Rashi 24.2 H (11.5-14.5) % Plt Count 186 (130-400) K/uL MPV 10.8 H (7.4-10.4) fL Immature Gran % (Auto) 0.3 % Neut % (Auto) 67.5 % Lymph % (Auto) 17.2 % [place] % (Auto) 11.4 % Eos % (Auto) 2.3 % Baso % (Auto) 1.3 % Immature Gran # (Auto) 0.02 (0.00-0.02) K/uL Neut # (Auto) 5.09 (1.4-6.5) K/uL Lymph # (Auto) 1.30 (1.2-3.4) K/uL [place] # (Auto) 0.86 H (0.11-0.59) K/uL Eos # (Auto) 0.17 (0-0.5) K/uL Baso # (Auto) 0.10 (0-0.2) K/uL Polychromasia 1+ Hypochromasia Present Target Cells 1+ PT 15.0 H (9.0-12.0) Seconds INR 1.5 H (0.9-1.1) APTT 30.0 (21.0-31.0) Seconds PTT Ratio 1.1 Sodium 136 (136-145) mmol/L Potassium 2.9 L (3.5-5.1) mmol/L Chloride 98 (98-107) mmol/L Carbon Dioxide 34 H (21-32) mmol/L Anion Gap 4.0 (3-11) BUN 16 (7-18) mg/dl Creatinine 1.11 (0.6-1.2) mg/dl Est Cr Clr Drug Dosing Not Reportable Est GFR ( Amer) 62.1 Est GFR (Non-Af Amer) 53.6 BUN/Creatinine Ratio 14.4 (10-20) Glucose 107 H (70-99) mg/dl Lactate (0.4-2.0) mmol/L Calcium 8.1 L (8.5-10.1) mg/dl Magnesium 1.6 L (1.8-2.4) mg/dl Total Bilirubin 1.2 H (0.2-1) mg/dl AST 48 H (15-37) U/L ALT 23 (12-78) U/L Alkaline Phosphatase 156 H (45-117) U/L Ammonia (11-32) umol/L Total Protein 7.4 (6.4-8.2) gm/dl Albumin 1.8 L (3.4-5.0) gm/dl Globulin 5.6 H (2.5-4.0) gm/dl Albumin/Globulin Ratio 0.3 L (0.9-2) Procalcitonin (0-0.5) ng/ml Urine Color Urine Appearance (Clear) Urine pH (4.5-7.5) Ur Specific [place] (1.000-1.030) Urine Protein (Negative) Urine Glucose (UA) (Negative) Urine Ketones (Negative) Urine Blood (Negative) Urine Nitrite (Negative) Urine Bilirubin (Negative) Urine Urobilinogen (Negative) Ur Leukocyte Esterase (Negative) Urine WBC (Auto) (0-5) /hpf Urine RBC (Auto) (0-4) /hpf U Hyaline Cast (Auto) (0-5) /lpf U Epithel Cells (Auto) (0-5) /lpf Urine Bacteria (Auto) (Negative) Urine Crystals (None Prsent) Calcium Oxalate Crystal (None Prsent) Urine Yeast (None Prsent) Influenza Type A (PCR) (Neg) Influenza Type B (PCR) (Neg) Code Status & VTE Plan Code Status Full VTE Prophylaxis Plan VTE Prophylaxis will be ordered: Yes Supervising Physician Co-Signing Physician Notes Attending addendum: I have physically seen this patient, have supervised the medical residents activities, and agree with the H&P unless as otherwise noted. Assessment and Plan: Fever and immunocompromised state- Treat empirically for peritonitis with cefepime 2 g IV every 12 hours and vancomycin IV. Replace potassium and magnesium with IV supplementation, and then follow laboratories. Repeating elevated lactate of 2.9. Hypoalbuminemia- replace with IV albumin to help with third spacing. Metastatic cancer-consult oncology and palliative care. Alcohol abuse- AWSS protocol. Contributing significantly to hypoalbuminemia and potential for above. Banana bag now, then replacement orally for thiamine, folic acid and Nephrocaps. Remainder orders and notations as noted. Resident Activity Tracking Resident Involvement: Resident Care Provided Care Provided: Adult Hospital Medicine (1) Chronic pain Chronic pain type: chronic pain syndrome Qualified Code(s): G89.4 - Chronic pain syndrome (2) Ascites Ascites type: other type Qualified Code(s): R18.8 - Other ascites (3) Depression Depression Type: other depression Qualified Code(s): F32.89 - Other specified depressive episodes (4) Chronic hepatitis C Hepatic coma status: with hepatic coma Qualified Code(s): B18.2 - Chronic viral hepatitis C (5) Cirrhosis of liver with ascites Hepatic cirrhosis type: alcoholic cirrhosis Qualified Code(s): K70.31 - Alcoholic cirrhosis of liver with ascites
--- NOTE | 2019-08-24 23:04 | Ultrasound Report ---
BILATERAL LOWER EXTREMITY VENOUS DOPPLER CLINICAL HISTORY: LLE PAIN/active Cancer COMPARISON STUDY: No previous studies for comparison. TECHNIQUE: Sonography of the deep venous system of the bilateral lower extremities was performed. Co mpression and augmentation were evaluated. FINDINGS: The bilateral common femoral, superficial femoral and popliteal veins were compressible. A ugmentation was normal. Flow was shown within the deep calf vessels. IMPRESSION: No evidence of deep venous thrombus within the bilateral lower extremities. ACT 112: Negative or not required by law. Electronically signed by: Alistair Daily M.D. 08/24/2019 11:02 PM
[2019-08-24] MEDS ORDERED: ALBUTEROL HFA 8 GM INHALER INH PRN (23:35)
[2019-08-24] MEDS ORDERED: LORazepam 1 MG TAB PO PRN (23:35)
[2019-08-24] MEDS ORDERED: CEFEPIME CONSULT ACTIVE PRN (23:35)
[2019-08-24] MEDS ORDERED: MULTI-VITAMIN INFUSION 10 ML, THIAMINE HCL 100 MG, FOLIC ACID 1 MG in SODIUM CHLORIDE 0... IV ONE (23:35)
[2019-08-24] MEDS: ALBUT/IPRATROP 3MG/0.5MG NEB 3 ML VIAL NEB SCH (23:56)
[2019-08-25] MEDS: FUROSEMIDE 20 MG TAB PO SCH ×3 (00:44→16:32)
[2019-08-25] MEDS: NICOTINE 14 MG/24 HR PATCH TD SCH (00:44)
[2019-08-25] MEDS: POTASSIUM CHLORIDE 20 MEQ TABCR PO SCH ×2 (00:44→01:15)
[2019-08-25] MEDS: POLYETHYLENE (MIRALAX) 17 GM PACK PO SCH ×3 (00:45→20:01)
[2019-08-25] MEDS: RIFAXIMIN 550 MG TABLET PO SCH ×3 (00:45→21:29)
[2019-08-25] MEDS: PANTOprazole 40 MG TAB PO SCH ×3 (00:45→21:29)
[2019-08-25] MEDS: CHECK FENTANYL PATCH PLACEMENT SCH ×3 (01:08→15:28)
[2019-08-25] MEDS: HYDROmorphone INJ 1 MG/ML SYRINGE IV PRN ×3 (01:14→18:39)
[2019-08-25] MEDS ORDERED: IOVERSOL 100ml IV PRN (01:16)
[2019-08-25] MEDS: LACTATED RINGER'S 1,000 ML IV SCH ×3 (03:22→20:00)
[2019-08-25] MEDS: ALBUT/IPRATROP 3MG/0.5MG NEB 3 ML VIAL NEB SCH ×6 (03:42→23:10)
[2019-08-25] MEDS ORDERED: CEFEPIME 1,000 MG in SYRINGE 0 ML IV SCH (06:00)
[2019-08-25] MEDS: BUDESONIDE 0.5 MG/2 ML VIAL (PULMICORT) NEB SCH ×2 (06:49→19:53)
[2019-08-25] MEDS: FLUTICASONE/VILANTEROL 200/25MCG 14 PUFFS/INHALER INH SCH (07:34)
[2019-08-25] MEDS: SPIRONOLACTONE 25 MG TAB PO SCH (07:35)
[2019-08-25] MEDS: SUCRALFATE 1 GM/10 ML UDC PO SCH ×4 (07:35→21:29)
[2019-08-25] MEDS: LACTULOSE SYRUP 20 GM/30 ML UDC PO SCH ×3 (07:35→20:01)
[2019-08-25] MEDS: UMECLIDINIUM BROMIDE 62.5MCG/BLISTER 7 PUFFS/INHALER INH SCH (07:35)
[2019-08-25] MEDS: METOCLOPRAMIDE HCL 5 MG TABLET PO SCH ×4 (07:36→21:29)
--- NOTE | 2019-08-25 07:57 | CT Scan Report ---
ABDOMEN AND PELVIS CT WITH IV AND ORAL CONTRAST CT DOSE: 526.63 mGy.cm HISTORY: ascites, cancer TECHNIQUE: Multiaxial CT images of the abdomen and pelvis were performed following the use of intrave nous and oral contrast. A dose lowering technique was utilized adhering to the principles of ALARA. COMPARISON STUDY: None. FINDINGS: Small left pleural effusion. Multiple left-sided pleural nodules consistent with metastatic disease. Some of these may demonstrate necrosis or loculated pleural fluid. Dominant lesion within t he left anterior pleural space measures 4.3 cm and results in a small focal erosion of the adjacent r ib. Internal fixation of an old, healed left femoral neck fracture. Posterior decompression fusion wi thin the lumbar spine. There is an L1 vertebroplasty. Nodular contour to the liver suggestive of cirr hosis. There are a few hypodense masses within the right hepatic dome with the largest measuring 4.6 cm. These favor metastatic lesions. The spleen is mildly enlarged. The main portal vein is patent. Th e adrenal glands and pancreas are unremarkable. Distended common bile duct measuring up to 14 mm. Thi s could be due to the patient's postcholecystectomy state. No hydronephrosis. A few small hypodense l esions within the kidneys. These favor cysts. No retroperitoneal lymphadenopathy. Moderate to large a mount of ascites. This could be due to the patient's cirrhosis. Questionable subtle nodularity along the peritoneal lining of the deep pelvis and within the left upper quadrant. Therefore, this likely r epresents peritoneal carcinomatosis which could also result in the ascites. The uterus is surgically absent. Normal bladder. No bowel wall thickening or obstruction. Moderate stool within the colon. Nor mal appendix. Normal caliber abdominal aorta. IMPRESSION: 1. Small left pleural effusion with multiple left-sided pleural nodules consistent with metastatic di sease. The dominant left anterior lesion results in a small focal erosion of the adjacent rib. 2. Moderate to large amount of ascites which could be due to combination of the patient's cirrhosis a nd suspected peritoneal carcinomatosis. 3. Hepatic metastatic disease. 4. No bowel wall thickening or obstruction. 5. Additional findings as described above. ACT 112: Negative or not required by law. Electronically signed by: Greg White M.D. 08/25/2019 7:55 AM
[2019-08-25] MEDS: FLUCONAZOLE 100 MG TAB PO SCH (08:13)
--- NOTE | 2019-08-25 08:51 | Oncology Consultation ---
Date of Consultation August 25, 2019 Assessment & Plan (1) Immunocompromised: Her symptoms are vague and she has no obvious localizing signs of infection. Still, between her liver disease and her advanced malignancy, her immune system is not normal so she might be manifesting an infection without more typical septic symptoms. Cultures are pending. I also would consider a paracentesis, both for symptomatic relief and to screen for SBP. Another possible explanation would be constitutional symptoms of malignancy. Present on Admission?: Yes (2) Anemia: Ms. España has a moderate, normocytic anemia. She has a variety of reasons to be anemic, including cirrhosis, malignancy, chronic disease, and a relatively recent history of GI bleeding. Her counts are actually on the higher end of the range they've been in since May. Still, I would screen her for reversible causes of anemia, like vitamin and iron deficiencies. Present on Admission?: Yes History of Present Illness Attending Physician: Rich Vega, DO History of Present Illness Ms. 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 She follows with my partner Dr. Delacruz and is due to begin chemotherapy in the next week or so. She comes to the ER with complaints of subjective fevers, chills, and fatigue. She has not been febrile since arrival here. She complains of some pain in her abdomen, particularly in her RUQ/flank area. That pain is chronic but may be somewhat worse. She complains of some burning pain in her left buttock and hip that radiates down her leg. She was treated for a cellulitis on her right ankle and has a wound there that she thinks has gotten a little worse. She denies any dysuria, though her urine is often dark and concentrated. She is chronically short of breath but not acutely so. She has no URI symptoms or sick contacts. Allergies Allergy/AdvReac Type Severity Reaction Status Date / Time clarithromycin Allergy Unknown rash, Verified 08/24/19 17:43 nausea Macrolide Antibiotics Allergy Unknown Verified 08/24/19 17:43 Macrolide Immunosuppressant Allergy Unknown Verified 08/24/19 17:43 Sulfa (Sulfonamide Allergy Unknown rash Verified 08/24/19 17:43 Antibiotics) trimethoprim Allergy Unknown Rash Verified 08/24/19 17:43 amoxicillin AdvReac Intermediate nausea, Verified 08/24/19 17:43 diarrhea clavulanic acid AdvReac Intermediate nausea, Verified 08/24/19 17:43 diarrhea cefuroxime AdvReac Unknown nausea, Verified 08/24/19 17:43 diarrhea doxycycline AdvReac Unknown nausea, Verified 08/24/19 17:43 diarrhea morphine AdvReac Unknown nausea, Verified 08/24/19 17:43 vomiting Home Medications Home Medications Medication Instructions Recorded Confirmed Type furosemide 40 mg tablet 20 mg PO BID 05/06/19 08/24/19 History metoclopramide HCl 10 mg 5 mg PO QID tab 05/06/19 08/24/19 History disintegrating tablet rifaximin 550 mg tablet 550 mg PO BID 05/06/19 08/24/19 History spironolactone 50 mg tablet 50 mg PO DAILY 05/06/19 08/24/19 History albuterol sulfate [Ventolin HFA] 2 puff INHALATION Q4H PRN 06/20/19 08/24/19 History budesonide-formoterol [Symbicort] 2 puff INHALATION BID 06/20/19 08/24/19 History lorazepam 0.5 mg PO UD PRN 06/20/19 08/24/19 History propranolol 20 mg PO HS 06/20/19 08/24/19 History fentanyl 25 mcg TRANSDERMAL Q3D #1 ea 07/01/19 08/24/19 Rx lactulose 20 gm PO TID #1500 ml 07/01/19 08/24/19 Rx pantoprazole 40 mg PO BID #60 tab 07/01/19 08/24/19 Rx sucralfate 1 gm PO ACHS #420 ml 07/01/19 08/24/19 Rx methylphenidate HCl 60 mg PO BID 08/24/19 08/24/19 History potassium gluconate 500 mg PO DAILY 08/24/19 08/24/19 History Patient History Medical History Acute blood loss anemia Alcohol abuse Asthma Chronic hepatitis C Chronic pain Chronic pancreatitis Cirrhosis of liver with ascites COPD (chronic obstructive pulmonary disease) Depression Esophageal varices JENNIFER (generalized anxiety disorder) GI bleed Goals of care, counseling/discussion Hypertension Metabolic encephalopathy Metastatic cancer Osteoporosis Surgical History History of back surgery History of bronchoscopy History of History of cataract surgery History of cholecystectomy History of ERCP History of hip surgery History of surgery of liver History of tracheostomy Social History Preferred Language: Welsh Communication Ability: Effective Cmm Programmer Required: No Beliefs That Will Affect Care: None Current Living Situation: Spouse Feels Safe at Home: Yes Smoking Status: Current every day smoker Tobacco Type: cigarettes ; Cigarettes Per Day: 20 ; Tobacco Cessation Education Requested by Patient: No Hx Alcohol Use: No (quit in jun) Hx Substance Use: No Review of Systems Review of Systems: All systems reviewed & are unremarkable except as noted in HPI & below Physical Exam Constitutional: + ill appearing (chronically) and comfortable; no acute distress Eyes: + anicteric sclerae ENMT: external ear and nose normal, oropharynx normal Respiratory: no labored breathing Auscultation: + wheezes (in all wilkerson ) Cardiovascular: Rate/Rhythm: regular rate and regular rhythm Extremities: + pedal edema (1+ pitting edema in both ankles, without redness, warmth, or tenderness) Gastrointestinal (Abdomen): Inspection/Auscultation: + abdomen distended and normal bowel sounds Percussion/Palpation: + abdomen tender (mildly, most prominently in the RUQ) and abdomen soft Skin: no rashes, warm and dry Psychiatric: A+Ox3, euthymic affect Results & Data Vital Signs (Past 12 Hours) Vital Signs Temp Pulse Pulse Pulse Pulse Resp BP 08/25/19 07:07 36.8 C 90 16 08/25/19 06:49 79 16 08/25/19 03:42 77 16 08/24/19 23:56 84 16 08/24/19 23:55 36.6 C 78 18 08/24/19 23:38 36.7 C 85 18 08/24/19 22:31 83 26 H 08/24/19 22:30 83 26 H 103/60 08/24/19 22:20 82 19 08/24/19 22:10 82 25 H 08/24/19 22:01 86 16 08/24/19 22:00 84 24 118/76 08/24/19 21:50 86 24 08/24/19 21:40 85 23 08/24/19 21:30 87 21 98/59 L 08/24/19 21:00 84 17 93/63 L BP BP Pulse Ox 08/25/19 07:07 111/75 96 08/25/19 06:49 93 08/25/19 03:42 94 08/24/19 23:56 93 08/24/19 23:55 123/76 96 08/24/19 23:38 123/74 93 08/24/19 22:31 08/24/19 22:30 08/24/19 22:20 08/24/19 22:10 08/24/19 22:01 08/24/19 22:00 08/24/19 21:50 08/24/19 21:40 08/24/19 21:30 08/24/19 21:00 Laboratory Results Abnormal lab results 08/24/19 08/24/19 08/24/19 Range/Units 17:05 17:05 17:05 RBC 3.55 L (4.2-5.4) M/uL Hgb 9.6 L (12.0-16.0) g/dL Hct 29.5 L (37-47) % RDW Std Deviation 70.7 H (36.4-46.3) fL RDW Coeff of Rashi 24.2 H (11.5-14.5) % MPV 10.8 H (7.4-10.4) fL [place] # (Auto) 0.86 H (0.11-0.59) K/uL PT 15.0 H (9.0-12.0) Seconds INR 1.5 H (0.9-1.1) Potassium 2.9 L (3.5-5.1) mmol/L Carbon Dioxide 34 H (21-32) mmol/L Glucose 107 H (70-99) mg/dl Lactate (0.4-2.0) mmol/L Calcium 8.1 L (8.5-10.1) mg/dl Magnesium 1.6 L (1.8-2.4) mg/dl Total Bilirubin 1.2 H (0.2-1) mg/dl AST 48 H (15-37) U/L Alkaline Phosphatase 156 H (45-117) U/L Albumin 1.8 L (3.4-5.0) gm/dl Globulin 5.6 H (2.5-4.0) gm/dl Albumin/Globulin Ratio 0.3 L (0.9-2) Urine Ketones (Negative) Urine Bilirubin (Negative) Ur Leukocyte Esterase (Negative) U Hyaline Cast (Auto) (0-5) /lpf U Epithel Cells (Auto) (0-5) /lpf Urine Crystals (None Prsent) Calcium Oxalate Crystal (None Prsent) Urine Yeast (None Prsent) 08/24/19 08/24/19 08/24/19 Range/Units 18:04 19:09 20:36 RBC (4.2-5.4) M/uL Hgb (12.0-16.0) g/dL Hct (37-47) % RDW Std Deviation (36.4-46.3) fL RDW Coeff of Rashi (11.5-14.5) % MPV (7.4-10.4) fL [place] # (Auto) (0.11-0.59) K/uL PT (9.0-12.0) Seconds INR (0.9-1.1) Potassium (3.5-5.1) mmol/L Carbon Dioxide (21-32) mmol/L Glucose (70-99) mg/dl Lactate 2.9 H* 2.1 H* (0.4-2.0) mmol/L Calcium (8.5-10.1) mg/dl Magnesium (1.8-2.4) mg/dl Total Bilirubin (0.2-1) mg/dl AST (15-37) U/L Alkaline Phosphatase (45-117) U/L Albumin (3.4-5.0) gm/dl Globulin (2.5-4.0) gm/dl Albumin/Globulin Ratio (0.9-2) Urine Ketones Trace H (Negative) Urine Bilirubin 1+ H (Negative) Ur Leukocyte Esterase 1+ H (Negative) U Hyaline Cast (Auto) >30 H (0-5) /lpf U Epithel Cells (Auto) >30 H (0-5) /lpf Urine Crystals Calcium Oxalate A (None Prsent) Calcium Oxalate Crystal Present A (None Prsent) Urine Yeast Budding A (None Prsent) (1) Anemia Anemia type: unspecified type Qualified Code(s): D64.9 - Anemia, unspecified
[2019-08-25] MEDS ORDERED: NON-FORMULARY MEDICATION (Potassium Gluconate 500 MG) PO SCH (09:00)
[2019-08-25 09:01] LABS: Basophils # (auto) 0.11 K/uL (0-0.2); Basophils % (auto) 1.4 %; Eosinophils % (auto) 2.5 %; Hematocrit (blood only) 30.1 % (37-47); Hemoglobin 9.8 g/dL (12.0-16.0); Immature Granulocytes # (auto) 0.02 K/uL (0.00-0.02); Immature Granulocytes % (auto) 0.2 %; Lymphocytes # (auto) 1.34 K/uL (1.2-3.4); Lymphocytes % (auto) 16.7 %; Mean Corpuscular Hemoglobin 27.2 pg (25-34); Mean Corpuscular Hgb Conc 32.6 g/dL (32-36); Mean Corpuscular Volume 83.6 fL (80-100); Mean Platelet Volume 11.2 fL (7.4-10.4); Monocytes # (auto) 0.98 K/uL (0.11-0.59); Monocytes % (auto) 12.2 %; Neutrophils # (auto) 5.37 K/uL (1.4-6.5); Platelet Count 207 K/uL (130-400); RDW Coefficient of Variation 24.7 % (11.5-14.5); RDW Standard Deviation 73.2 fL (36.4-46.3); White Blood Count 8.02 K/uL (4.8-10.8)
[2019-08-25 09:24] LABS: Anisocytosis Present; Echinocytes 1+; Hypochromasia Present; Polychromasia 1+; Target Cells 1+
[2019-08-25 09:33] LABS: Albumin Globulin Ratio 0.3 (0.9-2); Albumin Level 1.7 gm/dl (3.4-5.0); BUN Creatinine Ratio 15.5 (10-20); Bilirubin,Total 1.2 mg/dl (0.2-1); Calcium 8.1 mg/dl (8.5-10.1); Creatinine Clr Calc Pharmacy 51.1 ml/min; Est GFR (African American) 70.4; Est GFR (Non-African American) 60.8; Globulin 5.7 gm/dl (2.5-4.0); Potassium 3.4 mmol/L (3.5-5.1); Total Protein 7.4 gm/dl (6.4-8.2)
--- NOTE | 2019-08-25 10:36 | Electrocardiogram Report ---
Test Reason : Blood Pressure : / mmHG Vent. Rate : 087 BPM Atrial Rate : 087 BPM P-R Int : 150 ms QRS Dur : 076 ms QT Int : 432 ms P-R-T Axes : 081 066 055 degrees QTc Int : 519 ms Normal sinus rhythm Nonspecific ST abnormality Prolonged QT Abnormal ECG When compared with ECG of 24-JUN-2019 07:15, Nonspecific T wave abnormality now evident in Anterior leads Confirmed by Lefty Cortes ([id number]) on 08/25/2019 10:36:11 AM Referred By: REFERRED SELF Confirmed By:Lefty Cortes
[2019-08-25] MEDS: CEFAZOLIN 2000MG 2,000 MG/15 ML SYR IV SCH ×2 (11:24→20:00)
[2019-08-25] MEDS ORDERED: POTASSIUM CHLORIDE 20 MEQ TABCR PO ONE (11:30)
--- NOTE | 2019-08-25 13:18 | Hospitalist Progress Note ---
Date of Service August 25, 2019 Assessment & Plan (1) Immunocompromised: - Generalized malaise/fatigue, fever/chills, abd pain, low back pain at home prior to admission. - Recently diagnosed cancer, metastatic, with unknown primary -- has not received any treatment to date. - Consider SBP vs. COPD exacerbation vs. UTI vs. underlying malignancy. - CT A/P with left pleural nodules c/w metastatic disease, mod to large ascites, suspected peritoneal carcinomatosis, hepatic metastatic disease. - CXR negative for PNA. BC are pending. - U/a +yeast, UC pending -- does have vaginal candidiasis, currently receiving treatment. - LR at 80 cc/hr for IV fluid hydration. - Continue Cefazolin for empiric coverage pending infectious work up results. (2) Metastatic cancer: - CT A/P with left sided pleural nodules, mod to large ascites, suspected peritoneal carcinomatosis, hepatic metastatic disease. - S/p FNA of lung nodule -- did not indicate pt. had primary HCC, possibly related to squamous cell carcinoma. - Peritoneal fluid from 06/22 was negative for malignancy. - Follows with Dr. Delacruz from oncology; consulted onc as inpatient. - Was scheduled for port placement today, will need to be delayed. - Palliative consulted to discuss goals of care in setting of metastatic disease. (3) Goals of care, counseling/discussion: - As noted above. (4) Candidal UTI (urinary tract infection): - U/a +yeast, UC pending. - Likely has vaginal candidiasis with contamination of UC. - Receiving Fluconazole 200 mg q3days for treatment. (5) Vaginal candidiasis: - Receiving Fluconazole 200 mg q3d for treatment. (6) Chronic pain: - Acute on chronic pain -- related to malignancy vs. ascites. - Fentanyl patch 25 mcg. - Dilaudid 1 mg IV q2hr prn acute pain. (7) Alcohol abuse: - ETOH level was negative on admission. - Encourage discontinuation of ETOH at discharge. - [facility] protocol for withdrawal. - Received banana bag on admission. (8) Tobacco abuse: - Nicotine patch ordered. - Encourage tobacco cessation. (9) Ascites: - Mod to large ascites noted on CT A/P. - Will order paracentesis on 08/25 to rule out SBP and also for abd discomfort/cytology. - Currently receiving Cefazolin for empiric coverage of SBP. - Continue Lasix 20 mg BID, Spironolactone 50 mg daily as prescribed. (10) Cirrhosis of liver with ascites: - In setting of ETOH abuse. - Continue Propanolol 20 mg qhs, Rifaximin 550 mg BID, Aldactone 50 mg daily. (11) Chronic hepatitis C: - Continue home meds. (12) COPD (chronic obstructive pulmonary disease): - No evidence of acute exacerbation. - Duonebs q4hr scheduled, Incruse Ellipta qAM, Pulmicort BID, Breo Ellipta daily. (13) Depression: - Not currently on medications. (14) JENNIFER (generalized anxiety disorder): - Ativan prn. (15) Hepatic encephalopathy: - H/o; continue Lactulose 20 mg TID. - Ammonia level was WNL on admission. (16) Esophageal varices: - Continue Propanolol as prescribed. - H/o GI bleed -- continue PPI BID and Carafate ac/hs. (17) Anemia: - Possibly related to slow bleed in setting of varices. - Hgb baseline ~9-10. Not currently requiring transfusion support. - Will order iron panel, B12 and folate in the morning for further evaluation per onc recs. (18) Hypokalemia: - K level 3.4 -- ordered KCl 20 mEq PO. - Monitor levels daily. (19) Hypomagnesemia: - Did not order mag level today, will monitor on 3/4. (20) Severe protein-calorie malnutrition: - Alb level 1.7 in setting of metastatic disease. - Encourage diet with supplements. (21) DVT prophylaxis: - SCDs; hold pharmacologic ppx. Dispo: Med/surg for acute issues as noted above. Admission and Anticipated Discharge Date Admission Date: August 24, 2019 Subjective Pt. c/o abd pain and fullness related to ascites. She has dark colored urine, denies dysuria. C/o vaginal itching, similar to yeast infection. Has left hip/leg pain -- doppler was negative for DVT. Is having loose BMs in setting of lactulose. Review of Systems Review of Systems: All systems reviewed & are unremarkable except as noted in HPI & below Constitutional: + fatigue, + weakness and + anorexia; no fever and no chills Respiratory: no cough, no dyspnea and no dyspnea on exertion Cardiovascular: no chest pain, no palpitations and no edema Gastrointestinal: + abdominal pain, + bloating and + diarrhea/loose stools; no nausea, no vomiting and no constipation Genitourinary: no difficulty urinating Musculoskeletal: no back pain and no joint pain Integumentary: no non-healing lesions Physical Exam Physical Exam: General: Resting comfortably; ill appearing female, appears older than stated age. HEENT: NC/AT; PERRLA with EOMI; [place] conjunctiva, MMM. No erythema of posterior pharynx Neck: Supple and nontender Cardiac: RRR Lungs: CTA bilaterally Abdomen: Distended; Bowel normoactive X 4; Firm, non tender to palpation. Extremities: Warm. No edema present Neuro: No focal weakness Skin: No rash Results & Data ([facility]) Vital Signs (Past 12 Hours) Vital Signs Temp Pulse Pulse Pulse Resp BP Pulse Ox 08/25/19 11:41 87 18 93 08/25/19 07:07 36.8 C 90 16 111/75 96 08/25/19 06:49 79 16 93 08/25/19 03:42 77 16 94 Laboratory Results 08/25/19 08/25/19 08/24/19 Range/Units 08:43 08:43 22:24 WBC 8.02 (4.8-10.8) K/uL RBC 3.60 L (4.2-5.4) M/uL Hgb 9.8 L (12.0-16.0) g/dL Hct 30.1 L (37-47) % MCV 83.6 (80-100) fL MCH 27.2 (25-34) pg MCHC 32.6 (32-36) g/dL RDW Std Deviation 73.2 H (36.4-46.3) fL RDW Coeff of Rashi 24.7 H (11.5-14.5) % Plt Count 207 (130-400) K/uL MPV 11.2 H (7.4-10.4) fL Immature Gran % (Auto) 0.2 % Neut % (Auto) 67.0 % Lymph % (Auto) 16.7 % [place] % (Auto) 12.2 % Eos % (Auto) 2.5 % Baso % (Auto) 1.4 % Immature Gran # (Auto) 0.02 (0.00-0.02) K/uL Neut # (Auto) 5.37 (1.4-6.5) K/uL Lymph # (Auto) 1.34 (1.2-3.4) K/uL [place] # (Auto) 0.98 H (0.11-0.59) K/uL Eos # (Auto) 0.20 (0-0.5) K/uL Baso # (Auto) 0.11 (0-0.2) K/uL Polychromasia 1+ Hypochromasia Present Anisocytosis Present Target Cells 1+ Echinocytes 1+ PT (9.0-12.0) Seconds INR (0.9-1.1) APTT (21.0-31.0) Seconds PTT Ratio Sodium 137 (136-145) mmol/L Potassium 3.4 L D (3.5-5.1) mmol/L Chloride 102 (98-107) mmol/L Carbon Dioxide 29 (21-32) mmol/L Anion Gap 6.0 (3-11) BUN 16 (7-18) mg/dl Creatinine 1.00 (0.6-1.2) mg/dl Est Cr Clr Drug Dosing 51.1 Est GFR ( Amer) 70.4 Est GFR (Non-Af Amer) 60.8 BUN/Creatinine Ratio 15.5 (10-20) Glucose 100 H (70-99) mg/dl Lactate (0.4-2.0) mmol/L Calcium 8.1 L (8.5-10.1) mg/dl Magnesium (1.8-2.4) mg/dl Total Bilirubin 1.2 H (0.2-1) mg/dl AST 45 H (15-37) U/L ALT 22 (12-78) U/L Alkaline Phosphatase 150 H (45-117) U/L Ammonia (11-32) umol/L Total Protein 7.4 (6.4-8.2) gm/dl Albumin 1.7 L (3.4-5.0) gm/dl Globulin 5.7 H (2.5-4.0) gm/dl Albumin/Globulin Ratio 0.3 L (0.9-2) Procalcitonin (0-0.5) ng/ml Urine Color Urine Appearance (Clear) Urine pH (4.5-7.5) Ur Specific [place] (1.000-1.030) Urine Protein (Negative) Urine Glucose (UA) (Negative) Urine Ketones (Negative) Urine Blood (Negative) Urine Nitrite (Negative) Urine Bilirubin (Negative) Urine Urobilinogen (Negative) Ur Leukocyte Esterase (Negative) Urine WBC (Auto) (0-5) /hpf Urine RBC (Auto) (0-4) /hpf U Hyaline Cast (Auto) (0-5) /lpf U Epithel Cells (Auto) (0-5) /lpf Urine Bacteria (Auto) (Negative) Urine Crystals (None Prsent) Calcium Oxalate Crystal (None Prsent) Urine Yeast (None Prsent) Ethyl Alcohol mg/dL < 3.0 (0-3) mg/dl Influenza Type A (PCR) (Neg) Influenza Type B (PCR) (Neg) 08/24/19 08/24/19 08/24/19 Range/Units 20:36 19:09 18:04 WBC (4.8-10.8) K/uL RBC (4.2-5.4) M/uL Hgb (12.0-16.0) g/dL Hct (37-47) % MCV (80-100) fL MCH (25-34) pg MCHC (32-36) g/dL RDW Std Deviation (36.4-46.3) fL RDW Coeff of Rashi (11.5-14.5) % Plt Count (130-400) K/uL MPV (7.4-10.4) fL Immature Gran % (Auto) % Neut % (Auto) % Lymph % (Auto) % [place] % (Auto) % Eos % (Auto) % Baso % (Auto) % Immature Gran # (Auto) (0.00-0.02) K/uL Neut # (Auto) (1.4-6.5) K/uL Lymph # (Auto) (1.2-3.4) K/uL [place] # (Auto) (0.11-0.59) K/uL Eos # (Auto) (0-0.5) K/uL Baso # (Auto) (0-0.2) K/uL Polychromasia Hypochromasia Anisocytosis Target Cells Echinocytes PT (9.0-12.0) Seconds INR (0.9-1.1) APTT (21.0-31.0) Seconds PTT Ratio Sodium (136-145) mmol/L Potassium (3.5-5.1) mmol/L Chloride (98-107) mmol/L Carbon Dioxide (21-32) mmol/L Anion Gap (3-11) BUN (7-18) mg/dl Creatinine (0.6-1.2) mg/dl Est Cr Clr Drug Dosing Est GFR ( Amer) Est GFR (Non-Af Amer) BUN/Creatinine Ratio (10-20) Glucose (70-99) mg/dl Lactate 2.1 H* (0.4-2.0) mmol/L Calcium (8.5-10.1) mg/dl Magnesium (1.8-2.4) mg/dl Total Bilirubin (0.2-1) mg/dl AST (15-37) U/L ALT (12-78) U/L Alkaline Phosphatase (45-117) U/L Ammonia 19.1 (11-32) umol/L Total Protein (6.4-8.2) gm/dl Albumin (3.4-5.0) gm/dl Globulin (2.5-4.0) gm/dl Albumin/Globulin Ratio (0.9-2) Procalcitonin (0-0.5) ng/ml Urine Color Dark Yellow Urine Appearance Clear (Clear) Urine pH 5.5 (4.5-7.5) Ur Specific [place] 1.021 (1.000-1.030) Urine Protein Negative (Negative) Urine Glucose (UA) Negative (Negative) Urine Ketones Trace H (Negative) Urine Blood Negative (Negative) Urine Nitrite Negative (Negative) Urine Bilirubin 1+ H (Negative) Urine Urobilinogen Negative (Negative) Ur Leukocyte Esterase 1+ H (Negative) Urine WBC (Auto) 1-5 (0-5) /hpf Urine RBC (Auto) 0-4 (0-4) /hpf U Hyaline Cast (Auto) >30 H (0-5) /lpf U Epithel Cells (Auto) >30 H (0-5) /lpf Urine Bacteria (Auto) Negative (Negative) Urine Crystals Calcium Oxalate A (None Prsent) Calcium Oxalate Crystal Present A (None Prsent) Urine Yeast Budding A (None Prsent) Ethyl Alcohol mg/dL (0-3) mg/dl Influenza Type A (PCR) (Neg) Influenza Type B (PCR) (Neg) 08/24/19 08/24/19 08/24/19 Range/Units 18:04 17:45 17:05 WBC (4.8-10.8) K/uL RBC (4.2-5.4) M/uL Hgb (12.0-16.0) g/dL Hct (37-47) % MCV (80-100) fL MCH (25-34) pg MCHC (32-36) g/dL RDW Std Deviation (36.4-46.3) fL RDW Coeff of Rashi (11.5-14.5) % Plt Count (130-400) K/uL MPV (7.4-10.4) fL Immature Gran % (Auto) % Neut % (Auto) % Lymph % (Auto) % [place] % (Auto) % Eos % (Auto) % Baso % (Auto) % Immature Gran # (Auto) (0.00-0.02) K/uL Neut # (Auto) (1.4-6.5) K/uL Lymph # (Auto) (1.2-3.4) K/uL [place] # (Auto) (0.11-0.59) K/uL Eos # (Auto) (0-0.5) K/uL Baso # (Auto) (0-0.2) K/uL Polychromasia Hypochromasia Anisocytosis Target Cells Echinocytes PT (9.0-12.0) Seconds INR (0.9-1.1) APTT (21.0-31.0) Seconds PTT Ratio Sodium (136-145) mmol/L Potassium (3.5-5.1) mmol/L Chloride (98-107) mmol/L Carbon Dioxide (21-32) mmol/L Anion Gap (3-11) BUN (7-18) mg/dl Creatinine (0.6-1.2) mg/dl Est Cr Clr Drug Dosing Est GFR ( Amer) Est GFR (Non-Af Amer) BUN/Creatinine Ratio (10-20) Glucose (70-99) mg/dl Lactate 2.9 H* (0.4-2.0) mmol/L Calcium (8.5-10.1) mg/dl Magnesium (1.8-2.4) mg/dl Total Bilirubin (0.2-1) mg/dl AST (15-37) U/L ALT (12-78) U/L Alkaline Phosphatase (45-117) U/L Ammonia (11-32) umol/L Total Protein (6.4-8.2) gm/dl Albumin (3.4-5.0) gm/dl Globulin (2.5-4.0) gm/dl Albumin/Globulin Ratio (0.9-2) Procalcitonin 0.50 (0-0.5) ng/ml Urine Color Urine Appearance (Clear) Urine pH (4.5-7.5) Ur Specific [place] (1.000-1.030) Urine Protein (Negative) Urine Glucose (UA) (Negative) Urine Ketones (Negative) Urine Blood (Negative) Urine Nitrite (Negative) Urine Bilirubin (Negative) Urine Urobilinogen (Negative) Ur Leukocyte Esterase (Negative) Urine WBC (Auto) (0-5) /hpf Urine RBC (Auto) (0-4) /hpf U Hyaline Cast (Auto) (0-5) /lpf U Epithel Cells (Auto) (0-5) /lpf Urine Bacteria (Auto) (Negative) Urine Crystals (None Prsent) Calcium Oxalate Crystal (None Prsent) Urine Yeast (None Prsent) Ethyl Alcohol mg/dL (0-3) mg/dl Influenza Type A (PCR) Neg for Influ A (Neg) Influenza Type B (PCR) Neg for Influ B (Neg) 08/24/19 08/24/19 08/24/19 Range/Units 17:05 17:05 17:05 WBC 7.54 (4.8-10.8) K/uL RBC 3.55 L (4.2-5.4) M/uL Hgb 9.6 L (12.0-16.0) g/dL Hct 29.5 L (37-47) % MCV 83.1 (80-100) fL MCH 27.0 (25-34) pg MCHC 32.5 (32-36) g/dL RDW Std Deviation 70.7 H (36.4-46.3) fL RDW Coeff of Rashi 24.2 H (11.5-14.5) % Plt Count 186 (130-400) K/uL MPV 10.8 H (7.4-10.4) fL Immature Gran % (Auto) 0.3 % Neut % (Auto) 67.5 % Lymph % (Auto) 17.2 % [place] % (Auto) 11.4 % Eos % (Auto) 2.3 % Baso % (Auto) 1.3 % Immature Gran # (Auto) 0.02 (0.00-0.02) K/uL Neut # (Auto) 5.09 (1.4-6.5) K/uL Lymph # (Auto) 1.30 (1.2-3.4) K/uL [place] # (Auto) 0.86 H (0.11-0.59) K/uL Eos # (Auto) 0.17 (0-0.5) K/uL Baso # (Auto) 0.10 (0-0.2) K/uL Polychromasia 1+ Hypochromasia Present Anisocytosis Target Cells 1+ Echinocytes PT 15.0 H (9.0-12.0) Seconds INR 1.5 H (0.9-1.1) APTT 30.0 (21.0-31.0) Seconds PTT Ratio 1.1 Sodium 136 (136-145) mmol/L Potassium 2.9 L (3.5-5.1) mmol/L Chloride 98 (98-107) mmol/L Carbon Dioxide 34 H (21-32) mmol/L Anion Gap 4.0 (3-11) BUN 16 (7-18) mg/dl Creatinine 1.11 (0.6-1.2) mg/dl Est Cr Clr Drug Dosing Not Reportable Est GFR ( Amer) 62.1 Est GFR (Non-Af Amer) 53.6 BUN/Creatinine Ratio 14.4 (10-20) Glucose 107 H (70-99) mg/dl Lactate (0.4-2.0) mmol/L Calcium 8.1 L (8.5-10.1) mg/dl Magnesium 1.6 L (1.8-2.4) mg/dl Total Bilirubin 1.2 H (0.2-1) mg/dl AST 48 H (15-37) U/L ALT 23 (12-78) U/L Alkaline Phosphatase 156 H (45-117) U/L Ammonia (11-32) umol/L Total Protein 7.4 (6.4-8.2) gm/dl Albumin 1.8 L (3.4-5.0) gm/dl Globulin 5.6 H (2.5-4.0) gm/dl Albumin/Globulin Ratio 0.3 L (0.9-2) Procalcitonin (0-0.5) ng/ml Urine Color Urine Appearance (Clear) Urine pH (4.5-7.5) Ur Specific [place] (1.000-1.030) Urine Protein (Negative) Urine Glucose (UA) (Negative) Urine Ketones (Negative) Urine Blood (Negative) Urine Nitrite (Negative) Urine Bilirubin (Negative) Urine Urobilinogen (Negative) Ur Leukocyte Esterase (Negative) Urine WBC (Auto) (0-5) /hpf Urine RBC (Auto) (0-4) /hpf U Hyaline Cast (Auto) (0-5) /lpf U Epithel Cells (Auto) (0-5) /lpf Urine Bacteria (Auto) (Negative) Urine Crystals (None Prsent) Calcium Oxalate Crystal (None Prsent) Urine Yeast (None Prsent) Ethyl Alcohol mg/dL (0-3) mg/dl Influenza Type A (PCR) (Neg) Influenza Type B (PCR) (Neg) PG Care Time/CCT Total # of Minutes Spent Total Time Spent with Patient: Total time spent is greater than 50% in coordination of care (as documented) at patient's floor/unit and/or counseling patient: Coding Level of Care Code 11752 Subseq Hosp Care Lvl 3 Diagnoses Immunocompromised D89.9 Metastatic cancer C79.9 Goals of care, counseling/discussion Z71.89 Candidal UTI (urinary tract infection) B37.49 Vaginal candidiasis B37.3 Chronic pain G89.4 Chronic pain type: chronic pain syndrome Alcohol abuse F10.10 Tobacco abuse Z72.0 Ascites R18.8 Ascites type: other type Cirrhosis of liver with ascites K70.31 Hepatic cirrhosis type: alcoholic cirrhosis Chronic hepatitis C B18.2 Hepatic coma status: with hepatic coma COPD (chronic obstructive pulmonary disease) J44.9 Depression F32.89 Depression Type: other depression JENNIFER (generalized anxiety disorder) F41.1 Hepatic encephalopathy K72.90 Esophageal varices I85.00 Anemia D64.9 Anemia type: unspecified type Hypokalemia E87.6 Hypomagnesemia E83.42 Severe protein-calorie malnutrition E43 DVT prophylaxis Z29.9 (1) Chronic pain Chronic pain type: chronic pain syndrome Qualified Code(s): G89.4 - Chronic pain syndrome (2) Anemia Anemia type: unspecified type Qualified Code(s): D64.9 - Anemia, unspecified (3) Ascites Ascites type: other type Qualified Code(s): R18.8 - Other ascites (4) Depression Depression Type: other depression Qualified Code(s): F32.89 - Other specified depressive episodes (5) Chronic hepatitis C Hepatic coma status: with hepatic coma Qualified Code(s): B18.2 - Chronic viral hepatitis C (6) Cirrhosis of liver with ascites Hepatic cirrhosis type: alcoholic cirrhosis Qualified Code(s): K70.31 - Alcoholic cirrhosis of liver with ascites
[2019-08-25] MEDS: PROPRANOLOL HCL 20 MG TAB PO SCH (21:29)
[2019-08-26] MEDS: HYDROmorphone INJ 1 MG/ML SYRINGE IV PRN ×3 (00:15→15:16)
[2019-08-26] MEDS: NICOTINE 14 MG/24 HR PATCH TD SCH (00:15)
[2019-08-26] MEDS: CHECK FENTANYL PATCH PLACEMENT SCH ×4 (00:31→23:36)
[2019-08-26] MEDS: ALBUT/IPRATROP 3MG/0.5MG NEB 3 ML VIAL NEB SCH ×6 (03:20→22:39)
[2019-08-26] MEDS: CEFAZOLIN 2000MG 2,000 MG/15 ML SYR IV SCH ×2 (05:35→11:24)
[2019-08-26] MEDS: LACTATED RINGER'S 1,000 ML IV SCH (05:35)
[2019-08-26] MEDS: BUDESONIDE 0.5 MG/2 ML VIAL (PULMICORT) NEB SCH ×2 (07:45→19:04)
[2019-08-26] MEDS: SUCRALFATE 1 GM/10 ML UDC PO SCH ×4 (08:05→20:11)
[2019-08-26 08:22] LABS: Hemoglobin 9.5 g/dL (12.0-16.0); Mean Corpuscular Hgb Conc 31.7 g/dL (32-36); Mean Corpuscular Volume 85.2 fL (80-100); Mean Platelet Volume 11.5 fL (7.4-10.4); Platelet Count 205 K/uL (130-400); Red Blood Count 3.52 M/uL (4.2-5.4); White Blood Count 11.68 K/uL (4.8-10.8)
[2019-08-26 08:53] LABS: Albumin Level 1.5 gm/dl (3.4-5.0); BUN Creatinine Ratio 14.4 (10-20); Creatinine Clr Calc Pharmacy 49.1 ml/min; Est GFR (African American) 67.2; Est GFR (Non-African American) 57.9; Magnesium 1.7 mg/dl (1.8-2.4); Potassium 3.7 mmol/L (3.5-5.1)
[2019-08-26 08:55] LABS: Folate (Folic Acid) 8.56 ng/ml (>5.38)
[2019-08-26 08:56] LABS: Albumin Globulin Ratio 0.3 (0.9-2); Bilirubin,Total 1.1 mg/dl (0.2-1); Ferritin 26.6 ng/ml (8-388); Globulin 5.5 gm/dl (2.5-4.0)
[2019-08-26] MEDS ORDERED: fentaNYL 25 MCG/HR TDSY TD SCH (09:00)
[2019-08-26] MEDS: FLUTICASONE/VILANTEROL 200/25MCG 14 PUFFS/INHALER INH SCH (09:20)
[2019-08-26] MEDS: UMECLIDINIUM BROMIDE 62.5MCG/BLISTER 7 PUFFS/INHALER INH SCH (09:21)
[2019-08-26] MEDS: SPIRONOLACTONE 25 MG TAB PO SCH (09:21)
[2019-08-26] MEDS: FUROSEMIDE 20 MG TAB PO SCH ×2 (09:21→16:10)
[2019-08-26] MEDS: PANTOprazole 40 MG TAB PO SCH ×2 (09:22→20:11)
[2019-08-26] MEDS: METOCLOPRAMIDE HCL 5 MG TABLET PO SCH ×4 (09:23→20:11)
[2019-08-26] MEDS: RIFAXIMIN 550 MG TABLET PO SCH ×2 (09:23→20:11)
[2019-08-26] MEDS: POLYETHYLENE (MIRALAX) 17 GM PACK PO SCH ×2 (10:21→20:11)
[2019-08-26] MEDS: LACTULOSE SYRUP 20 GM/30 ML UDC PO SCH ×3 (10:22→20:11)
[2019-08-26] MEDS ORDERED: CEFEPIME 2,000 MG in SYRINGE 7.5 ML IV SCH ×2 (13:00→23:00)
[2019-08-26] MEDS: cefTRIAXone SODIUM 2,000 MG in DEXTROSE 5% 50 ML IV SCH (13:23)
--- NOTE | 2019-08-26 15:16 | Ultrasound Report ---
US paracentesis abd w/image CLINICAL HISTORY: 59 years-old Female with Ascites. Recurrent ascites COMPARISON: CT abdomen and pelvis 08/25/2019 PROCEDURE: The procedure was explained to the patient in the care including the benefits and possible risks/complications. The patient gave verbal understanding and written consent was obtained. A time -out was performed prior to the start of the procedure. The patient was placed on the ultrasound table in the supine position. Using ultrasound guidance, an appropriate procedure site in the left lower quadrant abdomen was marked. This area was then prepped and draped in the usual sterile fashion. Local anesthesia was achieved within 1% lidocaine. An 8-Fren ch centesis catheter was then inserted. Approximately 5.0 liters of clear, yellowish fluid was remove d and sent to the lab for analysis. The catheter was removed and external pressure was held to achieve hemostasis. A sterile dressing was applied to the procedure site. The patient tolerated the procedure well without immediate complicati ons. IMPRESSION: Successful ultrasound-guided paracentesis with removal of 5.0 L ascitic fluid. ACT 112: Negative or not required by law. The above report was generated using voice recognition software. It may contain grammatical, syntax o r spelling errors. Electronically signed by: Dennis Street M.D. 08/26/2019 3:15 PM
[2019-08-26 16:43] LABS: Appearance Peritoneal Fluid CLEAR; Basophils, Fluid 1 %; Color Peritoneal Fluid PALE YELLOW; Eosinophils, Fluid 0 %; Lymphocytes, Fluid 15 %; Mono,Macrophage,Mesothelial 38 %; Neutrophils, Fluid 46 %; RBC Peritoneal Fluid (A) < 3000 /uL; WBC Peritoneal Fluid (A) 128 /ul (0-300)
[2019-08-26] MEDS: ALBUMIN 25% 50 ML IV SCH ×2 (18:18→19:17)
--- NOTE | 2019-08-26 19:26 | Hospitalist Progress Note ---
Date of Service August 26, 2019 Assessment & Plan (1) Immunocompromised: - Generalized malaise/fatigue, fever/chills, abd pain, low back pain at home prior to admission. - Recently diagnosed cancer, metastatic, with unknown primary -- has not received any treatment to date. - Consider SBP vs. COPD exacerbation vs. UTI vs. underlying malignancy. - CT A/P with left pleural nodules c/w metastatic disease, mod to large ascites, suspected peritoneal carcinomatosis, hepatic metastatic disease. - CXR negative for PNA. BC currently NGTD - U/a +yeast, UC with multiple organisms -- does have vaginal candidiasis, currently receiving treatment. - Continue Rocephin 2 g IV daily for empiric coverage of SBP (2) Metastatic cancer: - CT A/P with left sided pleural nodules, mod to large ascites, suspected peritoneal carcinomatosis, hepatic metastatic disease. - S/p FNA of lung nodule -- did not indicate pt. had primary HCC, possibly related to squamous cell carcinoma. - Peritoneal fluid from 06/22 was negative for malignancy. - Follows with Dr. Delacruz from oncology; consulted onc as inpatient. - Was scheduled for port placement as outpatient - pending no findings of infection can ask if surgery can place here - Palliative consulted to discuss goals of care in setting of metastatic disease - can assist with pain management (3) Goals of care, counseling/discussion: - As noted above. - Appears pain control as outpatient not adequate. Maybe Dr. Black can weigh in on a regimen (4) Candidal UTI (urinary tract infection): - U/a +yeast, UC with multiple organisms - unlikely repeat UA will be helpful given on Abx currently - Likely has vaginal candidiasis with contamination of UC. - Receiving Fluconazole 200 mg q3days for treatment. - Will monitor QT prolongation given reglan/diflucan use (5) Vaginal candidiasis: - Receiving Fluconazole 200 mg q3d for treatment. (6) Chronic pain: - Acute on chronic pain -- related to malignancy vs. ascites. - Fentanyl patch 25 mcg. - Dilaudid 1 mg IV q2hr prn acute pain. Will need to clarify pain regimen - appears she is on Fentanyl 100 mcg patch per PDMP? (7) Alcohol abuse: - ETOH level was negative on admission. - Encourage discontinuation of ETOH at discharge. - [facility] protocol for withdrawal; no active signs of withdrawal - Received banana bag on admission. (8) Tobacco abuse: - Nicotine patch ordered. - Encourage tobacco cessation. (9) Ascites: - Mod to large ascites noted on CT A/P. - S/P paracentesis on 08/25 to rule out SBP and also for abd discomfort/cytology -- Removed 5 L - given Albumin post-paracentesis - Currently receiving Rocephin for empiric coverage of SBP. - Continue Lasix 20 mg BID, Spironolactone 50 mg daily as prescribed. (10) Cirrhosis of liver with ascites: - In setting of ETOH abuse. - Continue Propanolol 20 mg qhs, Rifaximin 550 mg BID, Aldactone 50 mg daily. (11) Chronic hepatitis C: - Continue home meds. (12) COPD (chronic obstructive pulmonary disease): - No evidence of acute exacerbation; mild exp wheeze on exam today but appropriate oxygenation on RA - Duonebs q4hr scheduled, Incruse Ellipta qAM, Pulmicort BID, Breo Ellipta daily. - Some may be due to accidently not using inhalers - appears she has Symbicort as outpatient -- She stated she has an inhaler she uses on a scheduled bases and one as needed however when she showed me them from her bag, both were albuterol inhalers (13) Depression: - Not currently on medications. - Reports recent loss of one of her daughters last month (14) JENNIFER (generalized anxiety disorder): - Ativan prn. (15) Hepatic encephalopathy: - H/o; continue Lactulose 20 mg TID - titrate for 2-3 BMs daily - Ammonia level was WNL on admission; mentation baseline (16) Esophageal varices: - Continue Propanolol as prescribed. - H/o GI bleed -- continue PPI BID and Carafate ac/hs. (17) Anemia: - Possibly related to slow bleed in setting of varices. - Hgb baseline ~9-10. Not currently requiring transfusion support. (18) Severe protein-calorie malnutrition: - Alb level 1.7 in setting of metastatic disease. - Encourage diet with supplements. (19) DVT prophylaxis: - SCDs; hold pharmacologic ppx. Dispo: Med/surg for acute issues as noted above; pending ascites culture possible port placement? Admission and Anticipated Discharge Date Admission Date: August 24, 2019 Subjective Reports feeling well this AM. Some abdominal discomfort due to fluid but overall feels closer to baseline. Will need to clarify pain regimen and see what adjustments can be made. She went for paracentesis today with 5 L fluid removed Review of Systems Constitutional: + fatigue; no fever and no chills Ear, Nose, Mouth, Throat: + dry mouth Respiratory: no cough and no dyspnea Cardiovascular: no chest pain Gastrointestinal: + abdominal pain and + bloating; no nausea, no vomiting, no constipation and no diarrhea/loose stools Neurologic: no tingling and no numbness Physical Exam Constitutional: no acute distress Eyes: + anicteric sclerae ENMT: Ears: no hearing impairment Nose: + dry nasal mucous membranes Neck: trachea midline Respiratory: normal respiratory effort Auscultation: + wheezes (expiratory) Cardiovascular: Rate/Rhythm: regular rate and regular rhythm Gastrointestinal (Abdomen): Inspection/Auscultation: + abdomen distended and normal bowel sounds Percussion/Palpation: abdomen nontender Musculoskeletal: Head/Neck/Chest: normocephalic and head atraumatic Skin: no rashes, warm and dry Neurologic: moves all extremities Psychiatric: A+Ox3, euthymic affect Results & Data ([facility]) Vital Signs (Past 12 Hours) Vital Signs Temp Pulse Resp BP BP Pulse Ox 08/26/19 19:05 73 15 95 08/26/19 18:15 36.7 C 84 15 122/77 95 08/26/19 15:31 89 18 92 08/26/19 15:15 36.8 C 89 18 121/74 92 08/26/19 11:42 78 16 93 08/26/19 07:45 90 20 93 PG Care Time/CCT Total # of Minutes Spent Total Time Spent with Patient: Total time spent is greater than 50% in coordination of care (as documented) at patient's floor/unit and/or counseling patient: Coding Level of Care Code 49612 Subseq Hosp Care Lvl 3 Diagnoses Immunocompromised D89.9 Metastatic cancer C79.9 Goals of care, counseling/discussion Z71.89 Candidal UTI (urinary tract infection) B37.49 Vaginal candidiasis B37.3 Chronic pain G89.4 Chronic pain type: chronic pain syndrome Alcohol abuse F10.10 Tobacco abuse Z72.0 Ascites R18.8 Ascites type: other type Cirrhosis of liver with ascites K70.31 Hepatic cirrhosis type: alcoholic cirrhosis Chronic hepatitis C B18.2 Hepatic coma status: with hepatic coma COPD (chronic obstructive pulmonary disease) J44.9 Depression F32.89 Depression Type: other depression JENNIFER (generalized anxiety disorder) F41.1 Hepatic encephalopathy K72.90 Esophageal varices I85.00 Anemia D64.9 Anemia type: unspecified type Severe protein-calorie malnutrition E43 DVT prophylaxis Z29.9 (1) Chronic pain Chronic pain type: chronic pain syndrome Qualified Code(s): G89.4 - Chronic pain syndrome (2) Ascites Ascites type: other type Qualified Code(s): R18.8 - Other ascites (3) Cirrhosis of liver with ascites Hepatic cirrhosis type: alcoholic cirrhosis Qualified Code(s): K70.31 - Alcoholic cirrhosis of liver with ascites (4) Chronic hepatitis C Hepatic coma status: with hepatic coma Qualified Code(s): B18.2 - Chronic viral hepatitis C (5) Depression Depression Type: other depression Qualified Code(s): F32.89 - Other specified depressive episodes (6) Anemia Anemia type: unspecified type Qualified Code(s): D64.9 - Anemia, unspecified
[2019-08-26] MEDS: PROPRANOLOL HCL 20 MG TAB PO SCH (20:11)
[2019-08-27] MEDS: ALBUT/IPRATROP 3MG/0.5MG NEB 3 ML VIAL NEB SCH ×6 (03:25→22:53)
[2019-08-27] MEDS: BUDESONIDE 0.5 MG/2 ML VIAL (PULMICORT) NEB SCH ×2 (07:29→18:48)
[2019-08-27] MEDS: CHECK FENTANYL PATCH PLACEMENT SCH ×3 (07:37→23:10)
[2019-08-27] MEDS: SUCRALFATE 1 GM/10 ML UDC PO SCH ×4 (08:09→20:26)
[2019-08-27 08:22] LABS: Hematocrit (blood only) 27.2 % (37-47); Hemoglobin 8.8 g/dL (12.0-16.0); Mean Corpuscular Hemoglobin 27.1 pg (25-34); Mean Corpuscular Hgb Conc 32.4 g/dL (32-36); Mean Corpuscular Volume 83.7 fL (80-100); Mean Platelet Volume 11.1 fL (7.4-10.4); Platelet Count 152 K/uL (130-400); RDW Coefficient of Variation 24.8 % (11.5-14.5); RDW Standard Deviation 75.5 fL (36.4-46.3); Red Blood Count 3.25 M/uL (4.2-5.4); White Blood Count 9.69 K/uL (4.8-10.8)
[2019-08-27 08:29] LABS: BUN Creatinine Ratio 15.4 (10-20); Calcium 8.2 mg/dl (8.5-10.1); Creatinine Clr Calc Pharmacy 57.4 ml/min; Est GFR (African American) 81.1; Potassium 4.2 mmol/L (3.5-5.1)
[2019-08-27] MEDS: UMECLIDINIUM BROMIDE 62.5MCG/BLISTER 7 PUFFS/INHALER INH SCH (08:48)
[2019-08-27] MEDS: FLUTICASONE/VILANTEROL 200/25MCG 14 PUFFS/INHALER INH SCH (08:48)
[2019-08-27] MEDS: SPIRONOLACTONE 25 MG TAB PO SCH (08:49)
[2019-08-27] MEDS: FUROSEMIDE 20 MG TAB PO SCH ×2 (08:49→16:23)
[2019-08-27] MEDS: METOCLOPRAMIDE HCL 5 MG TABLET PO SCH ×4 (08:50→20:28)
[2019-08-27] MEDS: RIFAXIMIN 550 MG TABLET PO SCH ×2 (08:50→20:29)
[2019-08-27] MEDS: PANTOprazole 40 MG TAB PO SCH ×2 (08:50→20:29)
[2019-08-27] MEDS: NICOTINE 14 MG/24 HR PATCH TD SCH (08:53)
[2019-08-27] MEDS: POLYETHYLENE (MIRALAX) 17 GM PACK PO SCH ×2 (09:55→20:24)
[2019-08-27] MEDS: LACTULOSE SYRUP 20 GM/30 ML UDC PO SCH ×3 (09:56→20:26)
[2019-08-27] MEDS: HYDROmorphone INJ 1 MG/ML SYRINGE IV PRN ×3 (10:08→20:37)
[2019-08-27] MEDS: cefTRIAXone SODIUM 2,000 MG in DEXTROSE 5% 50 ML IV SCH (12:10)
--- NOTE | 2019-08-27 16:16 | Palliative Care Consultation ---
Date of Consultation August 27, 2019 Assessment & Plan (1) Goals of care, counseling/discussion: -59 year old female patient with PMH esophageal varices secondary to liver cirrhosis with hepatitis C, alcohol abuse, metastatic carcinoma of unknown primary with pulmonary and liver lesions, chronic pain, anxiety, depression and others, presented to the hospital with vague complaints of abdominal pain, intermittent fever and malaise. Patient was recently in the hospital from May into June 2019 with decompensated liver failure and erosive gastritis. During that time, the liver and pulmonary lesions were known and patient was planned to have biopsy as an outpatient. However, the biopsy was obtained here and the pathology shows carcinoma of unknown primary. Patient now presents again with these vague complaints and no clear source. She is anemic of course, has vaginal candidiasis, and increased ascites. She had 5L ascitic fluid removed yesterday 08/25 and it is being tested for SBP. Patient has chronic pain issues as well as pain related to the liver disease. Palliative care is c onsulted to discuss goals of care and pain management. -Met with patient in room 358. She is AA&Ox4, pleasant and talkative. -patient is tearful throughout conversation. She knows how ill she is and stated, "They really don't think I'm going to do well with chemo. I don't know, but I would like to give it a try if I'm able." Patient also notes that she recently had one of her four daughters unexpectedly pass away. So between trying to grieve her daughter's and trying to process her own medical issues, she is feeling overwhelmed and sad. -Patient notes that her and her oldest daughter Jo Ann are her POAs and wants them to work together, which they do. -Discussed pain management. Patient is on fentanyl patch 100mcg/hr at home with Percocet 10mg PRN breakthrough pain. This adequately treats her pain until her ascites increases to the point of causing her discomfort. -Patient is currently ordered 25mcg fentanyl patch. I will increase it 50mcg/hr and decrease the Dilaudid to 0.5mg IV PRN. Patient is in agreement with this plan. -Then need to transition her back to percocet 10mg Q4-6h PRN breakthrough pain. -Patient remains full code at this time. She plans to make decision on whether or not to undergo chemo after outpatient heme/onc follow up. -Will continue to follow as needed. (2) Chronic pain: Chronic pain type: chronic pain syndrome Qualified Code(s): G89.4 - Chronic pain syndrome (3) Severe protein-calorie malnutrition: (4) Metastatic carcinoma: Supervising Physician Co-Signing Physician Notes Chart reviewed, patient seen and examined-no family or friends at bedside. Collaborated with KINZA Aguirre Patient had paracentesis yesterday-5 L removed-patient states it reaccumulated "overnight" PE: Patient awake and alert, no acute distress. HEENT: EOMI, hearing within normal limits Respirations: Unlabored CV: Regular rate, 2+ pitting edema lower extremities Abdomen distended, firm, nontender Neuro: Alert and oriented x4 Discussed with patient her treatment options-plan for now is to see oncology and try recommended chemo-if patient does not tolerate chemo she would like to be admitted to hospice care. Patient may need a Pleurx drain for comfort. If she can tolerate chemo and its effective, patient plans to continue therapy. History of Present Illness Attending Physician: Rich Vega DO History of Present Illness This 59 year old female patient with PMH esophageal varices secondary to liver cirrhosis with hepatitis C, alcohol abuse, metastatic carcinoma of unknown primary with pulmonary and liver lesions, chronic pain, anxiety, depression and others, presented to the hospital with vague complaints of abdominal pain, intermittent fever and malaise. Patient was recently in the hospital from May into June 2019 with decompensated liver failure and erosive gastritis. During that time, the liver and pulmonary lesions were known and patient was planned to have biopsy as an outpatient. However, the biopsy was obtained here and the pathology shows carcinoma of unknown primary. Patient now presents again with these vague complaints and no clear source. She is anemic of course, has vaginal candidiasis, and increased ascites. She had 5L ascitic fluid removed yesterday 08/25 and it is being tested for SBP. Patient has chronic pain issues as well as pain related to the liver disease. Palliative care is consulted to discuss goals of care and pain management. Thank you kindly for this consult. Palliative care team will follow as needed. Allergies Allergy/AdvReac Type Severity Reaction Status Date / Time clarithromycin Allergy Unknown rash, Verified 08/24/19 17:43 nausea Macrolide Antibiotics Allergy Unknown Verified 08/24/19 17:43 Macrolide Immunosuppressant Allergy Unknown Verified 08/24/19 17:43 Sulfa (Sulfonamide Allergy Unknown rash Verified 08/24/19 17:43 Antibiotics) trimethoprim Allergy Unknown Rash Verified 08/24/19 17:43 amoxicillin AdvReac Intermediate nausea, Verified 08/24/19 17:43 diarrhea clavulanic acid AdvReac Intermediate nausea, Verified 08/24/19 17:43 diarrhea cefuroxime AdvReac Unknown nausea, Verified 08/24/19 17:43 diarrhea doxycycline AdvReac Unknown nausea, Verified 08/24/19 17:43 diarrhea morphine AdvReac Unknown nausea, Verified 08/24/19 17:43 vomiting Home Medications Home Medications Medication Instructions Recorded Confirmed Type furosemide 40 mg tablet 20 mg PO BID 05/06/19 08/24/19 History metoclopramide HCl 10 mg 5 mg PO QID tab 05/06/19 08/24/19 History disintegrating tablet rifaximin 550 mg tablet 550 mg PO BID 05/06/19 08/24/19 History spironolactone 50 mg tablet 50 mg PO DAILY 05/06/19 08/24/19 History albuterol sulfate [Ventolin HFA] 2 puff INHALATION Q4H PRN 06/20/19 08/24/19 History budesonide-formoterol [Symbicort] 2 puff INHALATION BID 06/20/19 08/24/19 History lorazepam 0.5 mg PO UD PRN 06/20/19 08/24/19 History propranolol 20 mg PO HS 06/20/19 08/24/19 History fentanyl 25 mcg TRANSDERMAL Q3D #1 ea 07/01/19 08/24/19 Rx lactulose 20 gm PO TID #1500 ml 07/01/19 08/24/19 Rx pantoprazole 40 mg PO BID #60 tab 07/01/19 08/24/19 Rx sucralfate 1 gm PO ACHS #420 ml 07/01/19 08/24/19 Rx methylphenidate HCl 60 mg PO BID 08/24/19 08/24/19 History potassium gluconate 500 mg PO DAILY 08/24/19 08/24/19 History Patient History Medical History Acute blood loss anemia Alcohol abuse Asthma Chronic hepatitis C Chronic pain Chronic pancreatitis Cirrhosis of liver with ascites COPD (chronic obstructive pulmonary disease) Depression Esophageal varices JENNIFER (generalized anxiety disorder) GI bleed Goals of care, counseling/discussion Hypertension Metabolic encephalopathy Metastatic cancer Osteoporosis Surgical History History of back surgery History of bronchoscopy History of History of cataract surgery History of cholecystectomy History of ERCP History of hip surgery History of surgery of liver History of tracheostomy Social History Preferred Language: Telugu Communication Ability: Effective 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 Beliefs That Will Affect Care: None marital status: Current Living Situation: Spouse Feels Safe at Home: Yes Smoking Status: Current every day smoker Tobacco Type: cigarettes ; Cigarettes Per Day: 20 ; Tobacco Cessation Education Requested by Patient: No Hx Alcohol Use: No (quit in jun) Hx Substance Use: No Review of Systems Constitutional: + malaise and + weakness Respiratory: no cough and no dyspnea Cardiovascular: no chest pain Gastrointestinal: + abdominal pain (distension); no nausea and no vomiting Musculoskeletal: as per Subjective / HPI Neurologic: no confusion Psychiatric: + depression; no anxiety Physical Exam Constitutional: + ill appearing (chronically); no acute distress ENMT: external ear and nose normal, oropharynx normal Respiratory: normal respiratory effort, lungs clear to auscultation Cardiovascular: RRR, no murmur, no edema Gastrointestinal (Abdomen): Inspection/Auscultation: + abdomen distended and normal bowel sounds Percussion/Palpation: abdomen nontender and + abdomen not soft Neurologic: moves all extremities and awake; not confused Psychiatric: A+Ox3, euthymic affect Results & Data Vital Signs (Past 12 Hours) Vital Signs Temp Pulse Pulse Resp BP Pulse Ox 08/27/19 15:06 36.7 C 86 18 128/78 93 08/27/19 14:31 86 16 93 08/27/19 12:24 85 16 93 08/27/19 07:29 93 H 18 93 08/27/19 07:19 36.9 C 89 18 127/63 91 PG Care Time/CCT Prolonged Care Time Prolonged Care Time: Yes Total Prolonged Care Time: 30 70 Coding Level of Care Code 72903 Inpt Consult Level 3 Diagnoses Goals of care, counseling/discussion Z71.89 Chronic pain G89.4 Chronic pain type: chronic pain syndrome Severe protein-calorie malnutrition E43 Metastatic carcinoma C79.9 Additional Codes Prolonged Care Time - Prolonged Care Time: Yes ([id number]) Time Spent (min) 100 Time Spent Midlevel 70 minutes with >50% of the time spent at bedside with patient discussing goals of care and pain management. Attending Spent 30 minutes in addition to the 70 minutes spent by KINZA Aguirre for total of 100 minutes with greater than 50% of time spent at bedside reviewing patient's treatment options and goals of care.
--- NOTE | 2019-08-27 16:34 | XRay Report ---
KUB HISTORY: Generalized abdominal pain. Abdominal distention. COMPARISON: Abdomen and pelvis CT 08/25/2019. FINDINGS: The bowel gas pattern is unremarkable. There are no dilated loops of small bowel to suggest an obstruction. No renal calculi. No ureteral calculi. Calcifications in the deep pelvis likely rep resent phleboliths. Posterior fusion hardware within the lower lumbar spine and internal fixation of an old, healed left hip fracture again noted. There is a vertebroplasty at L1. Moderate well-formed s tool within the colon. Trace left pleural effusion. No pneumoperitoneum or pneumatosis. IMPRESSION: 1. No evidence for bowel obstruction. 2. Trace left pleural effusion. 3. Moderate well-formed stool within the colon. ACT 112: Negative or not required by law. Results electronically sent 08/27/2019 4:32 PM to: Jennifer Hernadez PA-C Electronically signed by: Greg White M.D. 08/27/2019 4:32 PM
--- NOTE | 2019-08-27 18:04 | Electrocardiogram Report ---
Test Reason : Blood Pressure : / mmHG Vent. Rate : 090 BPM Atrial Rate : 090 BPM P-R Int : 132 ms QRS Dur : 072 ms QT Int : 376 ms P-R-T Axes : 071 058 046 degrees QTc Int : 459 ms Normal sinus rhythm Normal ECG When compared with ECG of 24-AUG-2019 17:44, QT has shortened Confirmed by Killian Durham ([id number]) on 08/27/2019 6:04:25 PM Referred By: REFERRED SELF Confirmed By:Killian Durham
--- NOTE | 2019-08-27 18:20 | Hospitalist Progress Note ---
Date of Service August 27, 2019 Assessment & Plan (1) Immunocompromised: - Generalized malaise/fatigue, fever/chills, abd pain, low back pain at home prior to admission - possibly all related to constitutional symptoms of cancer - Consider SBP vs. UTI vs. underlying malignancy; abdominal pain likely between ascites and constipation - Recently diagnosed cancer, metastatic, with unknown primary -- has not received any treatment to date. - CT A/P with left pleural nodules c/w metastatic disease, mod to large ascites, suspected peritoneal carcinomatosis, hepatic metastatic disease. - CXR negative for PNA. BC currently NGTD - U/a +yeast, UC with multiple organisms -- does have vaginal candidiasis, currently receiving treatment and improving - will give additional Diflucan dose tomorrow - Continue Rocephin 2 g IV daily for empiric coverage of SBP - however paracentesis gram stain without organisms and cx so far no growth - low suspicion of infection (2) Metastatic cancer: - CT A/P with left sided pleural nodules, mod to large ascites, suspected peritoneal carcinomatosis, hepatic metastatic disease. - S/p FNA of lung nodule -- did not indicate pt. had primary HCC, possibly related to squamous cell carcinoma. - Peritoneal fluid from 06/22 was negative for malignancy. - Follows with Dr. Delacruz from oncology; consulted onc as inpatient. - Was scheduled for port placement as outpatient - pending no findings of infection can ask if surgery can place here -- Will consult in AM - patient does have travel limitations and is hoping to start chemotherapy in the near future and can see if port placement is possible here - Palliative consulted to discuss goals of care in setting of metastatic disease - discussed with Lennie today (3) Candidal UTI (urinary tract infection): - U/a +yeast, UC with multiple organisms - unlikely repeat UA will be helpful given on Abx currently - Likely has vaginal candidiasis with contamination of UC. - Receiving Fluconazole 200 mg q3days for treatment. - symptoms are improving but not resolved and will be due for second dose tomorrow - Will monitor QT prolongation given reglan/diflucan use - QT reduced on EKG this AM (4) Chronic pain: - Acute on chronic pain -- related to malignancy vs. ascites vs constipation - She is actually on Fentanyl 100 mcg Q3D and Oxycodone 10 mg - reports pain actually is pretty controlled on that regimen but when abdomen bloated its not always working - Dilaudid PRN - discussed trying to transition back to an oral regimen to confirm effectiveness; will increase Fentanyl to 50 mcg as she has been on only the 25 mcg in-house and then can be back on home regimen on D/C - Will implement Senna given KUB findings of stool burden; Continue Lactulose/Miralax (5) Alcohol abuse: - ETOH level was negative on admission. - Encourage discontinuation of ETOH at discharge. - AWSS protocol for withdrawal; no active signs of withdrawal - Received banana bag on admission. (6) Tobacco abuse: - Nicotine patch ordered. - Encourage tobacco cessation. (7) Ascites: - Mod to large ascites noted on CT A/P. - S/P paracentesis on 08/25 to rule out SBP and also for abd discomfort/cytology -- Removed 5 L - given Albumin post-paracentesis - Currently receiving Rocephin for empiric coverage of SBP - however infection seems unlikely -- Cx with NGTD - Continue Lasix 20 mg BID, Spironolactone 50 mg daily as prescribed. (8) Cirrhosis of liver with ascites: - In setting of ETOH abuse. - Continue Propanolol 20 mg qhs, Rifaximin 550 mg BID, Aldactone 50 mg daily. (9) Chronic hepatitis C: - Continue home meds. (10) COPD (chronic obstructive pulmonary disease): - No evidence of acute exacerbation; mild exp wheeze on exam today but appropriate oxygenation on RA - Duonebs q4hr scheduled, Incruse Ellipta qAM, Pulmicort BID, Breo Ellipta daily. - Some wheezing may be due to accidently not using proper inhalers - appears she has Symbicort as outpatient -- She stated she has an inhaler she uses on a scheduled bases and one as needed however when she showed me them from her bag, both were albuterol rescue inhalers (11) Depression: - Not currently on medications. - Reports recent loss of one of her daughters last month (12) JENNIFER (generalized anxiety disorder): - Ativan prn. (13) Hepatic encephalopathy: - H/o; continue Lactulose 20 mg TID - titrate for 2-3 BMs daily - Ammonia level was WNL on admission; mentation baseline (14) Esophageal varices: - Continue Propanolol as prescribed. - H/o GI bleed -- continue PPI BID and Carafate ac/hs. (15) Anemia: - Possibly related to slow bleed in setting of varices. - Hgb baseline ~9-10. Not currently requiring transfusion support. (16) Severe protein-calorie malnutrition: - Alb level 1.7 in setting of metastatic disease. - Encourage diet with supplements; boost/ensure (17) DVT prophylaxis: - SCDs; hold pharmacologic ppx. Dispo: So far infectious findings seem unlikely; she missed her appointment for a port placement and given transportation limitations can see if Gen Surg could accommodate port placement in-house Admission and Anticipated Discharge Date Admission Date: August 24, 2019 Subjective Reports overall feeling okay today. Some increased abdominal pressure/bloating. Also not moving bowels much and KUB shows a good amount of stool which could be adding to her problem. Discussed possible need for therapeutic paracentesis going forward. She reports her pain is doing well here but there is discrepencies on her med rec. She states overall her pain is controlled at home but when her abdomen gets distended it does not work as much. She states she also doesn't like to increase her medications too much because it makes her drow sy. She remains afebrile and she had one lab with mild leukocytosis but that resolved. No obvious source of infection identified. Reports yeast issues are improving but not yet resolved. Review of Systems Constitutional: no fever and no chills Respiratory: no cough and no dyspnea Cardiovascular: + edema (chronic lower extremities); no chest pain Gastrointestinal: + bloating and + constipation; no abdominal pain, no nausea, no vomiting and no diarrhea/loose stools Genitourinary: no dysuria Integumentary: no rash Physical Exam Constitutional: no acute distress Eyes: + anicteric sclerae ENMT: Ears: no hearing impairment Nose: + dry nasal mucous membranes Neck: trachea midline Respiratory: normal respiratory effort Auscultation: + wheezes (expiratory) Cardiovascular: Rate/Rhythm: regular rate and regular rhythm Gastrointestinal (Abdomen): Inspection/Auscultation: + abdomen distended and normal bowel sounds Percussion/Palpation: abdomen nontender Musculoskeletal: Head/Neck/Chest: normocephalic and head atraumatic Skin: no rashes, warm and dry Neurologic: moves all extremities Psychiatric: A+Ox3, euthymic affect Results & Data (MN) Vital Signs (Past 12 Hours) Vital Signs Temp Pulse Pulse Resp BP Pulse Ox 08/27/19 16:57 16 08/27/19 15:06 36.7 C 86 18 128/78 93 08/27/19 14:31 86 16 93 08/27/19 12:24 85 16 93 08/27/19 07:29 93 H 18 93 08/27/19 07:19 36.9 C 89 18 127/63 91 PG Care Time/CCT Total # of Minutes Spent Total Time Spent with Patient: Total time spent is greater than 50% in coordination of care (as documented) at patient's floor/unit and/or counseling patient: Coding Level of Care Code 77960 Subseq Hosp Care Lvl 3 Diagnoses Immunocompromised D89.9 Metastatic cancer C79.9 Candidal UTI (urinary tract infection) B37.49 Chronic pain G89.4 Chronic pain type: chronic pain syndrome Alcohol abuse F10.10 Tobacco abuse Z72.0 Ascites R18.8 Ascites type: other type Cirrhosis of liver with ascites K70.31 Hepatic cirrhosis type: alcoholic cirrhosis Chronic hepatitis C B18.2 Hepatic coma status: with hepatic coma COPD (chronic obstructive pulmonary disease) J44.9 Depression F32.89 Depression Type: other depression JENNIFER (generalized anxiety disorder) F41.1 Hepatic encephalopathy K72.90 Esophageal varices I85.00 Anemia D64.9 Anemia type: unspecified type Severe protein-calorie malnutrition E43 DVT prophylaxis Z29.9 (1) Chronic pain Chronic pain type: chronic pain syndrome Qualified Code(s): G89.4 - Chronic pain syndrome (2) Ascites Ascites type: other type Qualified Code(s): R18.8 - Other ascites (3) Cirrhosis of liver with ascites Hepatic cirrhosis type: alcoholic cirrhosis Qualified Code(s): K70.31 - Alcoholic cirrhosis of liver with ascites (4) Chronic hepatitis C Hepatic coma status: with hepatic coma Qualified Code(s): B18.2 - Chronic viral hepatitis C (5) Depression Depression Type: other depression Qualified Code(s): F32.89 - Other specified depressive episodes (6) Anemia Anemia type: unspecified type Qualified Code(s): D64.9 - Anemia, unspecified
[2019-08-27] MEDS: SENNA 8.6 MG TAB PO SCH (18:40)
[2019-08-27] MEDS: PROPRANOLOL HCL 20 MG TAB PO SCH (20:28)
--- NOTE | 2019-08-28 02:47 | Billing Data ---
Date of Service August 28, 2019 Coding Level of Care Code 98134 Initial Inpt Care Lvl 3
[2019-08-28] MEDS: ALBUT/IPRATROP 3MG/0.5MG NEB 3 ML VIAL NEB SCH ×3 (03:10→11:28)
[2019-08-28] MEDS: HYDROmorphone INJ 1 MG/ML SYRINGE IV PRN ×3 (05:08→18:52)
[2019-08-28] MEDS: SUCRALFATE 1 GM/10 ML UDC PO SCH ×4 (07:03→20:41)
[2019-08-28] MEDS: BUDESONIDE 0.5 MG/2 ML VIAL (PULMICORT) NEB SCH (07:20)
[2019-08-28] MEDS: CHECK FENTANYL PATCH PLACEMENT SCH ×3 (09:14→23:37)
[2019-08-28] MEDS: FLUTICASONE/VILANTEROL 200/25MCG 14 PUFFS/INHALER INH SCH (09:15)
[2019-08-28] MEDS: SPIRONOLACTONE 25 MG TAB PO SCH (09:15)
[2019-08-28] MEDS: FLUCONAZOLE 100 MG TAB PO SCH (09:16)
[2019-08-28] MEDS: FUROSEMIDE 20 MG TAB PO SCH ×2 (09:16→16:31)
[2019-08-28] MEDS: PANTOprazole 40 MG TAB PO SCH ×2 (09:16→20:42)
[2019-08-28] MEDS: UMECLIDINIUM BROMIDE 62.5MCG/BLISTER 7 PUFFS/INHALER INH SCH (09:16)
[2019-08-28] MEDS: METOCLOPRAMIDE HCL 5 MG TABLET PO SCH ×4 (09:17→20:41)
[2019-08-28] MEDS: RIFAXIMIN 550 MG TABLET PO SCH ×2 (09:18→20:42)
[2019-08-28] MEDS: SENNA 8.6 MG TAB PO SCH (09:18)
[2019-08-28] MEDS: NICOTINE 14 MG/24 HR PATCH TD SCH (09:22)
[2019-08-28] MEDS: POLYETHYLENE (MIRALAX) 17 GM PACK PO SCH ×2 (09:22→20:21)
[2019-08-28] MEDS: LACTULOSE SYRUP 20 GM/30 ML UDC PO SCH ×3 (09:23→20:42)
[2019-08-28] MEDS: fentaNYL 50 MCG/HR TDSY TD SCH (09:33)
--- NOTE | 2019-08-28 09:57 | Surgery Consultation ---
Date of Consultation August 28, 2019 Assessment & Plan (1) Metastatic carcinoma: This is a 59y F with a PMH of alcohol abuse, cirrhosis, hep C, COPD, and a diagnosis of lung and liver cancer this past April who presented to the [facility] ED on 08/24/19 with complaints of abdominal discomfort on CT found to have ascites. She was scheduled to undergo Port placement in [place] this week, however had to cancel due to this current admission. As patient does not drive and she has to coordinate rides with her daughter who works, surgery was consulted to see if we would consider Port placement during this hospitalization. Of note patient has had two port placements in the past, >20years ago, on either side of her chest. She is left handed dominant. Patient is currently ordered for a diet. I discussed patient with Dr. Schumacher- if she remains admitted for ongoing workup/medical management through the weekend we can consider Port placement this upcoming Saturday08/31/19. There was question of infection due to her one elevated WBC count, but there is low suspicion for SBP at this time and cultures remain no growth to date. If she is deemed stable for discharge to home sooner, would not keep her admitted over the weekend for a Port, and would ask her to reschedule with her Surgeon in [place]. If she remains admitted please make NPO at midnight on Saturday and we will consider placement on 08/30. History of Present Illness Attending Physician: Rich Vega, History of Present Illness This is a 59y F with a PMH of alcohol abuse, cirrhosis, hep C, COPD, and a diagnosis of lung and liver cancer this past April who presented to the [facility] ED on 08/24/19 with complaints of abdominal discomfort. The patient has been admitted under medicine and found to have significant ascites, of which 5L was tapped on 08/26/19 with some relief. The patient was scheduled to undergo Port placement this week at [place], but due to her admission this was cancelled. Per patient she does not drive and her daughter does majority of her transportations (pending her daughter's work schedule). She follows with Dr. Calderón for oncology. On admission she did have one elevated WBC to 11.68 on 08/25 and yesterday back down to 9.6. She is currently on empiric abx for SBP, however there is no growth to date. She has been afebrile and denies feeling ill, other than abdominal discomfort related to the ascites. When asked patient says she had two port placements in the past, >20 years ago, one on each side. Allergies Allergy/AdvReac Type Severity Reaction Status Date / Time clarithromycin Allergy Unknown rash, Verified 08/24/19 17:43 nausea Macrolide Antibiotics Allergy Unknown Verified 08/24/19 17:43 Macrolide Immunosuppressant Allergy Unknown Verified 08/24/19 17:43 Sulfa (Sulfonamide Allergy Unknown rash Verified 08/24/19 17:43 Antibiotics) trimethoprim Allergy Unknown Rash Verified 08/24/19 17:43 amoxicillin AdvReac Intermediate nausea, Verified 08/24/19 17:43 diarrhea clavulanic acid AdvReac Intermediate nausea, Verified 08/24/19 17:43 diarrhea cefuroxime AdvReac Unknown nausea, Verified 08/24/19 17:43 diarrhea doxycycline AdvReac Unknown nausea, Verified 08/24/19 17:43 diarrhea morphine AdvReac Unknown nausea, Verified 08/24/19 17:43 vomiting Home Medications Home Medications Medication Instructions Recorded Confirmed Type furosemide 40 mg tablet 20 mg PO BID 05/06/19 08/24/19 History metoclopramide HCl 10 mg 5 mg PO QID tab 05/06/19 08/24/19 History disintegrating tablet rifaximin 550 mg tablet 550 mg PO BID 05/06/19 08/24/19 History spironolactone 50 mg tablet 50 mg PO DAILY 05/06/19 08/24/19 History albuterol sulfate [Ventolin HFA] 2 puff INHALATION Q4H PRN 06/20/19 08/24/19 History budesonide-formoterol [Symbicort] 2 puff INHALATION BID 06/20/19 08/24/19 History lorazepam 0.5 mg PO UD PRN 06/20/19 08/24/19 History propranolol 20 mg PO HS 06/20/19 08/24/19 History fentanyl 25 mcg TRANSDERMAL Q3D #1 ea 07/01/19 08/24/19 Rx lactulose 20 gm PO TID #1500 ml 07/01/19 08/24/19 Rx pantoprazole 40 mg PO BID #60 tab 07/01/19 08/24/19 Rx sucralfate 1 gm PO ACHS #420 ml 07/01/19 08/24/19 Rx methylphenidate HCl 60 mg PO BID 08/24/19 08/24/19 History potassium gluconate 500 mg PO DAILY 08/24/19 08/24/19 History Patient History Medical History Acute blood loss anemia Alcohol abuse Asthma Chronic hepatitis C Chronic pain Chronic pancreatitis Cirrhosis of liver with ascites COPD (chronic obstructive pulmonary disease) Depression Esophageal varices JENNIFER (generalized anxiety disorder) GI bleed Goals of care, counseling/discussion Hypertension Metabolic encephalopathy Metastatic cancer Osteoporosis Surgical History History of back surgery History of bronchoscopy History of History of cataract surgery History of cholecystectomy History of ERCP History of hip surgery History of surgery of liver History of tracheostomy Social History Preferred Language: [place]an Communication Ability: Effective Curator Herbarium Required: No Beliefs That Will Affect Care: None marital status: Current Living Situation: Spouse Feels Safe at Home: Yes Smoking Status: Current every day smoker Tobacco Type: cigarettes ; Cigarettes Per Day: 20 ; Tobacco Cessation Education Requested by Patient: No Hx Alcohol Use: No (quit in jun) Hx Substance Use: No Review of Systems Constitutional: + chills; no fever chills prior to admission, none since Respiratory: some shortness of breath related to abdominal distention Gastrointestinal: + abdominal pain and + bloating + bowel movements Physical Exam Physical Exam: awake/alert Constitutional: no acute distress Respiratory: normal respiratory effort Gastrointestinal (Abdomen): Inspection/Auscultation: + abdomen distended Skin: scars from previous ports of bilateral upper chest Results & Data Vital Signs (Past 12 Hours) Vital Signs Temp Pulse Resp BP BP Pulse Ox 08/28/19 07:21 83 18 92 08/28/19 07:05 36.8 C 85 18 154/84 H 91 08/27/19 23:17 37.2 C 86 14 120/68 92 08/27/19 22:54 85 16 [address] WITH IV AND ORAL CONTRAST CT DOSE: 526.63 mGy.cm HISTORY: ascites, cancer TECHNIQUE: Multiaxial CT images of the abdomen and pelvis were performed following the use of intravenous and oral contrast. A dose lowering technique was utilized adhering to the principles of ALARA. COMPARISON STUDY: None. FINDINGS: Small left pleural effusion. Multiple left-sided pleural nodules consistent with metastatic disease. Some of these may demonstrate necrosis or loculated pleural fluid. Dominant lesion within the left anterior pleural space measures 4.3 cm and results in a small focal erosion of the adjacent rib. Internal fixation of an old, healed left femoral neck fracture. Posterior decompression fusion within the lumbar spine. There is an L1 vertebroplasty. Nodular contour to the liver suggestive of cirrhosis. There are a few hypodense masses within the right hepatic dome with the largest measuring 4.6 cm. These favor metastatic lesions. The spleen is mildly enlarged. The main portal vein is patent. The adrenal glands and pancreas are unremarkable. Distended common bile duct measuring up to 14 mm. This could be due to the patient's postcholecystectomy state. No hydronephrosis. A few small hypodense lesions within the kidneys. These favor cysts. No retroperitoneal lymphadenopathy. Moderate to large amount of ascites. This could be due to the patient's cirrhosis. Questionable subtle nodularity along the peritoneal lining of the deep pelvis and within the left upper quadrant. Therefore, this likely represents peritoneal carcinomatosis which could also result in the ascites. The uterus is surgically absent. Normal bladder. No bowel wall thickening or o bstruction. Moderate stool within the colon. Normal appendix. Normal caliber abdominal aorta. IMPRESSION: 1. Small left pleural effusion with multiple left-sided pleural nodules consistent with metastatic disease. The dominant left anterior lesion results in a small focal erosion of the adjacent rib. 2. Moderate to large amount of ascites which could be due to combination of the patient's cirrhosis and suspected peritoneal carcinomatosis. 3. Hepatic metastatic disease. 4. No bowel wall thickening or obstruction. 5. Additional findings as described above. ACT 112: Negative or not required by law. Electronically signed by: Greg White M.D. 08/25/2019 7:55 AM PG Care Time/CCT Total # of Minutes Spent Total Time Spent with Patient: Total time spent is greater than 50% in coordination of care (as documented) at patient's floor/unit and/or counseling patient: Coding Level of Care Code 21024 Inpt Consult Level 2 Diagnoses Metastatic carcinoma C79.9
[2019-08-28] MEDS: cefTRIAXone SODIUM 2,000 MG in DEXTROSE 5% 50 ML IV SCH (12:53)
--- NOTE | 2019-08-28 12:56 | Palliative Care Progress Note ---
Date of Service August 28, 2019 Assessment & Plan (1) Goals of care, counseling/discussion: -Patient found to have moderate stool burden on KUB yesterday. She is now moving her bowels. -Pain is controlled with IV Dilaudid. she has had total of 2.5mg IV in 24 hours. -Fentanyl patch was increased to 50mcg/hr this morning. Will decrease Dilaudid to 0.5mg IV Q4h PRN. -If pain is controlled by tomorrow, would stop IV Dilaudid and order Oxycodone IR 5mg PO Q4h PRN breakthrough pain. -Plan is for patient to return home. She plans to make decision on whether or not to undergo chemo after outpatient heme/onc follow up. -Will continue to follow as needed. (2) Chronic pain: (3) Severe protein-calorie malnutrition: (4) Metastatic carcinoma: Subjective Patient is starting to move her bowels. She states she has had three bowel movements. Pain is well controlled, currently 5/10 and nurse just administered Dilaudid as I was entering room. Review of Systems Constitutional: + malaise and + weakness Gastrointestinal: + abdominal pain (distension); no nausea and no vomiting Musculoskeletal: as per Subjective / HPI Psychiatric: + depression; no anxiety Physical Exam Constitutional: + ill appearing (chronically); no acute distress ENMT: external ear and nose normal, oropharynx normal Respiratory: normal respiratory effort, lungs clear to auscultation Cardiovascular: RRR, no murmur, no edema Gastrointestinal (Abdomen): Inspection/Auscultation: + abdomen distended and normal bowel sounds Percussion/Palpation: abdomen nontender and + abdomen not soft Neurologic: moves all extremities and awake; not confused Psychiatric: A+Ox3, euthymic affect Results & Data Vital Signs (Past 12 Hours) Vital Signs Temp Pulse Resp BP Pulse Ox 08/28/19 11:28 86 18 93 08/28/19 07:21 83 18 92 08/28/19 07:05 36.8 C 85 18 154/84 H 91 Coding Level of Care Code 95649 Subseq Hosp Care Lvl 2 Diagnoses Goals of care, counseling/discussion Z71.89 Chronic pain G89.4 Chronic pain type: chronic pain syndrome Severe protein-calorie malnutrition E43 Metastatic carcinoma C79.9 Time Spent (min) 25 Time Spent Midlevel 25 minutes with >50% of the time spent at bedside with patient discussing pain management. (1) Chronic pain Chronic pain type: chronic pain syndrome Qualified Code(s): G89.4 - Chronic pain syndrome
--- NOTE | 2019-08-28 15:06 | Hospitalist Progress Note ---
Date of Service August 28, 2019 Assessment & Plan (1) Immunocompromised: - Generalized malaise/fatigue, fever/chills, abd pain, low back pain at home prior to admission - possibly all related to constitutional symptoms of cancer - Consider SBP vs. UTI vs. underlying malignancy; abdominal pain likely between ascites and constipation - Recently diagnosed cancer, metastatic, with unknown primary -- has not received any treatment to date. - CT A/P with left pleural nodules c/w metastatic disease, mod to large ascites, suspected peritoneal carcinomatosis, hepatic metastatic disease. - CXR negative for PNA. BC currently NGTD - U/a +yeast, UC with multiple organisms -- does have vaginal candidiasis, currently receiving treatment and improving - will given additional Diflucan dose - Continue Rocephin 2 g IV daily for empiric coverage of SBP - however paracentesis gram stain without organisms and cx so far no growth - low suspicion of infection -- Will continue for now given urinary presentation and multiple organisms but again low suspicion (2) Metastatic cancer: - CT A/P with left sided pleural nodules, mod to large ascites, suspected peritoneal carcinomatosis, hepatic metastatic disease. - S/p FNA of lung nodule -- did not indicate pt. had primary HCC, possibly related to squamous cell carcinoma. - Peritoneal fluid from 06/22 was negative for malignancy. - Follows with Dr. Delacruz from oncology; consulted onc as inpatient. - Was scheduled for port placement as outpatient - discussed with Destini Lama PA-C - can likely place on schedule for Saturday if still hospitalized - Palliative consulted to discuss goals of care in setting of metastatic disease - discussed with Lennie today (3) Candidal UTI (urinary tract infection): - U/a +yeast, UC with multiple organisms - unlikely repeat UA will be helpful given on Abx currently - Likely has vaginal candidiasis with contamination of UC. - Receiving Fluconazole 200 mg q3days for treatment. - symptoms are improving but not resolved and will be due for second dose today - Will monitor QT prolongation given reglan/diflucan use - QT reduced on EKG on 08/26 (4) Chronic pain: - Acute on chronic pain -- related to malignancy vs. ascites vs constipation - She is actually on Fentanyl 100 mcg Q3D and Oxycodone 10 mg - reports pain actually is pretty controlled on that regimen but when abdomen is bloated its not always working - Dilaudid PRN - discussed trying to transition back to an oral regimen to confirm effectiveness; increased Fentanyl to 50 mcg as she has been on only the 25 mcg in-house and then can be back on home regimen on D/C - Will implement Senna given KUB findings of stool burden; Continue Lactulose/Miralax (5) Alcohol abuse: - ETOH level was negative on admission. - Encourage discontinuation of ETOH at discharge. - AWSS protocol for withdrawal; no active signs of withdrawal - Received banana bag on admission. (6) Tobacco abuse: - Nicotine patch ordered. - Encourage tobacco cessation. (7) Ascites: - Mod to large ascites noted on CT A/P. - S/P paracentesis on 08/25 to rule out SBP and also for abd discomfort/cytology -- Removed 5 L - given Albumin post-paracentesis - Currently receiving Rocephin for empiric coverage of SBP - however infection seems unlikely -- Cx with NGTD - Continue Lasix 20 mg BID, Spironolactone 50 mg daily as prescribed. - If abdominal bloating doesn't improve with bowel regimen may benefit from additional paracentesis prior to discharge (8) Cirrhosis of liver with ascites: - In setting of ETOH abuse. - Continue Propanolol 20 mg qhs, Rifaximin 550 mg BID, Aldactone 50 mg daily. (9) Chronic hepatitis C: - Continue home meds. (10) COPD (chronic obstructive pulmonary disease): - No evidence of acute exacerbation; appropriate oxygenation on RA - Duonebs PRN; Incruse Ellipta qAM, Breo Ellipta daily. - Some wheezing may be due to accidently not using proper inhalers - appears she has Symbicort as outpatient -- She stated she has an inhaler she uses on a scheduled bases and one as needed however when she showed me them from her bag, both were albuterol rescue inhalers (11) Depression: - Not currently on medications. - Reports recent loss of one of her daughters last month (12) JENNIFER (generalized anxiety disorder): - Ativan prn. (13) Hepatic encephalopathy: - H/o; continue Lactulose 20 mg TID - titrate for 2-3 BMs daily - Ammonia level was WNL on admission; mentation baseline (14) Esophageal varices: - Continue Propanolol as prescribed. - H/o GI bleed -- continue PPI BID and Carafate ac/hs. (15) Anemia: - Possibly related to slow bleed in setting of varices. - Hgb baseline ~9-10. Not currently requiring transfusion support. (16) Severe protein-calorie malnutrition: - Alb level 1.7 in setting of metastatic disease. - Encourage diet with supplements; boost/ensure (17) DVT prophylaxis: - SCDs; hold pharmacologic ppx. Dispo: So far infectious findings seem unlikely; she missed her appointment for a port placement and given transportation limitations can see if Gen Surg could accommodate port placement in-house (Saturday?) Continue to optimize pain/bowel regimen; likely could benefit from repeat paracentesis Admission and Anticipated Discharge Date Admission Date: August 24, 2019 Subjective Reports feeling overall well. Abdomen remains firm and bloated. She is moving her bowels more today with current bowel regimen. States she still gets a little sick to the stomach with trying to eat even when she is hungry. CT and XR shows significant stool burden and will need to continue to optimize this for her. She may ultimately need an additional paracentesis. Discussed possibility of therapeutic paracentesis ongoing. Discussed with surgery of possibility of port placement on Saturday. Review of Systems Constitutional: no fever and no chills Respiratory: no cough and no dyspnea Cardiovascular: no chest pain Gastrointestinal: + bloating and + nausea (intermittent after eating); no abdominal pain, no vomiting, no constipation and no diarrhea/loose stools Genitourinary: + vaginal discharge (improving); no dysuria Integumentary: no rash Physical Exam Constitutional: no acute distress Eyes: + anicteric sclerae ENMT: Ears: no hearing impairment Neck: trachea midline Respiratory: normal respiratory effort, lungs clear to auscultation Cardiovascular: Rate/Rhythm: regular rate and regular rhythm Extremities: + edema (1+ pitting edema b/l lower extremities) Gastrointestinal (Abdomen): Inspection/Auscultation: + abdomen distended and normal bowel sounds Percussion/Palpation: abdomen nontender dressing applied to LLQ (site of paracentesis) - C/D/I no surrounding erythema or tenderness Musculoskeletal: Head/Neck/Chest: normocephalic and head atraumatic Skin: no rashes, warm and dry Neurologic: moves all extremities Psychiatric: A+Ox3, euthymic affect Results & Data ([facility]) Vital Signs (Past 12 Hours) Vital Signs Temp Pulse Resp BP Pulse Ox 08/28/19 11:28 86 18 93 08/28/19 07:21 83 18 92 08/28/19 07:05 36.8 C 85 18 154/84 H 91 PG Care Time/CCT Total # of Minutes Spent Total Time Spent with Patient: Total time spent is greater than 50% in coordination of care (as documented) at patient's floor/unit and/or counseling patient: Coding Level of Care Code 00749 Subseq Hosp Care Lvl 2 Diagnoses Immunocompromised D89.9 Metastatic cancer C79.9 Candidal UTI (urinary tract infection) B37.49 Chronic pain G89.4 Chronic pain type: chronic pain syndrome Alcohol abuse F10.10 Tobacco abuse Z72.0 Ascites R18.8 Ascites type: other type Cirrhosis of liver with ascites K70.31 Hepatic cirrhosis type: alcoholic cirrhosis Chronic hepatitis C B18.2 Hepatic coma status: with hepatic coma COPD (chronic obstructive pulmonary disease) J44.9 Depression F32.89 Depression Type: other depression JENNIFER (generalized anxiety disorder) F41.1 Hepatic encephalopathy K72.90 Esophageal varices I85.00 Anemia D64.9 Anemia type: unspecified type Severe protein-calorie malnutrition E43 DVT prophylaxis Z29.9 (1) Chronic pain Chronic pain type: chronic pain syndrome Qualified Code(s): G89.4 - Chronic pain syndrome (2) Ascites Ascites type: other type Qualified Code(s): R18.8 - Other ascites (3) Cirrhosis of liver with ascites Hepatic cirrhosis type: alcoholic cirrhosis Qualified Code(s): K70.31 - Alcoholic cirrhosis of liver with ascites (4) Chronic hepatitis C Hepatic coma status: with hepatic coma Qualified Code(s): B18.2 - Chronic viral hepatitis C (5) Depression Depression Type: other depression Qualified Code(s): F32.89 - Other specified depressive episodes (6) Anemia Anemia type: unspecified type Qualified Code(s): D64.9 - Anemia, unspecified
[2019-08-28] MEDS: ALBUT/IPRATROP 3MG/0.5MG NEB 3 ML VIAL NEB PRN (20:23)
[2019-08-28] MEDS: PROPRANOLOL HCL 20 MG TAB PO SCH (20:41)
[2019-08-29] MEDS: HYDROmorphone INJ 1 MG/ML SYRINGE IV PRN ×2 (01:31→11:16)
[2019-08-29] MEDS ORDERED: HYDROmorphone INJ 1 MG/ML SYRINGE IV STA (03:54)
[2019-08-29] MEDS ORDERED: HYDROmorphone INJ 1 MG/ML SYRINGE ONE (04:12)
[2019-08-29] MEDS: SUCRALFATE 1 GM/10 ML UDC PO SCH ×4 (07:53→20:07)
[2019-08-29] MEDS: CHECK FENTANYL PATCH PLACEMENT SCH ×2 (07:53→16:32)
[2019-08-29] MEDS: SPIRONOLACTONE 25 MG TAB PO SCH (09:04)
[2019-08-29] MEDS: NICOTINE 14 MG/24 HR PATCH TD SCH (09:04)
[2019-08-29] MEDS: LACTULOSE SYRUP 20 GM/30 ML UDC PO SCH ×3 (09:05→20:07)
[2019-08-29] MEDS: FLUTICASONE/VILANTEROL 200/25MCG 14 PUFFS/INHALER INH SCH (09:05)
[2019-08-29] MEDS: UMECLIDINIUM BROMIDE 62.5MCG/BLISTER 7 PUFFS/INHALER INH SCH (09:06)
[2019-08-29] MEDS: FUROSEMIDE 20 MG TAB PO SCH ×2 (09:06→16:35)
[2019-08-29] MEDS: POLYETHYLENE (MIRALAX) 17 GM PACK PO SCH ×2 (09:07→20:09)
[2019-08-29] MEDS: METOCLOPRAMIDE HCL 5 MG TABLET PO SCH ×4 (09:07→20:11)
[2019-08-29] MEDS: PANTOprazole 40 MG TAB PO SCH ×2 (09:07→20:11)
[2019-08-29] MEDS: SENNA 8.6 MG TAB PO SCH (09:08)
[2019-08-29] MEDS: RIFAXIMIN 550 MG TABLET PO SCH ×2 (09:08→20:11)
[2019-08-29] MEDS: ALBUT/IPRATROP 3MG/0.5MG NEB 3 ML VIAL NEB PRN ×2 (12:51→17:07)
[2019-08-29] MEDS: cefTRIAXone SODIUM 2,000 MG in DEXTROSE 5% 50 ML IV SCH (14:06)
--- NOTE | 2019-08-29 14:08 | XRay Report ---
XR KUB/Abdomen 1 view CLINICAL HISTORY: 59 years-old Female presenting with Worsening abd pain; stool burden. TECHNIQUE: Single supine view of the abdomen was obtained. COMPARISON: 08/27/[address] from 08/25/2019. FINDINGS: Mottled lucencies in the epigastrium likely with in the stomach. Mild gaseous distention of large bow el. Nonobstructive bowel gas pattern. Added density of the abdomen likely relates to underlying ascit es. No gross pneumoperitoneum. Allowing for bowel gas and stool, no calcifications to suggest nephrolithiasis. Surgical clips projec t over the pelvis. Posterior lumbar fusion hardware with interbody spacer at L4-5. Kyphoplasty changes at L1. Cannulated screw fixation of the left femoral neck. IMPRESSION: 1. Added density of the abdomen likely relates to underlying ascites. 2. No bowel obstruction. ACT 112: Negative or not required by law. Electronically signed by: Reji Toribio M.D. 08/29/2019 2:07 PM
[2019-08-29] MEDS ORDERED: SOD PHOSPHATE/SOD BIPHOSPHATE ENEMA 132 ML BTL PR PRN (16:47)
[2019-08-29] MEDS: LORazepam 0.5 MG/1 ML VIAL IV PRN (18:33)
--- NOTE | 2019-08-29 18:39 | Hospitalist Progress Note ---
Date of Service August 29, 2019 Assessment & Plan (1) Immunocompromised: - Generalized malaise/fatigue, fever/chills, abd pain, low back pain at home prior to admission - possibly all related to constitutional symptoms of cancer - Consider SBP vs. UTI vs. underlying malignancy; abdominal pain likely between ascites and constipation - Recently diagnosed cancer, metastatic, with unknown primary -- has not received any treatment to date. - CT A/P with left pleural nodules c/w metastatic disease, mod to large ascites, suspected peritoneal carcinomatosis, hepatic metastatic disease. - CXR negative for PNA. BC currently NGTD - U/a +yeast, UC with multiple organisms -- does have vaginal candidiasis, currently receiving treatment and improving - will monitor for need of additional Diflucan - Will stop Rocephin 2 g IV daily as this was empiric coverage of SBP - paracentesis gram stain without organisms and cx NGTD - low suspicion of infection (2) Metastatic cancer: - CT A/P with left sided pleural nodules, mod to large ascites, suspected peritoneal carcinomatosis, hepatic metastatic disease. - S/p FNA of lung nodule -- did not indicate pt. had primary HCC, possibly related to squamous cell carcinoma. - Peritoneal fluid from 06/22 was negative for malignancy. - Follows with Dr. Delacruz from oncology; consulted onc as inpatient. - Was scheduled for port placement as outpatient -- can likely place on schedule for Saturday if still hospitalized - Palliative consulted to discuss goals of care in setting of metastatic disease (3) Candidal UTI (urinary tract infection): - U/a +yeast, UC with multiple organisms - unlikely repeat UA will be helpful given on Abx currently - Likely has vaginal candidiasis with contamination of UC. - Receiving Fluconazole 200 mg x 2 doses - symptoms nearly resolved - Will monitor QT prolongation given reglan/diflucan use - QT reduced on EKG on 08/26 (4) Chronic pain: - Acute on chronic pain -- related to malignancy vs. ascites vs constipation - She is actually on Fentanyl 100 mcg Q3D and Oxycodone 10 mg - reports pain actually is pretty controlled on that regimen but when abdomen is bloated its not always working - Dilaudid PRN - discussed trying to transition back to an oral regimen to confirm effectiveness; increased Fentanyl to 50 mcg as she has been on only the 25 mcg in-house and then can be back on home regimen on D/C - Will implement Senna given KUB findings of stool burden; Continue Miralax; increase lactulose (5) Alcohol abuse: - ETOH level was negative on admission. - Encourage discontinuation of ETOH at discharge. - AW protocol for withdrawal; no active signs of withdrawal - Received banana bag on admission. (6) Tobacco abuse: - Nicotine patch ordered. - Encourage tobacco cessation. (7) Ascites: - Mod to large ascites noted on CT A/P. - S/P paracentesis on 08/25 to rule out SBP and also for abd discomfort/cytology -- Removed 5 L - given Albumin post-paracentesis - Continue Lasix 20 mg BID, Spironolactone 50 mg daily as prescribed. - If abdominal bloating doesn't improve with bowel regimen may benefit from additional paracentesis prior to discharge - U/S is pending (8) Cirrhosis of liver with ascites: - In setting of ETOH abuse. - Continue Propanolol 20 mg qhs, Rifaximin 550 mg BID, Aldactone 50 mg daily. (9) Chronic hepatitis C: - Continue home meds. (10) COPD (chronic obstructive pulmonary disease): - No evidence of acute exacerbation; appropriate oxygenation on RA - Duonebs PRN; Incruse Ellipta qAM, Breo Ellipta daily. - Some wheezing may be due to accidently not using proper inhalers - appears she has Symbicort as outpatient -- She stated she has an inhaler she uses on a scheduled bases and one as n eeded however when she showed me them from her bag, both were albuterol rescue inhalers (11) Depression: - Not currently on medications. - Reports recent loss of one of her daughters last month (12) JENNIFER (generalized anxiety disorder): - Ativan prn. (13) Hepatic encephalopathy: - H/o; continue Lactulose TID - titrate for 2-3 BMs daily - Ammonia level was WNL on admission; mentation baseline (14) Esophageal varices: - Continue Propanolol as prescribed. - H/o GI bleed -- continue PPI BID and Carafate ac/hs. (15) Anemia: - Possibly related to slow bleed in setting of varices. - Hgb baseline ~9-10. Not currently requiring transfusion support. (16) Severe protein-calorie malnutrition: - Alb level 1.7 in setting of metastatic disease. - Encourage diet with supplements; boost/ensure (17) DVT prophylaxis: - SCDs; hold pharmacologic ppx. Dispo: So far infectious findings seem unlikely; she missed her appointment for a port placement and given transportation limitations can see if Gen Surg could accommodate port placement in-house (Saturday?) Continue to optimize pain/bowel regimen; likely could benefit from repeat paracentesis prior to D/C - Saw Dr. Hickey in-hospital on previous admission and would like to continue with GI care through them and can arrange - likely needs intermittent therapeutic paracentesis Admission and Anticipated Discharge Date Admission Date: August 24, 2019 Subjective Reports feeling okay today. Did have some increased pain overnight but improved today. Not moving her bowels and will adjust regimen. KUB not too revealing. Abd U/S pending to assess ascites. Verbalizes no acute issues Review of Systems Constitutional: no fever and no chills Respiratory: + wheezing (intermittent); no cough and no dyspnea Cardiovascular: no chest pain Gastrointestinal: + abdominal pain, + bloating and + constipation; no nausea, no vomiting and no diarrhea/loose stools Genitourinary: + vaginal itching (very minimal at this point); no dysuria Integumentary: no rash Physical Exam Constitutional: no acute distress Eyes: + anicteric sclerae Neck: trachea midline Respiratory: normal respiratory effort, lungs clear to auscultation Auscultation: + diminished lung sounds Cardiovascular: Rate/Rhythm: regular rate and regular rhythm Heart Sounds: no murmur Vessels: no JVD Gastrointestinal (Abdomen): Inspection/Auscultation: + abdomen distended and normal bowel sounds Percussion/Palpation: + abdomen firm Musculoskeletal: Head/Neck/Chest: normocephalic and head atraumatic Extremities: no cyanosis and no clubbing Skin: no rashes, warm and dry Neurologic: moves all extremities Psychiatric: A+Ox3, euthymic affect Results & Data ([facility]) Vital Signs (Past 12 Hours) Vital Signs Temp Pulse Resp BP Pulse Ox 08/29/19 18:16 78 18 97 08/29/19 17:08 76 16 91 08/29/19 15:57 36.5 C 75 16 131/75 98 08/29/19 12:51 77 18 93 08/29/19 08:18 36.6 C 77 18 160/83 H 93 PG Care Time/CCT Total # of Minutes Spent Total Time Spent with Patient: Total time spent is greater than 50% in coordination of care (as documented) at patient's floor/unit and/or counseling patient: Coding Level of Care Code 21487 Subseq Hosp Care Lvl 2 Diagnoses Immunocompromised D89.9 Metastatic cancer C79.9 Candidal UTI (urinary tract infection) B37.49 Chronic pain G89.4 Chronic pain type: chronic pain syndrome Alcohol abuse F10.10 Tobacco abuse Z72.0 Ascites R18.8 Ascites type: other type Cirrhosis of liver with ascites K70.31 Hepatic cirrhosis type: alcoholic cirrhosis Chronic hepatitis C B18.2 Hepatic coma status: with hepatic coma COPD (chronic obstructive pulmonary disease) J44.9 Depression F32.89 Depression Type: other depression JENNIFER (generalized anxiety disorder) F41.1 Hepatic encephalopathy K72.90 Esophageal varices I85.00 Anemia D64.9 Anemia type: unspecified type Severe protein-calorie malnutrition E43 DVT prophylaxis Z29.9 (1) Chronic pain Chronic pain type: chronic pain syndrome Qualified Code(s): G89.4 - Chronic pain syndrome (2) Ascites Ascites type: other type Qualified Code(s): R18.8 - Other ascites (3) Cirrhosis of liver with ascites Hepatic cirrhosis type: alcoholic cirrhosis Qualified Code(s): K70.31 - Alcoholic cirrhosis of liver with ascites (4) Chronic hepatitis C Hepatic coma status: with hepatic coma Qualified Code(s): B18.2 - Chronic viral hepatitis C (5) Depression Depression Type: other depression Qualified Code(s): F32.89 - Other specified depressive episodes (6) Anemia Anemia type: unspecified type Qualified Code(s): D64.9 - Anemia, unspecified
--- NOTE | 2019-08-29 18:56 | Ultrasound Report ---
US abdomen ltd ascites CLINICAL HISTORY: 59 years-old Female presenting with Assess for need of paracentesis?. TECHNIQUE: Real-time grayscale ultrasound imaging of the abdomen was performed for a focused evaluati on at the site of clinical concern. COMPARISON: 07/21/2019. FINDINGS: Moderate volume ascites noted in all 4 quadrants. Low-level internal echoes may suggest inspissated m aterial or minimal complexity. No septations. Evidence of cirrhosis. Ascites volume similar to prior exam. IMPRESSION: 1. Moderate volume ascites. ACT 112: Negative or not required by law. Electronically signed by: Reji Toribio M.D. 08/29/2019 6:55 PM
[2019-08-29] MEDS: PROPRANOLOL HCL 20 MG TAB PO SCH (20:16)
[2019-08-30] MEDS: CHECK FENTANYL PATCH PLACEMENT SCH ×4 (00:45→23:30)
[2019-08-30] MEDS: LORazepam 0.5 MG/1 ML VIAL IV PRN ×2 (04:32→19:18)
[2019-08-30 06:57] LABS: Hematocrit (blood only) 28.1 % (37-47); Hemoglobin 9.1 g/dL (12.0-16.0); Mean Corpuscular Hemoglobin 27.7 pg (25-34); Mean Corpuscular Hgb Conc 32.4 g/dL (32-36); Mean Corpuscular Volume 85.4 fL (80-100); Mean Platelet Volume 10.7 fL (7.4-10.4); Platelet Count 166 K/uL (130-400); RDW Standard Deviation 75.7 fL (36.4-46.3); Red Blood Count 3.29 M/uL (4.2-5.4); White Blood Count 9.16 K/uL (4.8-10.8)
[2019-08-30 07:08] LABS: INR 1.5 (0.9-1.1); Prothrombin Time 15.1 Seconds (9.0-12.0)
[2019-08-30 07:34] LABS: BUN Creatinine Ratio 15.3 (10-20); Calcium 8.3 mg/dl (8.5-10.1); Creatinine Clr Calc Pharmacy 59.4 ml/min; Est GFR (African American) 82.2; Est GFR (Non-African American) 70.9
[2019-08-30] MEDS: SUCRALFATE 1 GM/10 ML UDC PO SCH ×4 (08:12→20:29)
[2019-08-30] MEDS: HYDROmorphone INJ 1 MG/ML SYRINGE IV PRN ×2 (08:23→19:18)
[2019-08-30] MEDS: ALBUT/IPRATROP 3MG/0.5MG NEB 3 ML VIAL NEB PRN ×2 (08:35→20:43)
[2019-08-30] MEDS: SPIRONOLACTONE 25 MG TAB PO SCH (09:04)
[2019-08-30] MEDS: PANTOprazole 40 MG TAB PO SCH ×2 (09:04→20:29)
[2019-08-30] MEDS: SENNA 8.6 MG TAB PO SCH (09:04)
[2019-08-30] MEDS: UMECLIDINIUM BROMIDE 62.5MCG/BLISTER 7 PUFFS/INHALER INH SCH (09:05)
[2019-08-30] MEDS: RIFAXIMIN 550 MG TABLET PO SCH ×2 (09:05→20:29)
[2019-08-30] MEDS: METOCLOPRAMIDE HCL 5 MG TABLET PO SCH ×4 (09:05→20:29)
[2019-08-30] MEDS: FUROSEMIDE 20 MG TAB PO SCH ×2 (09:05→17:04)
[2019-08-30] MEDS: POLYETHYLENE (MIRALAX) 17 GM PACK PO SCH ×2 (09:05→20:29)
[2019-08-30] MEDS: FLUTICASONE/VILANTEROL 200/25MCG 14 PUFFS/INHALER INH SCH (09:06)
[2019-08-30] MEDS: NICOTINE 14 MG/24 HR PATCH TD SCH (09:06)
[2019-08-30] MEDS: LACTULOSE SYRUP 20 GM/30 ML UDC PO SCH ×3 (09:06→20:29)
--- NOTE | 2019-08-30 09:06 | Surgery Progress Note ---
Date of Service August 30, 2019 Assessment & Plan (1) Metastatic carcinoma: has had multiple ports in the past she is unsure about chemo, we would prefer not to place port if she is not going to have chemo, although she wants the port regardless seen with Dr. Schumacher tentatively plan for port placement tomorrow Subjective bowels moving, feeling better Results & Data Vital Signs (Past 12 Hours) Vital Signs Temp Pulse Resp BP BP Pulse Ox 08/30/19 08:35 80 18 94 08/29/19 23:02 36.6 C 82 12 119/74 98 08/29/19 20:14 36.4 C L 79 16 143/87 H 96 PG Care Time/CCT Total # of Minutes Spent Total Time Spent with Patient: Total time spent is greater than 50% in coordination of care (as documented) at patient's floor/unit and/or counseling patient: Coding Level of Care Code None Diagnoses Metastatic carcinoma C79.9
--- NOTE | 2019-08-30 13:42 | Hospitalist Progress Note ---
Date of Service August 30, 2019 Assessment & Plan (1) Immunocompromised: - Generalized malaise/fatigue, fever/chills, abd pain, low back pain at home prior to admission - possibly all related to constitutional symptoms of cancer - Consider SBP vs. UTI vs. underlying malignancy; abdominal pain likely between ascites and constipation - no obvious findings of infection - Recently diagnosed cancer, metastatic, with unknown primary -- has not received any treatment to date. - CT A/P with left pleural nodules c/w metastatic disease, mod to large ascites, suspected peritoneal carcinomatosis, hepatic metastatic disease. - CXR negative for PNA. BC currently NGTD - U/a +yeast, UC with multiple organisms -- does have vaginal candidiasis, currently receiving treatment and improving - will monitor for need of additional Diflucan - Will stop Rocephin 2 g IV daily as this was empiric coverage of SBP - paracentesis gram stain without organisms and cx NGTD - low suspicion of infection (2) Metastatic cancer: - CT A/P with left sided pleural nodules, mod to large ascites, suspected peritoneal carcinomatosis, hepatic metastatic disease. - S/p FNA of lung nodule -- did not indicate pt. had primary HCC, possibly related to squamous cell carcinoma. - Peritoneal fluid from 06/22 was negative for malignancy. - Follows with Dr. Delacruz from oncology; consulted onc as inpatient - he is press operator carbon blocks tomorrow and will touch base with Dr. Calderón - Was scheduled for port placement as outpatient -- can likely place on schedule for Saturday if still hospitalized - Palliative consulted to discuss goals of care in setting of metastatic disease (3) Candidal UTI (urinary tract infection): - U/a +yeast, UC with multiple organisms - unlikely repeat UA will be helpful given on Abx currently - Likely has vaginal candidiasis with contamination of UC. - Receiving Fluconazole 200 mg x 2 doses - symptoms nearly resolved - Will monitor QT prolongation given reglan/diflucan use - QT reduced on EKG on 08/26 (4) Chronic pain: - Acute on chronic pain -- related to malignancy vs. ascites vs constipation - She is actually on Fentanyl 100 mcg Q3D and Oxycodone 10 mg - reports pain actually is pretty controlled on that regimen but when abdomen is bloated its not always working - Dilaudid PRN - discussed trying to transition back to an oral regimen to confirm effectiveness; increased Fentanyl to 50 mcg as she has been on only the 25 mcg in-house and then can be back on home regimen on D/C - Will implement Senna given KUB findings of stool burden; Continue Miralax; increased lactulose (5) Alcohol abuse: - ETOH level was negative on admission. - Encourage discontinuation of ETOH at discharge. - AWSS protocol for withdrawal; no active signs of withdrawal - Received banana bag on admission. (6) Tobacco abuse: - Nicotine patch ordered. - Encourage tobacco cessation. (7) Ascites: - Mod to large ascites noted on CT A/P. - S/P paracentesis on 08/25 to rule out SBP and also for abd discomfort/cytology -- Removed 5 L - given Albumin post-paracentesis - Continue Lasix 20 mg BID, Spironolactone 50 mg daily as prescribed. - U/S confirms nearly the same degree of ascites as previous - will look at possible paracentesis on Saturday (8) Cirrhosis of liver with ascites: - In setting of ETOH abuse. - Continue Propanolol 20 mg qhs, Rifaximin 550 mg BID, Aldactone 50 mg daily. (9) Chronic hepatitis C: - Continue home meds. (10) COPD (chronic obstructive pulmonary disease): - No evidence of acute exacerbation; appropriate oxygenation on RA - Duonebs PRN; Incruse Ellipta qAM, Breo Ellipta daily. - Some wheezing may be due to accidently not using proper inhalers - appears she has Symbicort as outpatient -- She stated she has an inhaler she uses on a scheduled bases and one as needed however when she showed me them from her bag, both were albuterol rescue inhalers (11) Depression: - Not currently on medications. - Reports recent loss of one of her daughters last month (12) JENNIFER (generalized anxiety disorder): - Ativan prn. (13) Hepatic encephalopathy: - H/o; continue Lactulose TID - titrate for 2-3 BMs daily - Ammonia level was WNL on admission; mentation baseline (14) Esophageal varices: - Continue Propanolol as prescribed. - H/o GI bleed -- continue PPI BID and Carafate ac/hs. (15) Anemia: - Possibly related to slow bleed in setting of varices; some of chronic disease - Hgb baseline ~9-10. Not currently requiring transfusion support. (16) Severe protein-calorie malnutrition: - Alb level 1.5 in setting of metastatic disease. - Encourage diet with supplements; boost/ensure (17) DVT prophylaxis: - SCDs; hold pharmacologic ppx. Dispo: So far infectious findings seem unlikely; she missed her appointment for a port placement and given transportation limitations can see if Gen Surg could accommodate port placement in-house (Saturday?) -- She states she did want to at least try chemotherapy but does admit to fear of ability to tolerate but currently does want to try treatment Continue to optimize pain/bowel regimen; likely could benefit from repeat paracentesis prior to D/C - Saw Dr. Hickey in-hospital on previous admission and would like to continue with GI care through them and can arrange - likely needs intermittent therapeutic paracentesis Admission and Anticipated Discharge Date Admission Date: August 24, 2019 Subjective She feels well today. She moved her bowels multiple times yesterday and today and her abdomen is softer at the upper portions but still distended. Her pain improved with BMs and her early satiety/postprandial discomfort. She wanted to discuss if she is getting a port. She states she does want to give chemotherapy a try. She is nervous and not sure if she will be able to tolerate this but she does want to give it a try. She just feels like there is a lot of unknowns in regards to her treatment plan. She knows she is not ready for hospice at this time and wants to fight. Had a long conversation that she can change her mind at any point and not to feel ashamed of that. After discussion she states she does want to try chemotherapy. Dr. Calderón is her primary oncologist and will be on for consult tomorrow and can discuss with him Review of Systems Constitutional: no fever and no chills Respiratory: no cough and no dyspnea Cardiovascular: no chest pain Gastrointestinal: + bloating (improving); no abdominal pain, no nausea, no vomiting, no constipation and no diarrhea/loose stools Genitourinary: no dysuria Integumentary: no rash Physical Exam Constitutional: no acute distress Eyes: + anicteric sclerae ENMT: Ears: no hearing impairment Neck: trachea midline Respiratory: normal respiratory effort Auscultation: lungs clear to auscultation bilaterally and + diminished lung sounds Cardiovascular: Rate/Rhythm: regular rate and regular rhythm Extremities: + edema (1+ pitting b/l lower extremities) Gastrointestinal (Abdomen): Inspection/Auscultation: + abdomen distended (softer in upper abdomen) and normal bowel sounds Percussion/Palpation: abdomen nontender Musculoskeletal: Head/Neck/Chest: normocephalic and head atraumatic Extremities: no cyanosis Skin: no rashes, warm and dry Neurologic: moves all extremities Psychiatric: A+Ox3, euthymic affect Results & Data ([facility]) Vital Signs (Past 12 Hours) Vital Signs Pulse Resp Pulse Ox 08/30/19 08:35 80 18 94 PG Care Time/CCT Total # of Minutes Spent Total Time Spent with Patient: Total time spent is greater than 50% in coordination of care (as documented) at patient's floor/unit and/or counseling patient: Coding Level of Care Code 12852 Subseq Hosp Care Lvl 2 Diagnoses Immunocompromised D89.9 Metastatic cancer C79.9 Candidal UTI (urinary tract infection) B37.49 Chronic pain G89.4 Chronic pain type: chronic pain syndrome Alcohol abuse F10.10 Tobacco abuse Z72.0 Ascites R18.8 Ascites type: other type Cirrhosis of liver with ascites K70.31 Hepatic cirrhosis type: alcoholic cirrhosis Chronic hepatitis C B18.2 Hepatic coma status: with hepatic coma COPD (chronic obstructive pulmonary disease) J44.9 Depression F32.89 Depression Type: other depression JENNIFER (generalized anxiety disorder) F41.1 Hepatic encephalopathy K72.90 Esophageal varices I85.00 Anemia D64.9 Anemia type: unspecified type Severe protein-calorie malnutrition E43 DVT prophylaxis Z29.9 (1) Chronic pain Chronic pain type: chronic pain syndrome Qualified Code(s): G89.4 - Chronic pain syndrome (2) Ascites Ascites type: other type Qualified Code(s): R18.8 - Other ascites (3) Cirrhosis of liver with ascites Hepatic cirrhosis type: alcoholic cirrhosis Qualified Code(s): K70.31 - Alcoholic cirrhosis of liver with ascites (4) Chronic hepatitis C Hepatic coma status: with hepatic coma Qualified Code(s): B18.2 - Chronic viral hepatitis C (5) Depression Depression Type: other depression Qualified Code(s): F32.89 - Other specified depressive episodes (6) Anemia Anemia type: unspecified type Qualified Code(s): D64.9 - Anemia, unspecified
[2019-08-30] MEDS: PROPRANOLOL HCL 20 MG TAB PO SCH (20:29)
[2019-08-31] MEDS: LORazepam 0.5 MG/1 ML VIAL IV PRN ×2 (03:02→21:54)
[2019-08-31] MEDS: ALBUT/IPRATROP 3MG/0.5MG NEB 3 ML VIAL NEB PRN ×3 (03:07→20:38)
[2019-08-31] MEDS: PANTOprazole 40 MG TAB PO SCH ×2 (07:56→20:04)
[2019-08-31] MEDS: RIFAXIMIN 550 MG TABLET PO SCH ×2 (07:56→20:04)
[2019-08-31] MEDS: SUCRALFATE 1 GM/10 ML UDC PO SCH ×4 (07:56→20:04)
[2019-08-31] MEDS: METOCLOPRAMIDE HCL 5 MG TABLET PO SCH ×4 (07:57→20:05)
[2019-08-31] MEDS: FLUTICASONE/VILANTEROL 200/25MCG 14 PUFFS/INHALER INH SCH (07:58)
[2019-08-31] MEDS: FUROSEMIDE 20 MG TAB PO SCH ×2 (07:58→17:18)
[2019-08-31] MEDS: SPIRONOLACTONE 25 MG TAB PO SCH (07:58)
[2019-08-31] MEDS: LACTULOSE SYRUP 20 GM/30 ML UDC PO SCH (07:59)
[2019-08-31] MEDS: POLYETHYLENE (MIRALAX) 17 GM PACK PO SCH ×2 (07:59→20:05)
[2019-08-31] MEDS: UMECLIDINIUM BROMIDE 62.5MCG/BLISTER 7 PUFFS/INHALER INH SCH (07:59)
[2019-08-31] MEDS: NICOTINE 14 MG/24 HR PATCH TD SCH (08:00)
[2019-08-31] MEDS: SENNA 8.6 MG TAB PO SCH (08:00)
[2019-08-31] MEDS: CHECK FENTANYL PATCH PLACEMENT SCH ×4 (08:01→23:57)
[2019-08-31] MEDS: fentaNYL 50 MCG/HR TDSY TD SCH (08:06)
[2019-08-31] MEDS ORDERED: fentaNYL citrate 100 MCG/2 ML VIAL ONE (08:41)
[2019-08-31] MEDS ORDERED: MIDAZOLAM HCL 1 MG/ML 2ML VIAL ONE (08:41)
[2019-08-31] MEDS ORDERED: PROPOFOL IV EMULSION 10 MG/ML 20 ML VIAL IV ONE ×3 (08:41→09:45)
[2019-08-31] MEDS ORDERED: KETAMINE HCL INJ 50 MG/ML 10 ML VIAL ONE (08:41)
[2019-08-31] MEDS ORDERED: HEPARIN 100 UNIT/ML 5ML FLUSH ONE (09:05)
[2019-08-31] MEDS ORDERED: LIDOCAINE HCL 1% 20 ML VIAL ONE (09:06)
[2019-08-31] MEDS ORDERED: BACITRACIN INJ 50,000 UNIT VIAL ONE (09:06)
[2019-08-31] MEDS ORDERED: ePHEDrine sulfate 50 MG/ML AMP IV PRN (09:21)
[2019-08-31] MEDS ORDERED: ONDANSETRON INJ 2 MG/ML 2 ML VIAL IV PRN ×2 (09:21→11:17)
[2019-08-31] MEDS ORDERED: ATROPINE SULFATE 0.1 MG/ML 10ML SYR IV PRN (09:21)
[2019-08-31] MEDS ORDERED: fentaNYL citrate 100 MCG/2 ML VIAL IV PRN (09:21)
--- NOTE | 2019-08-31 09:21 | Anesthesiology Consultation ---
Date of Service August 31, 2019 Assessment & Plan ASA ASA4 Proposed Anesthesia Anesthesia Type: MAC Risk / Benefits Reviewed With: PT / POA / Parent / Guardian, Accepts Plan and Informed Consent Obtained History Surgery Operation Date: 08/31/19 09:00 Proposed Procedures p Infusaport Insertion - Dario Schumacher MD Height/Weight Height: 5 ft 2 in Weight: 65.3 kg Allergies Allergy/AdvReac Type Severity Reaction Status Date / Time clarithromycin Allergy Unknown rash, Verified 08/24/19 17:43 nausea Macrolide Antibiotics Allergy Unknown Verified 08/24/19 17:43 Macrolide Immunosuppressant Allergy Unknown Verified 08/24/19 17:43 Sulfa (Sulfonamide Allergy Unknown rash Verified 08/24/19 17:43 Antibiotics) trimethoprim Allergy Unknown Rash Verified 08/24/19 17:43 amoxicillin AdvReac Intermediate nausea, Verified 08/24/19 17:43 diarrhea clavulanic acid AdvReac Intermediate nausea, Verified 08/24/19 17:43 diarrhea cefuroxime AdvReac Unknown nausea, Verified 08/24/19 17:43 diarrhea doxycycline AdvReac Unknown nausea, Verified 08/24/19 17:43 diarrhea morphine AdvReac Unknown nausea, Verified 08/24/19 17:43 vomiting Medications Home Medications Medication Instructions Recorded Confirmed Last Taken furosemide 40 mg tablet 20 mg PO BID 05/06/19 08/24/19 08/24/19 metoclopramide HCl 10 mg 5 mg PO QID tab 05/06/19 08/24/19 08/24/19 disintegrating tablet rifaximin 550 mg tablet 550 mg PO BID 05/06/19 08/24/19 08/24/19 spironolactone 50 mg tablet 50 mg PO DAILY 05/06/19 08/24/19 08/24/19 albuterol sulfate [Ventolin HFA] 2 puff INHALATION Q4H PRN 06/20/19 08/24/19 Unknown budesonide-formoterol [Symbicort] 2 puff INHALATION BID 06/20/19 08/24/19 08/24/19 lorazepam 0.5 mg PO UD PRN 06/20/19 08/24/19 Unknown propranolol 20 mg PO HS 06/20/19 08/24/19 Unknown fentanyl 25 mcg TRANSDERMAL Q3D #1 ea 07/01/19 08/24/19 08/23/19 lactulose 20 gm PO TID #1500 ml 07/01/19 08/24/19 08/24/19 pantoprazole 40 mg PO BID #60 tab 07/01/19 08/24/19 08/24/19 sucralfate 1 gm PO ACHS #420 ml 07/01/19 08/24/19 08/24/19 methylphenidate HCl 60 mg PO BID 08/24/19 08/24/19 08/24/19 potassium gluconate 500 mg PO DAILY 08/24/19 08/24/19 08/24/19 Active Medications Generic Name Dose Route Start Last Admin Trade Name Freq PRN Reason Stop Dose Admin Albuterol 2 puffs 08/24/19 23:35 08/28/19 07:03 Ventolin Hfa INH 09/23/19 23:34 2 puffs Q4H PRN Administration Wheezing Albuterol 3 ml 08/28/19 14:15 08/31/19 03:07 Duoneb NEB 09/23/19 23:34 3 ml Q4R PRN Administration Shortness Of Breath Or Wheezing Fentanyl 50 mcg 08/28/19 09:00 08/31/19 08:06 Duragesic TD 09/11/19 08:59 50 mcg Q3D RIKA Administration Fluticasone/Vilanterol 1 puffs 08/25/19 09:00 08/31/19 07:58 Breo Ellipta 200/25 Mcg Inh INH 09/24/19 08:59 1 puffs DAILY RIKA Administration Furosemide 20 mg 08/24/19 23:35 08/31/19 07:58 Lasix PO 09/23/19 23:34 20 mg BID17 RIKA Administration Hydromorphone HCl 0.5 mg 08/28/19 12:50 08/30/19 19:18 Dilaudid IV 09/10/19 17:29 0.5 mg Q4H PRN Administration Pain Lorazepam 0.5 mg in 1 mls @ 1 mls/min 08/24/19 23:35 08/31/19 03:02 Ativan IV 09/23/19 23:34 1 mls/min Q4H PRN Administration Anxiety Lactulose 30 gm 08/29/19 21:00 08/31/19 07:59 Chronulac PO 09/28/19 20:59 30 gm TID RIKA Administration Metoclopramide HCl 5 mg 08/25/19 09:00 08/31/19 07:57 Reglan PO 09/24/19 08:59 5 mg QID RIKA Administration Miscellaneous 1 ea 08/25/19 08:59 08/31/19 08:00 Remove Nicoderm Patch N/A 09/24/19 08:58 1 ea DAILY@0859 RIKA Administration Miscellaneous 1 ea 08/25/19 00:00 08/31/19 08:01 Fentanyl Patch Check Placement N/A 09/24/19 00:00 1 ea QS RIKA Administration Miscellaneous 1 ea 08/28/19 08:59 08/31/19 08:07 Fentanyl Patch Remove & Waste N/A 09/27/19 08:58 1 ea Q3D@0859 RIKA Administration Nicotine 14 mg 08/25/19 09:00 08/31/19 08:00 Nicoderm Cq TD 09/24/19 08:59 14 mg QAM RIKA Administration Pantoprazole Sodium 40 mg 08/24/19 23:35 08/31/19 07:56 Protonix PO 09/23/19 23:34 40 mg BID RIKA Administration Polyethylene Glycol 17 gm 08/24/19 23:35 08/31/19 07:59 Miralax Powder Packet PO 09/23/19 23:34 Not Given BID RIKA Propranolol HCl 20 mg 08/25/19 21:00 08/30/19 20:29 Inderal PO 09/24/19 20:59 20 mg HS RIKA Administration Rifaximin 550 mg 08/24/19 23:35 08/31/19 07:56 Xifaxan PO 09/23/19 23:34 550 mg BID RIKA Administration Sennosides 17.2 mg 08/27/19 17:00 08/31/19 08:00 Senokot PO 09/26/19 16:59 17.2 mg QAM RIKA Administration Sodium Biphosphate/Sodium Phosphate 132 ml 08/29/19 16:47 08/29/19 21:50 Fleet Enema VT 09/28/19 16:46 132 ml DAILY PRN Administration Constipation Spironolactone 50 mg 08/25/19 09:00 08/31/19 07:58 Aldactone PO 09/24/19 08:59 50 mg DAILY RIKA Administration Sucralfate 1 gm 08/25/19 07:30 08/31/19 07:56 Carafate PO 09/24/19 07:29 1 gm ACHS RIKA Administration Umeclidinium Milo 1 puffs 08/25/19 09:00 08/31/19 07:59 Incruse Ellipta INH 09/24/19 08:59 1 puffs QAM RIKA Administration NPO Date Last Intake of Fluids: 08/30/19 Time Last Intake of Fluids: 22:00 Date Last Intake of Solids: 08/30/19 Time Last Intake of Solids: 22:00 Past Medical History Medical History Acute blood loss anemia Alcohol abuse Asthma Chronic hepatitis C Chronic pain Chronic pancreatitis Cirrhosis of liver with ascites COPD (chronic obstructive pulmonary disease) Depression Esophageal varices JENNIFER (generalized anxiety disorder) GI bleed Goals of care, counseling/discussion Hypertension Metabolic encephalopathy Metastatic cancer Osteoporosis Exercise / Class Metabolic Activity III < 4 Walking/Shop/Light housework Past Surgical History Surgical History History of back surgery History of bronchoscopy History of History of cataract surgery History of cholecystectomy History of ERCP History of hip surgery History of surgery of liver History of tracheostomy Past Anesthesia History No Hx of Anesthesia Complications and No Family Hx of Anesthesia Complications History of PONV No Hx of PONV and No Hx of Motion Sickness Social History Smoking Status: Current every day smoker tobacco type: cigarettes Smoking cigarettes per day: 20 Hx Alcohol Use: No (quit in jun) Alcohol type: hard liquor alcohol intake frequency: 0-2 drinks per day Hx Substance Use: No Review of Systems denies fever/cough/ colds/ chest pain/ SOB/ [place] Constitutional: no fever and no chills Respiratory: no cough and no dyspnea denies [place] Cardiovascular: no chest pain and no dyspnea on exertion Physical Exam Vital Signs Last Vital Signs Temp 36.7 C 08/31/19 07:58 Pulse 75 08/31/19 07:58 Resp 14 08/31/19 07:58 BP 121/68 08/31/19 07:58 Pulse Ox 94 08/31/19 07:58 ENMT Mouth: + edentulous; no TMJ abnormality and no dentition abnormality Thyromental Distance: > or= 3.5 Finger Breadths Mallampati Class: II Neck neck extension not limited Respiratory normal respiratory effort; no respiratory distress Auscultation: + wheezes Cardiovascular Rate/Rhythm: regular rate and regular rhythm Neurologic moves all extremities Psychiatric Orientation: alert and oriented x 3 Testing Laboratory Results 08/30/19 06:37 08/30/19 06:37 PT 15.1 Seconds (9.0-12.0) H 08/30/19 06:37 INR 1.5 (0.9-1.1) H 08/30/19 06:37 APTT 30.0 Seconds (21.0-31.0) 08/24/19 17:05 Urine Color Dark Yellow 08/24/19 19:09 Urine Appearance Clear (Clear) 08/24/19 19:09 Urine pH 5.5 (4.5-7.5) 08/24/19 19:09 Ur Specific Doole 1.021 (1.000-1.030) 08/24/19 19:09 Urine Protein Negative (Negative) 08/24/19 19:09 Urine Glucose (UA) Negative (Negative) 08/24/19 19:09 Urine Ketones Trace (Negative) H 08/24/19 19:09 Urine Nitrite Negative (Negative) 08/24/19 19:09 Ur Leukocyte Esterase 1+ (Negative) H 08/24/19 19:09 Urine WBC (Auto) 1-5 /hpf (0-5) 08/24/19 19:09 Urine RBC (Auto) 0-4 /hpf (0-4) 08/24/19 19:09 U Hyaline Cast (Auto) >30 /lpf (0-5) H 08/24/19 19:09 U Epithel Cells (Auto) >30 /lpf (0-5) H 08/24/19 19:09 Urine Bacteria (Auto) Negative (Negative) 08/24/19 19:09 08/26/19 Unknown Gram Stain - Final Abdomen Aerobic and Anaerobic Culture - Preliminary No growth to date. 08/24/19 18:04 Aerobic Blood Culture - Final Blood No growth in Aerobic bottle after 5 days. Anaerobic Blood Culture - Final No growth in Anaerobic bottle after 5 days. 08/24/19 17:15 Aerobic Blood Culture - Final Blood No growth in Aerobic bottle after 5 days. Anaerobic Blood Culture - Final No growth in Anaerobic bottle after 5 days. 08/24/19 19:09 Urine Culture - Final Urine,Clean Catch More than three types of organisms present, all moderate counts mixed probable skin randy. No further identifications or sensitivities to follow.
--- NOTE | 2019-08-31 09:24 | History & Physical Bridge Note ---
Date of Service August 31, 2019 History & Physical Bridge Note I have examined the patient, reviewed the History & Physical and in the interval since the performance of the History & Physical I have noted the following changes of clinical significance: no changes noted pt wants to proceed with port placement all questions answered had port placed both sides of chest in past
[2019-08-31] MEDS ORDERED: ONDANSETRON INJ 2 MG/ML 2 ML VIAL ONE (09:39)
[2019-08-31] MEDS ORDERED: CEFAZOLIN 250 MG/ML 1 GM VIAL ONE (09:40)
[2019-08-31] MEDS ORDERED: CEFAZOLIN 1000MG 1,000 MG/7.5 ML SYR IV ONE (09:44)
--- NOTE | 2019-08-31 10:17 | Progress Notes ---
DATE: 08/31/2019 DIAGNOSES: 1. Metastatic nonsmall cell lung cancer. 2. Candidal urinary tract infection. 3. Intractable pain. 4. Alcohol abuse. 5. Tobacco abuse. 6. Ascites. 7. Hepatic cirrhosis. 8. Chronic hepatitis C. SUBJECTIVE: The patient is a pleasant 59-year-old female with a diagnosis of metastatic nonsmall cell lung cancer, has been hospitalized close to a week now because of intractable pain, abdominal pain specifically and decline in overall status. The patient will have MediPort placed today by Dr. Schumacher in preparation to receive salvage paclitaxel and carboplatin. The patient states her pain has been well controlled. Her appetite seems to be improving. Her overall performance status remain somewhat tenuous moving forward. Nursing reports no overnight difficulties otherwise. OBJECTIVE: GENERAL: A pleasant 59-year-old female. Awake, alert and appropriate, in no acute distress. VITAL SIGNS: Temperature 36.7, pulse 75, respiratory rate 14, blood pressure 121/68. SKIN: Without rash or lesion. HEENT: Oral mucosa without erythema or ulceration. HEART: Regular rate and rhythm. LUNGS: Clear to auscultation bilaterally. ABDOMEN: Distended. No rigidity or guarding per se. EXTREMITIES: No clubbing, cyanosis or edema. NEUROLOGIC: She is grossly intact. LABORATORY DATA: These values are from 08/30/2019. WBC 9160, hemoglobin 9.1, platelet count 166,000. Sodium 137, potassium 4.0, chloride 103, carbon dioxide 28, creatinine 0.88, BUN 13. IMPRESSION: 1. Intractable abdominal pain (improving). 2. Ascites. 3. Metastatic nonsmall cell lung cancer. 4. Candidal urinary tract infection. 5. Alcohol/tobacco abuse. 6. Cirrhosis of liver. 7. Chronic hepatitis C. PLAN: In summary, the patient is a pleasant but unfortunate 59-year-old female patient with multiple comorbid issues. I offered her a salvage chemotherapy reluctantly as I do not think she is going to do well long-term and certainly is not in a curable category. She seems to be mentally bright today and anxious to get out of hospital. Plans are underway for her to receive weekly carboplatin and paclitaxel moving forward. MediPort will be placed by Dr. Schumacher today. Anticipate arranging outpatient followup for the patient and commencing chemotherapy when she is optimally stable. Again, I am very reluctant to offer her salvage therapy as I suspect it will lead to increased morbidity and quite possibly may expedite her . However, the patient and her family want to continue the fight. Agree with current medical management otherwise. I will officially sign off and await the patient's discharge and disposition. JEFF
--- NOTE | 2019-08-31 10:27 | Post Operative Brief Note ---
PG Immediate Post Op with CF Date of Surgery August 31, 2019 Pre & Post Diagnosis Operation Date: 08/31/19 09:00 Pre-Op Diagnosis: Need for Long-Term Intravenous Access Post-Op Diagnosis: Need for Long-Term Intravenous Access I identified the patient and participated in the time-out.: Yes Procedure Operation Date: 08/31/19 09:00 Actual Procedures p Infusaport Insertion Left Internal Jugular(Left) - Dario Schumacher MD Surgeon Dario Schumacher MD Membership Coordinator 0 Estimated Blood Loss 10 Findings Consistent with Post-Op Diagnosis Specimens Specimen Description: none per surgeon
--- NOTE | 2019-08-31 10:57 | Anesthesiology Progress Note ---
Date of Service August 31, 2019 Anesthesia Post Procedure Vital Signs Vital Signs: Temp Pulse Pulse Resp BP Pulse Ox 08/31/19 10:45 75 16 112/74 100 08/31/19 10:35 36.1 C L 76 16 98/65 L 100 08/31/19 07:58 36.7 C 75 14 121/68 94 08/31/19 03:07 76 16 94 08/30/19 23:14 37.0 C 77 16 116/67 93 08/30/19 20:44 97 H 16 93 08/30/19 20:28 36.6 C 84 18 145/76 H 96 08/30/19 15:21 36.5 C 84 16 123/80 98 08/30/19 14:45 37.3 C 82 15 121/74 95 Pain Intensity Back: Pain Intensity: 8 Abdomen: Pain Intensity: 5 Transfer of Care Handoff Completed per policy Notes Mental Status: alert / awake / arousable and participated in evaluation Patient Amnestic to Procedure: Yes Nausea / Vomiting: adequately controlled Pain: adequately controlled Airway Patency, RR, SpO2: stable & adequate BP & HR: stable & adequate Hydration State: stable & adequate Anesthetic Complications: no major complications apparent and Pt Satisfied with anesthetic care
--- NOTE | 2019-08-31 10:59 | XRay Report ---
XR chest 1V portable CLINICAL HISTORY: PACU, port placement COMPARISON STUDY: 08/24/2019 FINDINGS: The cardiac and mediastinal contours remain stable. There is been interval placement of a l eft-sided A-Port catheter. The tip projects over the expected atrial ventricular junction. There is n o pneumothorax. There are low lung volumes with basilar atelectasis. There is blunting of both latera l costophrenic angle suggesting small effusions. There are increased interstitial markings within the left lung. There is a vague pleural-based opacity within the left hemithorax.[ IMPRESSION: No evidence of pneumothorax status post placement of a left-sided A-Port catheter. ACT 112: Negative or not required by law. Electronically signed by: Jermaine Pearl M.D. 08/31/2019 10:58 AM
[2019-08-31] MEDS ORDERED: OXYCODONE/ACETAMINOPHEN 5mg/325mg TAB PO PRN (11:17)
--- NOTE | 2019-08-31 11:26 | Operative Report ---
PG Post Operative Report Pre & Post Diagnosis Operation Date: 08/31/19 09:00 Pre-Op Diagnosis: Need for Long-Term Intravenous Access Post-Op Diagnosis: Need for Long-Term Intravenous Access I identified the patient and participated in the time-out.: Yes Procedure Operation Date: 08/31/19 09:00 Actual Procedures p Infusaport Insertion Left Internal Jugular(Left) - Dario Schumacher MD The patient was brought into the operating room theater in the supine position roll placed underneath her shoulder blades IV sedation was given both neck and c hest areas bilaterally was prepped with Betadine scrub solution and properly draped systemic antibiotics given a timeout was had patient was identified patient was placed slight Trendelenburg position local anesthetic was used to infiltrate between the 2 heads of sternocleidal on the left side small 21-gauge needle was passed percutaneously access the internal jugular vein we used a larger needle to access it easily without any problem guidewire followed and actually coded up in its neck area we had some difficulty fluoroscopically seen that it was curving in his neck therefore removed the needle and the guidewire reaccessed the vein again this time the guidewire without any difficulty when easily but radiographically could see it actually gone up towards the right internal jugular from the left fluoroscopically we pulled the guidewire back and were able to maneuvered down into the superior vena cava right atrial area. This point we enlarged the incision and been a counterincision just below the the previously pocket that was in the left upper chest more local was used we created a pocket for the reservoir then tunneled from this area to the neck incision where the guidewire was with a metal tunneler we passed the catheter through this area that would later be introduced into the internal jugular area we at this point placed the patient more Trendelenburg position placed the i ntroducer pull-away sheet on direct visualization and went without any difficulty at this point we then pulled the inner sheath out with the guidewire and try to pass the catheter directly and we were held up in approximately 10 to 11 cm it seemed to be helping up at the angle of junction between the internal jugular and the left subclavian we at this point then reintroduced the the peel- away sheath and then reintroduced the inner portion of the peel-away sheath positioning and then directly we advanced the introducer further fluoroscopically we conceded the guidewire was going in superior vena cava to the right atrial area. We at this point remove the inner portion of the pull- away sheet and try the past the catheter again and similarly we had some difficulty getting through the angle of the left internal jugular and subclavian this point we cut the catheter about 32 cm and I placed the guidewire into the catheter placed again into the introducer and at this point we were able to dir ectly manually get it down the superior vena cava right atrial area. Fluoroscopically we took the guidewire inside the catheter out and then pulled a pull-away sheath which everything remain in position. From here we then tunneled into the previously made pocket in the left upper chest cut it approximately 20 cm placed a black shoulder henao and hooked it up to the reservoir we then aspirated and flushed quite easily. The reservoir was then placed in the previously made pocket patient was very thin there was very little subcutaneous tissue around the area was therefore we moved the further enough that there was no way today which cannot we then closed the pocket in multiple layers of 3-0 Vicryl avoiding any rotation of the reservoir. We then closed 4-0 Monocryl the neck incision and also the chest wall incision prior to leaving the room we aspirated and flushed percutaneously there was no difficulty we reimaged the system and the catheter was properly positioned estimated loss approximately 10 cc Surgeon Dario Schumacher MD Welding Foreman 0 Estimated Blood Loss 10 Findings Consistent with Post-Op Diagnosis Specimens 0 Description of Procedure merda I attest to the content of the Intraoperative Record and any orders documented therein. Any exceptions are noted below.
[2019-08-31] MEDS: LACTULOSE SYRUP 30 GM/45 ML UDP PO SCH ×2 (13:32→20:04)
[2019-08-31] MEDS: HYDROmorphone INJ 1 MG/ML SYRINGE IV PRN (14:36)
--- NOTE | 2019-08-31 17:21 | Hospitalist Progress Note ---
Date of Service August 31, 2019 Assessment & Plan (1) Immunocompromised: - Generalized malaise/fatigue, fever/chills, abd pain, low back pain at home prior to admission - possibly all related to constitutional symptoms of cancer - Consider SBP vs. UTI vs. underlying malignancy; abdominal pain likely between ascites and constipation - no obvious findings of infection - Recently diagnosed cancer, metastatic, with unknown primary -- has not received any treatment to date. - CT A/P with left pleural nodules c/w metastatic disease, mod to large ascites, suspected peritoneal carcinomatosis, hepatic metastatic disease. - CXR negative for PNA. BC currently NGTD - U/a +yeast, UC with multiple organisms -- does have vaginal candidiasis, received treatment and resolved - will monitor for need of additional Diflucan - Stopped Rocephin 2 g IV daily as this was empiric coverage of SBP - paracen tesis gram stain without organisms and cx NGTD; cell studies not suggestive of SBP - low suspicion of infection (2) Metastatic cancer: - CT A/P with left sided pleural nodules, mod to large ascites, suspected peritoneal carcinomatosis, hepatic metastatic disease. - S/p FNA of lung nodule -- did not indicate pt. had primary HCC, possibly related to squamous cell carcinoma. - Peritoneal fluid from 06/22 was negative for malignancy. - Follows with Dr. Delacruz from oncology; consulted onc as inpatient - Dr. Calderón evaluated patient today and will F/U as outpatient - S/P Port placement on 08/30 - Palliative consulted to discuss goals of care in setting of metastatic disease - discussed with team today (3) Candidal UTI (urinary tract infection): - U/a +yeast, UC with multiple organisms - unlikely repeat UA will be helpful given on Abx currently - Likely has vaginal candidiasis with contamination of UC. - Received Fluconazole 200 mg x 2 doses - symptoms nearly resolved (4) Chronic pain: - Acute on chronic pain -- related to malignancy vs. ascites vs constipation - She is actually on Fentanyl 100 mcg Q3D and Oxycodone 10 mg - reports pain actually is pretty controlled on that regimen but when abdomen is bloated its not always working - Dilaudid PRN - discussed trying to transition back to an oral regimen to confirm effectiveness; increased Fentanyl to 50 mcg as she has been on only the 25 mcg in-house and then can be back on home regimen on D/C - Will implement Senna given KUB findings of stool burden; Continue Miralax; increased lactulose (5) Alcohol abuse: - ETOH level was negative on admission. - Encourage discontinuation of ETOH at discharge. - AWSS protocol for withdrawal; no active signs of withdrawal - Received banana bag on admission. (6) Tobacco abuse: - Nicotine patch ordered. - Encourage tobacco cessation. (7) Ascites: - Mod to large ascites noted on CT A/P. - S/P paracentesis on 08/25 to rule out SBP and also for abd discomfort/cytology -- Removed 5 L - given Albumin post-paracentesis - Continue Lasix 20 mg BID, Spironolactone 50 mg daily as prescribed. - U/S confirms nearly the same degree of ascites as previous - will look at possible paracentesis on Saturday (8) Cirrhosis of liver with ascites: - In setting of ETOH abuse. - Continue Propanolol 20 mg qhs, Rifaximin 550 mg BID, Aldactone 50 mg daily. (9) Chronic hepatitis C: - Continue home meds. (10) COPD (chronic obstructive pulmonary disease): - No evidence of acute exacerbation; appropriate oxygenation on RA - Duonebs PRN; Incruse Ellipta qAM, Breo Ellipta daily. (11) Depression: - Not currently on medications. - Reports recent loss of one of her daughters last month (12) JENNIFER (generalized anxiety disorder): - Ativan prn. (13) Hepatic encephalopathy: - H/o; continue Lactulose TID - titrate for 2-3 BMs daily - Ammonia level was WNL on admission; mentation baseline (14) Esophageal varices: - Continue Propanolol as prescribed. - H/o GI bleed -- continue PPI BID and Carafate ac/hs. (15) Anemia: - Possibly related to slow bleed in setting of varices; some of chronic disease - Hgb baseline ~9-10. Not currently requiring transfusion support. (16) Severe protein-calorie malnutrition: - Alb level 1.5 in setting of metastatic disease. - Encourage diet with supplements; boost/ensure (17) DVT prophylaxis: - SCDs; hold pharmacologic ppx. Dispo: So far infectious findings seem unlikely; S/P port placement on 08/30 -- She states she did want to at least try chemotherapy but does admit to fear of ability to tolerate but currently does want to try treatment Continue to optimize pain/bowel regimen; likely could benefit from repeat paracentesis and tentatively plan this for tomorrow - pending removal will implement Albumin and possible D/C home tomorrow or Saturday - Saw Dr. Hickey in-hospital on previous admission and would like to continue with GI care through them and can arrange - likely needs intermittent therapeutic paracentesis Admission and Anticipated Discharge Date Admission Date: August 24, 2019 Supervising Physician Co-Signing Physician Notes Attending Attestation - Chart reviewed in detail, care plan d/w JUNE Hernadez. I agree w/ the bhakta components of her documentation. 59yo female with stage 4 cancer, hepC and alcoholic cirrhosis, failure to thrive - well known to me from prior hospitalization in June 2019 - with ongoing issues with ascites. Had presented about 1 week ago with subjective fever and failure to thrive. Infectious w/u negative. Plan for repeat paracentesis tomorrow mainly for therapeutic purposes but recheck cell counts again. Noel Jansen MD Subjective Reports feeling well today. A little groggy from port placement but otherwise well. Vaginal yeast infection resolved at this time. Moving her bowels but did have some increased pain this afternoon but states it seems to improve with moving bowels. Planning on paracentesis tomorrow. Planning to take as much fluid as safely possible for therapeutic reasons. Updated daughter at bedside. Verbalizes no other complaints. Review of Systems Constitutional: no fever and no chills Respiratory: no cough and no dyspnea Cardiovascular: no chest pain, no palpitations and no lightheadedness Gastrointestinal: + abdominal pain (intermittent - largely controlled); no nausea, no vomiting, no constipation and no diarrhea/loose stools Genitourinary: no dysuria, no vaginal discharge and no vaginal itching Integumentary: no rash Physical Exam Constitutional: no acute distress Eyes: + anicteric sclerae ENMT: Ears: no hearing impairment Neck: trachea midline Respiratory: normal respiratory effort Auscultation: lungs clear to auscultation bilaterally and + diminished lung sounds Cardiovascular: Rate/Rhythm: regular rate and regular rhythm Heart Sounds: no murmur Vessels: no JVD Extremities: + edema (1+ pitting b/l lower extremities) Chest (Breasts): Chest: + vascular access device or port (dressing with dried blood at top - no active bleeding) Gastrointestinal (Abdomen): Inspection/Auscultation: + abdomen distended (softer in upper abdomen) and normal bowel sounds Percussion/Palpation: abdomen nontender Musculoskeletal: Head/Neck/Chest: normocephalic and head atraumatic Extremities: no cyanosis and no clubbing Skin: no rashes, warm and dry Neurologic: moves all extremities Psychiatric: A+Ox3, euthymic affect (but drowsy) Results & Data ([facility]) Vital Signs (Past 12 Hours) Vital Signs Temp Pulse Pulse Resp BP Pulse Ox 08/31/19 15:33 83 18 95 08/31/19 15:15 36.9 C 79 16 121/73 95 08/31/19 14:46 36.4 C L 80 20 110/69 98 08/31/19 13:19 36.4 C L 78 15 119/79 95 08/31/19 12:14 36.1 C L 78 16 119/72 98 08/31/19 11:44 36.2 C L 78 14 128/74 95 08/31/19 11:18 36.4 C L 78 16 119/71 95 08/31/19 10:59 36.4 C L 78 16 121/70 97 08/31/19 10:45 75 16 112/74 100 08/31/19 10:35 36.1 C L 76 16 98/65 L 100 08/31/19 07:58 36.7 C 75 14 121/68 94 PG Care Time/CCT Total # of Minutes Spent Total Time Spent with Patient: Total time spent is greater than 50% in coordination of care (as documented) at patient's floor/unit and/or counseling patient: Coding Level of Care Code 83377 Subseq Hosp Care Lvl 2 Diagnoses Immunocompromised D89.9 Metastatic cancer C79.9 Candidal UTI (urinary tract infection) B37.49 Chronic pain G89.4 Chronic pain type: chronic pain syndrome Alcohol abuse F10.10 Tobacco abuse Z72.0 Ascites R18.8 Ascites type: other type Cirrhosis of liver with ascites K70.31 Hepatic cirrhosis type: alcoholic cirrhosis Chronic hepatitis C B18.2 Hepatic coma status: with hepatic coma COPD (chronic obstructive pulmonary disease) J44.9 Depression F32.89 Depression Type: other depression JENNIFER (generalized anxiety disorder) F41.1 Hepatic encephalopathy K72.90 Esophageal varices I85.00 Anemia D64.9 Anemia type: unspecified type Severe protein-calorie malnutrition E43 DVT prophylaxis Z29.9 (1) Chronic pain Chronic pain type: chronic pain syndrome Qualified Code(s): G89.4 - Chronic pain syndrome (2) Anemia Anemia type: unspecified type Qualified Code(s): D64.9 - Anemia, unspecified (3) Ascites Ascites type: other type Qualified Code(s): R18.8 - Other ascites (4) Depression Depression Type: other depression Qualified Code(s): F32.89 - Other specified depressive episodes (5) Chronic hepatitis C Hepatic coma status: with hepatic coma Qualified Code(s): B18.2 - Chronic viral hepatitis C (6) Cirrhosis of liver with ascites Hepatic cirrhosis type: alcoholic cirrhosis Qualified Code(s): K70.31 - Alcoholic cirrhosis of liver with ascites
[2019-08-31] MEDS: PROPRANOLOL HCL 20 MG TAB PO SCH (20:05)
[2019-09-01] MEDS: ALBUT/IPRATROP 3MG/0.5MG NEB 3 ML VIAL NEB PRN (05:16)
[2019-09-01] MEDS: CHECK FENTANYL PATCH PLACEMENT SCH ×2 (07:37→15:29)
[2019-09-01] MEDS: NICOTINE 14 MG/24 HR PATCH TD SCH (07:37)
[2019-09-01] MEDS: SENNA 8.6 MG TAB PO SCH (07:39)
[2019-09-01] MEDS: FUROSEMIDE 20 MG TAB PO SCH ×2 (07:39→17:31)
[2019-09-01] MEDS: SPIRONOLACTONE 25 MG TAB PO SCH (07:39)
[2019-09-01] MEDS: RIFAXIMIN 550 MG TABLET PO SCH (07:39)
[2019-09-01] MEDS: METOCLOPRAMIDE HCL 5 MG TABLET PO SCH ×3 (07:41→17:31)
[2019-09-01] MEDS: PANTOprazole 40 MG TAB PO SCH (07:41)
[2019-09-01] MEDS: SUCRALFATE 1 GM/10 ML UDC PO SCH ×3 (07:42→15:28)
[2019-09-01] MEDS: LACTULOSE SYRUP 30 GM/45 ML UDP PO SCH ×2 (07:42→13:22)
[2019-09-01] MEDS: FLUTICASONE/VILANTEROL 200/25MCG 14 PUFFS/INHALER INH SCH (07:42)
[2019-09-01] MEDS: UMECLIDINIUM BROMIDE 62.5MCG/BLISTER 7 PUFFS/INHALER INH SCH (07:43)
[2019-09-01] MEDS: POLYETHYLENE (MIRALAX) 17 GM PACK PO SCH (07:44)
--- NOTE | 2019-09-01 08:07 | Anesthesiology Progress Note ---
Date of Service September 01, 2019 Anesthesia Post Procedure Vital Signs Vital Signs: Temp Pulse Pulse Resp BP BP Pulse Ox 09/01/19 07:16 36.4 C L 85 20 133/81 93 09/01/19 05:16 71 18 94 09/01/19 03:30 36.9 C 85 18 116/68 96 08/31/19 23:05 36.5 C 85 18 153/79 H 96 08/31/19 20:38 81 18 92 08/31/19 20:02 37.1 C 85 12 122/72 96 08/31/19 19:23 36.8 C 82 16 115/71 94 08/31/19 15:33 83 18 95 08/31/19 15:15 36.9 C 79 16 121/73 95 08/31/19 14:46 36.4 C L 80 20 110/69 98 08/31/19 13:19 36.4 C L 78 15 119/79 95 08/31/19 12:14 36.1 C L 78 16 119/72 98 08/31/19 11:44 36.2 C L 78 14 128/74 95 08/31/19 11:18 36.4 C L 78 16 119/71 95 08/31/19 10:59 36.4 C L 78 16 121/70 97 08/31/19 10:45 75 16 112/74 100 08/31/19 10:35 36.1 C L 76 16 98/65 L 100 Pain Intensity Back: Pain Intensity: 8 Abdomen: Pain Intensity: 6 Notes Mental Status: alert / awake / arousable and participated in evaluation Nausea / Vomiting: adequately controlled Pain: adequately controlled Airway Patency, RR, SpO2: stable & adequate BP & HR: stable & adequate Hydration State: stable & adequate
[2019-09-01] MEDS: HYDROmorphone INJ 1 MG/ML SYRINGE IV PRN (12:22)
--- NOTE | 2019-09-01 12:59 | Ultrasound Report ---
PARACENTESIS UNDER ULTRASOUND GUIDANCE CLINICAL HISTORY: Cirrhosis; Metastatic Cancer COMPARISON STUDY: 08/26/2019 FINDINGS: The risks, benefits, and alternatives to the procedure were discussed with the patient. Ludwin gupta informed consent was obtained. Following real-time ultrasound localization, the skin was prepped and draped. Following local anesthesia with Xylocaine, the sheath paracentesis needle was inserted a nd approximately 5.1 liters of straw-colored fluid was removed by vacuum suction. A left lower quadra nt approach was utilized. The patient tolerated the procedure well and left the department in satisfactory condition. IMPRESSION: Successful ultrasound-guided paracentesis with removal of approximately 5.1 liters of asc itic fluid. ACT 112: Negative or not required by law. Electronically signed by: Jermaine Pearl M.D. 09/01/2019 12:58 PM
[2019-09-01] MEDS: ALBUMIN 25% 50 ML IV SCH ×3 (13:22→15:15)
--- NOTE | 2019-09-01 13:24 | Surgery Progress Note ---
Date of Service September 01, 2019 Assessment & Plan (1) Metastatic carcinoma: POD#1 mediport placement currently having no issues surrounding port placement pt may remove dressing to shower does not need to follow up in surgery clinic unless issues with her wound port may be used for chemo when needed we will sign off, please call with questions/concerns Subjective Patient resting in bed, says she just got back from a paracentesis. Denies any issues with her port site. Physical Exam Physical Exam: somewhat drowsy appearing Constitutional: no acute distress Neck: surgical dressing c/d/i Results & Data Vital Signs (Past 12 Hours) Vital Signs Temp Pulse Resp BP Pulse Ox 09/01/19 07:16 36.4 C L 85 20 133/81 93 09/01/19 05:16 71 18 94 09/01/19 03:30 36.9 C 85 18 116/68 96 PG Care Time/CCT Total # of Minutes Spent Total Time Spent with Patient: Total time spent is greater than 50% in coordination of care (as documented) at patient's floor/unit and/or counseling patient: Coding Level of Care Code None Diagnoses Metastatic carcinoma C79.9
--- NOTE | 2019-09-01 17:30 | Discharge Summary ---
Date of Service September 01, 2019 Admission HPI Per Admitting Provider *Patient is sleeping, history largely obtained from patient's daughter at bedside* -From review of records from previous admissions, patient has previously stated her POA is both her and her daughter -Patient was previously full code and through discussion with her daughter this evening will remain that way. Patient is a 59-year-old female with a past medical history of alcohol abuse, tobacco abuse, COPD, generalized anxiety disorder, alcohol abuse, depression, chronic pain, active cancer of the liver and lungs question whether primary was hepatocellular or pulmonary, chronic anemia, history of esophageal varices, cirrhosis, history of hyperglycemia without evidence of underlying diabetes, recently discharged for a GI bleed secondary to esophageal varices in the setting of cirrhosis, who presents today for evaluation of malleus, malaise, abdominal pain, and subjective intermittent fever. Per report the patient has not been feeling well since her recent discharge for GI bleed. She was not acting herself, demonstrating malleus, sleeping all the time, confused, with worsening abdominal ascites. Approximately 2 weeks ago most of the symptoms resolved spontaneously without any clear explanation. They subsequently returned approximately a week later and have progressed. Family reports the patient has been complaining of low back pain, leg pain, increased abdominal fullness and tenderness, with ascites. The patient is becoming increasingly weak and unable to walk long distances in addition to being short of breath. The patient did report a history of suprapubic pain a day or 2 ago, and per the family the patient was lying in bed over the weekend writhing in pain. Additionally the patient has developed subjective fevers and chills approximately 2 days ago with associated cough which is chronic in nature. Patient endorses shortness of breath, denies nausea, vomiting, diarrhea, she has baseline incontinent, vision changes, hearing changes, motor changes, sensory changes, bleeding disorders, or other signs or symptoms of acute disseminated illness. Upon presentation to the emergency department she did report left calf pain, describing it as a charley horse to her daughters. In the emergency department routine labs were obtained and she was given DuoNebs, cefepime, magnesium was repleted, potassium was repleted she was given 2 L of fluid and an EKG was obtained demonstrating normal sinus rhythm with a prolonged QT of 519, chest x-ray was obtained which demonstrated no significant changes compared to prior study. Labs were pertinent for a white count of 7.45 hemoglobin of 9.6, platelet of 186, INR of 1.5, potassium of 2.9, bicarb of 34, glucose of 107, lactate of 2.1 with a negative procalcitonin, magnesium of 1.6 AST of 48 urine with no signs of obvious infection however budding yeast present negative for influenza A and negative for influenza B. Given the patient's immunocompromised state, and complex past medical history the hospital service was consulted for admission for evaluation and management of her back pain, abdominal pain and fever. Through conversation with the patient's family it seems as if goals of care have not been clearly addressed with the patient and her family, there is no POLST form, there is no living will, power of district attorney has been identified, CODE STATUS is dynamic, and the patient and her family members are unclear of the benefits or risks of chemotherapy. Therefore we will request palliative care's assistance in clarifying some of these complex end-of-life decisions while this patient is hospitalized. Principal Diagnosis Ascites; Contipation; Cancer Pain Discharge Exam Constitutional no acute distress Eyes + anicteric sclerae ENMT Ears: no hearing impairment Neck trachea midline Respiratory normal respiratory effort, lungs clear to auscultation Auscultation: + diminished lung sounds Cardiovascular Rate/Rhythm: regular rate and regular rhythm Heart Sounds: no murmur Vessels: no JVD Extremities: + edema (1+ pitting b/l lower extremities) Chest (Breasts) Chest: + vascular access device or port (dressing with dried blood at top - no active bleeding) Gastrointestinal (Abdomen) Inspection/Auscultation: + abdomen distended (softer and palpable S/P paracente sis) and normal bowel sounds Percussion/Palpation: abdomen nontender Musculoskeletal Head/Neck/Chest: normocephalic and head atraumatic Extremities: no cyanosis and no clubbing Skin no rashes, warm and dry Neurologic moves all extremities Psychiatric A+Ox3, euthymic affect Discharge Data Allergies Allergy/AdvReac Type Severity Reaction Status Date / Time clarithromycin Allergy Unknown rash, Verified 08/24/19 17:43 nausea Macrolide Antibiotics Allergy Unknown Verified 08/24/19 17:43 Macrolide Immunosuppressant Allergy Unknown Verified 08/24/19 17:43 Sulfa (Sulfonamide Allergy Unknown rash Verified 08/24/19 17:43 Antibiotics) trimethoprim Allergy Unknown Rash Verified 08/24/19 17:43 amoxicillin AdvReac Intermediate nausea, Verified 08/24/19 17:43 diarrhea clavulanic acid AdvReac Intermediate nausea, Verified 08/24/19 17:43 diarrhea cefuroxime AdvReac Unknown nausea, Verified 08/24/19 17:43 diarrhea doxycycline AdvReac Unknown nausea, Verified 08/24/19 17:43 diarrhea morphine AdvReac Unknown nausea, Verified 08/24/19 17:43 vomiting Consultations 08/24/19 19:23 ED Decision to Admit Stat 08/24/19 23:35 Consult Case Management - Discharge Planning Routine 08/24/19 23:50 Consult Oncology Routine 08/24/19 23:51 Consult Palliative Care Routine 08/28/19 08:25 Consult General Surgery Routine Procedures Performed Operation Date: 08/31/19 09:00 Actual Procedures p Infusaport Insertion Left Internal Jugular(Left) - Dario Schumacher MD Ordered Studies 08/24/19 22:04 CT abd pelvis oral and IV con Urgent US venous doppler LE BI Stat 08/26/19 08:00 US paracentesis abd w/image Routine 08/29/19 12:08 US abdomen ltd ascites Routine 08/31/19 08:45 FL fluoro (infusaport) to 1 hr Routine 09/01/19 11:00 US paracentesis abd w/image Routine Hospital Course (1) Immunocompromised: - Generalized malaise/fatigue, fever/chills, abd pain, low back pain at home prior to admission - possibly all related to constitutional symptoms of cancer - Considered SBP vs. UTI vs. underlying malignancy; abdominal pain likely between ascites and constipation - no obvious findings of infection - Recently diagnosed cancer, metastatic, with unknown primary -- has not received any treatment to date. - CT A/P with left pleural nodules c/w metastatic disease, mod to large ascites, suspected peritoneal carcinomatosis, hepatic metastatic disease. - CXR negative for PNA. BC currently NGTD - U/a +yeast, UC with multiple organisms -- does have vaginal candidiasis, received treatment and resolved - Stopped Rocephin 2 g IV daily as this was empiric coverage of SBP - paracentesis gram stain without organisms and cx NGTD; cell studies not suggestive of SBP - low suspicion of infection (2) Metastatic cancer: - CT A/P with left sided pleural nodules, mod to large ascites, suspected peritoneal carcinomatosis, hepatic metastatic disease. - S/p FNA of lung nodule -- did not indicate pt. had primary HCC, possibly related to squamous cell carcinoma. - Peritoneal fluid from 06/22 was negative for malignancy. - Follows with Dr. Delacruz from oncology; consulted onc as inpatient - Dr. Calderón will F/U as outpatient - S/P Port placement on 08/30 - Palliative consulted to discuss goals of care in setting of metastatic disease - planning to try chemotherapy but in intolerant is looking at hospice services (3) Candidal UTI (urinary tract infection): - U/a +yeast, UC with multiple organisms - unlikely repeat UA will be helpful given on Abx currently - Likely has vaginal candidiasis with contamination of UC. - Received Fluconazole 200 mg x 2 doses - symptoms resolved (4) Chronic pain: - Acute on chronic pain -- related to malignancy vs. ascites vs constip ation - She is actually on Fentanyl 100 mcg Q3D and Oxycodone 10 mg - reports pain actually is pretty controlled on that regimen but when abdomen is bloated its not always working - Will continue home regimen - renewed Rx - Will give Rx for Senna and increase Lactulose (5) Alcohol abuse: - ETOH level was negative on admission. - Encourage discontinuation of ETOH at discharge. - AWSS protocol for withdrawal; no active signs of withdrawal - Received banana bag on admission. (6) Tobacco abuse: - Nicotine patch ordered. - Encourage tobacco cessation. (7) Ascites: - Mod to large ascites noted on CT A/P. - S/P paracentesis on 08/25 to rule out SBP and also for abd discomfort/cytology -- Removed 5 L - given Albumin post-paracentesis -- Additional paracentesis on 08/31 for 5 L and received albumin afterwards - Continue Lasix 20 mg BID, Spironolactone 50 mg daily as prescribed. - Uncertain if ascites is due to cirrhosis vs carcinomatosis (8) Cirrhosis of liver with ascites: - In setting of ETOH abuse. - Continue Propanolol 20 mg qhs, Rifaximin 550 mg BID, Aldactone 50 mg daily. - Discussed increasing lactulose - however advised this is meant to be titrated to produce 2-3 BMs a day (9) Chronic hepatitis C: - Continue home meds. (10) COPD (chronic obstructive pulmonary disease): - No evidence of acute exacerbation; appropriate oxygenation on RA - Continue home inhalers (11) Depression: - Not currently on medications. - Reports recent loss of one of her daughters in July (12) JENNIFER (generalized anxiety disorder): - Ativan prn. (13) Hepatic encephalopathy: - H/o; continue Lactulose TID - titrate for 2-3 BMs daily - Ammonia level was WNL on admission and on D/C; mentation baseline (14) Esophageal varices: - Continue Propanolol as prescribed. - H/o GI bleed -- continue PPI BID and Carafate ac/hs. (15) Anemia: - Possibly related to slow bleed in setting of varices; some of chronic disease - Hgb baseline ~9-10. Not currently requiring transfusion support. (16) Severe protein-calorie malnutrition: - Alb level 1.5 in setting of metastatic disease. - Encourage diet with supplements; boost/ensure (17) DVT prophylaxis: - SCDs; hold pharmacologic ppx. Dispo: So far infectious findings seem unlikely; S/P port placement on 08/30 -- She states she did want to at least try chemotherapy but does admit to fear of ability to tolerate but currently does want to try treatment - Saw Dr. Hickey in-hospital on previous admission and would like to continue with GI care through them and can arrange - likely needs intermittent therapeutic paracentesis - Will F/U with Dr. Calderón Total Time Total Time Spent Total Time Spent (In Minutes): Greater than 30 minutes Discharge Plan Discharge Items Patient Disposition: Home - Self-Care Reason For Visit: MALAISE, SUBJECTIVE FEVER, PAIN Discharge Diagnosis: Constipation; Ascites Activity: Resume your previous activity Lifting: No more than 25 pounds Bathing Comment: may remove outside dressing to shower Non-emergency contact: Primary Care Provider and Oncologist Call non-emergency contact if: you have any medication questions, your symptoms worsen and you have a fever Follow-up/Referrals: Dario Schumacher MD [Surgeon] - (You do not need to follow up in surgery clinic unless you have issues with your wound) Jeff Delacruz DO [Physician] - 09/04/19 9:50 am (Please, follow up with Dr. Delacruz on SaturdaySeptember 03 at 9:50 am. *If you need to change this appointment, call the office at [phone].) Brenton Hickey [Physician] - (3-4 weeks) Julain Padilla DO [Primary Care Provider] - Diet: Regular Addtl Attending Provider Instructions: You have small white bandages in place called steri-strips over your port incision. You may shower with these on, they will fall off on their own within 7-10 days. Abdominal Pain: - Your presentation to the hospital may be caused by multiple things. Unfortunately cancer can cause fatigue/pain/fevers. Thankfully we do not see a source of infection but treated you with antibiotics to just make sure. - You also had treatment for a yeast infection. This should be taken care of and if needed in the future your doctor can write for Diflucan to make sure it is taken care of. - We tested the fluid that was taken from your abdomen and thankfully the cell counts and the cultures did not reveal infection. Your chest xray and blood cultures did not show infection - I think a lot of the pain is from constipation and the fluid in your belly. Th ankfully with a bowel regimen this helped move the bowels more and also you had your abdomen drained twice this admission for about 10 L total. -- You may need future paracentesis to help keep this fluid under control. It varies on how frequently you may need this but Dr. Delacruz or once you get fully established with GI can order this for you. - In regards to your lactulose - it might be best to increase this to help promote good bowel movements. This medication is actually meant to be titrated to allows 2-3 bowel movements a day. If you have Lactulose at home you can continue this and can increase the amount you take to have more bowel movements. I will also send a prescription for a slightly higher amount. - Will send a prescription for Sennakot. This can be used daily or if the bowels are regular can change to as needed Cancer: - You will need to Follow up with Dr. Calderón to start your treatments. Your port is in place and can be used. - You have a follow-up set on Saturday that will be listed in your discharge. Please call their office to see if you need to have anything specifically done prior to the appointment. I dont know if they will start the treatment then but it may be best to still see him to make sure your health is at a good place to start chemotherapy. Ascites: - As mentioned above you will also need to take your diuretics Lasix and Spironolactone to help keep fluid balanced. Pending Studies at Discharge: No Stand-Alone Forms: My [facility], Opioid Pain Management, Smoking Cessation Medications and DC Order Prescriptions: New sennosides [Senokot] 8.6 mg Tablet 17.2 mg PO QAM 30 Days Qty: 60 RF: 0 lactulose 20 gram/30 mL Solution 45 ml PO TID 30 Days Qty: 4050 RF: 0 oxycodone 10 mg tablet 10 mg PO Q4H PRN (Reason: pain) 30 Days Qty: 180 RF: 0 fentanyl 100 mcg/hr patch 72 hour 1 patch TD Q72H 30 Days Qty: 10 RF: 0 Continued furosemide 40 mg tablet 20 mg PO BID RF: 0 metoclopramide HCl 10 mg tablet,disintegrating 5 mg PO QID RF: 0 rifaximin 550 mg tablet 550 mg PO BID RF: 0 spironolactone 50 mg tablet 50 mg PO DAILY RF: 0 methylphenidate HCl 60 mg capsule, ER biphasic 30-70 60 mg PO BID RF: 0 potassium gluconate 500 mg (83 mg) Tablet 500 mg PO DAILY RF: 0 propranolol 10 mg Tablet 20 mg PO HS RF: 0 albuterol sulfate [Ventolin HFA] 90 mcg/actuation Hfa Aerosol Inhaler 2 puff INHALATION Q4H PRN (Reason: Wheezing) RF: 0 budesonide-formoterol [Symbicort] 160-4.5 mcg/actuation Hfa Aerosol Inhaler 2 puff INHALATION BID RF: 0 pantoprazole 40 mg Tablet,Delayed Release (Dr/Ec) 40 mg PO BID Qty: 60 RF: 0 sucralfate 100 mg/mL Suspension 1 gm PO ACHS Qty: 420 RF: 0 Changed lactulose 20 gram/30 mL Solution 30 gm PO TID 30 Days Qty: 4050 RF: 0 lorazepam 0.5 mg Tablet 0.5 mg PO TID PRN (Reason: Anxiety) 30 Days Qty: 90 RF: 0 Discharge Orders: Discharge Order (Routine); Ordered 09/01/19 Ordered By: Jennifer Miller/Other Patient Handouts: Quit Smoking Plan, Chronic Pain Admission Data Admit Date/Time: 08/24/19 22:45 Attending Provider: Noel Jansen Admit Provider: Santhosh Chatman I. Primary Care Provider: Julian Padilla Other Providers: [facility],Home Healthcare ; Will Delcid ; Jeff Delacruz V. ; Stepan Treviño ; Viola Lynn ; Dario Schumacher Other Interventions: Discharge Summary Assessment (RN) Last Done: 09/01/19 17:36 DC Date/Time DO NOT enter until pt leaves facility: 09/01/19 18:28 Supervising Physician Co-Signing Physician Notes Attending Attestation and Discharge Note: Pt seen/examined, chart reviewed in detail, care plan d/w JUNE Hernadez. I agree w/ the bhakta components of her discharge documentation. 59yo female with stage 4 cancer (uncertain primary), hepC and alcoholic cirrhosis, failure to thrive - well known to me from prior hospitalization in June 2019 - admitted with concern of infectious process. Underwent paracentesis early on in stay - ascites analysis not c/w SBP at that time. No other obvious source of infection. Had protracted stay -- required additional paracentesis on day of discharge; underwent port placement for future chemotherapy; received palliative care consultation; electrolytes were replaced; etc. The patient continues to have severe failure to thrive and protein calorie malnutrition in the face of progressive, advanced stage 4 cancer. Given that imaging suggests the presence of carcinomatosis her ascites will cont to be quite problematic; diuretics may not be helpful if fluid is primarily exudative from cancer. Before discharge I had a discussion with her about the potential for a palliative pleurX catheter placement in the abdomen for ascites management -- especially if she ultimately requires once-twice weekly paracentesis. Advised her to f/u with GI and heme/onc for this. Discharge exam: gen - cacechtic, sleepy but arouses easily and answers all questions/recalls past encounters mouth - MMM, no thrush heart - RRR, s1 s2 lungs - modestly decreased BS bases abd - distended w/ ascites and air; tympanic to percussion; dressing in place left abd wall; NT ext - 2-3+ edema b/l neuro - no asterixis musculo - muscle wasting of arms/legs psych - sleepy, but a/o x 3 Noel Jansen MD Coding Level of Care Code D/C Day Management >30 mins Diagnoses Immunocompromised D89.9 Metastatic cancer C79.9 Candidal UTI (urinary tract infection) B37.49 Chronic pain G89.4 Chronic pain type: chronic pain syndrome Alcohol abuse F10.10 Tobacco abuse Z72.0 Ascites R18.8 Ascites type: other type Cirrhosis of liver with ascites K70.31 Hepatic cirrhosis type: alcoholic cirrhosis Chronic hepatitis C B18.2 Hepatic coma status: with hepatic coma COPD (chronic obstructive pulmonary disease) J44.9 Depression F32.89 Depression Type: other depression JENNIFER (generalized anxiety disorder) F41.1 Hepatic encephalopathy K72.90 Esophageal varices I85.00 Anemia D64.9 Anemia type: unspecified type Severe protein-calorie malnutrition E43 DVT prophylaxis Z29.9
== END 2019-09-01 18:28 | disposition home or self-care (01) | DRG 814 ==
LOC: ED 15:40 → 3W 22:45 → SUATTDRO 22:45 → 3W 23:16